=== PATIENT | female | born 1960 | race Caucasian/White ===

== ENCOUNTER 2020-02-26 08:20 | Outpatient (CLI) | payer MEDICARE, MEDICAID, SELFPAY ==
--- NOTE | 2020-02-26 15:00 | NEURO_ITS ---
Patient Number: [id number] Impression: # Complains of numbness of hands. # Mild Carpal Tunnel Syndrome bilaterally. # No ulnar neuropathy. # Normal needle/EMG exam. # Clinical correlation recommended. Nerve Conduction Studies Anti Sensory Summary Table Stim Site NR Peak (ms) P-T Amp (?V) Site1 Site2 Delta-P (ms) Dist (cm) Manuel (m/s) Left Median Anti Sensory (2-3nd Digit) Wrist 3.7 157.2 Wrist 2-3nd Digit 3.7 14.0 38 Wrist 3.8 36.2 Wrist 2-3nd Digit 3.7 14.0 38 Right Median Anti Sensory (2-3nd Digit) Wrist 3.4 71.2 Wrist 2-3nd Digit 3.4 14.0 41 Wrist 3.3 49.9 Wrist 2-3nd Digit 3.4 14.0 41 Left Radial Anti Sensory (Base 1st Digit) Wrist 2.4 37.8 Wrist Base 1st Digit 2.4 0.0 Right Radial Anti Sensory (Base 1st Digit) Wrist 2.7 10.1 Wrist Base 1st Digit 2.7 0.0 Left Ulnar Anti Sensory (5th Digit) Wrist 2.7 128.6 Wrist 5th Digit 2.7 14.0 52 Right Ulnar Anti Sensory (5th Digit) Wrist 2.9 66.9 Wrist 5th Digit 2.9 14.0 48 Motor Summary Table Stim Site NR Onset (ms) O-P Amp (mV) Site1 Site2 Delta-0 (ms) Dist (cm) Manuel (m/s) Left Median Motor (Abd Poll Brev) Wrist 4.8 1.4 Elbow Wrist 4.2 25.0 60 Elbow 9.0 1.2 Right Median Motor (Abd Poll Brev) Wrist 3.1 3.4 Elbow Wrist 4.5 25.0 56 Elbow 7.6 2.7 Left Ulnar Motor (Abd Dig Minimi) Wrist 2.7 8.0 A Elbow Wrist 4.4 29.0 66 A Elbow 7.1 7.6 Right Ulnar Motor (Abd Dig Minimi) Wrist 2.9 6.0 A Elbow Wrist 4.8 26.0 54 A Elbow 7.7 5.5 F Wave Studies NR F-Lat (ms) L-R F-Lat (ms) Left Median (Mrkrs) (Abd Poll Brev) 25.96 1.64 Right Median (Mrkrs) (Abd Poll Brev) 27.60 1.64 Left Ulnar (Mrkrs) (Abd Dig Min) 26.29 0.02 Right Ulnar (Mrkrs) (Abd Dig Min) 26.31 0.02 EMG Side Muscle Nerve Root Ins Act Fibs Amp Dur Recrt Comment Right 1stDorInt Ulnar C8-T1 Nml Nml Nml Nml Nml Right Ext Indicis Radial (Post Int) C7-8 Nml Nml Nml Nml Nml Right Ext Digitorum Radial (Post Int) C7-8 Nml Nml Nml Nml Nml Right BrachioRad Radial C5-6 Nml Nml Nml Nml Nml Right PronatorTeres Median C6-7 Nml Nml Nml Nml Nml Right Abd Poll Brev Median C8-T1 Nml Nml Nml Nml Nml Left 1stDorInt Ulnar C8-T1 Nml Nml Nml Nml Nml Left Ext Indicis Radial (Post Int) C7-8 Nml Nml Nml Nml Nml Left Ext Digitorum Radial (Post Int) C7-8 Nml Nml Nml Nml Nml Left BrachioRad Radial C5-6 Nml Nml Nml Nml Nml Left PronatorTeres Median C6-7 Nml Nml Nml Nml Nml Left Abd Poll Brev Median C8-T1 Nml Nml Nml Nml Nml Left Anconeus Radial C7-8 Nml Nml Nml Nml Nml Right Anconeus Radial C7-8 Nml Nml Nml Nml Nml Right Brachialis Musculocut C5-6 Nml Nml Nml Nml Nml Left Brachialis Musculocut C5-6 Nml Nml Nml Nml Nml Right ABD Dig Min Ulnar C8-T1 Nml Nml Nml Nml Nml Left ABD Dig Min Ulnar C8-T1 Nml Nml Nml Nml Nml MTDD
== END 2020-02-26 08:21 | disposition home or self-care (01) ==
PROVIDERS: PCP Physician Assistant; Visit Provider Physician Assistant
DX: M67.833 Other specified disorders of tendon, right wrist (principal); G56.03 Carpal tunnel syndrome, bilateral upper limbs
CPT/HCPCS: 95886; 95911

== ENCOUNTER 2021-07-07 09:06 | Emergency (ER) | payer MEDICARE, MEDICAID, SELFPAY ==
--- NOTE | ~2021-07-07 | XR_ITS ---
XR ribs RT 2V w CXR 2V DATE: 07/07/2021 09:43 INDICATION: Fall 2 days ago. Right lower posterior rib pain. Cough. TECHNIQUE: PA and lateral chest. 4 views of the right ribs. COMPARISON: None FINDINGS: Normal heart size. No hilar or mediastinal enlargement. No pulmonary infiltrate or consolid ation, pleural effusion or pulmonary vascular congestion or pneumothorax. Diffuse osteopenia. No right rib fracture is evident. Status post cholecystectomy. IMPRESSION: No active cardiac pulmonary disease No right rib fracture is evident Status post cholecystectomy Reviewed, dictated and finalized at location A. AGE WRAPPER
[2021-07-07 09:22] VITALS: BP 154/98; PULSE 88; RESP 16; TEMP 36.7; O2SAT 96
--- NOTE | 2021-07-07 10:10 | ED.GENADULT ---
HPI - General Adult General Chief complaint: Fall Stated complaint: fall a couple days ago Time Seen by Provider: 07/07/21 09:32 Source: patient Mode of arrival: ambulatory Limitations: no limitations History of Present Illness HPI narrative: Patient is a 60-year-old female presenting for evaluation of right ribs and cough. Patient reports that she has a chronic cough due to GERD, but over the past few days and has been on more persistent dry cough. She reports she is also feels soreness of the right lower ribs. Patient reports that she does have a Xopenex inhaler that she can take every 6 hours but she does not use it that frequently. Patient reports she does not smoke everyone in her house does. She reports that when she fell a few days ago she went to [place], but there were no abnormal findings. Patient reports since then she has had increased cough but she came to [place] [facility] for reevaluation. Patient denies fever, chills, nausea, vomiting or shortness of breath, chest pain or wheezing. Patient has received covid vaccinations and booster. Related Data Allergies Allergy/AdvReac Type Severity Reaction Status Date / Time hydromorphone [From Dilaudid] Allergy Dyspnea / Verified 07/07/21 09:25 SOB lisinopril Allergy Swelling Verified 07/07/21 09:25 of Lip/Tongue/Throat Penicillins Allergy Itching Verified 07/07/21 09:25 Sulfa (Sulfonamide Allergy Itching Verified 07/07/21 09:25 Antibiotics) Review of Systems Review of Systems: CONSTITUTIONAL: Denies fever, chills, or sweats. EYES: Denies visual changes, redness, or discharge. ENT: Denies rhinorrhea, congestion, sore throat, or otalgia. CARDIOVASCULAR: Denies chest pain, palpitations, or edema. RESPIRATORY: Reports cough denies dyspnea. GASTROINTESTINAL: Denies abdominal pain, nausea, vomiting, or diarrhea. GENITOURINARY: Denies dysuria or hematuria. SKIN: Denies rash or itching. MUSCULOSKELETAL: Reports rib soreness Denies back pain, joint pain, or myalgia. NEUROLOGIC: Denies headache, numbness, dizziness, or weakness. PSYCHIATRIC: Denies anxiety or depression. Exam Narrative: GENERAL: Well-appearing, well-nourished, and in no acute distress. HEAD: Normocephalic, atraumatic. EYES: PERRLA and EOMI. CHEST: Clear to auscultation. No respiratory distress. No wheezes rales or rhonchi. Persistent dry cough noted during exam. Oxygenation 98%on RA. HEART: Regular rate and rhythm. SKIN: Warm, dry, no rash. NEURO: No focal deficits. Alert and oriented x3. PSYCH: Normal mood and affect. Course Vital Signs Vital signs: Vital Signs Temperature 98.1 F 07/07/21 09:22 Pulse Rate 88 07/07/21 09:22 Respiratory Rate 16 07/07/21 09:22 Blood Pressure 154/98 H 07/07/21 09:22 Pulse Oximetry 96 07/07/21 09:22 Temperature 98.1 F 07/07/21 09:22 Pulse Rate 88 07/07/21 09:22 Respiratory Rate 16 07/07/21 09:22 Blood Pressure 154/98 H 07/07/21 09:22 Pulse Oximetry 96 07/07/21 09:22 Medical Decision Making MDM Narrative Medical decision making narrative: Patient not hypoxic. Patient vital signs are stable. Patient states x-ray is negative for signs of pneumonia. Patient has been tested for Covid and the results will take 24 to 72 hours to result. Patient has been instructed on discharge plan, to return to emergency department if she has any worsening or emergent symptoms including but not limited to shortness of breath, chest pain, hypoxia. Vital Signs Vital Signs: Vital Signs Temperature 98.1 F 07/07/21 09:22 Pulse Rate 88 07/07/21 09:22 Respiratory Rate 16 07/07/21 09:22 Blood Pressure 154/98 H 07/07/21 09:22 Pulse Oximetry 96 07/07/21 09:22 Temperature 98.1 F 07/07/21 09:22 Pulse Rate 88 07/07/21 09:22 Respiratory Rate 16 07/07/21 09:22 Blood Pressure 154/98 H 07/07/21 09:22 Pulse Oximetry 96 07/07/21 09:22 Lab Data Labs: Lab Results 07/07/21 Range/Units 10:36 SARS-CoV-2 R
[2021-07-07] MEDS: BENZONATATE 100 MG CAPSULE 200 MG PO (10:51)
[2021-07-07] MEDS: IBUPROFEN 600 MG TABLET PO (10:51)
[2021-07-07 11:19] LABS: SARS-CoV-2 RNA PCR Negative
== END 2021-07-07 10:56 | disposition home or self-care (01) ==
PROVIDERS: Physician Assistant; Emergency Provider Emergency Medicine; PCP Physician Assistant
DX: S23.41XA Sprain of ribs, initial encounter (principal); R05.9 Cough, unspecified; K21.9 Gastro-esophageal reflux disease without esophagitis; X58.XXXA Exposure to other specified factors, initial encounter
CPT/HCPCS: 71046; 71100; 99283; A9270; C9803; U0003; U0005

== ENCOUNTER 2022-06-10 11:45 | Emergency (ER) | payer MEDICARE, MEDICAID, SELFPAY ==
[2022-06-10 11:48] VITALS: BP 158/85; PULSE 100; RESP 18; TEMP 36.9; O2SAT 100
--- NOTE | 2022-06-10 12:08 | ED.GENADULT ---
HPI - General Adult General Chief complaint: Back Pain/Injury Stated complaint: weakness Time Seen by Provider: 06/10/22 11:56 History of Present Illness HPI narrative: 61-year-old female presented to the emergency department for evaluation of worsening left-sided sciatica. Patient states this has been an ongoing issue for a significant period of time. Patient has had follow-up with her primary care physician and is also following up with pain management. Patient states her pain is poorly controlled because she is no longer taking [place]. Patient states she has also run out of her Flexeril. Patient describes pain in the left lower back that does radiate down her left hip to her left knee. Patient denies any current numbness or weakness. Patient denies any loss of bowel or bladder control. Patient is currently following up with primary care physician and with pain management for this issue. Related Data Allergies Allergy/AdvReac Type Severity Reaction Status Date / Time ciprofloxacin Allergy Swelling Verified 06/10/22 11:52 of Lip/Tongue/Throat hydromorphone [From Dilaudid] Allergy Dyspnea / Verified 07/07/21 09:25 SOB lisinopril Allergy Swelling Verified 07/07/21 09:25 of Lip/Tongue/Throat Penicillins Allergy Itching Verified 07/07/21 09:25 Sulfa (Sulfonamide Allergy Itching Verified 07/07/21 09:25 Antibiotics) Review of Systems Review of Systems: CONSTITUTIONAL: Denies fever, chills, or sweats. EYES: Denies visual changes, redness, or discharge. ENT: Denies rhinorrhea, congestion, sore throat, or otalgia. CARDIOVASCULAR: Denies chest pain, palpitations, or edema. RESPIRATORY: Denies cough or dyspnea. GASTROINTESTINAL: Denies abdominal pain, nausea, vomiting, or diarrhea. GENITOURINARY: Denies dysuria or hematuria. SKIN: Denies rash or itching. MUSCULOSKELETAL: See HPI NEUROLOGIC: See HPI Exam Narrative: APPEARANCE: Well appearing, no pain, no distress, well-nourished. HEAD: normocephalic, atraumatic. EYES: PERRLA/EOMI, conjunctivae clear. NOSE: Normal no drainage NECK: Supple. No adenopathy, no masses. RESPIRATORY: Airway patent, respirations nonlabored. Clear to auscultation bilaterally, no rales, rhonchi, wheezing. CARDIOVASCULAR: Regular rate and rhythm without murmurs rubs or gallops. ABDOMINAL: Soft, nontender, nondistended, normal bowel sounds MUSCULOSKELETAL: Moves all extremities. Reproducible tenderness over her left buttock and left hip. Normal range of motion. Normal strength and reflexes. NEURO: Alert. Cranial nerves II through XII intact. Grossly intact SKIN: Warm, dry. Normal Color Course Course Emergency Course: Patient symptoms are consistent with sciatica. Differential diagnosis does also include but is not excluded. Cauda equina, lumbago, spinal stenosis, muscular strain. With patient's reassuring neuro exam sciatica is most likely and patient is being provided a Medrol Dosepak for symptom control. Patient was also provided a prescription of Flexeril. In the emergency department patient was treated with p.o. Flexeril and IM Toradol. Patient was updated on the plan for treatment and importance of close follow-up with her physicians along with reasons to return to the emergency room. All questions concerns were addressed. Vital Signs Vital signs: Vital Signs Temperature 98.4 F 06/10/22 11:48 Pulse Rate 100 06/10/22 11:48 Respiratory Rate 18 06/10/22 11:48 Blood Pressure 158/85 H 06/10/22 11:48 Pulse Oximetry 100 06/10/22 11:48 Oxygen Delivery Room Air 06/10/22 11:48 Temperature 98.4 F 06/10/22 11:48 Pulse Rate 100 06/10/22 11:48 Respiratory Rate 18 06/10/22 11:48 Blood Pressure 158/85 H 06/10/22 11:48 Pulse Oximetry 100 06/10/22 11:48 Oxygen Delivery Room Air 06/10/22 11:48 Medical Decision Making Vital Signs Vital Signs: Vital Signs Temperature 98.4 F 06/10/22 11:48 Pulse Rate 100 06/10/22 11:48 R
[2022-06-10] MEDS: KETOROLAC 30 MG/ML VIAL (*BKC) IM (12:15)
[2022-06-10] MEDS: CYCLOBENZAPRINE HCL 10 MG TABLET PO (12:15)
== END 2022-06-10 12:29 | disposition home or self-care (01) ==
PROVIDERS: Emergency Provider Emergency Medicine; PCP Emergency Medicine
DX: M54.42 Lumbago with sciatica, left side (principal)
CPT/HCPCS: 96372; 99283; A9270; J1885

== ENCOUNTER 2022-07-13 07:48 | Outpatient (CLI) | payer MEDICARE, MEDICAID, SELFPAY ==
--- NOTE | ~2022-07-13 | DEXA_ITS ---
Bone Density Report Name: ISACC MARTIN Age: 61 Sex: Female Ethnicity: White Date of : 1960 Indication: postmenopausal; screening for osteoporosis; height loss; prior fracture; hysterectomy; rheumatoid arthritis; Referring Provider: ALEXANDER AVINA Study: Bone densitometry was performed. Exam Date: July 13, 2022 Accession number: [id number] Bone Density: Region BMD T-score Z-score Classification AP Spine(L1-L4) 0.804 -2.2 -0.7 Osteopenia Femoral Neck (Left) 0.516 -3.0 -1.7 Osteoporosis Total Hip (Left) 0.706 -1.9 -1.0 Osteopenia Femoral Neck (Right) 0.515 -3.0 -1.7 Osteoporosis Total Hip (Right) 0.768 -1.4 -0.4 Osteopenia Total Hip Mean 0.737 -1.7 -0.7 Osteopenia World Health Organization criteria for BMD impression classify patients as: Normal (T-score at or above -1.0), Osteopenia (T-score between -1.0 and -2.5), or Osteoporosis (T-score at or below -2.5). 10-year Fracture Risk: FRAX not reported because: Some T-score for Spine Total or Hip Total or Femoral Neck at or below -2.5 Clinical Information Provided by Patient: Has had a low trauma fracture Has rheumatoid arthritis Has the following medical conditions: Hysterectomy Patient maximum height was 62 Menopause Age: 32 No regular weight bearing exercise Drinks caffeinated beverages Onset of menses at age 16 Number of children 0 Impression: The patient has established osteoporosis, based on the Left Femoral Neck T-score and the existence of a prior fracture. The patient has risk factors, including: previous fracture. Discussion: HIGH RISK OF FRACTURE. BONE DENSITY IS UNDESIRABLY LOW AT ONE OR MORE SKELETAL SITES, CONSISTENT WITH POSTMENOPAUSAL OSTEOPOROSIS. This patient's lowest T-score, in a patient who has previously fractured, meets the World Health Organization's (WHO) criteria for severe osteoporosis. In untreated patients, the risk of osteoporotic fracture increases approximately two-fold for each 1.0 SD decrease in T-score. Low bone density is not the only risk factor for fracture; also consider factors such as patient's age, frailty or poor health, risk of falling, risk of injury, previous osteoporotic fracture, family history of osteoporosis, cigarette smoking, low body weight, etc. Not everyone with low bone mineral density has osteoporosis; osteomalacia and other metabolic bone disorders should also be considered. Patients who have osteoporosis should be evaluated for specific diseases and conditions (secondary causes) that may cause or contribute to bone loss. The [place] Association [employer] Endocrinologists (AACE) and National Osteoporosis Foundation (NOF) recommend pharmacologic intervention for all postmenopausal women whose T-score is in this range. The patient should follow a healthful lifestyle (good nutrition with a
== END 2022-07-13 07:49 | disposition home or self-care (01) ==
PROVIDERS: PCP Emergency Medicine; Visit Provider Emergency Medicine
DX: M81.0 Age-related osteoporosis without current pathological fracture (principal); M85.89 Other specified disorders of bone density and structure, multiple sites
CPT/HCPCS: 77080

== ENCOUNTER 2022-08-17 08:15 | Outpatient (CLI) | payer MEDICARE, MEDICAID, SELFPAY ==
--- NOTE | ~2022-08-17 | MM_ITS ---
EXAMINATION: MM screening stone BI w bibiana HISTORY: Screening TECHNIQUE: Craniocaudal and mediolateral oblique 3-D tomosynthesis images were obtained and synthetic 2-D images were generated. CAD analysis was submitted and interpreted. COMPARISON: No prior mammogram is available for comparison at this institution. BREAST PARENCHYMAL COMPOSITION: There are scattered areas of fibroglandular density. FINDINGS: There is no evidence of suspicious mass, calcification, or architectural distortion to sugg est malignancy in either breast. There has been no suspicious interval change. IMPRESSION: 1. No mammographic evidence of malignancy. 2. Recommend routine screening mammography in one year. BI-RADS Category 1: Negative Reviewed, dictated and finalized at location A.
== END 2022-08-17 08:16 | disposition home or self-care (01) ==
LOC: ANHIMG 08:18
PROVIDERS: PCP Emergency Medicine; Visit Provider Emergency Medicine
DX: Z12.31 Encounter for screening mammogram for malignant neoplasm of breast (principal)
CPT/HCPCS: 77063; 77067

== ENCOUNTER 2022-11-22 00:36 | Day surgery (SDC) | payer MEDICARE, MEDICAID, SELFPAY ==
[2022-11-01 11:43] VITALS: BMI 28.4
--- NOTE | 2022-11-06 11:09 | PC.NURSE ---
pt told pat nurse on november 01 she was a difficult iv start, pat nurse called mile [facility] to do ultrasound guided however mile called back today and said she will not be here day of procedure. called pt to discuss, she does not want to reschedule. she is a 2 day prep and stated she had already been prepping her bowels to get this done. she stated sometimes nurses can find a vein. let know that endoscopy dept had several resources for iv starts but no guarentee if ultrasound not available that day. she was agreeable and wants to proceed.
[2022-11-22 06:12] VITALS: BP 125/82; PULSE 73; RESP 18; TEMP 36.3; O2SAT 100
[2022-11-22] MEDS: LACTATED RINGERS 1,000 ML 150 ML IV CONT (07:02)
--- NOTE | 2022-11-22 07:03 | WPDANESEPPF ---
Anes - Initial Pre Proc Eval Procedure: Operation Date: 11/22/22 07:15 Proposed Procedures p Esophagogastroduodenoscopy & Colonoscopy - Reggie Bauman MD Date/Time: 11/22/22 07:03 Surgeon: Reggie Bauman MD Pre Op Diagnosis: constipation, GERD, Dysphagia Patient Data Age: 62 Gender: F Height: 1.55 m Weight: 67.2 kg Last Vital Signs Temp 97.3 F L 11/22/22 06:12 Pulse 73 11/22/22 06:12 Resp 18 11/22/22 06:12 BP 125/82 11/22/22 06:12 Pulse Ox 100 11/22/22 06:12 O2 Del Method Room Air 11/22/22 06:12 Allergies Allergy/AdvReac Type Severity Reaction Status Date / Time ciprofloxacin Allergy Severe Swelling Verified 11/22/22 06:11 of Lip/Tongue/Throat hydromorphone [From Dilaudid] Allergy Severe Dyspnea / Verified 11/22/22 06:11 SOB lisinopril Allergy Severe Swelling Verified 11/22/22 06:11 of Lip/Tongue/Throat Penicillins Allergy Severe Difficulty Verified 11/22/22 06:11 Breathing cephalexin [From Keflex] Allergy Intermediate Itching Verified 11/22/22 06:11 Sulfa (Sulfonamide Allergy Intermediate Itching Verified 11/22/22 06:11 Antibiotics) Home Medications Medication Instructions Recorded Confirmed Type hydroxychloroquine 200 mg tablet 400 mg PO DAILY #60 tabs 10/30/22 11/01/22 Rx (Plaquenil) amlodipine 10 mg tablet 10 mg PO DAILY 11/01/22 11/01/22 History aripiprazole 10 mg tablet 10 mg PO DAILY 11/01/22 11/01/22 History carvedilol 6.25 mg tablet 6.25 mg PO BID 11/01/22 11/01/22 History cholecalciferol (vitamin D3) 25 25 mcg PO DAILY 11/01/22 11/01/22 History mcg (1,000 unit) tablet (Vitamin D3) hydrocodone 5 mg-acetaminophen 325 1 tablet PO Q6H PRN Pain 11/01/22 11/01/22 History mg tablet hydroxyzine pamoate 25 mg capsule 25 mg PO TID 11/01/22 11/01/22 History hydroxyzine pamoate 50 mg capsule 50 mg PO HS 11/01/22 11/01/22 History linaclotide 290 mcg capsule 290 mcg PO QACBREAK 11/01/22 11/01/22 History (Linzess) losartan 100 mg tablet 100 mg PO DAILY 11/01/22 11/01/22 History omeprazole 20 mg capsule,delayed 20 mg PO DAILY 11/01/22 11/01/22 History release rosuvastatin 20 mg tablet 20 mg PO DAILY 11/01/22 11/01/22 History Patient hx anesthesia problems: none Family hx anesthesia problems: none Results Review: All pre-operative results and documents have been reviewed as part of the pre-operative evaluation. [facility] Past Medical History Medical History (Updated 10/30/22 @ 11:38 by Missael Rouse MD) Allergies Anxiety Arthritis GERD (gastroesophageal reflux disease) Headache Hypertension IBS (irritable bowel syndrome) Low back pain Osteoporosis Rheumatoid arthritis with rheumatoid factor of multiple sites without organ or systems involvement Surgical History Surgical History (Updated 10/30/22 @ 11:03 by Mckenna Smith MA) No pertinent past surgical history Family History Family History (Updated 10/30/22 @ 11:05 by Mckenna Smith MA) Other Depression Diabetes mellitus Heart disease Hypertension Social History Social History (Updated 10/30/22 @ 11:05 by Mckenna Smith MA) Smoking status: Former smoker Tobacco type: cigarettes and e-cigarettes/vaping Additional smoking assessment comments: QUIT VAPING 05/2022- VAPED FOR COUPLE MONTHS Alcohol intake: current Substance use: never Substance use type: does not use Lack of Transportation: No Lack of Food: Never True Current Housing: I Have Housing Concerned About Future Housing: No Difficulty Paying Gas/Electric Bills: No Difficulty Paying for Meds: No Currently Unemployed: No Education: Decline to Answer Difficulty w/ Childcare or Family Care: No Living arrangements: with roommate(s) Spiritual care concerns: No Anes - Eval Final PreProcedure Day of Procedure 11/22/22 07:03 Patient weight: normal Heart: regular rate and rhythm Lungs: clear to auscultation [place]
--- NOTE | 2022-11-22 07:30 | PM.HPGS ---
History of Present Illness History of Present Illness Consent: Risks, benefits, and alternatives have been discussed and questions answered. Patient agrees to proceed with procedure. Chief complaint: constipation, GERD, Dysphagia Narrative: Miranda Hearn is a 62 year old female with gerd on ppi, lately more dysphagia- she had previous esophageal dilation. Also h/o polyps. Review of Systems Constitutional: Constitutional: Denies headache(s) and Denies weakness Eyes: Eyes: Denies blurry vision ENT: Reports Normal hearing present, Denies headache(s) and Denies neck pain Cardiovascular: Cardiovascular: Denies chest pain and Denies dyspnea Respiratory: Respiratory: Denies dyspnea Gastrointestinal: Gastrointestinal: Reports no additional gastrointestinal complaints Genitourinary: Genitourinary: Denies dysuria Musculoskeletal: Musculoskeletal: Denies neck pain Integumentary/Breasts: Skin/Breast: Denies dry skin Neurologic: Reports Normal hearing present, Denies headache(s) and Denies weakness Psychiatric: Psychiatric: Denies anxiety Endocrine: Endocrine: Denies change in body appearance Hematologic/Lymphatic: Hematologic/Lymphatic: Denies easy bleeding Allergic/Immunologic: Allergic/Immunologic: Denies urticaria PMFSH Past Medical History Medical History (Updated 11/22/22 @ 07:30 by Reggie Bauman MD) Allergies Anxiety Arthritis Colon cancer screening Dysphagia GERD (gastroesophageal reflux disease) Headache Hypertension IBS (irritable bowel syndrome) Low back pain Osteoporosis Rheumatoid arthritis with rheumatoid factor of multiple sites without organ or systems involvement Surgical History Surgical History (Updated 10/30/22 @ 11:03 by Mckenna Smith MA) No pertinent past surgical history Family History Family History (Updated 10/30/22 @ 11:05 by Mckenna Smith MA) Other Depression Diabetes mellitus Heart disease Hypertension Social History Social History (Updated 10/30/22 @ 11:05 by Mckenna Smith MA) Smoking status: Former smoker Tobacco type: cigarettes and e-cigarettes/vaping Additional smoking assessment comments: QUIT VAPING 05/2022- VAPED FOR COUPLE MONTHS Alcohol intake: current Substance use: never Substance use type: does not use Lack of Transportation: No Lack of Food: Never True Current Housing: I Have Housing Concerned About Future Housing: No Difficulty Paying Gas/Electric Bills: No Difficulty Paying for Meds: No Currently Unemployed: No Education: Decline to Answer Difficulty w/ Childcare or Family Care: No Living arrangements: with roommate(s) Spiritual care concerns: No Meds Home Medications and Allergies Home Medications Medication Instructions Recorded Confirmed Type hydroxychloroquine 200 mg tablet 400 mg PO DAILY #60 tabs 10/30/22 11/01/22 Rx (Plaquenil) amlodipine 10 mg tablet 10 mg PO DAILY 11/01/22 11/01/22 History aripiprazole 10 mg tablet 10 mg PO DAILY 11/01/22 11/01/22 History carvedilol 6.25 mg tablet 6.25 mg PO BID 11/01/22 11/01/22 History cholecalciferol (vitamin D3) 25 25 mcg PO DAILY 11/01/22 11/01/22 History mcg (1,000 unit) tablet (Vitamin D3) hydrocodone 5 mg-acetaminophen 325 1 tablet PO Q6H PRN Pain 11/01/22 11/01/22 History mg tablet hydroxyzine pamoate 25 mg capsule 25 mg PO TID 11/01/22 11/01/22 History hydroxyzine pamoate 50 mg capsule 50 mg PO HS 11/01/22 11/01/22 History linaclotide 290 mcg capsule 290 mcg PO QACBREAK 11/01/22 11/01/22 History (Linzess) losartan 100 mg tablet 100 mg PO DAILY 11/01/22 11/01/22 History omeprazole 20 mg capsule,delayed 20 mg PO DAILY 11/01/22 11/01/22 History release rosuvastatin 20 mg tablet 20 mg PO DAILY 11/01/22 11/01/22 History Allergies Allergy/AdvReac Type Severity Reaction Status Date / Time ciprofloxacin Allergy Severe Swelling Verified 11/22/22 06:11 of Lip/Tongue/Throat hydromorphone [F
--- NOTE | 2022-11-22 07:54 | SUR.OPER ---
EGD completed at 743, Colonoscopy started at 747
[2022-11-22 08:03] VITALS: BP 122/86; PULSE 66; RESP 24; O2SAT 94
[2022-11-22 08:13] VITALS: BP 118/59; PULSE 67; RESP 22; O2SAT 97
[2022-11-22 08:23] VITALS: BP 121/69; PULSE 68; RESP 21; O2SAT 95
== END 2022-11-22 08:26 | disposition home or self-care (01) ==
PROVIDERS: PCP Emergency Medicine; Visit Provider Internal Medicine Gastroenterology
PROC: 0DJ08ZZ Inspection of Upper Intestinal Tract, Via Natural or Artificial Opening Endoscopic (ICD-10-PCS; CPT 43235; principal; 2022-11-22 07:15)
DX: Z12.11 Encounter for screening for malignant neoplasm of colon (principal); K57.30 Diverticulosis of large intestine without perforation or abscess without bleeding; K63.5 Polyp of colon; K21.00 Gastro-esophageal reflux disease with esophagitis, without bleeding; K22.2 Esophageal obstruction; K44.9 Diaphragmatic hernia without obstruction or gangrene; I10 Essential (primary) hypertension; M05.89 Other rheumatoid arthritis with rheumatoid factor of multiple sites; M81.0 Age-related osteoporosis without current pathological fracture; Z87.891 Personal history of nicotine dependence
CPT/HCPCS: 45385; 43249; 43239; 88305; C1726; J2704; J7120

== ENCOUNTER 2023-04-02 19:52 | Emergency (ER) | payer MEDICARE, MEDICAID, SELFPAY ==
[2023-04-02 20:10] VITALS: BP 118/75; PULSE 89; RESP 17; TEMP 36.2; O2SAT 98
--- NOTE | 2023-04-02 21:05 | PC.NURSE ---
patient to desk and states she is going home. advised to come back to ER if symptoms get worse.
== END 2023-04-02 21:05 | disposition left against medical advice (07) ==
LOC: ANHED 21:11
PROVIDERS: PCP Emergency Medicine
DX: R20.2 Paresthesia of skin (principal)
CPT/HCPCS: 99199

== ENCOUNTER 2023-05-17 09:40 | Outpatient (CLI) | payer MEDICARE, MEDICAID, SELFPAY ==
[2023-05-20 18:08] LABS: PNL A Neg Control 4; PNL B Corr Neg Control 3; T SPOT NEG CONTROL Passed; T SPOT POS CONTROL Passed; T Spot TB Result Negative (Negative)
== END 2023-05-17 09:41 | disposition home or self-care (01) ==
LOC: ANHLAB 09:43
PROVIDERS: PCP Emergency Medicine; Visit Provider Internal Medicine
DX: Z22.7 Latent tuberculosis (principal)
CPT/HCPCS: 36415; 86481

== ENCOUNTER 2023-10-12 07:40 | Outpatient (CLI) | payer MEDICARE, MEDICAID, SELFPAY ==
--- NOTE | ~2023-10-12 | MM_ITS ---
EXAMINATION: MM screening stone BI w bibiana HISTORY: Screening mammogram TECHNIQUE: Craniocaudal and mediolateral oblique 3-D tomosynthesis images were obtained and synthetic 2-D images were generated. CAD analysis was submitted and interpreted. COMPARISON: 08/17/2022 bilateral screening mammogram BREAST PARENCHYMAL COMPOSITION: The breasts are almost entirely fatty. FINDINGS: There is no evidence of suspicious mass, calcification, or architectural distortion to sugg est malignancy in either breast. There has been no suspicious interval change. IMPRESSION: 1. No mammographic evidence of malignancy. 2. Recommend routine screening mammography in one year. BI-RADS Category 1: Negative Reviewed, dictated and finalized at location [facility].
== END 2023-10-12 07:41 | disposition home or self-care (01) ==
LOC: ANHIMG 07:42
PROVIDERS: PCP Emergency Medicine; Visit Provider Internal Medicine
DX: Z12.31 Encounter for screening mammogram for malignant neoplasm of breast (principal)
CPT/HCPCS: 77063; 77067

== ENCOUNTER 2023-11-20 07:00 | Outpatient (NON) | payer MEDICARE, MEDICAID, SELFPAY | END 2023-11-20 07:01 | disposition home or self-care (01) | LOC: ANHLAB 11-21 08:32 | PROVIDERS: PCP Emergency Medicine; Visit Provider Internal Medicine Gastroenterology | DX: K21.9 Gastro-esophageal reflux disease without esophagitis (principal) | CPT/HCPCS: 88305 ==

== ENCOUNTER 2023-11-20 11:32 | Day surgery (SDC) | payer MEDICARE, MEDICAID, SELFPAY ==
[2023-11-16 10:26] VITALS: BMI 26.2
--- NOTE | 2023-11-19 07:35 | WPDANESEPPF ---
Anes - Initial Pre Proc Eval Procedure: Operation Date: 11/20/23 13:30 Proposed Procedures p Esophagogastroduodenoscopy - Gokul Mcintyre MD Date/Time: 11/19/23 07:35 Surgeon: Gokul Mcintyre MD Pre Op Diagnosis: GERD w/o esophagitis, Dysphagia, unspecified Patient Data Age: 63 Gender: F Height: 1.55 m Weight: 63.14 kg Allergies Allergy/AdvReac Type Severity Reaction Status Date / Time ciprofloxacin Allergy Severe Swelling Verified 11/20/23 12:15 of Lip/Tongue/Throat hydromorphone [From Dilaudid] Allergy Severe Dyspnea / Verified 11/20/23 12:15 SOB lisinopril Allergy Severe Swelling Verified 11/20/23 12:15 of Lip/Tongue/Throat Penicillins Allergy Severe Difficulty Verified 11/20/23 12:15 Breathing cephalexin [From Keflex] Allergy Intermediate Itching Verified 11/20/23 12:15 Sulfa (Sulfonamide Allergy Intermediate Itching Verified 11/20/23 12:15 Antibiotics) Home Medications Medication Instructions Recorded Confirmed Type amlodipine 10 mg tablet 10 mg PO DAILY 11/01/22 11/20/23 History carvedilol 6.25 mg tablet 6.25 mg PO BID 11/01/22 11/20/23 History cholecalciferol (vitamin D3) 25 25 mcg PO DAILY 11/01/22 11/20/23 History mcg (1,000 unit) tablet (Vitamin D3) hydroxyzine pamoate 25 mg capsule 25 mg PO TID 11/01/22 11/20/23 History hydroxyzine pamoate 50 mg capsule 50 mg PO HS 11/01/22 11/20/23 History linaclotide 290 mcg capsule 290 mcg PO QACBREAK 11/01/22 11/20/23 History (Linzess) losartan 100 mg tablet 100 mg PO DAILY 11/01/22 11/20/23 History omeprazole 20 mg capsule,delayed 20 mg PO DAILY 11/01/22 11/20/23 History release rosuvastatin 20 mg tablet 20 mg PO DAILY 11/01/22 11/20/23 History hydroxychloroquine 200 mg tablet 400 mg PO DAILY #180 tabs 08/31/23 11/20/23 Rx (Plaquenil) lurasidone 60 mg tablet 60 mg PO DIRECTED 11/16/23 11/20/23 History Patient hx anesthesia problems: none Family hx anesthesia problems: none Results Review: All pre-operative results and documents have been reviewed as part of the pre-operative evaluation. [facility] Past Medical History Medical History Allergies Anxiety Arthritis Bilateral hand pain Chronic, continuous use of opioids Colon cancer screening COPD (chronic obstructive pulmonary disease) Dysphagia Ectopic Elevated transaminase level Fatty liver GERD (gastroesophageal reflux disease) Headache Hepatitis C antibody test positive Hypertension IBS (irritable bowel syndrome) Low back pain Osteoporosis Rheumatoid arthritis with rheumatoid factor of multiple sites without organ or systems involvement TB lung, latent Surgical History Surgical History History of hysterectomy Hx of appendectomy Hx of cholecystectomy No pertinent past surgical history Family History Family History Other Depression Diabetes mellitus Heart disease Hypertension Social History Social History Smoking status: Former smoker Tobacco type: cigarettes and e-cigarettes/vaping Additional smoking assessment comments: QUIT VAPING 05/2022- VAPED FOR COUPLE MONTHS Alcohol intake: current Alcohol use details: rarely, socially, 1-3 if with family Substance use: never Substance use type: does not use Lack of Transportation: No Lack of Food: Never True Current Housing: I Have Housing Concerned About Future Housing: No Difficulty Paying Gas/Electric Bills: No Difficulty Paying for Meds: No Currently Unemployed: No Education: Decline to Answer Difficulty w/ Childcare or Family Care: No Living arrangements: with roommate(s) Spiritual care concerns: No Anes - Eval Final PreProcedure Day of Procedure 11/19/23 07:35 Patient weight: overweight Heart: regular
[2023-11-20 12:20] VITALS: BP 175/101; PULSE 81; RESP 14; TEMP 37.3; O2SAT 100
--- NOTE | 2023-11-20 12:35 | SUR.PREOP ---
Dr. Dickens notified of pt's pre-op blood pressure, 175/101 and AM medications. No orders at this time.
[2023-11-20] MEDS: LACTATED RINGERS 1,000 ML 150 ML IV CONT (12:38)
--- NOTE | 2023-11-20 13:16 | PM.HPGS ---
History of Present Illness History of Present Illness Consent: Risks, benefits, and alternatives have been discussed and questions answered. Patient agrees to proceed with procedure. Chief complaint: GERD w/o esophagitis, Dysphagia, unspecified Narrative: Miranda Hearn is a 63 year old female Referred for difficulty swallowing. She has had esophageal dilatation of the. Sometimes she been benefits from the procedure Review of Systems Review of Systems: All systems reviewed & are unremarkable except as noted in HPI and below PMFSH Past Medical History Medical History Allergies Anxiety Arthritis Bilateral hand pain Chronic, continuous use of opioids Colon cancer screening COPD (chronic obstructive pulmonary disease) Dysphagia Ectopic Elevated transaminase level Fatty liver GERD (gastroesophageal reflux disease) Headache Hepatitis C antibody test positive Hypertension IBS (irritable bowel syndrome) Low back pain Osteoporosis Rheumatoid arthritis with rheumatoid factor of multiple sites without organ or systems involvement TB lung, latent Surgical History Surgical History History of hysterectomy Hx of appendectomy Hx of cholecystectomy No pertinent past surgical history Family History Family History Other Depression Diabetes mellitus Heart disease Hypertension Social History Social History Smoking status: Former smoker Tobacco type: cigarettes and e-cigarettes/vaping Additional smoking assessment comments: QUIT VAPING 05/2022- VAPED FOR COUPLE MONTHS Alcohol intake: current Alcohol use details: rarely, socially, 1-3 if with family Substance use: never Substance use type: does not use Lack of Transportation: No Lack of Food: Never True Current Housing: I Have Housing Concerned About Future Housing: No Difficulty Paying Gas/Electric Bills: No Difficulty Paying for Meds: No Currently Unemployed: No Education: Decline to Answer Difficulty w/ Childcare or Family Care: No Living arrangements: with roommate(s) Spiritual care concerns: No Meds Home Medications and Allergies Home Medications Medication Instructions Recorded Confirmed Type amlodipine 10 mg tablet 10 mg PO DAILY 11/01/22 11/20/23 History carvedilol 6.25 mg tablet 6.25 mg PO BID 11/01/22 11/20/23 History cholecalciferol (vitamin D3) 25 25 mcg PO DAILY 11/01/22 11/20/23 History mcg (1,000 unit) tablet (Vitamin D3) hydroxyzine pamoate 25 mg capsule 25 mg PO TID 11/01/22 11/20/23 History hydroxyzine pamoate 50 mg capsule 50 mg PO HS 11/01/22 11/20/23 History linaclotide 290 mcg capsule 290 mcg PO QACBREAK 11/01/22 11/20/23 History (Linzess) losartan 100 mg tablet 100 mg PO DAILY 11/01/22 11/20/23 History omeprazole 20 mg capsule,delayed 20 mg PO DAILY 11/01/22 11/20/23 History release rosuvastatin 20 mg tablet 20 mg PO DAILY 11/01/22 11/20/23 History hydroxychloroquine 200 mg tablet 400 mg PO DAILY #180 tabs 08/31/23 11/20/23 Rx (Plaquenil) lurasidone 60 mg tablet 60 mg PO DIRECTED 11/16/23 11/20/23 History Allergies Allergy/AdvReac Type Severity Reaction Status Date / Time ciprofloxacin Allergy Severe Swelling Verified 11/20/23 12:15 of Lip/Tongue/Throat hydromorphone [From Dilaudid] Allergy Severe Dyspnea / Verified 11/20/23 12:15 SOB lisinopril Allergy Severe Swelling Verified 11/20/23 12:15 of Lip/Tongue/Throat Penicillins Allergy Severe Difficulty Verified 11/20/23 12:15 Breathing cephalexin [From Keflex] Allergy Intermediate Itching Verified 11/20/23 12:15 Sulfa (Sulfonamide Allergy Intermediate Itching Verified 11/20/23 12:15 Antibiotics) Vital Signs Vital Signs - 24 hr 11/20/23 12:20 Temperature 37.3 C
[2023-11-20 13:36] VITALS: BP 113/75; PULSE 72; RESP 18; O2SAT 98
--- NOTE | 2023-11-20 13:42 | WPDANESPN ---
Anes - Prog Note Post-Op Date/Time: 11/20/23 13:42 Cardiovascular status: normal Respiratory status: normal Airway patency: baseline Mental status: baseline Post-Op hydration status: normal Vital Signs: Last Vital Signs Temp 37.3 C 11/20/23 12:20 Pulse 81 11/20/23 12:20 Resp 14 11/20/23 12:20 BP 175/101 H 11/20/23 12:20 Pulse Ox 100 11/20/23 12:20 O2 Del Method Room Air 11/20/23 12:20 Pain Score (VAS): 0 I/O: Intake & Output 11/19/23 11/20/23 11/20/23 23:59 07:59 15:59 Intake Total 400 Balance 400 Post-procedural complaints: none Patient Feedback: Patient satisfied with anesthetic care. Other Findings: Patient vital signs back to baseline. Patient denies nausea and vomiting. Patient's pain under control. Patient OK for discharge.
[2023-11-20 13:46] VITALS: BP 101/68; PULSE 70; RESP 14; O2SAT 97
[2023-11-20 13:56] VITALS: BP 103/72; PULSE 66; RESP 16; O2SAT 98
== END 2023-11-20 14:25 | disposition home or self-care (01) ==
PROVIDERS: PCP Emergency Medicine; Visit Provider Internal Medicine Gastroenterology
PROC: 0DJ08ZZ Inspection of Upper Intestinal Tract, Via Natural or Artificial Opening Endoscopic (ICD-10-PCS; CPT 43235; principal; 2023-11-20 13:30)
DX: R13.19 Other dysphagia (principal); K22.2 Esophageal obstruction; K29.70 Gastritis, unspecified, without bleeding
CPT/HCPCS: 43249; 43239

== ENCOUNTER 2024-04-05 15:50 | Emergency (ER) | payer MEDICARE, MEDICAID, SELFPAY ==
--- NOTE | ~2024-04-05 | CT_ITS ---
EXAMINATION: CT thoracic lumbar w con DATE: 04/05/2024 18:27 INDICATION: back pain, recent spinal cord stimular placement . TECHNIQUE: Computed tomography (CT) of the thoracic and lumbar spine was performed without intravenou s contrast. Automated exposure control and iterative reconstruction technique were employed. The dose -length product was 583.02 mGy-cm. COMPARISON: None FINDINGS: THORACIC SPINE: Spinal stimulator leads enter the canal at T11, lead terminates at T8 Vertebral body alignment intact . Mild chronic appearing anterior height loss at T8 and T9. Mild chronic appearing lateral-loss at T1 0. Mild chronic appearing anterolateral height loss at T11. Multilevel mild degenerative disc disease and facet arthropathy. No traumatic malalignment or fracture. Small focus of subcutaneous gas at the T9 level. Mild subcutaneous edema posteriorly. No focal fluid collection or abnormal enhancement. Le ft lung atelectasis. LUMBAR SPINE: 5 nonrib-bearing lumbar-type vertebral bodies. Pedicles intact. Normal vertebral body alignment. Vert ebral body heights preserved. Mild multilevel degenerative disc disease. Moderate multilevel lower [place] mbar facet arthropathy. No pars defects. No severe central canal or neural foraminal narrowing. No fo [place] fluid collection or abnormal enhancement. Mild subcutaneous edema posteriorly. IMPRESSION: No acute fracture or traumatic malalignment detected in the thoracic or lumbar spine. No focal fluid collection or abnormal enhancement. Reviewed, dictated and finalized at location [facility]. [facility]
[2024-04-05 15:59] VITALS: BP 132/94; PULSE 83; RESP 20; TEMP 36.6; O2SAT 100
[2024-04-05 16:13] VITALS: BP 134/70; PULSE 71; RESP 18; TEMP 36.7; O2SAT 100
[2024-04-05] MEDS: ACETAMINOPHEN 500 MG TABLET 1000 MG PO (16:42)
[2024-04-05] MEDS: KETOROLAC 30 MG/ML VIAL (*BKC) IM (16:43)
--- NOTE | 2024-04-05 16:48 | ED_ITS ---
HPI - Back Pain/Injury General Chief Complaint: Back Pain/Injury Stated Complaint: back pain- spinal surgery on 04/03 Time Seen by Provider: 04/05/24 16:26 Source: patient Mode of arrival: ambulatory Limitations: no limitations History of Present Illness HPI Narrative: This is a 63 year old female that presents to the ER for mid to low back pain. Reports she recently went spinal cord stimulator implantation 2 days ago. This was done at [place] with Dr. Higgins. She has not had relief with her prescribed pain medication of Tramadol and Flexeril. Denies fever, or abnormal drainage. Related Data Home Medications Medication Instructions Recorded Confirmed amlodipine 10 mg tablet 10 mg PO DAILY 11/01/22 11/20/23 carvedilol 6.25 mg tablet 6.25 mg PO BID 11/01/22 11/20/23 cholecalciferol (vitamin D3) 25 25 mcg PO DAILY 11/01/22 11/20/23 mcg (1,000 unit) tablet (Vitamin D3) hydroxyzine pamoate 25 mg capsule 25 mg PO TID 11/01/22 11/20/23 hydroxyzine pamoate 50 mg capsule 50 mg PO HS 11/01/22 11/20/23 linaclotide 290 mcg capsule 290 mcg PO QACBREAK 11/01/22 11/20/23 (Linzess) losartan 100 mg tablet 100 mg PO DAILY 11/01/22 11/20/23 omeprazole 20 mg capsule,delayed 20 mg PO DAILY 11/01/22 11/20/23 release rosuvastatin 20 mg tablet 20 mg PO DAILY 11/01/22 11/20/23 lurasidone 60 mg tablet 60 mg PO DIRECTED 11/16/23 11/20/23 Allergies Allergy/AdvReac Type Severity Reaction Status Date / Time ciprofloxacin Allergy Severe Swelling Verified 04/05/24 16:42 of Lip/Tongue/Throat hydromorphone [From Dilaudid] Allergy Severe Dyspnea / Verified 04/05/24 16:42 SOB lisinopril Allergy Severe Swelling Verified 04/05/24 16:42 of Lip/Tongue/Throat Penicillins Allergy Severe Difficulty Verified 04/05/24 16:42 Breathing cephalexin [From Keflex] Allergy Intermediate Itching Verified 04/05/24 16:42 Sulfa (Sulfonamide Allergy Intermediate Itching Verified 11/09/24 16:42 Antibiotics) Review of Systems Review of Systems: CONSTITUTIONAL: Denies fever SKIN: Denies rash MUSCULOSKELETAL: Reports back pain, joint pain, and myalgia. NEUROLOGIC: Denies numbness, or weakness. All systems reviewed & are unremarkable except as noted in HPI and below PMFSH Past Medical History Medical History Allergies Anxiety Arthritis Bilateral hand pain Chronic, continuous use of opioids Colon cancer screening COPD (chronic obstructive pulmonary disease) Dysphagia Ectopic Elevated transaminase level Fatty liver GERD (gastroesophageal reflux disease) Headache Hepatitis C antibody test positive Hypertension IBS (irritable bowel syndrome) Low back pain Osteoporosis Rheumatoid arthritis with rheumatoid factor of multiple sites without organ or systems involvement TB lung, latent Surgical History Surgical History History of hysterectomy Hx of appendectomy Hx of cholecystectomy No pertinent past surgical history Family History Family History Other Depression Diabetes mellitus Heart disease Hypertension Social History Social History Smoking status: Former smoker Tobacco type: cigarettes and e-cigarettes/vaping Additional smoking assessment comments: QUIT VAPING 05/2022- VAPED FOR COUPLE MONTHS Alcohol intake: current Alcohol use details: rarely, socially, 1-3 if with family Substance use: never Substance use type: does not use Lack of Transportation: No Lack of Food: Never True Current Housing: I Have Housing Concerned About Future Housing: No Difficulty Paying Gas/Electric Bills: No Difficulty Paying for Meds: No Currently Unemployed: No Education: Decline to Answer Difficulty w/ Childcare or Family Care: No Living arrangements: with roommate(s) Spiritual care concerns: No Exam Narrative: GENERAL: Well-appearing, well-nourished, and in no acute distress. HEAD: Normocephalic, atraumatic. EYES: EOMI. CHEST: Clear to auscultation. No respiratory distress. No wheezes rales or rhonchi HEART: Regular rate and rhythm. No murmur heard. Normal peripheral pulses. BACK: Incisions to the mid and right lower back are clean, dry and intact without any surrounding erythema EXTREMITIES: Normal range of motion. No edema. Strength equal in bilateral lower extremities (5/5). Normal DP pulses SKIN: Warm, dry, no rash. NEURO: No focal deficits. Alert and oriented x3. PSYCH: Normal mood and affect Course Course Emergency Course: patient resting comfortably. Reports she is ready for discharge Vital Signs Vital signs: Vital Signs Temperature 97.9 F 04/05/24 15:59 Pulse Rate 83 04/05/24 15:59 Respiratory Rate 20 04/05/24 15:59 Blood Pressure 132/94 H 04/05/24 15:59 Pulse Oximetry 100 04/05/24 15:59 Oxygen Delivery Room Air 04/05/24 15:59 Temperature 98.0 F 04/05/24 19:09 Pulse Rate 88 04/05/24 19:09 Respiratory Rate 16 04/05/24 19:09 Blood Pressure 127/78 04/05/24 19:09 Pulse Oximetry 100 04/05/24 19:09 Oxygen Delivery Room Air 04/05/24 16:13 MDM - Back Pain/Injury MDM Narrative Medical decision making narrative: Patient presents to the emergency department for mid to low back pain. History of chronic back pain. She recently had a spinal cord stimulator placed. She is afebrile and nontoxic appearing. She is neurologically intact. Incisions are well healing without signs of infection. CBC with mild leukocytosis to 11.4. Metabolic panel with mild hypokalemia with potassium of 3.2. Prescription sent to the pharmacy. CRP is mildly elevated. CT thoracic/ lumbar spine is without acute findings. Patient resting comfortably. Reports she is ready for discharge. She is to follow up with her surgeon for further management. She was given warnings to return to the ER Differential Diagnosis Differential diagnosis: Likely lumbar radiculopathy, sciatica, strain of lumbar region and other ( postop seroma) Lab Data Attestation: I reviewed the patient's lab results. 04/05/24 17:32 04/05/24 17:32 Labs: Lab Results 04/05/24 Range/Units 17:32 WBC 11.4 H (4.5-10.0) K/mm3 RBC 4.43 (4.2-5.4) M/mm3 Hgb 12.6 (12.0-15.0) g/dL Hct 37.5 (37.0-47.0) % MCV 84.7 (80-100) fl MCH 28.4 (26-34) pg MCHC 33.6 (32-36) g/dl RDW 13.2 (11.5-14.5) % Plt Count 289 (150-375) k/mm3 MPV 10.0 (7.4-10.4) fl Immature Gran % (Auto) 0.4 (0-0.5) % Neut % (Auto) 53.3 (45.5-73.1) % Lymph % (Auto) 33.6 (18.3-44.2) % [place] % (Auto) 10.2 H (2.6-8.5) % Eos % (Auto) 1.4 (0-4.4) % Baso % (Auto) 1.1 (0.2-1.2) % Lymph # (Auto) 3.83 H (0.9-3.2) K/mm3 [place] # (Auto) 1.2 H (0.1-0.6) K/mm3 Eos # (Auto) 0.2 (0-0.3) K/mm3 Baso # (Auto) 0.1 (0.0-0.1) K/mm3 Abs Immat Gran (auto) 0.04 H (0.00-0.031) K/mm3 Absolute Neuts (auto) 6.1 (1.3-6.7) K/mm3 Absolute Nucleated RBC 0.000 (0.0-0.012) K/mm3 Nucleated RBC % 0.0 (0.0-0.2) % Sodium 139 (137-145) mmol/L Potassium 3.2 L (3.4-5.0) mmol/L Chloride 103 (98-107) mmol/L Carbon Dioxide 30 (22-30) mmol/L Anion Gap 6 (4-12) mmol/L BUN 13 (7-17) mg/dL Creatinine 0.70 (0.7-1.0) mg/dL Estim Creat Clear Calc 54 ml/min Estimated GFR > 60 (59 - ) Glucose 104 (65-110) mg/dL Calcium 9.8 (8.4-10.2) mg/dL Magnesium 1.7 (1.6-2.3) mg/dL C-Reactive Protein 2.8 H (<1.0) mg/dL Imaging Data Radiologist's impression: ITS Impressions Thoracic/Lumbar Spine CT 04/05/24 18:35 IMPRESSION: No acute fracture or traumatic malalignment detected in the thoracic or lumbar spine. No focal fluid collection or abnormal enhancement. Critical Care Time Critical Care Time Critical Care Time: No Discharge Plan Discharge Clinical Impression: Back pain, Hypokalemia Patient Disposition: Home, Self-Care Condition: Improved Instructions: Back Pain (ED) Additional Instructions: Return to the ER if you experience fever, weakness, numbness, bowel/bladder inc ontinence, or any other symptoms that are concerning to you Rest, take anti-inflammatories (Aleve, Ibuprofen, Naproxen, etc) or Tylenol as needed for pain as well as muscle relaxer (Flexeril) as needed for pain. Muscle relaxers can make you drowsy, do not drive if you take this. prescribed pain me dication as needed Follow up with your spine doctor for further care Prescriptions: New potassium chloride 20 mEq packet 20 meq PO DAILY 5 Days Qty: 30 0RF No Action hydroxychloroquine [Plaquenil] 200 mg tablet 400 mg PO DAILY Qty: 180 1RF carvedilol 6.25 mg tablet 6.25 mg PO BID hydroxyzine pamoate 50 mg capsule 50 mg PO HS amlodipine 10 mg Tablet 10 mg PO DAILY omeprazole 20 mg capsule,delayed release(DR/EC) 20 mg PO DAILY losartan 100 mg tablet 100 mg PO DAILY hydroxyzine pamoate 25 mg capsule 25 mg PO TID rosuvastatin 20 mg tablet 20 mg PO DAILY cholecalciferol (vitamin D3) [Vitamin D3] 25 mcg (1,000 unit) Tablet 25 mcg PO DAILY Linzess 290 mcg capsule 290 mcg PO QACBREAK lurasidone 60 mg tablet 60 mg PO DIRECTED Follow-up/Referrals: Raffy Alvarenga MD [Primary Care Provider] -
[2024-04-05] MEDS: oxyCODONE HCL (*CRX) 5 MG TAB IR PO (16:51)
[2024-04-05 17:39] LABS: Basophils Absolute Auto 0.1 K/mm3 (0.0-0.1); Basophils Percent Auto 1.1 % (0.2-1.2); Eosinophils Absolute Auto 0.2 K/mm3 (0-0.3); Eosinophils Percent Auto 1.4 % (0-4.4); Hematocrit 37.5 % (37.0-47.0); Hemoglobin 12.6 g/dL (12.0-15.0); Immature Granulocyte Absolute 0.04 K/mm3 (0.00-0.031); Immature Granulocyte Percent A 0.4 % (0-0.5); Lymphocytes Absolute Auto 3.83 K/mm3 (0.9-3.2); Lymphocytes Percent Auto 33.6 % (18.3-44.2); Mean Corpuscular HGB Conc 33.6 g/dl (32-36); Mean Corpuscular Hemoglobin 28.4 pg (26-34); Mean Corpuscular Volume 84.7 fl (80-100); Monocytes Absolute Auto 1.2 K/mm3 (0.1-0.6); Monocytes Percent Auto 10.2 % (2.6-8.5); Neutrophils Absolute Auto 6.1 K/mm3 (1.3-6.7); Neutrophils Percent Auto 53.3 % (45.5-73.1); Platelet Count Result 289 k/mm3 (150-375); Red Blood Count 4.43 M/mm3 (4.2-5.4); Red Cell Distribution Width 13.2 % (11.5-14.5); White Blood Count 11.4 K/mm3 (4.5-10.0)
[2024-04-05 17:53] LABS: Anion Gap 6 mmol/L (4-12); Blood Urea Nitrogen 13 mg/dL (7-17); Calcium 9.8 mg/dL (8.4-10.2); Carbon Dioxide 30 mmol/L (22-30); Chloride 103 mmol/L (98-107); Estimated CRCL calculation 54 ml/min; Estimated Glomerular Filt Rate > 60; Glucose 104 mg/dL (65-110); Potassium 3.2 mmol/L (3.4-5.0); Sodium 139 mmol/L (137-145)
[2024-04-05 17:55] LABS: CRP 2.8 mg/dL (<1.0)
[2024-04-05 18:27] LABS: Magnesium 1.7 mg/dL (1.6-2.3)
[2024-04-05 19:09] VITALS: BP 127/78; PULSE 88; RESP 16; TEMP 36.7; O2SAT 100
== END 2024-04-05 19:10 | disposition home or self-care (01) ==
PROVIDERS: Emergency Provider Physician Assistant; PCP Emergency Medicine
DX: M54.50 Low back pain, unspecified (principal); E87.6 Hypokalemia; J44.9 Chronic obstructive pulmonary disease, unspecified; I10 Essential (primary) hypertension; K58.9 Irritable bowel syndrome, unspecified; K21.9 Gastro-esophageal reflux disease without esophagitis; M81.0 Age-related osteoporosis without current pathological fracture; M05.79 Rheumatoid arthritis with rheumatoid factor of multiple sites without organ or systems involvement; M19.90 Unspecified osteoarthritis, unspecified site; Z96.82 Presence of neurostimulator; Z87.891 Personal history of nicotine dependence; Z79.899 Other long term (current) drug therapy
CPT/HCPCS: 36415; 72129; 72132; 80048; 83735; 85025; 86140; 96372; 99284; A9270; J1885; Q9967

== ENCOUNTER 2024-07-25 00:19 | Day surgery (SDC) | payer MEDICARE, MEDICAID, SELFPAY ==
[2024-07-18 10:29] VITALS: BMI 24.7
[2024-07-25 09:27] VITALS: BP 142/94; PULSE 81; RESP 16; TEMP 36.3; O2SAT 99; BMI 24.7
[2024-07-25] MEDS: LACTATED RINGERS 1,000 ML 150 ML IV CONT (09:38)
--- NOTE | 2024-07-25 09:41 | WPDANESEPPF ---
Anes - Initial Pre Proc Eval Procedure: Operation Date: 07/25/24 10:30 Proposed Procedures p Esophagogastroduodenoscopy - Reggie Bauman MD Date/Time: 07/25/24 09:41 Surgeon: Reggie Bauman MD Pre Op Diagnosis: Dysphagia Patient Data Age: 63 Gender: F Height: 1.55 m Weight: 59.5 kg Last Vital Signs Temp 36.3 C L 07/25/24 09:27 Pulse 81 07/25/24 09:27 Resp 16 07/25/24 09:27 BP 142/94 H 07/25/24 09:27 Pulse Ox 99 07/25/24 09:27 O2 Del Method Room Air 07/25/24 09:27 Allergies Allergy/AdvReac Type Severity Reaction Status Date / Time ciprofloxacin Allergy Severe Swelling Verified 07/25/24 09:25 of Lip/Tongue/Throat hydromorphone (From Dilaudid) Allergy Severe Dyspnea / Verified 07/25/24 09:25 SOB lisinopril Allergy Severe Swelling Verified 07/25/24 09:25 of Lip/Tongue/Throat Penicillins Allergy Severe Difficulty Verified 07/25/24 09:25 Breathing cephalexin (From Keflex) Allergy Intermediate Itching Verified 07/25/24 09:25 Sulfa (Sulfonamide Allergy Intermediate Itching Verified 07/25/24 09:25 Antibiotics) Home Medications ?Medication ?Instructions ?Recorded ?Confirmed ?Type carvedilol 6.25 mg tablet 6.25 mg PO BID 11/01/22 07/25/24 History cholecalciferol (vitamin D3) 25 25 mcg PO DAILY 11/01/22 07/25/24 History mcg (1,000 unit) tablet (Vitamin D3) hydroxyzine pamoate 25 mg capsule 25 mg PO TID 11/01/22 07/25/24 History hydroxyzine pamoate 50 mg capsule 50 mg PO HS 11/01/22 07/25/24 History linaclotide 290 mcg capsule 290 mcg PO QACBREAK 11/01/22 07/25/24 History (Linzess) losartan 100 mg tablet 100 mg PO DAILY 11/01/22 07/25/24 History omeprazole 20 mg capsule,delayed 40 mg PO DAILY 11/01/22 07/25/24 History release rosuvastatin 20 mg tablet 20 mg PO DAILY 11/01/22 07/25/24 History lurasidone 60 mg tablet 60 mg PO DIRECTED 11/16/23 07/25/24 History albuterol sulfate 90 mcg/actuation 1 inh inhalation Q4-6H PRN 07/18/24 07/18/24 History aerosol inhaler shortness of breath or wheezing budesonide 160 mcg-glycopyr 9 2 inh inhalation BID 07/18/24 07/25/24 History mcg-formot 4.8 mcg/actuation HFA inhaler (Breztri Aer[employer]) Patient hx anesthesia problems: none Family hx anesthesia problems: none Results Review: All pre-operative results and documents have been reviewed as part of the pre-operative evaluation. [facility] Past Medical History Medical History Allergies Anxiety Arthritis Bilateral hand pain Chronic, continuous use of opioids Colon cancer screening COPD (chronic obstructive pulmonary disease) Dysphagia Ectopic Elevated transaminase level Fatty liver GERD (gastroesophageal reflux disease) Headache Hepatitis C antibody test positive Hypertension IBS (irritable bowel syndrome) Low back pain Osteoporosis Rheumatoid arthritis with rheumatoid factor of multiple sites without organ or systems involvement TB lung, latent Surgical History Surgical History History of hysterectomy Hx of appendectomy Hx of cholecystectomy No pertinent past surgical history Family History Family History Other Depression Diabetes mellitus Heart disease Hypertension Social History Social History Smoking status: Former smoker Tobacco type: cigarettes and e-cigarettes/vaping Additional smoking assessment comments: QUIT VAPING 05/2022- VAPED FOR COUPLE MONTHS Alcohol intake: current Alcohol use details: rarely, socially, 1-3 if with family Substance use: never Substance use type: marijuana Last use: 07/11/2024 Lack of Transportation: No Lack of Food: Never True Current Housing: I Have Housing Concerned About Future Housing: No Difficulty Paying Gas/Electric Bills: No Difficulty Paying for Meds: No Currently Unemployed: No Education: Decline to Answer Difficulty w/ Childcare or Family Care: No Living arrangements: with roommate(s) Spiritual care concerns: No Anes - Eval Final PreProcedure Day of Procedure 07/25/24 09:41 Patient weight: normal Heart: regular rate and rhythm Lungs: clear to auscultation and normal air movement Airway: Mallampati scale class II Neurological: alert and oriented Last oral intake: >/= 8 hours ASA classification: III Emergent: no Anesthetic plan: proceed Anesthesia type and monitoring: general GIVS and standard monitoring Results Review: All pre-operative results and documents have been reviewed as part of the pre-operative evaluation. Informed Consent: The patient's anesthetic plan and its attendant risks and benefits were discussed with the patient/family/POA. Questions were solicited and answers provided to the satisfaction of the patient/family/POA.
--- NOTE | 2024-07-25 09:46 | PM.HPGS ---
History of Present Illness History of Present Illness Consent: Risks, benefits, and alternatives have been discussed and questions answered. Patient agrees to proceed with procedure. Chief complaint: Dysphagia Narrative: Miranda Hearn is a 63 year old female with dysphagia, had esophageal dilation last year that helped Review of Systems Review of Systems: All systems reviewed & are unremarkable except as noted in HPI and below PMFSH Past Medical History Medical History Allergies Anxiety Arthritis Bilateral hand pain Chronic, continuous use of opioids Colon cancer screening COPD (chronic obstructive pulmonary disease) Dysphagia Ectopic Elevated transaminase level Fatty liver GERD (gastroesophageal reflux disease) Headache Hepatitis C antibody test positive Hypertension IBS (irritable bowel syndrome) Low back pain Osteoporosis Rheumatoid arthritis with rheumatoid factor of multiple sites without organ or systems involvement TB lung, latent Surgical History Surgical History History of hysterectomy Hx of appendectomy Hx of cholecystectomy No pertinent past surgical history Family History Family History Other Depression Diabetes mellitus Heart disease Hypertension Social History Social History Smoking status: Former smoker Tobacco type: cigarettes and e-cigarettes/vaping Additional smoking assessment comments: QUIT VAPING 05/2022- VAPED FOR COUPLE MONTHS Alcohol intake: current Alcohol use details: rarely, socially, 1-3 if with family Substance use: never Substance use type: marijuana Last use: 07/11/2024 Lack of Transportation: No Lack of Food: Never True Current Housing: I Have Housing Concerned About Future Housing: No Difficulty Paying Gas/Electric Bills: No Difficulty Paying for Meds: No Currently Unemployed: No Education: Decline to Answer Difficulty w/ Childcare or Family Care: No Living arrangements: with roommate(s) Spiritual care concerns: No Meds Home Medications and Allergies Home Medications ?Medication ?Instructions ?Recorded ?Confirmed ?Type carvedilol 6.25 mg tablet 6.25 mg PO BID 11/01/22 07/25/24 History cholecalciferol (vitamin D3) 25 25 mcg PO DAILY 11/01/22 07/25/24 History mcg (1,000 unit) tablet (Vitamin D3) hydroxyzine pamoate 25 mg capsule 25 mg PO TID 11/01/22 07/25/24 History hydroxyzine pamoate 50 mg capsule 50 mg PO HS 11/01/22 07/25/24 History linaclotide 290 mcg capsule 290 mcg PO QACBREAK 11/01/22 07/25/24 History (Linzess) losartan 100 mg tablet 100 mg PO DAILY 11/01/22 07/25/24 History omeprazole 20 mg capsule,delayed 40 mg PO DAILY 11/01/22 07/25/24 History release rosuvastatin 20 mg tablet 20 mg PO DAILY 11/01/22 07/25/24 History lurasidone 60 mg tablet 60 mg PO DIRECTED 11/16/23 07/25/24 History albuterol sulfate 90 mcg/actuation 1 inh inhalation Q4-6H PRN 07/18/24 07/18/24 History aerosol inhaler shortness of breath or wheezing budesonide 160 mcg-glycopyr 9 2 inh inhalation BID 07/18/24 07/25/24 History mcg-formot 4.8 mcg/actuation HFA inhaler (Breztri [employer]) Allergies Allergy/AdvReac Type Severity Reaction Status Date / Time ciprofloxacin Allergy Severe Swelling Verified 07/25/24 09:25 of Lip/Tongue/Throat hydromorphone (From Dilaudid) Allergy Severe Dyspnea / Verified 07/25/24 09:25 SOB lisinopril Allergy Severe Swelling Verified 07/25/24 09:25 of Lip/Tongue/Throat Penicillins Allergy Severe Difficulty Verified 07/25/24 09:25 Breathing cephalexin (From Keflex) Allergy Intermediate Itching Verified 07/25/24 09:25 Sulfa (Sulfonamide Allergy Intermediate Itching Verified 07/25/24 09:25 Antibiotics) Vital Signs Vital Signs - 24 hr 07/25/24 09:27 Temperature 97.4 F L Pulse Rate 81 Respiratory Rate 16 Blood Pressure 142/94 H Pulse Oximetry 99 Oxygen Delivery Room Air Exam Const: General: comfortable and no acute distress HENMT: Face/Nose/Sinus: Normal nares present Eyes: General: appearance normal, both eyes and all related structures Neck: Neck: no JVD Resp: Auscultation: clear to auscultation bilaterally Cardio: Rate: regular rate Rhythm: regular rhythm GI: Inspection: non-distended GI Palp: Yes Soft to palpation Skin: General skin exam: normal color Neuro: Speech: normal speech Extrem: General: normal to inspection Psych: Mental Status: mental status grossly normal Assessment and Plan Assessment and plan (1) Dysphagia: Code(s): R13.10 - Dysphagia, unspecified Status: Acute Assessment and Plan: egd, will assess if needs dilation again
[2024-07-25] MEDS: BENZOCAINE (*SP) 60 ML SPRAY CAN (HURRICAINE) 1 SPRAY MUCOUS MEM (09:53)
[2024-07-25 10:01] VITALS: BP 126/77; PULSE 71; RESP 22; O2SAT 99
[2024-07-25 10:11] VITALS: BP 115/67; PULSE 73; RESP 23; O2SAT 98
[2024-07-25 10:21] VITALS: BP 122/78; PULSE 68; RESP 18; O2SAT 100
== END 2024-07-25 10:33 | disposition home or self-care (01) ==
PROVIDERS: PCP Emergency Medicine; Visit Provider Internal Medicine Gastroenterology
PROC: 0DJ08ZZ Inspection of Upper Intestinal Tract, Via Natural or Artificial Opening Endoscopic (ICD-10-PCS; CPT 43249; principal; 2024-07-25 10:30)
DX: K22.2 Esophageal obstruction (principal); K21.00 Gastro-esophageal reflux disease with esophagitis, without bleeding; F41.9 Anxiety disorder, unspecified; J44.9 Chronic obstructive pulmonary disease, unspecified; K21.9 Gastro-esophageal reflux disease without esophagitis; I10 Essential (primary) hypertension; M81.0 Age-related osteoporosis without current pathological fracture; M06.9 Rheumatoid arthritis, unspecified
CPT/HCPCS: 43249; C1726; J2003; J2704; J7120

== ENCOUNTER 2024-09-01 08:42 | Outpatient (CLI) | payer MEDICARE, MEDICAID, SELFPAY ==
--- NOTE | ~2024-09-01 | NM_ITS ---
EXAM: NM gastric emptying study DATE: 09/01/2024 13:20 INDICATION: Gastroesophageal reflux disease TECHNIQUE: A gastric emptying study was performed using the methodology of Dalton SILVA, et al. J Nucl Med 2007; 48:568-572. The patient was given a meal consisting of 2 scrambled eggs labeled with 1.1 m Ci Tc-99m sulfur colloid, 2 slices of toast, two packages of jam, and approximately 120 mL of water. Simultaneous anterior and posterior 1-min images of the abdomen were obtained with the patient supine at multiple time points over a total period of 4 hours. The geometric mean of anterior and posterior views was determined, and the percentage retention was calculated for each time point. COMPARISON: None. FINDINGS: Gastric retention of the radiotracer-labeled meal was 72%, 65%, and 38% at the 1-hour, 2-hour, and 4- hour time points, respectively. With this technique, apparent rapid gastric emptying is suggested by <30% gastric retention at 1 hour. Delayed gastric emptying is defined by gastric retention of >90% at 1 hour, >60% retention at 2 hours, or >10% retention at 4 hours. IMPRESSION: 1. Delayed gastric emptying. Reviewed, dictated and finalized at location A.
--- OUTSIDE RECORDS SUMMARY | 2024-09-01 09:06 | XMS_ITS ---
Author Organization [facility] Address [address] [place] [address] Care Team Providers Care Presidential Support Specialist Name Role Phone Roberto Brenner Primary Care Provider Mayela Claire Unavailable [phone] Allergies Allergen (clinical drug ingredient) Drug/Non Drug Allergy documented on EMR Reaction Allergy Type Onset Date Status Ciprofloxacin anaphylaxis Drug Allergy A ctive hydromorphone Dilaudid Unknown Drug Allergy Act rob Keflex anaphylaxis Drug Allergy Activ e fluoxetine PROzac Unknown Drug Allergy Active Penicillin rash Drug Allergy Active REASON FOR VISIT 3 month f/u Medications Medication SIG (Take, Route, Frequency, Duration) Notes Start Date End Date Status Losartan Potassium 100 MG 1 tablet Orall y Once a day for 30 day(s) Active amLODIPine Besylate 10 MG 1 tablet Orall y Once a day for 30 day(s) Active Atorvastatin Calcium 40 MG 1 tablet Oral ly Once a day for 30 day(s) Active Carvedilol 6.25 MG 1 tablet with food O rally Twice a day for 30 day(s) Active Linzess 290 MCG 1 capsule at least 3 0 minutes before the first meal of the day on an empty stomach Orally Once a day for 30 day(s) Active Hydroxychloroquine Sulfate Active Stool Softener 100 MG 1 capsule as neede d Orally Once a day for 30 day(s) Active hydrOXYzine Pamoate 50 MG 1 capsule at b edtime as needed Orally Once a day for 30 days Active hydrOXYzine Pamoate 25 MG 1 capsule Orally three times a day for 30 days As needed for anxiety Active Lurasidone HCl 60 MG 1 tablet in the alesha rosa with food Orally Once a day for 30 days Active Omeprazole 20 MG 1 capsule 30 minutes before morning meal Orally twice a day Active Lyrica 75 MG 1 capsule Orally Twi ce a day Active Vistaril 25 MG 1 capsule as needed Orally Three times daily for 30 days Active Vistaril 50 MG 1 capsule at bedtime for sleep Orally once a day for 30 days As needed Active Social History Sex Assigned At : Social History Observation Description Sex Assigned At Female Encounters Encounter Location Date Provider Diagnosis [facility] [address] [place] [address] 05/20/2024 Mayela Claire Bipolar 2 disorder, major depressive episode F31.81 and Generalized anxiety disorder F41.1 Assessments Encounter Date Diagnosis (ICD Code) Assessment Notes Treatment Notes Treatment Clinical Notes Section Notes 05/20/2024 Bipolar 2 disorder, major depressive episode (ICD-10 - F31.81) Take as prescribed. Reviewed purpose (mood stability), benefits, and risks - low blood pressure, metabolic syndrome with high cholesterol or high blood sugars, change in cardiac conduction, nausea, vomiting, temporary or permanent movement disorders, and akathisia. Client reports high appetite with Abilify Hx of trialing risperdal with TD as side effect, has also trialed lamotrigine, depakote. Caplyta caused halluciantio ns. 05/20/2024 Generalized anxiety disorder (ICD-10 - F41.1) 05/20/2024 Other Reasons, potential benefits, potential risks, interactions and side effects of all medications were discussed. The Patient/Guardian asked appropriate questions, appeared to understand the answers, and decided to accept the treatment and continue being followed. Alternatives and expected course without treatment were reviewed. The Patient/Guardian is aware of the need to contact the office or return for an earlier appointment if any problems or concerns arise. May also contact the 24-hour crisis hotline (R), refer to the closest emergency room or call 911 if new symptoms arise of existing symptoms worsen. The Patient/Guardian is aware that this would apply to symptoms like: suicidal ideation, homicidal ideation, high risk behaviors, manic symptoms, psychotic symptoms, physical symptoms, or any other symptoms that may be dangerous to self or others. Greater than 50% of time spent on coordination and counseling where psychopharmacology as well as psychotherapeutic interventions were discussed along with review of treatments in the past. Education provided concerning need for adequate hydration. Patient/Guardian verbalized understanding of education, treatment plan and follow up. This session was completed telephonically with client/parental/guard dago consent: Unable to determine movement status, assess appearance, affect, AIMS, or vital signs. Plan Of Treatment Medication Medication Name Sig Start Date Stop Date Notes hydrOXYzine Pamoate 50 MG 1 capsule at b edtime as needed Orally Once a day for 30 days hydrOXYzine Pamoate 25 MG 1 capsule Oral ly three times a day for 30 days Lurasidone HCl 60 MG 1 tablet in the alesha rosa with food Orally Once a day for 30 days Treatment Notes Assessment Notes Bipolar 2 disorder, major de pressive episode Take as prescribed. Reviewed purpose (mo od stability), benefits, and risks - low blood pressure, metabolic syndrome with high cholesterol or high blood sugars, change in cardiac conduction, nausea, vomiting, temporary or permanent movement disorders, and akathisia. Other Reasons, potential benefits, potential risks, interactions and side effects of all medications were discussed. The Patient/Guardian asked appropriate questions, appeared to understand the answers, and decided to accept the treatment and continue being followed. Alternatives and expected course without treatment were reviewed. The Patient/Guardian is aware of the need to contact the office or return for an earlier appointment if any problems or concerns arise. May also contact the 24-hour crisis hotline ([facility]), refer to the closest emergency room or call 911 if new symptoms arise of existing symptoms worsen. The Patient/Guardian is aware that this would apply to symptoms like: suicidal ideation, homicidal ideation, high risk behaviors, manic symptoms, psychotic symptoms, physical symptoms, or any other symptoms that may be dangerous to self or others. Greater than 50% of time spent on coordination and counseling where psychopharmacology as well as psychotherapeutic interventions were discussed along with review of treatments in the past. Education provided concerning need for adequate hydration. Patient/Guardian verbalized understanding of education, treatment plan and follow up. This session was completed telephonically with client/parental/guardian consent: Unable to determine movement status, assess appearance, affect, AIMS, or vital signs. Next Appt Details Follow Up: 3 Months, Reason: Psych F/U in-office Progress Notes * Adams HEARN:1960 (63 yo F)Acc No.[id number]:05/20/2024 Patient: Miranda UPTON Provider: Betty Claire, MSN, [employer] G[employer] MECHANIC, TIP STITCHER-C :1960 A ge:63 Y S ex:Female Date:05/20/2024 Address[facility] Pcp:Roberto Brenner Subjective: * Chief Complaints: * 3 month f/u * HPI: D epression Screening: PHQ-9 L ittle interest or pleasure in doing things N ot at all, F eeling down, depressed, or hopeless N ot at all, T rouble falling or staying asleep, or sleeping too much N ot at all, F eeling tired or having little energy N ot at all, P oor appetite or overeating N ot at all, F eeling bad about yourself or that you are a failure, or have let yourself or your family down N ot at all, T rouble concentrating on things, such as reading the newspaper or watching television S ever, M oving or speaking so slowly that other people could have noticed; or the opposite, being so fidgety or restless that you have been moving around a lot more than usual N ot at all, T houghts that you would be better off or of hurting yourself in some way N ot at all, T otal Score 1 , Interpretation M inimal Depression. I ntervention D epression Screening Findings P ositive, F ollow-Up for Depression N o Referral necessary, patient involved in behavioral health treatment .Denies crisis intervention.. S creening: Dillon Suicide Severity Rating Scale (LF) D o you want to initiate with S creener form, 1 . Wish to be : Have you wished you were or wished you could go to sleep and not wake up? N o, 2 . Suicidal Thoughts: Have you actually had any thoughts of killing yourself? N o, 6 . Suicide Behaviour: Have you ever done anything,started to do anything, or prepared to end your life? N o, I nterpretation: L ow Risk. C SSRS Interpretation and Follow Up Plan: CSSRS Interpretation and Follow Up Plan M oderate or High risk requires selection of a follow up plan C SSRS No/Low: intervention not needed at this time.? S ummary: How is ct doing today? Client is a 63 yo F on the phone today stating she was able to get the pain stimulator I am still in pain, but it is so much better, I can do things. Reports she sometimes overdoes it. States that she has been resting well. Reports she has been taking her medications well, denies SE, states they are helping. States mental health is going pretty good. Depression: Denies I thought I would be with the holidays, but I'm not. Anxiety: 09/04 Coping: Coloring, crocheting Anger/irritability: 010 Sleep: Good Energy: That is good, this stimulator is a wonder thing. Appetite: Good Drugs/ETOH: Denies Hallucinations/paranoia: Denies Therapy: Denies, continues Suicidal ideation: Denies Homicidal ideation: Denies Medical changes/concerns: Taking it easy while I still hear from the stimulator surgery. . * ROS: P sych ROS: Constitutional R eports, R A. E yes D enies.?Ears/Nose/Mouth/Throat D enies. R espiratory D enies. A llergic/Immunologic D enies. C ardiovascular D enies. G I D enies. G U D enies. M usculoskeletal R eports, C hronic pain,Back pain. N eurological D enies. I ntegumentary D enies. E ndocrine D enies. H ematological/Lymphatic D enies. P sychiatric: Reports mild anxiety. * Medical History: * Surgical History: 2 tubal TOTAL HYSTERECTOMY gallbladder appendix bilateral carpel tunnel and cubital tunnel release leg debridement brown recluse * Hospitalization/Major Diagno stic Procedure: * Family History: F ather: . M other: . 1 brother(s) , 5 sister(s) - healthy. . Mom: Dad: Reports on both sides heart disease, strokes, cancer Siblings: reports Ani has depression, Macy was manic-depression. Reports she has 2 brothers and 2 sisters that have . * Social History: P rimary Social History: L iving Arrangement L iving Arrangement: I ndependent Living, I s this a supportive environment? Y es. A lcohol Use A lcohol Use Frequency: M onthly or less. I llicit Substance Usage I llicit Substance Usage: N o. E mployment Status E mployment Status: O n Disability. * Medications: T akingHydroxychloroquine Sulfate Stool Softener 100 MG Capsule 1 capsule as needed Orally Once a day Linzess 290 MCG Capsule 1 capsule at least 30 minutes before the first meal of the day on an empty stomach Orally Once a day Atorvastatin Calcium 40 MG Tablet 1 tablet Orally Once a day Carvedilol 6.25 MG Tablet 1 tablet with food Orally Twice a day Losartan Potassium 100 MG Tablet 1 tablet Orally Once a day amLODIPine Besylate 10 MG Tablet 1 tablet Orally Once a day Omeprazole 20 MG Capsule Delayed Release 1 capsule 30 minutes before morning meal Orally twice a day Lyrica 75 MG Capsule 1 capsule Orally Twice a day Vistaril 25 MG Capsule 1 capsule as needed Orally Three times daily Vistaril 50 MG Capsule 1 capsule at bedtime for sleep Orally once a day As neededLurasidone HCl 60 MG Tablet 1 tablet in the evening with food Orally Once a day hydrOXYzine Pamoate 50 MG Capsule 1 capsule at bedtime as needed Orally Once a day hydrOXYzine Pamoate 25 MG Capsule 1 capsule Orally three times a day As needed for anxietyTaking Hydroxychloroquine Sulfate Taking Stool Softener 100 MG Capsule 1 capsule as needed Orally Once a day Taking Linzess 290 MCG Capsule 1 capsule at least 30 minutes before the first meal of the day on an empty stomach Orally Once a day Taking Atorvastatin Calcium 40 MG Tablet 1 tablet Orally Once a day Taking Carvedilol 6.25 MG Tablet 1 tablet with food Orally Twice a day Taking Losartan Potassium 100 MG Tablet 1 tablet Orally Once a day Taking amLODIPine Besylate 10 MG Tablet 1 tablet Orally Once a day Taking Omeprazole 20 MG Capsule Delayed Release 1 capsule 30 minutes before morning meal Orally twice a day Taking Lyrica 75 MG Capsule 1 capsule Orally Twice a day Taking Vistaril 25 MG Capsule 1 capsule as needed Orally Three times daily Taking Vistaril 50 MG Capsule 1 capsule at bedtime for sleep Orally once a day As neededTaking Lurasidone HCl 60 MG Tablet 1 tablet in the evening with food Orally Once a day Taking hydrOXYzine Pamoate 50 MG Capsule 1 capsule at bedtime as needed Orally Once a day Taking hydrOXYzine Pamoate 25 MG Capsule 1 capsule Orally three times a day As needed for anxiety * Allergies: P enicillin: rashKeflex: anaphylaxisDilaudidCiprofloxacin: anaphylaxisPROzac: Side Effectsno[Allergies Verified] Objective: * Vitals: * Examination: M ental Status Exam: SENSORIUM AND COGNITION Alert, Oriented to Person, Oriented to Place, Oriented to Time, Oriented to Situation. ATTENTION AND CONCENTRATION No deficits. ATTITUDE AND BEHAVIOR Cooperative, Receptive. MEMORY Immediate, Recent, Remote. MOOD E uthymic. SPEECH QUANTITY Appropriate. SPEECH QUALITY Appropriate volume. THOUGHT PROCESS Coherent and goal directed. THOUGHT CONTENT Appropriate - WNL. SUICIDAL IDEATION Denies suicidal ideation. HOMICIDAL IDEATION Denies homicidal ideation. HALLUCINATIONS Denies hallucinations. INSIGHT F air. JUDGMENT F air. FUND OF KNOWLEDGE F air. ABILITY TO PARTICIPATE IN TREATMENT M oderate. WILLINGNESS TO PARTICIPATE IN TREATMENT High. e xam limited due to telephone encounter. Assessment: * Assessment: 1. B ipolar 2 disorder, major depressive episode - F31.81 2 . G eneralized anxiety disorder - F41.1 Plan: * Treatment: 2. G eneralized anxiety disorder Refill hydrOXYzine Pamoate Capsule, 50 MG, 1 capsule at bedtime as needed, Orally, Once a day, 30 days, 30 Capsule, Refills 2; R efill hydrOXYzine Pamoate Capsule, 25 MG, 1 capsule, Orally, three times a day As needed for anxiety, 30 days, 90 Capsule, Refills 2. 3. O thers Notes: Reasons, potential benefits, potential risks, interactions and side effects of all medications were discussed. The Patient/Guardian asked appropriate questions, appeared to understand the answers, and decided to accept the treatment and continue being followed. Alternatives and expected course without treatment were reviewed. The Patient/Guardian is aware of the need to contact the office or return for an earlier appointment if any problems or concerns arise. May also contact the 24-hour crisis hotline ([facility]), refer to the closest emergency room or call 911 if new symptoms arise of existing symptoms worsen. The Patient/Guardian is aware that this would apply to symptoms like: suicidal ideation, homicidal ideation, high risk behaviors, manic symptoms, psychotic symptoms, physical symptoms, or any other symptoms that may be dangerous to self or others. Greater than 50% of time spent on coordination and counseling where psychopharmacology as well as psychotherapeutic interventions were discussed along with review of treatments in the past. Education provided concerning need for adequate hydration. Patient/Guardian verbalized understanding of education, treatment plan and follow up. This session was completed telephonically with client/parental/guardian consent: Unable to determine movement status, assess appearance, affect, AIMS, or vital signs. * Procedure Codes: * Follow Up: 3 Months (Reason: Psych F/U in-office) * * R TAKE OFF TENDER Sign off status: Completed true * Provider: Betty Claire, MSN, [employer] GAMES MECHANIC, TIP STITCHER-C Date: 07/21/2023 Generated for Joaquim corea/Joel/Diana on: 0 09/01/2024 09:06 AM CDT History and Physical Notes * HPI (History of Present Illness) Category Sub-Category Detail Notes Category Not es Depression Screening PHQ-9 Little inte rest or pleasure in doing things: Not at all Feeling down, depressed, or hopeless: No t at all Trouble falling or staying asleep, or sl eeping too much: Not at all Feeling tired or having little energy: N ot at all Poor appetite or overeating: Not at all Feeling bad about yourself o r that you are a failure, or have let yourself or your family down: Not at all Trouble concentrating on thi ngs, such as reading the newspaper or watching television: Several days Moving or speaking so slowly that other people could have noticed; or the opposite, being so fidgety or restless that you have been moving around a lot more than usual: Not at all Thoughts that you would be b mati off or of hurting yourself in some way: Not at all Total Score: 1 Interpretation: Minimal Depression Intervention Depression Screening Findings: P ositive Follow-Up for Depression: No Referral necessary, patient involved in behavioral health treatment .Denies crisis intervention. Summary How is ct doing today? Client is a 63 yo F on the phone today stating she was able to get the pain stimulator I am still in pain, but it is so much better, I can do things. Reports she sometimes overdoes it. States that she has been resting well. Reports she has been taking her medications well, denies SE, states they are helping. States mental health is going pretty good. Depression: Denies I thought I would be with the holidays, but I'm not. Anxiety: 4 Coping: Coloring, crocheting Anger/irritability: 0/10 Sleep: Good Energy: That is good, this stimulator is a wonder thing. Appetite: Good Drugs/ETOH: Denies Hallucinations/paranoia: Denies Therapy: Denies, continues Suicidal ideation: Denies Homicidal ideation: Denies Medical changes/concerns: Taking it easy while I still hear from the stimulator surgery. Screening Dillon Suicide Severity Rating Scale (LF) Do you want to initiate with: Screener form 1. Wish to be : Have you wished you were or wished you could go to sleep and not wake up?: No 2. Suicidal Thoughts: Have you actually had any thoughts of killing yourself?: No 6. Suicide Behavior Question: Have you ever done anything,started to do anything, or prepared to end your life?: No Interpretation:: Low Risk Do Not Use CSSRS Interpretation and Follow Up Plan CSSRS Interpretation and Follow Up Plan Moderate or High risk requires selection of a follow up plan: CSSRS No/Low: intervention not needed at this time Examination Category Sub-Category Detail Notes Category Not es Mental Status Exam SENSORIUM AND COGNITION Alert, Oriented to Person, Oriented to Place, Oriented to Time, Oriented to Situation exam limited due to telephone encounter ATTENTION AND CONCENTRATION No deficits ATTITUDE AND BEHAVIOR Cooperative, Cnc Mill And Lathe Operator tive MEMORY Immediate, Recent, R emote MOOD Euthymic SPEECH QUANTITY Appropriate SPEECH QUALITY Appropriate volume THOUGHT PROCESS Coherent and goal di rected THOUGHT CONTENT Appropriate - WNL SUICIDAL IDEATION Denies suicidal idea tion HOMICIDAL IDEATION Denies homicidal eloy ation HALLUCINATIONS Denies hallucination s INSIGHT Fair JUDGMENT Fair FUND OF KNOWLEDGE Fair ABILITY TO PARTICIPATE IN TREATMENT Mode rate WILLINGNESS TO PARTICIPATE IN TREATMENT High
--- OUTSIDE RECORDS SUMMARY | 2024-09-01 09:06 | XMS_ITS ---
Author Organization [facility] Address [address] [place] [address] Care Team Providers Care [facility] Name Role Phone Roberto Brenner Primary Care Provider [phone] Mayela Claire Unavailable [phone] Allergies Allergen (clinical drug ingredient) Drug/Non Drug Allergy documented on EMR Reaction Allergy Type Onset Date Status Ciprofloxacin anaphylaxis Drug Allergy A ctive hydromorphone Dilaudid Unknown Drug Allergy Act rob Keflex anaphylaxis Drug Allergy Activ e fluoxetine PROzac Unknown Drug Allergy Active Penicillin rash Drug Allergy Active REASON FOR VISIT 2 Month F/U Medications Medication SIG (Take, Route, Frequency, Duration) Notes Start Date End Date Status Vistaril 25 MG 1 capsule as needed Orally Three times daily for 30 days Active Vistaril 50 MG 1 capsule at bedtime for sleep Orally once a day for 30 days As needed Active hydrOXYzine Pamoate 50 MG 1 capsule at b edtime as needed Orally Once a day for 30 days Active Lyrica 75 MG 1 capsule Orally Twi ce a day Active hydrOXYzine Pamoate 25 MG 1 capsule Orally three times a day for 30 days As needed for anxiety Active Lurasidone HCl 60 MG 1 tablet in the alesha rosa with food Orally Once a day for 30 days Active Carvedilol 6.25 MG 1 tablet with food O rally Twice a day for 30 day(s) Active Omeprazole 20 MG 1 capsule 30 minutes before morning meal Orally twice a day Active Losartan Potassium 100 MG 1 tablet Orall y Once a day for 30 day(s) Active amLODIPine Besylate 10 MG 1 tablet Orall y Once a day for 30 day(s) Active Hydroxychloroquine Sulfate Active Atorvastatin Calcium 40 MG 1 tablet Oral ly Once a day for 30 day(s) Active Stool Softener 100 MG 1 capsule as neede d Orally Once a day for 30 day(s) Active Linzess 290 MCG 1 capsule at least 3 0 minutes before the first meal of the day on an empty stomach Orally Once a day for 30 day(s) Active Social History Sex Assigned At : Social History Observation Description Sex Assigned At Female Encounters Encounter Location Date Provider Diagnosis [address] [address] 02/21/2024 Mayela Claire Bipolar 2 disorder, major depressive episode F31.81 ; Generalized anxiety disorder F41.1 ; Sleep disturbance, unspecified G47.9 and Nutritional counseling Z71.3 Assessments Encounter Date Diagnosis (ICD Code) Assessment Notes Treatment Notes Treatment Clinical Notes Section Notes 02/21/2024 Bipolar 2 disorder, major depressive episode (ICD-10 - F31.81) Client reports high appetite with Abilify Hx of trialing risperdal with TD as side effect, has also trialed lamotrigine , depakote. Caplyta caused hallucianti ons. Reports sleep disturbances r/t pain. 02/21/2024 Generalized anxiety disorder (ICD-10 - F41.1) Reports sleep disturbances r/t pain. 02/21/2024 Sleep disturbance, unspecified (ICD-10 - G47.9) client reports she is continuing to work with her PCP and pain management for relief of her chronic pain to help with her quality of life and her sleep. Reports sleep disturbances r/t pain. 02/21/2024 Nutritional counseling (ICD-10 - Z71.3) Reports sleep disturbances r/t pain. 02/21/2024 Other Mathews agreement to continue current regimen. Reasons, potential benefits, potential risks, interactions and [...] assess appearance, affect, AIMS, or vital signs. Reports sleep disturbances r/t pain. Plan Of Treatment Medication Medication Name Sig [...] for 30 days Treatment Notes Assessment Notes Sleep disturbance, unspecified client re ports she is continuing to work with her PCP and pain management for relief of her chronic pain to help with her quality of life and her sleep. Other Mathews agreement to continue current regimen. Reasons, potential benefits, potential risks, interactions and [...] May also contact the 24-hour crisis hotline ([facility]), refer to the closest emergency room or [...] Follow Up: 3 Months, Reason: Psych F/U Progress Notes * Miranda HEARNDOB:1960 (63 yo F)Acc No.[id number]:02/21/2024 Patient: Miranda UPTON Provider: Betty Claire, MSN, PRODUCTION OPERATOR, BIOSTATISTICS MANAGER-C :1960 A ge:63 Y S ex:Female Date:02/21/2024 Address:[facility] [address] [id number] Pcp:Roberto Brenner Subjective: * Chief Complaints: * 2 Month F/U * HPI: P sychiatric Assessment - Current Symptoms: How ct. doing today? Client is a 63 yo F on the phone today reporting she has been doing well overall. States taking her medications well. Denies SE. States they are helpful. Reports she got a temporary nerve stimulator to help with pain which made her movement 85% better. Reports she is getting a permanent one put in on Apr 03. Sleep is fair-poor with pain without the stimulator, but good when she had it per client. Depression: 3/10 Anxiety: up to a 6/10 intermittent per client Anger/irritability: Irritable when in pain Hallucinations/paranoia: Denies Drugs/ETOH: Denies Social: Talking with others, sister just came for a 3 week visit, seeing her again for Thanksgiving. Appetite: Good, I have actually lost about 15 pounds, so that has felt a lot better. Denies SI/HI. D epression Screening: PHQ-9 L ittle interest or pleasure in doing things S everal days, F eeling down, depressed, or hopeless S everal days, T rouble falling or staying asleep, or sleeping too much S everal days, F eeling tired or having little energy S everal days, P oor appetite or overeating N ot at all, F eeling bad about yourself or that you are a failure, or have let yourself or your family down N ot at all, T rouble concentrating on things, such as reading the newspaper or watching television S everal days, M oving or speaking so slowly that other people could have noticed; or the opposite, being so fidgety or restless that you have been moving around a lot more than usual S everal days, T houghts that you would be better off or of hurting yourself in some way N ot at all, T otal Score 6, I nterpretation M ild Depression. I ntervention D epression Screening Findings P ositive, F ollow-Up for Depression N o Referral necessary, patient involved in behavioral health treatment .Denies crisis intervention.. S creening: [place] Suicide Severity Rating Scale (LF) D o [...] No/Low: intervention not needed at this time.? * ROS: P sych ROS: Constitutional R eports, R A. E yes D enies.?Ears/Nose/Mouth/Throat D enies. R espiratory D enies. A llergic/Immunologic D enies. C ardiovascular D enies. G I D enies. G U D enies. M usculoskeletal R eports, C hronic pain,Back pain. N eurological D enies. I ntegumentary D enies. E ndocrine D enies. H ematological/Lymphatic D enies. P sychiatric: Reports depression and anxiety. * Medical History: * Surgical History: [...] sisters that have . * Social History: Betty laurent Social History: L iving Arrangement L iving Arrangement: I ndependent Living, I s this a supportive environment? Y es. A lcohol Use A lcohol Use Frequency: M onthly or less. I llicit Substance Usage I llicit Substance Usage: N o. E mployment Status E mployment Status: O n Disability. * Medications: T akingLurasidone HCl 60 MG Tablet 1 tablet in the evening with food Orally Once a day hydrOXYzine Pamoate 50 MG Capsule 1 capsule at bedtime as needed Orally Once a day hydrOXYzine Pamoate 25 MG Capsule 1 capsule Orally three times a day As needed for anxietyHydroxychloroquine Sulfate Stool Softener 100 MG Capsule 1 [...] for sleep Orally once a day As needed * Allergies: P enicillin: rashKeflex: anaphylaxisDilaudidCiprofloxacin: anaphylaxisPROzac: [...] . G eneralized anxiety disorder - F41.1 3 . S leep disturbance, unspecified - G47.9 ?4. N utritional counseling - Z71.3 Reports sleep disturbances r /t pain. Plan: * Treatment: 2. G eneralized anxiety disorder Refill hydrOXYzine Pamoate Capsule, 50 MG, 1 capsule at bedtime as needed, Orally, Once a day, 30 days, 30 Capsule, Refills 2; R efill hydrOXYzine Pamoate Capsule, 25 MG, 1 capsule, Orally, three times a day As needed for anxiety, 30 days, 90 Capsule, Refills 2. 3. S leep disturbance, unspecified Notes: client reports she is continuing to work with her PCP and pain management for relief of her chronic pain to help with her quality of life and her sleep. 4. O thers Notes: Mathews agreement to continue current regimen. Reasons, potential benefits, potential risks, interactions and [...] * Follow Up: 3 Months (Reason: Psych F/U) * * Sign off status: Completed true * Provider: Betty Claire, MSN, PRODUCTION OPERATOR, BIOSTATISTICS MANAGER-C Date: 0 02/21/2024 Generated for Joaquim corea/Joel/Candiceitting on: 0 09/01/2024 09:06 AM CDT History and Physical Notes * HPI (History of Present Illness) Category Sub-Category Detail Notes Category Not es Depression Screening PHQ-9 Little inte rest or pleasure in doing things: Several days Feeling down, depressed, or hopeless: Se veral days Trouble falling or staying asleep, or sl eeping too much: Several days Feeling tired or having little energy: S everal days Poor appetite or overeating: Not at all [...] moving around a lot more than usual: Several days Thoughts that you would be b mati off or of hurting yourself in some way: Not at all Total Score: 6 Interpretation: Mild Depression Intervention Depression Screening Findings: P ositive Follow-Up for Depression: No Referral necessary, patient involved in behavioral health treatment .Denies crisis intervention. Psychiatric Assessment - Current Symptoms How ct. doing today? Client is a 63 yo F on the phone today reporting she has been doing well overall. States taking her medications well. Denies SE. States they are helpful. Reports she got a temporary nerve stimulator to help with pain which made her movement 85% better. Reports she is getting a permanent one put in on Apr 03. Sleep is fair-poor with pain without the stimulator, but good when she had it per client. Depression: 3/10 Anxiety: up to a 6/10 intermittent per client Anger/irritability: Irritable when in pain Hallucinations/paranoia: Denies Drugs/ETOH: Denies Social: Talking with others, sister just came for a 3 week visit, seeing her again for Thanksgiving. Appetite: Good, I have actually lost about 15 pounds, so that has felt a lot better. Denies SI/HI. 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
--- OUTSIDE RECORDS SUMMARY | 2024-09-01 09:07 | XMS_ITS | Clinical Summary ---
Author Organization [facility] [employer] Address [address] [place] [address] Care Team Providers Care Information Security Consultant Name Role Phone Marco A Gray MD Unavailable [phone] Raffy Alvarenga MD Primary Care Provider [phone] Source Comments [facility] Affiliates and Associated Physician Practices is amultiple site organization consisting of ambulatory clinics and hospital sitesin [place], [place], [place] and [place]. This disclosure is being madepursuant to the Care Everywhere program and may not contain all information available regarding this patient. Last updated 18.[facility] [employer] Allergies Active Allergy Reactions Criticality Noted Date Comments Atorvastatin Shortness of Breath High 01/10/2024 Cephalexin Rash Medium Ciprofloxacin Anaphylaxis High 09/10/2023 Hydromorphone Anaphylaxis High 12/03/2018 States could not breathe Fluoxetine Unknown 01/10/2024 Hydroxyprogesterone Anaphylaxis High Penicillins Rash Medium Medications * Be aware that medications may not be up to date on this document. Alwaysverify current medications with the patient. Medication Sig Dispensed Refills Start Date End Date Status losartan (COZAAR) 100 MG tablet Take 1 (one) tablet by mouth once daily Active hydrOXYzine pamoate (VISTARIL) 50 MG capsule Take 1 (one) capsule by mouth every 6 hours as needed Active ibuprofen (MOTRIN) 800 MG tablet Take 1 (one) tablet by mouth every 6 hours as needed for Pain Active fluticasone propionate (FLONASE) 50 MCG/ACT nasal spray [place] 2 (two) sprays into each nostril once daily Active LINZESS 290 MCG capsule TK 1 C PO QD IN THE MORNING 03/15/2020 Active ondansetron, disintegrating, (ZOFRAN ODT) 4 MG tablet DISSOLVE 1 TABLET ON THE TONGUE THREE TIMES DAILY NEEDED 07/12/2020 Active omeprazole (PRILOSEC) 20 MG capsule TAKE 2 CAPSULES BY MOUTH TWICE DAILY BEFORE MEALS 09/08/2020 Active predniSONE (DELTASONE) 10 MG tablet 4 tabs x 3 days, 3 tabs x 3 days, 2 tabs x 3 days, 1 tabs x 3 day 30 tablet 02/25/2021 Active Additional Information Patient not taking.Reported on 01/10/2024 levalbuterol (XOPENEX) 45 MCG/ACT inhaler Inhale 2 (two) puffs by mouth every 6 hours 05/10/2021 Active pregabalin (Lyrica) 75 MG capsule Take 1 (one) capsule by mouth 3 times daily Active sulfamethoxazole-t rimethoprim (Bactrim DS; Septra DS) 800-160 MG tablet Take 1 (one) tablet by mouth every 12 hours 14 tablet 01/10/2024 Active Additional Information Patient not taking.Reported on 02/11/2024 rosuvastatin (Crestor) 20 MG tablet Take 1 (one) tablet by mouth every 24 hours 10/31/2022 Active Prolia 60 MG/ML SC injection USE UNDER THE SKIN EVERY 6 MONTHS 01/02/2024 Active vitamin D, ergocalciferol, (Drisdol) 1.25 MG (06622 UT) capsule TAKE 1 CAPSULE BY MOUTH 1 TIME EVERY WEEK Active carvedilol (Coreg) 6.25 MG tablet 1 tablet with food Orally Twice a day for 30 day(s) 04/26/2023 Active hydroxychloroquine (Plaquenil) 200 MG tablet Take 2 (two) tablets by mouth once daily 12/10/2023 Active cyclobenzaprine (Flexeril) 5 MG tablet Take 1 (one) tablet by mouth 3 times daily 42 tablet 04/03/2024 Active acetaminophen (Tylenol) 500 MG tablet Take 2 (two) tablets by mouth every 8 hours Maximum allowable Acetaminophen amount = 4 Grams (4000 mg) / 24 hours. 04/03/2024 Active traMADol (Ultram) 50 MG tablet Take 1 (one) tablet by mouth every 6 hours as needed for Pain 56 tablet 04/03/2024 Active HYDROcodone-acetam inophen (Garvin) 5-325 MG tablet Take 1 (one) tablet by mouth 04/17/2024 Active albuterol HFA (Proventil; Ventolin; Proair) 108 (90 Base) MCG/ACT inhaler Inhale 1 (one) puff by mouth 07/02/2024 Active Cholecalciferol 50 MCG (1999 UT) 1 capsule Active Active Problems Problem Noted Date Diagnosed Date History of rheumatoid arthritis 09/15/2021 Overview (09/15/2021): Unable to confirm previous RA Dx although has had presence of + anti CCP antibody and ? RF positive ( latter can be seen due to HCV). Hold Enbrel. Recheck 1 mo. Disorder of shoulder 09/14/2020 Encounters Date Type Department Care Team Description 07/21/2024 3:30 PM MIX MILL TENDER Office Visit [facility] - Neurosurgery [address] [place] [address], [facility] [place] [id number] Willie Higgins MD S/P insertion of spinal cord stimulator (Primary Dx) 07/21/2024 Travel from Last 3 Months Immunizations Name Administration Dates Next Due INFLUENZA VACCINE 03/01/2021 Family History Medical History Relation Name Comments CAD (Coronary Artery Disease) Father CAD (Coronary Artery Disease) Mother CVA Mother Cancer - Skin, Non Melanoma Mother Relation Name Status Comments Father Mother Social History Tobacco Use Types Packs/Day Years Used Date Smoking Tobacco: Never Smokeless Tobacco: Never Tobacco Cessation:Counseling Given: Not Answered Alcohol Use Standard Drinks/Week Comments Not Currently 0 (1 standard drink = 0.6 oz pur e alcohol) once/month AUDIT-C Answer Date Recorded Q1: How often do you have a drink containing alc ohol? Monthly or less 04/03/2024 Q2: How many drinks containi ng alcohol do you have on a typical day when you are drinking? 1 or 2 04/03/2024 Q3: How often do you have si x or more drinks on one occasion? Never 04/03/2024 Sex and Gender Information Value Date Recorded Sex Assigned at Not on file Gender Identity Not on file Sexual Orientation Not on file Last Filed Vital Signs Vital Sign Reading Time Taken Comments Blood Pressure 129/85 07/21/2024 3:14 PM MIX MILL TENDER Pulse 85 07/21/2024 3:14 PM MIX MILL TENDER Temperature 36.9 C (98.4 F) 07/21/2024 3:14 PM MIX MILL TENDER Respiratory Rate 14 04/03/2024 3:39 PM MIX MILL TENDER Oxygen Saturation 98% 07/21/2024 3:14 PM MIX MILL TENDER Inhaled Oxygen Concentration - - Weight 59 kg (130 lb) 07/21/2024 3:14 PM MIX MILL TENDER Height 154.9 cm (5' 1 ) 07/21/2024 3:14 PM MIX MILL TENDER Body Mass Index 24.56 07/21/2024 3:14 PM MIX MILL TENDER Plan of Treatment Health Maintenance Due Date Last Done Comments COLOGUARD (AGES 45-75) - COL ON CA SCREENING 1960 COLON MONITORING 1961 COLONOSCOPY - COLON CA SCREENING 1961 CT COLONOGRAPHY - COLON CA SCREENING 1960 Colorectal Cancer Screening 1960 FIT - COLON CA SCREENING 1961 FLEX SIG - COLON CA SCREENING 1960 MAMMOGRAM 1960 PAP SMEAR 1961 HIV SCREENING 1976 DTAP/TDAP/TD VACCINES (1 - Tdap) 1980 PNEUMOCOCCAL VACCINE 50+ (1 of 1 - PCV) 11/10/2011 ZOSTER VACCINE (1 of 2) 11/10/2011 COVID-19 VACCINE ( - 2023-2 5 season) 2024 DEPRESSION SCREENING 05/28/2024 MEDICARE AWV CALENDAR YEAR 2024 INFLUENZA VACCINE (Season Ended) 2025 03/01/2021 Respiratory Syncytial Virus (RSV) Vaccine Pt: or over 60 yrs (1 - 1-dose 75+ series) 2036 HEPATITIS C SCREENING Completed 12/17/2023 , 07/02/2018 HEPATITIS B VACCINE Aged Out No longe r eligible based on patient's age to complete this topic HIB VACCINE Aged Out No longer eligi ble based on patient's age to complete this topic HPV VACCINE Aged Out No longer eligi ble based on patient's age to complete this topic MENINGOCOCCAL (Group B) VACCINE SHARED DECISION-MAKING Aged Out No longer eligible based on patient's age to complete this topic MENINGOCOCCAL GROUPS A/C/Y/W VACCINE Aged Out No longer eligible b ased on patient's age to complete this topic Medical Devices Implanted Type Area Granite Setter Device Identifier Shelf Expiration Date Model / Serial / Lot Matrix Surgiflo Hmstat Implanted:Qty: 1 on 04/03/2024 by Willie Higgins MD at [facility] N/A: Back Jonathan [employer] [facility] Care Syste 05/27/20251990 [id number] Lead Ns 65cm Spc Surescan 3 Clmn 16 Implanted:Qty: 1 on 04/03/2024 by Willie Higgins MD at [facility] N/A: Back [employer] Inc 08/06/2024 [id number] / / [id number] Kit Acc .133in Injex Kavita Baso4 Biwing Implanted:Qty: 1 on 04/03/2024 by Willie Higgins MD at [facility] Right: Spine Lumbar [employer] Inc [id number] / / [id number] Slnt Dura Duraseal Pg Trilysine Amine 5 Implanted:Qty: 1 on 04/03/2024 by Willie Higgins MD at [facility] Right: Spine Lumbar Integra [employer] Allyn 12/25/2024 [id number] / / [id number] Env Absb Med 2.7x2.5in Polyarylate Implanted:Qty: 1 on 04/03/2024 by Willie Higgins MD at [facility] Right: Spine Lumbar [employer] Inc 12/19/2024 [id number] / / [id number] Nrstm Impl Chrnc Pain Rs2 - [id number] Implanted:Qty: 1 on 04/03/2024 by Willie Higgins MD at [facility] Right: Spine Lumbar [employer] Inc [id number] / [id number] / Procedures Procedure Name Priority Date/Time Associated Diagnosis Comments HEPATITIS PANEL Routine 07/02/2018 10:50 AM MIX MILL TENDER Rheumatoid arthritis involving multiple sites, unspecified rheumatoid factor presence High risk medications (not anticoagulants) long-term use from Last 3 Months or Most Recently Relevant to Health Maintenance Results * (ABNORMAL) HEPATITIS PANEL (07/02/2018 10:50 AM MIX MILL TENDER) Hepatitis A Virus Antibody IgM Negative Negative [facility] INSURANCE BILL Hepatitis A Virus Antibody Total Positive(A) Negative [facility] INSURANCE BILL Hepatitis B Virus Surface Antigen Negative Negative [facility] INSURANCE BILL Hepatitis Be Antigen Negative Negative [facility] INSURANCE BILL Hepatitis B Core Virus Antibody IgM Negative Negative [facility] INSURANCE BILL Hepatitis B Core Virus Antibody Total Negative Negative [facility] INSURANCE BILL Hepatitis Be Antibody Negative Negative [facility] INSURANCE BILL Hepatitis B Virus Surface Antibody Reactive [facility] INSURANCE BILL Comment: Non Reactive: Inconsistent with immunity, less than 10 mIU/mL Reactive: Consistent with immunity, greater than 9.9 mIU/mL Blood BLOOD SPECIMEN / Unknown 07/02/2018 10:50 AM MIX MILL TENDER 07/02/2018 Narrative Resulting Agency Comment [facility] [address] [facility] [place] [phone] Marco A Gray MD LAB - CHEMISTRY OR DERABLES [facility] INSURANCE BILL [address] [place] [address] from Last 3 Months or Most Recently Relevant to Health Maintenance Advance Directives * Full Code (Latest Code Status on File) Date Activated Date Inactivated Comments 08/30/2020 9:00 PM 08/31/2020 12:59 PM Care Teams Information Security Consultant Relationship Specialty Start Date End Date Raffy Alvarenga MD [address] [place] [address] PCP - General Family Medicine 01/10/24 Marco A Gray MD [address] [place] [id number] Rheumatology 08/18/20
--- OUTSIDE RECORDS SUMMARY | 2024-09-01 09:07 | XMS_ITS | Data Portability ---
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 She has AC joint arthrosis and rotator cuff tendinitis that has failed extensive conservative management. She has been doing physical therapy, taking anti-inflammator ies, and at the last visit had a cortisone injection. This lasted 2 days, and she had significant relief, but then wore off. She reports her pain is getting worse, currently rated as 8/10. Range of motion 130/15/buttocks. She has tenderness over the AC joint over the biceps. She has 5- out of 5 strength with resisted elevation, positive Toy, positive Neer and Francis, positive Speed and Yergason's, positive pain with AC loading. MRI was reviewed again, demonstrating a partial to give sided cuff tear, fluid around the biceps, AC hypertrophy Given her failure of conservative management, we will plan to proceed with surgery for shoulder arthroscopy, debridement, biceps tenodesis, rotator cuff repair, subacromial decompression, distal clavicle excision. Risks, benefits, and alternatives to surgery were discussed with the patient. Risks include but are not limited to pain, stiffness, infection, bleeding, blood clot, injury to other structures including nerves or blood vessels, need for future surgery, and anesthesia risks. We discussed the goal of surgery is to improve symptoms but there is no guarantee of improvement and it is possible the patient's condition is worse after surgery. Patient agreed and would like to proceed. [email or web address] Not available 06/12/2023 17:15:16 07/23/2023 07/23/2023 62 yo patient presents today for 1st post op follow up after right shoulder arthroscopy, biceps tendoesis, subacromial decompression, and distal clavicle excision on 07/05/[address] Crystal. She states she is doing well overall, rates pain 4/10. She is not taking medications for pain at this time. She presents in the sling. She has been coming out daily to do pendulums. Physical exam: Incisions clean, dry, intact, without s/s of infection. Sutures were removed and steri strips were placed. No bruising or edema. Some tenderness with gentle ROM. We will keep her in the sling for another few weeks. She can come out of it at her next appointment and we will start physical therapy. She can take anti-inflammator ies as needed for pain. We will see her back in 4 weeks. Not available 07/23/2023 10:25:02 08/20/2023 08/20/2023 62 yo patient presents today for post op follow up after right shoulder arthroscopy, biceps tendoesis, subacromial decompression, and distal clavicle excision on 07/05/[address] Crystal. She states she is doing well overall, rates pain 4/10. She takes ibuprofen and tylenol for pain. She presents in the sling. She has been coming out daily to do pendulums. Physical exam: Incisions well healed without s/s of infection. No bruising or edema. Some tenderness with ROM. Today she may come out of the sling. We will order physical therapy to get her started on motion. She can take anti-inflammator ies as needed for pain. We will see her back in 6-8 weeks for recheck. Not available 08/20/2023 13:01:53 10/01/2023 10/01/2023 62 yo patient presents today for post op follow up after right shoulder arthroscopy, biceps tendoesis, subacromial decompression, and distal clavicle excision on 07/05/[address] Crystal. She states she is doing well overall, no pain. She has been working with therapy. They recently started working on strength, lifting 1-2 lbs. Physical exam: Incisions well healed. No bruising or edema. No pain with ROM. 150/40/upper lumbar. We will renew her physical therapy order so she can continue working on strengthening. She can take anti-inflammator ies as needed for pain. We will see her back in 2-3mo for recheck. Not available 10/01/2023 09:36:13 01/07/2024 01/07/2024 62 yo patient presents today for post op follow up after right shoulder arthroscopy, biceps tendoesis, subacromial decompression, and distal clavicle excision on 07/05/[address] Crystal. She states she is doing well overall, no pain. She has completed therapy and feels that she has good strength and movement. Physical exam: Incisions well healed. No pain with ROM. 150/40/upper lumbar. 5/5 rotator cuff strength. We recommend continuing exercises at home. At this point we no longer need to see her for rechecks of the right shoulder. She states that the left shoulder is bothering her now and she would like to be seen for that, but not until she gets her spine problems resolved. She will call when she is ready to be seen. Not available 01/07/2024 09:33:31 Plan of Treatment Reminders Order Date Submit Date Provider Last Modified By Organization Details Last Modified Time Details Appointments None recorded. Lab None recorded. Referral physical therapist referral - Please contact pt to schedule for R shoulder 2023 024 [id number] [facility] [address], [address], 4 16:33:55 Procedures None recorded. Surgeries None recorded. Imaging None recorded. Medication Orders None recorded. Patient TargetsNo targets recorded. Patient InstructionsNo instructions recorded. Reason for Referral Physical Therapist Referral for Pain of right shoulder joint R shoulder Please contact pt to schedule for R shoulder Referring Physician: Aleta John, Orthopedic Surgery, Encounter Date: 08/20/2023 Problems Name Problem SNOMED Code Status Onset Date Resolution Date Notes Provider Name and Address Organization Details Recorded Time Disorder of shoulder 110191164 Active Not Available [facility] 3 19:29:17 Chronic obstructiv e pulmonary disease 70255105 Active 2020 Not Available [facility] 3 19:29:18 Gastroesop hageal reflux disease without esophagiti s 113115360 Active 2020 Not Available [facility] 3 19:29:18 Wheezing 96229026 Active 2020 Not Available [facility] 3 19:29:18 Dyspnea on exertion 84087384 Active 2020 Not Available [facility] 3 19:29:18 Bilateral shoulder joint pain 9217103186920 9104 Active 2022 DEMETRIA Dejesus, [facility] 3 09:39:31 Pain of right shoulder joint 3933339822832 9100 Active 2022 Swati parra, [facility] 3 09:53:44 Pain of left shoulder joint 0204640801065 9109 Active 2022 Swati parra, [facility] [employer] [facility] 3 09:53:49 Disorder of shoulder 498608849 Active 2022 Swati parra, [facility] [employer] [facility] 3 11:47:32 Arthritis of acromiocla vicular joint 318511489 Active 2023 Nelson Crystal MD [address], [address], [address] , [facility] [employer] [facility] 4 10:21:47 Partial thickness rotator cuff tear 323663571 Active 2023 Nelson Crystal MD [address], [place] [address], [place], [address] , [facility] 4 10:21:55 Problem Notes None recorded. Procedures Surgical History Date Name Laterality Status Provider Name and Address Organization Details Recorded Time 05/14/20 23 Ortho - Cortisone Injection completed Nelson Crystal MD [address], [place] [address], [place], [address], [facility] [employer] [facility] 05/15/2023 15:49:02 cholecystectomy completed Corrina Velazquez [facility]NA [place] [facility] 03/05/2023 09:37:10 Appendectomy completed Corrina Velazquez [facility] [place] [facility] [employer] [facility] 03/05/2023 09:38:00 Hysterectomy completed DEMETRIA Dejesus Jacqueline ND [employer] [facility] 03/05/2023 09:38:16 Imaging Results None recorded. Procedure Notes None recorded. Medical Equipment None Reported. Allergies Allergen ID Allergen Name Allergen Category Reaction Reaction Severity Criticality Documentation Date Start Date Code Code System Note Provider Name and Address Organization Details Recorded Time 08802 acetamino phen / hydrocodo ne medicatio n Not available Not available Not available 07/26/2022 42306 2 RxNorm Not Available [facility] 3 19:30:30 75388 Product containin g penicilli n (product) medicatio n hives severe Not available 07/26/2022 72467 8001 SNOMED Not Available [facility] 3 19:30:30 04746 Keflex medicatio n hives severe Not available 07/26/2022 81289 7 RxNorm Not Available [facility] 3 19:30:30 30448 Dilaudid medicatio n Not available Not available Not available 07/26/2022 42540 3 RxNorm Not Available [facility] 3 19:30:30 20520 Cipro medicatio n anaphylax is severe Not available 07/26/2022 38509 3 RxNorm Not Available [facility] 3 19:30:30 95753 Ceprotin medicatio n Not available Not available Not available 07/26/2022 43854 6 RxNorm Not Available [facility] 3 19:30:30 84292 lisinopri l medicatio n itching swelling Not available Not available Not available 03/05/2023 55063 RxNorm DEMETRIA Rosado [place] - Jacqueline [place] [employer] [facility] 3 09:27:36 Medications Name Sig Start Date Stop Date Status Note LastModified by Organization Details LastModified Time multivitami n tablet TK 1 T PO QD 03/05 completed Not Available Not Available Not Available losartan 50 mg tablet TK 1 T PO QD IN THE MORNING 09/14 completed Not Available Not Available Not Available cyclobenzap rine 10 mg tablet TAKE 1 TABLET BY MOUTH TWICE DAILY NEEDED FOR MUSCLE SPASM 03/05 completed Not Available Not Available Not Available atorvastati n 40 mg tablet TK 1 T PO QD 03/05 completed Not Available Not Available Not Available methocarbam ol 500 mg tablet TAKE 1 TABLET BY MOUTH EVERY 6 HOURS 03/05 completed Not Available Not Available Not Available terbinafine HCl 1 % topical cream APPLY TO THE AFFECTED AND SURROUNDI NG AREAS OF SKIN BY TOPICAL ROUTE ONCE DAILY 09/14 completed Not Available Not Available Not Available nystatin 100,000 unit/mL oral suspension SHAKE LQ AND TK 3 ML PO FID 09/14 completed Not Available Not Available Not Available carvedilol 6.25 mg tablet TAKE 1 TABLET BY MOUTH TWICE DAILY WITH FOOD active Not Available Not Available No t Available prednisone 10 mg tablet 09/14 completed Not Available Not Available Not Available atorvastati n 20 mg tablet TK 1 T PO QD IN THE MORNING 09/14 completed Not Available Not Available Not Available clindamycin HCl 300 mg capsule TK 1 C PO Q 8 H FOR 7 DAYS 09/14 completed Not Available Not Available Not Available citalopram 40 mg tablet TAKE 1 TABLET BY MOUTH EVERY DAY IN THE EVENING 09/14 completed Not Available Not Available Not Available azithromyci n 250 mg tablet TAKE 2 TABLETS BY MOUTH FOR 1 DAY THEN TAKE 1 TABLET BY MOUTH DAILY FOR 4 DAYS DIRECTED 09/18 completed Not Available Not Available Not Available ibuprofen 800 mg tablet TAKE 1 TABLET BY MOUTH THREE TIMES DAILY WITH MEALS 03/05 completed Not Available Not Available Not Available ofloxacin 0.3 % eye drops 03/05 completed Not Available Not Available Not Available fluconazole 150 mg tablet TK 1 T PO 3 TIMES A WEEK PRN FOR 7 DAYS 09/14 completed Not Available Not Available Not Available hydrocodone 5 mg-acetamin ophen 325 mg tablet TAKE 1 TABLET BY MOUTH TWICE DAILY active Not Available Not Available No t Available meloxicam 15 mg tablet TAKE 1 TABLET BY MOUTH EVERY DAY active Not Available Not Available No t Available bupivacaine HCl 0.5 % (5 mg/mL) injection solution Take 4 mL by injection route. 2022 active Not Available Not Available Not Avai lable prednisone 20 mg tablet TAKE 3 TABLETS BY MOUTH ONCE DAILY FOR 5 DAYS 09/18 completed Not Available Not Available Not Available sulfasalazi ne 500 mg tablet,kelly yed release TK 2 TS PO BID 03/05 completed Not Available Not Available Not Available hydroxyzine pamoate 50 mg capsule TAKE 1 CAPSULE BY MOUTH DAILY AT BEDTIME NEEDED active Not Available Not Available No t Available acetaminoph en 300 mg-codeine 30 mg tablet TAKE 1 TABLET BY MOUTH EVERY 6 HOURS NEEDED FOR PAIN 03/05 completed Not Available Not Available Not Available amlodipine 5 mg tablet TAKE 1 TABLET BY MOUTH EVERY DAY IN THE MORNING 09/14 completed Not Available Not Available Not Available ciprofloxac in 500 mg tablet TK 1 T PO Q 12 H FOR 10 DAYS 09/14 completed Not Available Not Available Not Available sulfamethox azole 800 mg-trimetho prim 160 mg tablet TAKE 1 TABLET BY MOUTH TWICE DAILY active Not Available Not Available No t Available omeprazole 40 mg capsule,del ayed release TAKE 1 CAPSULE BY MOUTH EVERY DAY BEFORE A MEAL active Not Available Not Available No t Available doxycycline monohydrate 100 mg tablet TK 1 T PO Q 12 H 09/14 completed Not Available Not Available Not Available tramadol 50 mg tablet TAKE 1 TABLET BY MOUTH EVERY 6 HOURS FOR 7 DAYS NEEDED active Not Available Not Available No t Available ketorolac 0.5 % eye drops 03/05 completed Not Available Not Available Not Available citalopram 20 mg tablet TAKE 1 TABLET BY MOUTH EVERY DAY IN THE EVENING 03/05 completed Not Available Not Available Not Available prednisolon e acetate 1 % eye drops,suspe nsion SHAKE LIQUID AND INSTILL 1 DROP SURGICAL EYE THREE TIMES DAILY STARTING AFTER SURGERY 03/05 completed Not Available Not Available Not Available methotrexat e sodium 2.5 mg tablet 09/14 completed Not Available Not Available Not Available Kenalog 10 mg/mL suspension for injection Take 1 mL by injection route. 2022 active [facility]: 0003- 0494- 20 Not Available Not Available Not Available amitriptyli ne 10 mg tablet TK 3 TS PO QHS. MAY CAUSE SEDATION. 03/05 completed Not Available Not Available Not Available baclofen 10 mg tablet 09/14 completed Not Available Not Available Not Available amlodipine 10 mg tablet TAKE 1 TABLET BY MOUTH EVERY DAY active Not Available Not Available No t Available hydrocodone 7.5 mg-acetamin ophen 325 mg tablet TAKE 1 TABLET BY MOUTH EVERY 6 HOURS NEEDED FOR PAIN active Not Available Not Available No t Available prednisone 2.5 mg tablet active Not Available Not Available Not Available triamcinolo ne acetonide 0.1 % topical ointment active Not Available Not Available Not Available ranitidine 150 mg tablet TK 1 T PO BID 30 MINUTES BEFORE MEALS 09/14 completed Not Available Not Available Not Available omeprazole 20 mg capsule,del ayed release TAKE 1 CAPSULE BY MOUTH EVERY DAY BEFORE A MEAL active Not Available Not Available No t Available folic acid 1 mg tablet 09/14 completed Not Available Not Available Not Available olanzapine 15 mg tablet TK 1 T PO QD HS 09/14 completed Not Available Not Available Not Available ceftriaxone 500 mg solution for injection INJECT 500MG IN THE MUSCLE DIRECTED active Not Available Not Available No t Available ergocalcife rol (vitamin D2) 1,250 mcg (50,000 unit) capsule TAKE 1 CAPSULE BY MOUTH 1 TIME EVERY WEEK active Not Available Not Available No t Available hydroxychlo roquine 200 mg tablet TAKE 2 TABLETS BY MOUTH DAILY active Not Available Not Available No t Available methylpredn isolone 4 mg tablets in a dose pack FOLLOW PACKAGE DIRECTION S 03/05 completed Not Available Not Available Not Available albuterol sulfate HFA 90 mcg/actuati on aerosol inhaler INHALE 2 PUFFS BY MOUTH EVERY 4 HOURS NEEDED active Not Available Not Available No t Available ondansetron 4 mg disintegrat ing tablet DISSOLVE 1 TABLET ON THE TONGUE THREE TIMES DAILY NEEDED active Not Available Not Available No t Available losartan 100 mg tablet TAKE 1 TABLET BY MOUTH EVERY DAY active Not Available Not Available No t Available fluticasone propionate 50 mcg/actuati on nasal spray,suspe nsion SHAKE LIQUID AND INSTILL ONE (1) SPRAY IN EACH NOSTRIL EVERY DAY 03/05 completed Not Available Not Available Not Available lamotrigine 100 mg tablet TAKE 2 TABLETS BY MOUTH EVERY DAY AT BEDTIME 03/05 completed Not Available Not Available Not Available loratadine 10 mg tablet TK 1 T PO QD 03/05 completed Not Available Not Available Not Available naproxen 500 mg tablet TAKE 1 TABLET BY MOUTH TWICE DAILY NEEDED WITH FOOD 03/05 completed Not Available Not Available Not Available hydroxyzine pamoate 25 mg capsule TAKE 1 CAPSULE BY MOUTH THREE TIMES DAILY NEEDED active Not Available Not Available No t Available aripiprazol e 10 mg tablet TAKE 1 TABLET BY MOUTH EVERY DAY 03/05 completed Not Available Not Available Not Available aripiprazol e 15 mg tablet TAKE 1 TABLET BY MOUTH EVERY DAY active Not Available Not Available No t Available aripiprazol e 5 mg tablet TAKE 1 TABLET BY MOUTH EVERY DAY 03/05 completed Not Available Not Available Not Available rosuvastati n 20 mg tablet TAKE 1 TABLET BY MOUTH EVERY DAY active Not Available Not Available No t Available omega-3 acid ethyl esters 1 gram capsule TAKE 2 CAPSULES BY MOUTH TWICE DAILY WITH MEALS 03/05 completed Not Available Not Available Not Available pregabalin 75 mg capsule TAKE 1 CAPSULE BY MOUTH TWICE DAILY 09/18 completed Not Available Not Available Not Available calcium 600 mg (as carbonate)- vitamin D3 10 mcg (400 unit) tablet TK 1 T PO BID 03/05 completed Not Available Not Available Not Available Symbicort 160 mcg-4.5 mcg/actuati on HFA aerosol inhaler INHALE 2 PUFFS BY MOUTH TWICE DAILY. RINSE MOUTH AFTER USE 03/05 completed Not Available Not Available Not Available Prolia 60 mg/mL subcutaneou s syringe USE UNDER THE SKIN EVERY 6 MONTHS active Not Available Not Available No t Available lurasidone 40 mg tablet TAKE 1 TABLET BY MOUTH EVERY DAY IN THE EVENING WITH FOOD active Not Available Not Available No t Available Linzess 290 mcg capsule TAKE 1 CAPSULE BY MOUTH EVERY DAY 30 MINUTES BEFORE FIRST MEAL OF THE DAY ON AN EMPTY STOMACH active Not Available Not Available No t Available lurasidone 60 mg tablet TAKE 1 TABLET BY MOUTH DAILY IN THE EVENING WITH FOOD active Not Available Not Available No t Available Movantik 25 mg tablet TAKE 1 TABLET BY MOUTH EVERY DAY 03/05 completed Not Available Not Available Not Available Enbrel Mini 50 mg/mL (1 mL) subcutaneou s cartridge INJECT 50MG UNDER THE SKIN EVERY 7 DAYS 03/05 completed Not Available Not Available Not Available Caplyta 42 mg capsule TAKE 1 CAPSULE BY MOUTH EVERY DAY active Not Available Not Available No t Available Vitals Date Recorded Body height Body mass index (BMI) Body weight Pain severity - 0-10 verbal numeric rating [Score] - Reported Provider Name and Address Organization Details Last Updated DateTime 06/11/2023 152.4 cm 28.1 kg/m2 12613.3 g 8 [facility] 06/11/20[facility] 09:56:19 Date Recorded Body height Pain severity - 0-10 verbal numeric rating [Score] - Reported Body mass index (BMI) Body weight Provider Name and Address Organization Details Last Updated DateTime 07/23/2023 152.4 cm 4 28.3 kg/m2 88160.89 g Jannet [employer] [facility] 07/23/2023 09:30:49 Date Recorded Body height Body mass index (BMI) Body weight Pain severity - 0-10 verbal numeric rating [Score] - Reported Provider Name and Address Organization Details Last Updated DateTime 08/20/2023 152.4 cm 27.9 kg/m2 47942.71 g 4 [facility] 08/20/2023 12:26:53 Date Recorded Body height Body mass index (BMI) Body weight Pain severity - 0-10 verbal numeric rating [Score] - Reported Provider Name and Address Organization Details Last Updated DateTime 10/01/2023 152.4 cm 28.3 kg/m2 27218.89 g 2 Jannet Brenner [facility] 10/01/2023 09:27:16 Date Recorded Body height Body mass index (BMI) Body weight Pain severity - 0-10 verbal numeric rating [Score] - Reported Provider Name and Address Organization Details Last Updated DateTime 01/07/2024 152.4 cm 26.4 kg/m2 53012.97 g 3 Jannet [employer] 01/07/2024 09:22:43 Social History Question Answer Notes LastModified by Organizat ion Details LastModified Time Tobacco Smoking Status Former Smoker Not Available [facility] 07/26/2022 19:28:13 Do You Have An Advance Directive? No [id number] Information not available 07/26/2022 What Is Your Level Of Alcohol Consumption? Occasional [id number] Information not available 07/26/2022 What Is Your Level Of Caffeine Consumption? Heavy [id number] Information not available 07/26/2022 How Much Tobacco Do You Chew? None [id number] Information not available 07/26/2022 In The 14 Days Before Symptom Onset, Have You Had Close Contact With A Laboratory-confir med COVID-19 While That Case Was Ill? No [id number] Information not available 07/26/2022 In The 14 Days Before Symptom Onset, Have You Had Close Contact With A Person Who Is Under Investigation For COVID-19 While That Person Was Ill? No [id number] Information not available 07/26/2022 What Type Of Diet Are You Following? REGULAR [id number] Information not available 07/26/2022 Which Illicit Or Recreational Drugs Have You Used? None [id number] Information not available 07/26/2022 Do You Or Have You Ever Used E-cigarettes Or Vape? Never Used Electronic Cigarettes [id number] Information not available 07/26/2022 Do You Have An Electrostatic Air Filter? No [id number] Information not available 07/26/2022 What Is Your Occupation? Disabled [id number] Information not available 07/26/2022 Do You Have A Humidifier? No [id number] Information not available 07/26/2022 Do You Have Moisture Problems In Your Home? No [id number] Information not available 07/26/2022 How Many Children Do You Have? 0 [id number] Information not available 07/26/2022 Do You Have Any Pets? Yes [id number] Information not available 07/26/2022 At What Age Did You Start Smoking Tobacco? 16 [id number] Information not available 07/26/2022 Do You Or Have You Ever Used Smokeless Tobacco? Never Used Smokeless Tobacco [id number] Information not available 07/26/2022 How Much Tobacco Do You Smoke? 1 PPD [id number] Information not available 07/26/2022 How Many Years Have You Smoked Tobacco? 20 [id number] Information not available 07/26/2022 Sex: Female Functional Status Question Answer Note LastModified by Organizat ion Details LastModified Time What is your exercise level? Occasional [id number] Information not available 07/26/2022 Mental Status None recorded. Family History Relationship Description Onset Age of this Age Resolved Age Notes LastModified by Organization Details LastModified Time Mother Heart disease [email or web address] Not available 2022 09:34:59 Mother Family history of stroke [email or web address] Not available 2022 09:35:20 Mother Family history of malignant neoplasm [email or web address] Not available 2022 09:35:48 Mother Hypertensive disorder [email or web address] Not available 2022 09:36:02 Mother Diabetes mellitus [email or web address] Not available 2022 09:36:17 Sister Heart disease [email or web address] Not available 2022 09:34:59 Sister Diabetes mellitus [email or web address] Not available 2022 09:36:17 Sister Kidney disease [email or web address] Not available 2022 09:36:27 Brother Heart disease MULTIP LE BROTHE RS [email or web address] Not available 03/05/2023 09:34:59 Brother Family history of stroke [email or web address] Not available 2022 09:35:20 Brother Family history of malignant neoplasm [email or web address] Not available 2022 09:35:48 Father Family history of stroke [email or web address] Not available 2022 09:35:20 Father Hypertensive disorder [email or web address] Not available 2022 09:36:02 Paternal Grandfather Family history of malignant neoplasm [email or web address] Not available 2022 09:35:48 Medical History Condition Response CHEST XRAY Y NERVE DISEASE N BLINDNESS N POLIO N LUNG DISEASE/DISORDER N RADIATION / CHEMOTHERAPY N COPD N BLOOD DISEASES N EAR OR HEARING PROBLEMS N FEMALE PROBLEMS / INFECTIONS N DEPRESSION (INCLUDING POST ) Y BOWEL PROBLEMS Y STROKE/TIA N CHEST CT Y ULCERS N RENAL INSUFFICIENCY N BENIGN PROSTATIC HYPERPLASIA N TB SKIN TEST N OBESITY N GERD/NAUSEA Y EXCESSIVE PERSPIRATION Y ANEURYSM N URINARY/BLADDER/KIDNEY PROBLEMS N CORONARY ARTERY DISEASE (CAD) N USE OF BLOOD THINNERS N SKIN PROBLEMS N EMPHYSEMA N SHORTNESS OF BREATH Y GASTROINTESTINAL DISORDER N PARATHYROID DISEASE N PERIPHERAL VASCULAR DISEASE N GASTROINTESTINAL BLEEDING N BLOOD CLOTS N ASTHMA N CONCUSSION OR SPINAL TRAUMA N VARICOSITIES N GI PROBLEMS Y CHF N AIDS/HIV N HYPERTENSION Y ANXIETY DISORDER N BLOOD TRANSFUSION Y ANEMIA/BLOOD DISORDER N BRONCHITIS N TUBERCULOSIS N GLAUCOMA N SLEEP APNEA N ALLERGIES/HAYFEVER Y INFECTIOUS DISEASE N HEART ARRHYTHMIA N PROSTATE N INSOMNIA N HIGH CHOLESTEROL / HYPERLIPIDEMIA Y EDEMA N CAROTID BLOCKAGE N BACK / NECK PROBLEMS Y HAVE YOU BEEN HOSPITALIZED OR SEEN IN [facility] ER IN THE PAST YEAR ? Y ATHEROSCLEROSIS N BREAST PROBLEMS N HERNIATED DISC Y DIALYSIS N FIBROMYALGIA N OSTEOPOROSIS Y ARTHRITIS Y NO SIGNIFICANT PAST MEDICAL HISTORY N DIABETES, TYPE N SEASONAL ALLERGIES Y HEARTBURN / REFLUX Y PLEURISY N ADD/ADHD N AFIB N Bronchoscopy N HEPATITIS / LIVER DISEASE N PULMONARY DISEASE N GOUT N SLEEP DISORDER N ALZHEIMER'S DISEASE N FATIGUE Y DEMENTIA N HERPES N RETINOPATHY N HEADACHES/MIGRAINES Y SEIZURES/EPILEPSY N SLEEP STUDY N VASCULAR DISEASE N DIZZINESS N HEAD TRAUMA OR INJURY N HEART DISEASE/HEART PROBLEMS N MULTIPLE SCLEROSIS N PULMONARY FUNCTION TEST N CANCER: SPECIFY N CARDIAC ARRHYTHMIA N ANESTHESIA COMPLICATIONS N PNEUMONIA Y ATRIAL FIBRILLATION N PULMONARY EMBOLISM N AUTOIMMUNE DISEASE N Gynecological HistoryNo gynecological history recorded. Obstetrics History GPAL:G 0 P 0 0 0 0 Past Encounters Encounter ID Performer Location Encounter Start Date Encounter Closed Date Diagnosis/Indication Diagnosis SNOMED-CT Code Diagnosis ICD10 Code Diagnosis Note [id number] [facility] [address] [address] 09/14/2020 00:00:00 09/14/2020 15:56:21 [id number] Aleta John NP [facility] [address] [address] 03/05/2023 09:06:44 03/05/2023 10:38:49 Bilateral shoulder joint pain [id number] [id number] M25.511 M25.261 [id number] Aleta John NP [facility] [address] [address] 04/16/2023 09:25:55 04/16/2023 10:19:36 Pain of left shoulder joint [id number] 4769285 M25.512 Pain of ri ght shoulder joint 9401928028 3039224 M25.547 [id number] MD CRISTY [facility] [address] [address] 05/14/2023 11:45:48 05/14/2023 12:09:57 Disorder of shoulder 973138353 M25.811 Pain of ri ght shoulder joint 0261637438 3447074 M25.450 [id number] MD CRISTY Dee_[address] [address] 06/11/2023 09:50:36 06/11/2023 10:22:14 Pain of right shoulder joint 4823034142 9425476 M25.511 Partial th ickness rotator cuff tear 205059121 M75.101 Arthritis of acromioclavicular joint 945966960 M13.965 [id number] Aleta John NP S_[address] [address] 07/23/2023 09:28:46 07/23/2023 09:45:04 Pain of right shoulder joint 7073212626 8485924 M25.511 Arthritis of acromioclavicular joint 003529400 M13.442 [id number] Aleta John NP [facility] [address] 9 08/20/2023 12:23:25 08/20/2023 12:54:50 Pain of right shoulder joint 8639528031 4253474 M25.546 [id number] Aleta John NP Jacqueline_[address] [address] 10/01/2023 09:24:21 10/01/2023 09:34:36 Pain of right shoulder joint 7579955566 2948229 M25.023 [id number] Aleta John NP S_[address] [address] 01/07/2024 09:18:58 01/07/2024 09:41:36 Pain of right shoulder joint 5548524732 1218042 M25.511 Disorder of shoulder 118 195256 M25.811 Partial th ickness rotator cuff tear 920238086 M75.101 Health Concerns Section Related Observation LastModified by Organization Detai ls LastModified Time None Recorded Concern Status LastModified by Organization Details LastModified Time None Recorded Advance Directives Directive N: Payers Encounter Date Sequence Insurance Name Policy Number Policy Cazares Covered Member ID Cazares Member ID Guarantor Name 06/11/2023 2 [place] [facility] [facility] [employer] Miranda Hearn [id number] Miranda Folk 06/11/2023 3 [employer] (MEDICARE REPLACEMENT HMO) [id number] Miranda Hearn [id number] Miranda Folk 07/23/2023 2 [place] [facility] [facility] Miranda Hearn [id number] Miranda Folk 07/23/2023 3 [employer] (MEDICARE REPLACEMENT HMO) [id number] Miranda Hearn [id number] Miranda Folk 08/20/2023 2 [place] [facility] AID Miranda Hearn [id number] Miranda Folk 08/20/2023 1 [employer] [place] (MEDICARE REPLACEMENT/AD VANTAGE - HMO) [id number] Miranda Hearn [id number] Miranda Folk 10/01/2023 1 [employer] [place] (MEDICARE REPLACEMENT/AD VANTAGE - HMO) [id number] Miranda Edwardsk [id number] Miranda Folk 10/01/2023 2 [place]ARE OR [place]IC[place] REPLACEMENT PRIMARY) Miranda Hearn [id number] Miranda Folk 01/07/2024 1 [employer] [place] (MEDICARE REPLACEMENT/AD VANTAGE - HMO) [id number] Miranda Edwardsk [id number] Miranda Folk 01/07/2024 2 [place] OR [place]IC[place] REPLACEMENT PRIMARY) Miranda Hearn [id number] Miranda Hearn OBGyn Episode No OBEpisode recorded.
--- OUTSIDE RECORDS SUMMARY | 2024-09-01 09:07 | XMS_ITS | Referral Summary ---
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 [facility] [address] [place] [address] from Last 3 Months Social History Tobacco Use Types Packs/Day Years Used Date Smoking Tobacco: Never Assessed Personal Safety Answer Date Recorded Getting School Help Needed Not on file 11/18 Comments Unknown Sex and Gender Information Value Date Recorded Sex Assigned at Not on file Legal Sex Female 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 Confirmation testing will be performed. Interpretive Data Nonreactive: Antibodies to HCV not detected. Does NOT exclude the possibility of recent exposure to HCV. Equivocal: Equivocal for HCV antibodies. Supplemental molecular testing will be automatically performed to determine infection status in accordance with current CDC screening recommendations. Reactive: Positive for HCV antibodies. This may represent current or past HCV infection. Supplemental molecular testing will be automatically performed to determine current infection status in accordance with current CDC screening recommendations. Interpretive data was last revised on 2019. Blood 12/17/2023 9:35 AM CDT 12/17/2023 11:51 AM CDT us Luna Gould MD LAB MICROBIOLOGY - GENERAL ORDER KELLY Final Result [facility] [address] Department [place] [address] from Last 3 Months or Most Recently Relevant to Health Maintenance Insurance [employer] MEDICARE GOLD Care Teams Telephone Operator Chief Relationship Specialty Start Date End Date Luna Gould MD [address] [facility] [address] [place] [address] PCP - General Rheumatology 12/17/23
--- OUTSIDE RECORDS SUMMARY | 2024-09-01 09:07 | XMS_ITS | Patient Health Record ---
Author Organization [facility] Address [facility] [facility] [address] [place] [address] Care Team Providers Care Payroll And Benefits Manager Name Role Phone Raffy Alvarenga MD Primary Care Provider Isabel GouldLuna Unavailable [phone] Allergies Allergen (clinical drug ingredient) Drug/Non Drug Allergy documented on EMR Reaction Allergy Type Onset Date Status ciprofloxacin Cipro Unknown Drug Allergy Act rob atorvastatin Atorvastatin Unknown Drug Allergy A ctive cephalexin Cephalexin Unknown Drug Allergy Activ e Penicillin Unknown Drug Allergy Active Results Component Value Reference Range Notes eGFR Reviewed date:12/17/2023 12:35:29 PM Interpretation: Performing Lab:[facility] , [facility]. [facility] [address] Notes/Report: eGFR 87 >=60 mL/min/1.73 m2 Interpretive Data Reference Interval Normal >/= 90 mL/min/1.73m2 Mildly decreased* 60 - 89 mL/min/1.73m2 Mildly to moderately decreased 45 - 59 mL/min/1.73m2 Moderately to severely decreased 30 - 44 mL/min/1.73m2 Severely decreased 15 - 29 mL/min/1.73m2 Kidney Failure < 15 mL/min/1.73m2 *Relative to young adult level Estimated glomerular filtration rate is determined by the 2020 CKD-EPI equation recommended by the National Kidney Foundation (A Unifying Approach to GFR Estimation: Recommendations of the NKF-ASK Task Force on Reassessing the Inclusion of Race in Diagnosing Kidney Disease, JASN 2020). The CKD-EPI equation should not be used for patients with unstable renal function and has not been validated in children and those over 70. Current interpretive data was last reviewed 2021. Differential Automated Reviewed date:12/17/2023 12:35:29 PM Interpretation: Performing Lab:[facility] , [address] [place] [address] Notes/Report: Neut Abs 2.8 1.5-6.5 K/cumm ImmGran Abs 0.0 0.0-0.1 K/cumm Lymphocyte Abs 3.2 0.8-3.3 K/cumm Pickett Abs 0.5 0.2-0.8 K/cumm Eos Abs 0.2 0.0-0.5 K/cumm Baso Abs 0.1 0.0-0.1 K/cumm Neut Pct 41.4 Interpretive Data Percent cell count reference ranges are not reported, since discordance with absolute values may lead to misinterpretation of CBC data. Current Interpretive Data was last revised on 2017. ImmGran Pct 0.3 Interpretive Data Percent cell count reference ranges are not reported, since discordance with absolute values may lead to misinterpretation of CBC data. Current Interpretive Data was last revised on 2017. Lymph Pct 46.9 Interpretive Data Percent cell count reference ranges are not reported, since discordance with absolute values may lead to misinterpretation of CBC data. Current Interpretive Data was last revised on 2017. Pickett Pct 8.0 Interpretive Data Percent cell count reference ranges are not reported, since discordance with absolute values may lead to misinterpretation of CBC data. Current Interpretive Data was last revised on 2017. Eos Pct 2.5 Interpretive Data with absolute values may lead to misinterpretation of CBC data. Current Interpretive Data was last revised on 2017. Percent cell count reference ranges are not reported, since discordance Baso Pct 0.9 Interpretive Data Percent cell count reference ranges are not reported, since discordance with absolute values may lead to misinterpretation of CBC data. Current Interpretive Data was last revised on 2017. SSB Ab Reviewed date:12/18/2023 11:53:37 AM Interpretation: Performing Lab:[facility] , [address] [facility] [place] [address] Notes/Report: SS B Antibody <0.2 <=0.9 Ab Index Interpretive Data Negative: < 1.0 Ab Index Positive: > or = 1.0 Ab Index Current interpretive data was last revised on 2016. SSA Ab Reviewed date:12/21/2023 09:55:51 AM Interpretation: Performing Lab:[facility] , [address] [place] [address]. [facility] [address] Notes/Report: SS A Antibody <0.2 <=0.9 Ab Index Interpretive Data Negative: < 1.0 Ab Index Positive: > or = 1.0 Ab Index Current interpretive data was last revised on 2016. Sed Rate Reviewed date:12/17/2023 12:35:57 PM Interpretation: Performing Lab:[facility] , [address] [place] [address]. [facility] [address] Notes/Report: ESR 11 1-30 mm/hr Rheumatoid Factor Reviewed date:12/17/2023 12:35:29 PM Interpretation: Performing Lab:[facility] , [address] [place] [address]. [facility] [address] Notes/Report: RF, Rob 22 <=15 IUnits/mL QTB Gold Reviewed date:12/19/2023 10:02:57 PM Interpretation: Performing Lab:[facility] , [address] [place] [address]. [facility] [address] Notes/Report: QuantiFERON TB Gold Negative Negative No interferon-gamma response to M. tuberculosis antigens was detected. Latent infection with M. tuberculosis is unlikely. A single negative result does not exclude infection with M. tuberculosis. In patients at high risk for M.tuberculosis infection, a second test should be considered in accordance with the 2017 ATS/IDSA/CDC Clinical Practice Guidelines for Diagnosis of Tuberculosis in Adults and Children [Gueritan VIKI et. al. Clin. Infect. Dis. 2017;64(2):111-115]. The reference range for the 'TB1 Ag minus Nil Result' and 'TB2 Ag minus Nil Result' is an Interferon-gamma level <0.35 IU/mL. TB-Nil 0.21 TB2-Nil 0.35 Mitogen-Nil 9.94 NIL 0.06 Test Performed by: [facility] [address] [place] [address] Shipping Specialist: Marialuisa Alves Ph.D.; CLIA# [id number] Hep C AB Reviewed date:12/17/2023 12:35:57 PM Interpretation: Performing Lab:[facility] , [address] [place] [address]. [facility] [address] Notes/Report: Hepatitis C Antibody Reactive Nonreactive Screening test result is reactive and considered [...] Interpretive data was last revised on 2019. Hep B surf AG Reviewed date:12/17/2023 12:35:57 PM Interpretation: Performing Lab:[facility] , [address] [place] [address]. [facility] [address] Notes/Report: Hepatitis B Surface Antigen Nonreactive Nonreactive Creatine Kinase Reviewed date:12/17/2023 12:35:29 PM Interpretation: Performing Lab:[facility] , [address] [place] [address]. [facility] [address] Notes/Report: Total CK 275 30-200 Units/L Comprehensive metabolic pane l (CMP) Reviewed date:12/17/2023 12:35:29 PM Interpretation: Performing Lab:[facility] , [address] [place] [address]. [facility] [address] Notes/Report: Sodium 142 135-145 mmol/L Plasma Potassium 3.5 3.3-4.9 mmol/L Chloride 101 97-110 mmol/L Total CO2 28 22-32 mmol/L Anion Gap 13 2-15 mmol/L BUN 13 6-25 mg/dL Creatinine 0.77 0.60-1.10 mg/dL Glucose 107 70-199 mg/dL Interpretive Data Fasting glucose >/= 126 mg/dl is diagnostic for diabetes. Fasting is defined as no caloric intake for at least 8 hours. Fasting glucose between 100 mg/dl to 125 mg/dl is diagnostic of prediabetes. In a patient with classic symptoms of hyperglycemia or hyperglycemic crisis, a random glucose >/= 200 mg/dl is diagnostic for diabetes. In the absence of unequivocal hyperglycemia, results should be confirmed by repeat testing. The classification and Diagnosis of Diabetes Diabetes Care 2021; 46: S19-S40. Current interpretive data was last revised 2022. Total Calcium 10.3 8.5-10.3 mg/dL Total Bilirubin 0.3 0.1-1.2 mg/dL Plasma Total Protein 7.5 6.5-8.5 g/dL Albumin 4.9 3.5-5.0 g/dL Alkaline Phosphatase 118 40-130 Units/L ALT 74 7-45 Units/L AST 44 10-45 Units/L CBC w auto diff Reviewed date:12/17/2023 12:35:29 PM Interpretation: Performing Lab:[facility] , [address] [place] [address]. [place] [address] Notes/Report: WBC 6.7 3.8-9.9 K/cumm Hgb 13.5 11.9-15.5 g/dL Hct 42.9 35.6-45.5 % Platelet Ct 303 150-400 K/cumm MPV 10.7 9.1-12.3 fL RBC 4.89 3.90-5.20 M/cumm MCV 87.7 81.3-96.4 fL MCH 27.6 27.1-33.3 pg MCHC 31.5 32.3-35.7 g/dL RDW CV 13.8 11.1-14.9 % RDW SD 44.4 35.7-48.1 fL NRBC Abs Auto 0.00 0.00-0.01 K/cumm C Reactive Protein Reviewed date:12/17/2023 12:35:29 PM Interpretation: Performing Lab:[facility] , [address] [place] [address]. [place] [address] Notes/Report: C-Reactive Protein <3.0 <=10.0 mg/L Anti-CCP (Cyclic Citrullinat ed Peptide Ab) Reviewed date:12/21/2023 12:26:38 PM Interpretation: Performing Lab:[facility] , [facility] [facility]. [place] [address] Notes/Report: CCP Ab <0.5 <=2.9 units/mL Interpretive data Negative: <3 units/mL Positive: > or equal to 3 units/mL Current interpretive data was last revised on 2016. YOVANY reflex titer pattern MARTITA + dsDNA Reviewed date:12/18/2023 02:41:24 PM Interpretation: Performing Lab:[facility] , [address] [facility]. [place] [id number] Notes/Report: YOVANY, Qual Negative Interpretive Data Normal range for YOVANY Qualitative Antibody = Negative. 1. YOVANY is performed using indirect immunofluorescence against HEp-2 cells 2. YOVANY titers are performed on all positive qualitative results. 3. A significantly positive YOVANY result is defined as a positive nuclear fluorescence at a titer of 1:80 or greater. 4. 15% of normal people above age 65 have significantly positive YOVANY results. 5% or less of normal people age 65 or under have significantly positive YOVANY results. Current interpretive data was last revised on 2020. Testing performed by: [facility], [address] [place]., [address] Reason For Referral Reason Prolia J08 97 DX M81.0 NO PA REQUIRED per Evita Serrato 07.17.2024@9:31am [employer] pa dept Diagnosis 1 Postmenopausal osteo porosis (M81.0) Referral Organization [facility] Referring Provider First Name Luna Referring Provider Last Name Luis Fernando Referring Provider Speciality Rheumatolo gy Referred Organization [facility] Referred Provider Luna Gould Referred Address [address],[place], [place],[address], Referred Provider Specialty Rheumatology Procedure 1 THER/PROPH/DIAG INJ, SC/IM (637[address]) Referral Priority Routine Medications Medication SIG (Take, Route, Frequency, Duration) Notes Start Date End Date Status Linzess 290 MCG 1 capsule at least 3 0 minutes before the first meal of the day on an empty stomach Orally Once a day for 30 day(s) Active Carvedilol 6.25 MG 1 tablet with food O rally Twice a day for 30 day(s) Active Denosumab 60 MG/ML one injection Subcutaneous every 6 months for 180 days 01/01/2024 07/12/2025 Active Vitamin D3 50 MCG (1999 UT) 1 capsule Orally once a week Active hydrALAZINE HCl 50 MG 1 tablet with food Orally at bedtime for 30 day(s) Active hydrOXYzine HCl 25 MG 1 tablet as needed Orally twice a day for 30 day(s) Active Pregabalin 75 MG 1 capsule Orally twi ce daily Active Rosuvastatin Calcium 20 MG 1 tablet Orally Once a day for 30 day(s) Active Latuda 60 MG 1 tablet in the even ing with food Orally Once a day for 30 day(s) Active Losartan Potassium 100 MG 1 tablet Orall y Once a day for 30 day(s) Active Omeprazole 40 MG 1 capsule 30 minutes before morning meal Orally Once a day for 30 day(s) Active Social History Tobacco Use: Social History Observation Description Date Details (start date - stop date) Former Smoker NA - NA Household Question Answer Notes Marital status: Number of children in household: 0 Tobacco Control (Standard) Question Answer Notes Tobacco use: Former smoker How long has it been since you last smoked? Grea ter than 10 years Problems Problem Type SNOMED Code ICD Code Onset Dates Problem Status W/U Status Risk Notes Problem [id number] Rheumatoid arthritis without rheumatoid factor, multiple sites (M06.09) Active confirmed Problem Age-related osteoporosis (747059193) Age-related osteoporosis without current pathological fracture (M81.0) Active confirmed Problem Postmenopausal osteoporosis (974965466) Postmenopausal osteoporosis (M81.0) Active confirmed Vital Signs Heart Rate 80 /min 07/23/2024 Temperature 97.9 degrees Fahrenheit 07/23/2024 Blood pressure diastolic 79 mm Hg 07/23/2024 Oximetry 96 % 07/14/2024 Weight-kg 59.15 kg 07/23/2024 Height 61 in 07/23/2024 Blood pressure systolic 132 mm Hg 07/23/2024 Weight 130.4 lbs 07/23/2024 BMI 24.64 kg/m2 07/23/2024 Encounters Encounter Location Date Provider Diagnosis [facility] [address] [place] [address] 12/17/2023 Luna Gould Pain in unspecified joint M25.50 ; Rheumatoid arthritis without rheumatoid factor, multiple sites M06.09 ; Postmenopausal osteoporosis M81.0 and High risk medication use Z79.899 [facility] [address] [place] [address] 12/31/2023 Luna Du Pain in unspecified joint M25.50 ; Rheumatoid arthritis without rheumatoid factor, multiple sites M06.09 ; Postmenopausal osteoporosis M81.0 ; High risk medication use Z79.899 ; Hepatitis C antibody test positive R76.8 and Liver enzyme elevation R74.8 [facility] [address] [place] [address] 07/14/2024 Luna Du Rheumatoid arthritis without rheumatoid factor, multiple sites M06.09 ; Postmenopausal osteoporosis M81.0 ; High risk medication use Z79.899 ; Hepatitis C antibody test positive R76.8 and Liver enzyme elevation R74.8 [facility] [address] [place] [address] 07/23/2024 Luna Du Age-related osteopor osis without current pathological fracture M81.0 [facility] [address] [place] [address] 12/31/2023 Luna Du [facility] [address] [place] [address] 01/10/2024 Luna Du [facility] [address] [place] [address] 07/14/2024 Luna Du Postmenopausal osteoporosis M81.0 [facility] [address] [place] [address] 07/16/2024 Luna Du [facility] [address] [place] [address] 07/17/2024 Luna Du [facility] [address] [place] [address] 07/17/2024 Luna Du Pain in unspecified joint M25.50 [facility] [address] [place] [address] 07/23/2024 Luna Du Postmenopausal osteoporosis M81.0 Assessments Encounter Date Diagnosis (ICD Code) Assessment Notes Treatment Notes Treatment Clinical Notes Section Notes 12/17/2023 Rheumatoid arthritis without rheumatoid factor, multiple sites (ICD-10 - M06.09) 63 year old female with rheumatoid arthritis currently on plaquenil. She did not tolerate methotrextae, sulfasalazine or humira. She failed orencia. Enbrel did help. It ws discontinued due to ?positiev TB test. Lbas and Xrays will be ordered. Consider leflunomide or restarting enbrel (if TB test comes back negative. history of osteoporosis, she will give me report of most recent DEXA. She has a history of esophagitis and will not tolerate oral bisphosphonates. Consder prolia or reclast. 12/17/2023 Pain in unspecified joint (ICD-10 - M25.50) 63 year old female with rheumatoid arthritis currently on plaquenil. She did not tolerate methotrextae, sulfasalazine or humira. She failed orencia. Enbrel did help. It ws discontinued due to ?positiev TB test. Lbas and Xrays will be ordered. Consider leflunomide or restarting enbrel (if TB test comes back negative. history of osteoporosis, she will give me report of most recent DEXA. She has a history of esophagitis and will not tolerate oral bisphosphonates. Consder prolia or reclast. 12/31/2023 Rheumatoid arthritis without rheumatoid factor, multiple sites (ICD-10 - M06.09) hep C Ab (-), elevated ALT, concerning for active hepatitis C, will not prescribe enbrel or arava, continue plaquenil, add tramadol prn history of osteoporosis, She has a history of esophagitis and will not tolerate oral bisphosphonates. Consder prolia or reclast although insurance coverage may be a problem, need DEXA report from 2022, will call Dr. Alvarenga's office Addendum: DEXA report reviewed, e-prescribed prolia, will see if her insurance covers 12/31/2023 Pain in unspecified joint (ICD-10 - M25.50) hep C Ab (-), elevated ALT, concerning for active hepatitis C, will not prescribe enbrel or arava, continue plaquenil, add tramadol prn history of osteoporosis, She has a history of esophagitis and will not tolerate oral bisphosphonates. Consder prolia or reclast although insurance coverage may be a problem, need DEXA report from 2022, will call Dr. Alvarenga's office Addendum: DEXA report reviewed, e-prescribed prolia, will see if her insurance covers 07/14/2024 Rheumatoid arthritis without rheumatoid factor, multiple sites (ICD-10 - M06.09) labs today and schedule 2nd prolia injection, off DMARDS, no obvious synovitis, will monitor 07/14/2024 Postmenopausal osteoporosis (ICD-10 - M81.0) labs today and schedule 2nd prolia injection, off DMARDS, no obvious synovitis, will monitor 07/14/2024 Postmenopausal osteoporosis (ICD-10 - M81.0) 07/17/2024 Pain in unspecified joint (ICD-10 - M25.50) 07/23/2024 Postmenopausal osteoporosis (ICD-10 - M81.0) 07/23/2024 Age-related osteoporosis without current pathological fracture (ICD-10 - M81.0) 07/14/2024 High risk medication use (ICD-10 - Z79.899) labs today and schedule 2nd prolia injection, off DMARDS, no obvious synovitis, will monitor 12/31/2023 Postmenopausal osteoporosis (ICD-10 - M81.0) hep C Ab (-), elevated ALT, concerning for active hepatitis C, will not prescribe enbrel or arava, continue plaquenil, add tramadol prn history of osteoporosis, She has a history of esophagitis and will not tolerate oral bisphosphonates. Consder prolia or reclast although insurance coverage may be a problem, need DEXA report from 2022, will call Dr. Alvarenga's office Addendum: DEXA report reviewed, e-prescribed prolia, will see if her insurance covers 12/17/2023 Postmenopausal osteoporosis (ICD-10 - M81.0) 63 year old female with rheumatoid arthritis currently on plaquenil. She did not tolerate methotrextae, sulfasalazine or humira. She failed orencia. Enbrel did help. It ws discontinued due to ?positiev TB test. Lbas and Xrays will be ordered. Consider leflunomide or restarting enbrel (if TB test comes back negative. history of osteoporosis, she will give me report of most recent DEXA. She has a history of esophagitis and will not tolerate oral bisphosphonates. Consder prolia or reclast. 12/31/2023 High risk medication use (ICD-10 - Z79.899) hep C Ab (-), elevated ALT, concerning for active hepatitis C, will not prescribe enbrel or arava, continue plaquenil, add tramadol prn history of osteoporosis, She has a history of esophagitis and will not tolerate oral bisphosphonates. Consder prolia or reclast although insurance coverage may be a problem, need DEXA report from 2022, will call Dr. Alvarenga's office Addendum: DEXA report reviewed, e-prescribed prolia, will see if her insurance covers 12/17/2023 High risk medication use (ICD-10 - Z79.899) 63 year old female with rheumatoid arthritis currently on plaquenil. She did not tolerate methotrextae, sulfasalazine or humira. She failed orencia. Enbrel did help. It ws discontinued due to ?positiev TB test. Lbas and Xrays will be ordered. Consider leflunomide or restarting enbrel (if TB test comes back negative. history of osteoporosis, she will give me report of most recent DEXA. She has a history of esophagitis and will not tolerate oral bisphosphonates. Consder prolia or reclast. 07/14/2024 Hepatitis C antibody test positive (ICD-10 - R76.8) labs today and schedule 2nd prolia injection, off DMARDS, no obvious synovitis, will monitor 12/31/2023 Hepatitis C antibody test positive (ICD-10 - R76.8) hep C Ab (-), elevated ALT, concerning for active hepatitis C, will not prescribe enbrel or arava, continue plaquenil, add tramadol prn history of osteoporosis, She has a history of esophagitis and will not tolerate oral bisphosphonates. Consder prolia or reclast although insurance coverage may be a problem, need DEXA report from 2022, will call Dr. Alvarenga's office Addendum: DEXA report reviewed, e-prescribed prolia, will see if her insurance covers 07/14/2024 Liver enzyme elevation (ICD-10 - R74.8) labs today and schedule 2nd prolia injection, off DMARDS, no obvious synovitis, will monitor 12/31/2023 Liver enzyme elevation (ICD-10 - R74.8) hep C Ab (-), elevated ALT, concerning for active hepatitis C, will not prescribe enbrel or arava, continue plaquenil, add tramadol prn history of osteoporosis, She has a history of esophagitis and will not tolerate oral bisphosphonates. Consder prolia or reclast although insurance coverage may be a problem, need DEXA report from 2022, will call Dr. Alvarenga's office Addendum: DEXA report reviewed, e-prescribed prolia, will see if her insurance covers Plan Of Treatment Pending Test Test Name Order Date X ray : Hands, bilateral 12/17/2023 X ray : Wrist, bilateral 2 views 024 COMPREHENSIVE METABOLIC PANEL (24216) Comprehensive metabolic panel (CMP) 06/29 G6PD Ql 12/17/2023 Next Appt Details Provider Name:Luna Luis Fernando, 01/08 09:30:00 AM, [address], [place], [address], Provider Name:Luna Gould, 01/22 10:30:00 AM, [address], [place], [address], Insurance Providers Payer Name Payer Address Payer Phone Subscriber Number Group Number Insured Name Patient Relationship to Insured Coverage Start Date Coverage End Date [employer] Hmo [address] [place] [address] [id number] Guillermo Self - patient is the insured Medical (General) History Medical History History ICD Code rheumatoid arthritis, IBS, o steoporosis, esophagitis, GERD, hyperlipidemia, hypertension, hepatitis C Surgical History Surgery Date(Month/Year) cataract, carpal tunnel, hysterectomy
--- OUTSIDE RECORDS SUMMARY | 2024-09-01 09:07 | XMS_ITS ---
Author Organization [facility] padma Address [address] [facility] [facility] [address] [place] [address] Care Team Providers Care Rubber Ball Finisher Name Role Phone Lyle MESA, Raffy Primary Care Provider Unavailfarida adalberto Luis Fernando Luna Mitchell [phone] REASON FOR VISIT [facility] [place] Encounters Encounter Location Date Provider Diagnosis [facility] [address] [facility] [address] [place] [address] 07/23/2024 Luna Gruber Plan Of Treatment Next Appt Details Provider Name:Luna Gruber, 01/08 09:30:00 AM, [address] [facility] [address], [place], [address], Provider Name:Luna Gruber, 01/22 10:30:00 AM, [address] [facility] [address], [place], [address], Progress Notes * Miranda HEARN EDOB:1960 ( 63 yo F)Acc No.[id number]:07/23/2024 Patient: Miranda UPTON Provider: Charlene GRUBER MD :1960 A ge:63 Y S ex:Female Date:07/23/2024 Address:[address] [place], [place] [id number] Pcp:Raffy Alvarenga MD Subjective: * Chief Complaints: * 1 . [facility] [place]. * Medical History: Objective: * Vitals: Assessment: Plan: * Treatment: * Billing Information: * Visit Code: * Procedure Codes: * Electronic signature of Luna Gruber MD on 09/01/2024 at 09:06 AM CDT Sign off status: Pending * Provider: Charlene GRUBER MD Date: 07/23/2024 Generated for Joaquim corea/Joel/Diana on: 0 09/01/2024 09:06 AM CDT
--- OUTSIDE RECORDS SUMMARY | 2024-09-01 09:07 | XMS_ITS | Clinical Summary ---
Author Organization [facility] Address [address] [place] [address] Care Team Providers Care Primary School Principal Name Role Phone Unavailable Primary Care Provider Unavailabl e Encounters Date Type Department Care Team Description 08/26/2024 External Device Data STL ABSTRACTION Provider, Abstract 08/13/2024 External Device Data ST[facility] ABSTRACTION Provider, Abstract 08/05/2024 External Device Data ST[facility] ABSTRACTION Provider, Abstract 08/05/2024 External Device Data ST[facility] ABSTRACTION Provider, Abstract 08/04/2024 External Device Data ST[facility] ABSTRACTION Provider, Abstract 08/02/2024 External Device Data ST[facility] ABSTRACTION Provider, Abstract 08/01/2024 External Device Data ST[facility] ABSTRACTION Provider, Abstract 07/30/2024 External Device Data ST[facility] ABSTRACTION Provider, Abstract 07/16/2024 External Device Data ST[facility] ABSTRACTION Provider, Abstract 07/15/2024 External Device Data STL ABSTRACTION Provider, Abstract 06/18/2024 External Device Data STL ABSTRACTION Provider, Abstract 06/18/2024 External Device Data STL ABSTRACTION Provider, Abstract 06/03/2024 External Device Data STL ABSTRACTION Provider, Abstract from Last 3 Months Social History Tobacco Use Types Packs/Day Years Used Date Smoking Tobacco: Never Assessed Comments Unknown Sex and Gender Information Value Date Recorded Sex Assigned at Not on file Legal Sex Female 3:13 PM CDT Gender Identity Not on file Sexual Orientation Not on file Plan of Treatment Health Maintenance Due Date Last Done Comments Pre-Diabetes and Diabetes Screening 1960 DTAP/TDAP/TD VACCINES (1 - Tdap) 1980 ZOSTER VACCINE (1 of 2) 1980 PAP SMEAR 11/10/1991 BREAST CANCER SCREENING 2001 FIT-DNA Q 3 years 2006 FIT/FOBT Q 1 year 2006 Flex Sig/CT Colonography Q 5 years 2006 RSV VACCINE (60+ or ) (1 - Risk 60-74 years 1-dose series) 2021 INFLUENZA VACCINE (#1) 2023 COLORECTAL SCREENING 09/17/2029 09/18/2019 Colorectal Cancer Screening 09/17/2029 [place] [id number] [employer]AN[employer] OPTION 2 O MCR
--- OUTSIDE RECORDS SUMMARY | 2024-09-01 09:07 | XMS_ITS | Clinical Summary ---
Author Organization [facility] Address [address] [place] [id number] Care Team Providers Care Union Laborer Name Role Phone Luna Gould MD Primary Care Provider [phone] Encounters Date Type Department Care Team Description 07/14/2024 9:00 AM AIRLINE SECURITY REPRESENTATIVE Lab [facility] [address] [place] [address] from Last 3 Months Social History Tobacco Use Types Packs/Day Years Used Date Smoking Tobacco: Never Assessed Personal Safety Answer Date Recorded Getting School Help Needed Not on file 11/18 Comments Unknown Sex and Gender Information Value Date Recorded Sex Assigned at Not on file Legal Sex Female 11:00 AM AIRLINE SECURITY REPRESENTATIVE Gender Identity Not on file Sexual Orientation Not on file Plan of Treatment Health Maintenance Due Date Last Done Comments Breast Cancer Screening-Mammogram 1960 Cervical Cancer Screening 1961 Colon Cancer Screening-Colonoscopy 1961 Depression Screening 1961 DTaP/Tdap/Td Vaccine (1 - Tdap) 1972 Regular Well Visit/Exam 18-64 11/10/1979 Pneumococcal vaccine <65 (1 of 2 - PCV) 1980 Covid-19 Vaccine (2023-2 5 season) 2024 03/05/2023, 02/16/2022, 05/18/2021, Additional history exists Influenza Vaccine (#1) 2024 , 02/16/2022, 03/13/2021, Additional history exists Hepatitis B Screening Completed 01/15/2009, 009 Zoster Vaccine Completed 03/27/2021, 01/25/2021 Hepatitis C Screening Completed 12/17/2023 Procedures Procedure Name Priority Date/Time Associated Diagnosis [...] - GENERAL ORDER KELLY Final Result [facility] [address] Department of Laboratories [place], [place] [id number] from Last 3 Months or Most Recently Relevant to Health Maintenance Insurance [employer] MEDICARE GOLD A[employer] MEDICARE GOLD Care Teams Union Laborer Relationship Specialty Start Date End Date Luna Gould MD [address] [facility] [address] [place] [address] PCP - General Rheumatology 12/17/23
--- OUTSIDE RECORDS SUMMARY | 2024-09-01 09:07 | XMS_ITS | Clinical Summary ---
Author Organization [facility] Address [address] [place] [id number] Care Team Providers Care Dye Beck Reel Operator Name Role Phone Mario Alberto Larkin Primary Care Provider + Allergies Active Allergy Reactions Criticality Noted Date Comments Ciprofloxacin Itching 07/11/2018 Hydromorphone Anaphylaxis High 07/11/2018 Cephalexin Itching 07/11/2018 Penicillins Rash Medium Medications lamotrigine 100 MG tablet TK 1 T PO BID WC 2 01/13/2018 Active amlodipine 5 MG tablet 10 mg. 0 07/05/2018 Active hydrOXYzine 50 MG capsule Take 50 mg by mouth every 6 (six) hours. Active ibuprofen 800 MG tablet Take 800 mg by mouth every 6 (six) hours as needed for Pain. Active abatacept 250 MG injection 125 mg by Other route every 7 days. Active omeprazole 40 MG capsule Take 40 mg by mouth 2 (two) times a day. Active cyclobenzaprine 10 MG tablet Take 10 mg by mouth daily. Active atorvastatin 40 MG tablet Take 40 mg by mouth nightly at bedtime. Active linaCLOtide 145 MCG capsule Take 290 mcg by mouth every morning before breakfast. Take on empty stomach at least 30 minutes prior to the first meal of the day. Swallow whole. Do not open capsule or chew. Active Active Problems No known active problems Family History Medical History Relation Comments Heart Disease Father Cancer Mother Diabetes Mother Heart Disease Mother Stroke Mother Cancer Paternal Grandfather Cancer Sister Kidney Disease Sister Stroke Sister Relation Status Comments Father Mother Paternal Grandfather Sister Social History Tobacco Use Types Packs/Day Years Used Date Smoking Tobacco: Former Cigarettes Q uit: 2001 Smokeless Tobacco: Former Alcohol Use Standard Drinks/Week Comments Yes 0 (1 standard drink = 0.6 oz pur e alcohol) socially Comments No Sex and Gender Information Value Date Recorded Sex Assigned at Not on file 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 Gender Identity Not on file Sexual Orientation Not on file Last Filed Vital Signs Vital Sign Reading Time Taken Comments Blood Pressure 146/91 09/18/2019 11:30 AM CDT Pulse 85 09/18/2019 11:30 AM CDT Temperature 36.1 C (97 F) 09/18/2019 11:20 AM CDT Respiratory Rate 17 09/18/2019 11:30 AM CDT Oxygen Saturation 100% 09/18/2019 11:30 AM CDT Inhaled Oxygen Concentration - - Weight 61.2 kg (135 lb) 09/17/2019 1:25 PM CDT Height 154.9 cm (5' 1 ) 09/17/2019 1:25 PM CDT Body Mass Index 25.51 09/17/2019 1:25 PM CDT Plan of Treatment Health Maintenance Due Date Last Done Comments Annual Physical 1964 Hepatitis C 11/10/1979 DTaP, Tdap and Td Vaccines ( 1 - Tdap) 1980 Mammogram Screening 2001 Zoster Vaccines (1 of 2) 11/10/2011 COVID-19 Vaccine (2023-2 5 season) 2024 Colorectal Cancer Screening Colonoscopy (10 Years) 09/17/2029 09/18/2019, 09/18/2019 RSV Immunization or 60+ Years (1 - 1-dose 75+ series) 2036 Meningococcal B Vaccine Aged Out No l onger eligible based on patient's age to complete this topic Meningococcal Vaccine Aged Out No jaime cesar eligible based on patient's age to complete this topic Pneumococcal Vaccine: Pediatrics (0 to 5 Years) and At-Risk Patients (6 to 64 Years) Aged Out No longer eligible b ased on patient's age to complete this topic RSV Immunizations Under 20 Months Aged Out No longer eligible b ased on patient's age to complete this topic Procedures Procedure Name Priority Date/Time Associated Diagnosis Comments COLONOSCOPY Routine 09/18/2019 8:21 AM CDT from Last 3 Months or Most Recently Relevant to Health Maintenance Insurance [facility] MEDICAID Care Teams Dye Beck Reel Operator Relationship Specialty Start Date End Date Mario Alberto Larkin PA PCP - General PHYSICIAN SQUARE CUTTER 07/11/18
--- OUTSIDE RECORDS SUMMARY | 2024-09-01 09:07 | XMS_ITS ---
Author Organization [facility] Address [address] [facility] [address] [place] [address] Care Team Providers Care Single Needle Operator Name Role Phone Raffy Alvarenga MD Primary Care Provider Luna Moy [phone] Encounters Encounter Location Date Provider Diagnosis [facility] [address] [facility] [facility] [address] [place] [address] 07/23/2024 Luna Gould Postmenopausal osteoporosis M81.0 Assessments Encounter Date Diagnosis (ICD Code) Assessment Notes Treatment Notes Treatment Clinical Notes Section Notes 07/23/2024 Postmenopausal osteoporosis (ICD-10 - M81.0) Plan Of Treatment Pending Test Test Name Order Date Comprehensive metabolic panel (CMP) 06/29 Next Appt Details Provider Name:Luna Gould, 01/08 09:30:00 AM, [address] [facility] [address], [place], [address], Provider Name:Luna Gould, 01/22 10:30:00 AM, [address] [facility] [address], [place], [address], Progress Notes * Miranda HEARN EDOB:1960 ( 63 yo F)Acc No.[id number]:07/23/2024 Patient: Miranda UPTON :1960 A ge:63 Y S ex:Female Address:[address] [place] [address], [id number] Subjective: * Chief Complaints: * * Medical History: * Surgical History: * Hospitalization/Major Diagno stic Procedure: * Medications: Objective: * Vitals: * Physical Examination: Assessment: * Assessment: 1. P ostmenopausal osteoporosis - M81.0 Plan: * Treatment: * Procedure Codes: * true * Date: Generated for Joaquim corea/Joel/Diana on: 0 09/01/2024 09:07 AM CDT
--- OUTSIDE RECORDS SUMMARY | 2024-09-01 09:08 | XMS_ITS ---
Author Organization [facility] Address [address] [place] [address] Care Team Providers Care Brick Picker Name Role Phone Roberto Brenner Primary Care Provider [phone] Mayela Claire Unavailable [phone] Allergies Allergen (clinical drug ingredient) Drug/Non Drug Allergy documented on EMR Reaction Allergy Type Onset Date Status Ciprofloxacin anaphylaxis Drug Allergy A ctive hydromorphone Dilaudid Unknown Drug Allergy Act rob Keflex anaphylaxis Drug Allergy Activ e fluoxetine PROzac Unknown Drug Allergy Active Penicillin rash Drug Allergy Active REASON FOR VISIT 3 Month Psych F/U & Med Refill Medications Medication SIG (Take, Route, Frequency, Duration) Notes Start Date End Date Status Lyrica 75 MG 1 capsule Orally Twi ce a day Active Vistaril 25 MG 1 capsule as needed Orally Three times daily for 30 days Active Vistaril 50 MG 1 capsule at bedtime for sleep Orally once a day for 30 days As needed Active amLODIPine Besylate 10 MG 1 tablet Orall y Once a day for 30 day(s) Active Omeprazole 20 MG 1 capsule 30 minutes before morning meal Orally twice a day Active Lurasidone HCl 60 MG 1 tablet in the alesha rosa with food Orally Once a day for 30 days Active hydrOXYzine Pamoate 50 MG 1 capsule at b edtime as needed Orally Once a day for 30 days Active hydrOXYzine Pamoate 25 MG 1 capsule Orally three times a day for 30 days As needed for anxiety Active Carvedilol 6.25 MG 1 tablet with food O rally Twice a day for 30 day(s) Active Losartan [...] Once a day for 30 days Active Atorvastatin Calcium 40 MG 1 tablet Oral ly Once a day for 30 day(s) Active Hydroxychloroquine Sulfate Active hydrOXYzine Pamoate 25 MG 1 capsule Oral ly three times a day for 30 days Active Social History Tobacco Use: Social History Observation Description Date Details (start date - stop date) Unknown Sex Assigned At : Social History Observation Description Sex Assigned At Female Tobacco Control (Standard) Question Answer Notes Tobacco use: Uses tobacco in other forms Additional Findings: Tobacco user e-cigarette Problems Problem Type SNOMED Code ICD Code Onset Dates Problem Status W/U Status Risk Notes Problem Tobacco user (094109220) Nicotine dependence, unspecified, uncomplicated (F17.200) Active confirmed Vital Signs Weight 129.8 lbs 08/11/2024 Height 61 in 08/11/2024 BMI 24.52 kg/m2 08/11/2024 Blood pressure systolic 112 mm Hg 08/12/19 25 Blood pressure diastolic 86 mm Hg 025 Heart Rate 70 /min 08/11/2024 Temperature 98.3 degrees Fahrenheit 08/12/19 25 Respiratory Rate 16 /min 08/11/2024 Encounters Encounter Location Date Provider Diagnosis [address] [address] 08/11/2024 Mayela Claire Bipolar 2 disorder, major depressive episode F31.81 ; Generalized anxiety disorder F41.1 and Nicotine dependence, unspecified, uncomplicated F17.200 Assessments Encounter Date Diagnosis (ICD Code) Assessment Notes Treatment Notes Treatment Clinical Notes Section Notes 08/11/2024 Bipolar 2 disorder, major depressive episode (ICD-10 [...] trialed lamotrigine, depakote. Caplyta caused halluciantio ns. 08/11/2024 Generalized anxiety disorder (ICD-10 - F41.1) 08/11/2024 Nicotine dependence, unspecified, uncomplicated (ICD-10 - F17.200) 08/11/2024 Other Client reports possibly getting THC card. Discussed with patient that taking or using herbs, such as marijuana, and/or vitamins and supplements may interfere with or alter the way prescription medications work in the body or cause adverse reactions. Patient voiced understanding. Reasons, potential benefits, potential risks, interactions and [...] of education, treatment plan and follow up. Plan Of Treatment Medication Medication Name Sig Start Date Stop Date Notes Lurasidone HCl 60 MG 1 tablet in the alesha rosa with food Orally Once a day for 30 days hydrOXYzine Pamoate 50 MG 1 capsule at b edtime as needed Orally Once a day for 30 days hydrOXYzine Pamoate 25 MG 1 capsule Oral ly three times a day for 30 days Treatment Notes Assessment Notes Bipolar 2 disorder, major de pressive episode Take as prescribed. Reviewed purpose (mo od stability), benefits, and risks - low blood pressure, metabolic syndrome with high cholesterol or high blood sugars, change in cardiac conduction, nausea, vomiting, temporary or permanent movement disorders, and akathisia. Other Client reports possibly getting THC card. Discussed with patient that taking or using herbs, such as marijuana, and/or vitamins and supplements may interfere with or alter the way prescription medications work in the body or cause adverse reactions. Patient voiced understanding. Reasons, potential benefits, potential risks, interactions and [...] of education, treatment plan and follow up. 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 I nterim History: Emergency room visit N o. W as hospitalized N o.? D epression Screening: PHQ-9 L ittle interest or pleasure in doing things S everal days, F eeling down, depressed, or hopeless N ot at all, T rouble falling or staying asleep, or sleeping too much M ore than half the days, F eeling tired or having little energy S everal days, P oor appetite or overeating M ore than half the days, F eeling bad about yourself or that [...] N ot at all, T otal Score 8 , I nterpretation M ild Depression. C SSRS Interpretation and Follow Up Plan: CSSRS Interpretation and Follow Up Plan C SSRS Screen documented using SF Y es, R isk Disposition from SF L ow - No Follow Up Plan Required, F ollow Up Plan N o Follow Up Plan required at this time.. S creening: Craig Suicide Severity Rating Scale (LF) D o you want to initiate with S creener form, 1 . Wish to be : Have you wished you were or wished you could go to sleep and not wake up? N o, 2 . Suicidal Thoughts: Have you actually had any thoughts of killing yourself? N o, 6 . Suicide Behavior Question: Have you ever done anything,started to do anything, or prepared to end your life? N o, I nterpretation: L ow Risk. P reventative Health and Wellness follow-up: Action Plans for Clinical Quality Measures: B reast Cancer Screening: D iscussed need for breast cancer screening. Patient declined., C ervical Cancer Screening: O ther (see notes)., C olorectal Cancer Screening: D iscussed need for colorectal cancer screening. Patient declined.. P sychiatric Assessment - Current Symptoms: How ct. doing today? Client is 63 yo F in office today reporting she is having pain still. States the stimulator helps about 60%. Medications: They are okay. States she does sometimes forget, around 2-3 times per week. Denies SE. Denies abnormal movements. Sleep isn't great due to waking up with pain. Anxiety: 6/10 Depression: Denies Anger/irritability: Sometimes with the pain Appetite: Okay, still losing weight, eating twice but I snack. Drugs/ETOH: I drink a little ETOH with my sister maybe twice a week. Hallucinations: Denies Paranoia: Denies Goals: Redo some of the house. Social: Talks with roommates, getting out some, time with siblings Denies SI/HI. Medical changes: Stimulator, permanent, placed. A bnormal Involuntary Movement Scale: Facial and Oral Movements M uscles of Facial Expression?0- None, L ips and Perioral Area 0 - None, J aw 0 - None, T ongue 1 - Minimal. E xtremity Movements U pper (arms, wrists, hands, fingers) 0 - None, L ower (legs, knees, ankles, toes) 0 - None. T runk Movements N liz, Shoulders and hips 0 - None. G lobal Judgement S everity of abnormal movements overall 1 - Minimal, I ncapacitation due to abnormal movements 0 - None, P atient's awareness of abnormal movements 0 - No Awareness. D ental Status C urrent problems with teeth and/or dentures N o, A re dentures usually worn? N o, E ndentia N o, D o movements disappear with sleep??Yes. * ROS: P sych ROS: Constitutional R [...] brown recluse * Hospitalization/Major Diagno stic Procedure: D enies Past Hospitalization * Family History: F ather: . M [...] Status E mployment Status: O n Disability. T obacco Use: T obacco Control (Standard) T obacco use: U ses tobacco in other forms, A dditional Findings: Tobacco user e -cigarette. M iscellaneous: M ethod of learning P referred method of learning: D emonstration. * Medications: T akingHydroxychloroquine Sulfate Stool Softener [...] food Orally Once a day hydrOXYzine Pamoate 25 MG Capsule 1 capsule Orally three times a day hydrOXYzine Pamoate 50 MG Capsule 1 capsule at bedtime as needed Orally Once a day Taking Hydroxychloroquine Sulfate Taking Stool Softener 100 MG [...] 1 capsule Orally three times a day Taking hydrOXYzine Pamoate 50 MG Capsule 1 capsule at bedtime as needed Orally Once a day * Allergies: P enicillin: rashKeflex: anaphylaxisDilaudidCiprofloxacin: anaphylaxisPROzac: Side Effectsno[Allergies Verified] Objective: * Vitals: I nitials: rt, Wt:129.8, Ht: 61, BMI:24.52, BP:112/86, HR:70, Temp:98.3, RR:16, LMP: Hysto, Pain scale:8. * Examination: M ental Status Exam: SENSORIUM AND COGNITION Alert, Oriented to Person, Oriented to Place, Oriented to Time, Oriented to Situation. ATTENTION AND CONCENTRATION No deficits. APPEARANCE A ppropriate, Neatly dressed and groomed. ATTITUDE AND BEHAVIOR Cooperative, Receptive. MEMORY Immediate, Recent, Remote. EYE CONTACT G ood. AFFECT B road/Full. MOOD E uthymic. SPEECH QUANTITY Appropriate. SPEECH QUALITY Appropriate volume. THOUGHT PROCESS Coherent and goal directed. THOUGHT CONTENT Appropriate - WNL. MOTOR ACTIVITY G oal directed, Normal gait. SUICIDAL IDEATION Denies suicidal ideation. HOMICIDAL IDEATION Denies homicidal ideation. HALLUCINATIONS Denies hallucinations. INSIGHT F air. JUDGMENT F air. FUND OF KNOWLEDGE F air. ABILITY TO PARTICIPATE IN TREATMENT M oderate. WILLINGNESS TO PARTICIPATE IN TREATMENT High. ? Assessment: * Assessment: 1. B ipolar 2 disorder, major depressive episode - F31.81 2 . G eneralized anxiety disorder - F41.1 3 . N icotine dependence, unspecified, uncomplicated - F17.200 Plan: * Treatment: 2. G eneralized anxiety disorder Refill hydrOXYzine Pamoate Capsule, 50 MG, 1 capsule at bedtime as needed, Orally, Once a day, 30 days, 30 Capsule, Refills 2; R efill hydrOXYzine Pamoate Capsule, 25 MG, 1 capsule, Orally, three times a day As needed for anxiety, 30 days, 90 Capsule, Refills 2. 3. O kelly Notes: Client reports possibly getting THC card. Discussed with patient that taking or using herbs, such as marijuana, and/or vitamins and supplements may interfere with or alter the way prescription medications work in the body or cause adverse reactions. Patient voiced understanding. Reasons, potential benefits, potential risks, interactions and [...] May also contact the 24-hour crisis hotline ([facility]), refer to the closest emergency room or [...] of education, treatment plan and follow up. * Recommended Wellness and Pre vention Guidelines: * S tatus A lert L ast Done N ext Due A ction Taken N ONCOMPLIANT B reast cancer screening - 0 08/11/2024 - N ONCOMPLIANT C ervical cancer screening - 0 08/11/2024 - N ONCOMPLIANT C olorectal cancer screening - 0 08/11/2024 - N ONCOMPLIANT H IV screening - 0 08/11/2024 - N ONCOMPLIANT I nfluenza vaccine (over 50) - 0 08/11/2024 - * Procedure Codes: C HS07 Flu Vaccine [id number] BEHAV CHNG SMOKING 3-10 [id number] [facility] VISIT ESTABLISHED PATIENT * Preventive Medicine: Counseling: S MOKING: P atient counselled on the dangers of tobacco use and urged to quit. . . * Follow Up: 3 Months (Reason: Psych F/U, may be telehealth (or before PRN)) * * Sign off status: Completed true * Provider: Betty Claire, MSN, INJECTION OPERATOR, DELPHI PROGRAMMER-C Date: 0 08/11/2024 Generated for Joaquim corea/Joel/eTransmfiordaliza on: 0 09/01/2024 09:08 AM CDT History and Physical Notes * HPI (History of Present Illness) Category Sub-Category Detail Notes Category Not es Interim History Was hospitalized No Emergency room visit No Depression Screening PHQ-9 Little inte rest or pleasure in doing things: Several days Feeling down, depressed, or hopeless: No t at all Trouble falling or staying a sleep, or sleeping too much: More than half the days Feeling tired or having little energy: S everal days Poor appetite or overeating: More than h mcc the days Feeling bad about yourself o r that [...] some way: Not at all Total Score: 8 Interpretation: Mild Depression Abnormal Involuntary Movement Scale Facial and Oral Movements Muscles of Facial Expression: 0- None Lips and Perioral Area: 0- None Jaw: 0- None Tongue: 1- Minimal Extremity Movements Upper (arms, wrists, hands, fingers): 0- None Lower (legs, knees, ankles, toes): 0- No ne Trunk Movements Neck, Shoulders and hips: 0- Non e Global Judgement Severity of abnormal movements overall: 1- Minimal Incapacitation due to abnormal movements : 0- None Patient's awareness of abnormal movement s: 0- No Awareness Dental Status Current problems with teeth and/ or dentures: No Are dentures usually worn?: No Endentia: No Do movements disappear with sleep?: Yes Psychiatric Assessment - Current Symptoms How ct. doing today? Client is 63 yo F in office today reporting she is having pain still. States the stimulator helps about 60%. Medications: They are okay. States she does sometimes forget, around 2-3 times per week. Denies SE. Denies abnormal movements. Sleep isn't great due to waking up with pain. Anxiety: 11/04 Depression: Denies Anger/irritability: Sometimes with the pain Appetite: Okay, still losing weight, eating twice but I snack. Drugs/ETOH: I drink a little ETOH with my sister maybe twice a week. Hallucinations: Denies Paranoia: Denies Goals: Redo some of the house. Social: Talks with roommates, getting out some, time with siblings Denies SI/HI. Medical changes: Stimulator, permanent, placed Screening Craig Suicide Severity Rating Scale (LF) Do you [...] end your life?: No Interpretation:: Low Risk Flu vaccine Flu vaccine offered Flu Vaccine Declined: . Preventative Health and Wellness follow-up Action Plans for Clinical Quality Measures: Breast Cancer Screening:: Discussed need for breast cancer screening. Patient declined. Cervical Cancer Screening:: Other (see n otes). Colorectal Cancer Screening: : Discussed need for colorectal cancer screening. Patient declined. CSSRS Interpretation and Follow Up Plan CSSRS Interpretation and Follow Up Plan CSSRS Screen documented using SF: Yes Risk Disposition from SF: Low - No Follo w Up Plan Required Follow Up Plan: No Follow Up Plan requir ed at this time. Examination Category Sub-Category Detail Notes Category Not es Mental Status Exam SENSORIUM AND COGNITION Alert , Oriented to Person, Oriented to Place, Oriented to Time, Oriented to Situation ATTENTION AND CONCENTRATION No deficits APPEARANCE Appropriate, Neatly dressed and groomed ATTITUDE AND BEHAVIOR Cooperative, Manager Of Sustainability tive MEMORY Immediate, Recent, R emote EYE CONTACT Good AFFECT Broad/Full MOOD Euthymic SPEECH QUANTITY Appropriate SPEECH QUALITY Appropriate volume THOUGHT PROCESS Coherent and goal di rected THOUGHT CONTENT Appropriate - WNL MOTOR ACTIVITY Goal directed, Diane l gait SUICIDAL IDEATION Denies suicidal idea tion HOMICIDAL IDEATION Denies homicidal eloy ation HALLUCINATIONS Denies hallucination s INSIGHT Fair JUDGMENT Fair FUND OF KNOWLEDGE Fair ABILITY TO PARTICIPATE IN TREATMENT Mode rate WILLINGNESS TO PARTICIPATE IN TREATMENT High
--- OUTSIDE RECORDS SUMMARY | 2024-09-01 09:08 | XMS_ITS | CONTINUITY OF CARE DOCUMENT ---
Author Name migdaliaantoniacarlin Address Unknown Organization [facility] Address [address] [place] [address] Phone [phone] Care Team Providers Care Acid Loader Name Role Phone Claude MESA, Zan Unavailable ALEXANDER AVINA MD Unavailable [phone] ALEXANDER AVINA MD Unavailable [phone] INSURANCE PROVIDERS Payer name Policy type / Coverage type [employer] red libertarian ID [employer] HoldingsABRAZO [facility]ITALDur[employer] [facility] [id number]
--- OUTSIDE RECORDS SUMMARY | 2024-09-01 09:08 | XMS_ITS | Patient Health Record ---
Author Organization [facility] Address [address] [place] [address] Care Team Providers Care Instrument Maker Apprentice Name Role Phone Roberto Brenner Primary Care Provider Mayela Claire Unavailable [phone] Brittany Silver Unavailable [phone] Allergies Allergen (clinical drug ingredient) Drug/Non Drug Allergy documented on EMR Reaction Allergy Type Onset Date Status Ciprofloxacin anaphylaxis Drug Allergy A ctive hydromorphone Dilaudid Unknown Drug Allergy Act rob Keflex anaphylaxis Drug Allergy Activ e fluoxetine PROzac Unknown Drug Allergy Active Penicillin rash Drug Allergy Active Reason For Referral No Information Medications Medication SIG (Take, Route, Frequency, Duration) Notes Start Date End Date Status Lurasidone HCl 60 MG 1 tablet in the alesha rosa with food Orally Once a day for 30 days Active Stool Softener 100 MG 1 capsule as neede d Orally Once a day for 30 day(s) Active hydrOXYzine Pamoate 25 MG 1 capsule Oral ly three times a day for 30 days Active hydrOXYzine Pamoate 50 MG 1 capsule at b edtime as needed Orally Once a day for 30 days Active Linzess 290 MCG 1 capsule at [...] 30 days As needed for anxiety Active Atorvastatin Calcium 40 MG 1 tablet Oral ly Once a day for 30 day(s) Active Lyrica 75 MG 1 capsule Orally Twi ce a day Active Vistaril 25 MG 1 capsule as needed Orally Three times daily for 30 days Active Vistaril 50 MG 1 capsule at bedtime for sleep Orally once a day for 30 days As needed Active Hydroxychloroquine Sulfate Active Carvedilol 6.25 MG 1 tablet with food O rally Twice a day for 30 day(s) Active Losartan Potassium 100 MG 1 tablet Orall y Once a day for 30 day(s) Active amLODIPine Besylate 10 MG 1 tablet Orall y Once a day for 30 day(s) Active Omeprazole 20 MG 1 capsule 30 minutes before morning meal Orally twice a day Active Social History Tobacco Use: Social History Observation Description Date Details (start date - stop date) Unknown Sex Assigned At : Social History Observation Description Sex Assigned At Female Dont use, Tobacco Use/Smoking Question Answer Notes Are you a former smoker How long has it been since you last smoked? > 20 years Tobacco Control (Standard) Question Answer Notes Tobacco use: Uses tobacco in other forms Additional Findings: Tobacco user e-cigarette Problems Problem Type SNOMED Code ICD Code Onset Dates Problem Status W/U Status Risk Notes Problem Tobacco user (391427160) Nicotine dependence, unspecified, uncomplicated (F17.200) Active confirmed Problem Generalized anxiety disorder (42403177) Generalized anxiety disorder (F41.1) Active confirmed Problem Bipolar II disorder (87506850) Bipolar 2 disorder, major depressive episode (F31.81) Active confirmed Problem Sleep disturbance (84034624) Sleep disturbance, unspecified (G47.9) Active confirmed Vital Signs Heart Rate 70 /min 08/11/2024 Temperature 98.3 degrees Fahrenheit 08/11/2024 Respiratory Rate 16 /min 08/11/2024 Blood pressure diastolic 86 mm Hg 08/11/2024 Height 61 in 08/11/2024 Blood pressure systolic 112 mm Hg 08/11/2024 Weight 129.8 lbs 08/11/2024 BMI 24.52 kg/m2 08/11/2024 Encounters Encounter Location Date Provider Diagnosis [address] [place] [address] 10/24/2023 Mayela Claire Bipolar 2 disorder, major depressive episode F31.81 ; Generalized anxiety disorder F41.1 ; Sleep disturbance, unspecified G47.9 and Nutritional counseling Z71.[address] [place] [address] 12/24/2023 Brittany Silver Bipolar 2 disorder, major depressive episode F31.81 ; Generalized anxiety disorder F41.1 ; Sleep disturbance, unspecified G47.9 and Nutritional counseling Z71.[address] [place] [address] 02/21/2024 Mayela Claire Bipolar 2 disorder, major depressive episode F31.81 ; Generalized anxiety disorder F41.1 ; Sleep disturbance, unspecified G47.9 and Nutritional counseling Z71.3 [facility] [address] [address] 05/20/2024 Mayela Claire Bipolar 2 disorder, major depressive episode F31.81 and Generalized anxiety disorder F41.[address] [place] [address] 08/11/2024 Mayela Claire Bipolar 2 disorder, major depressive episode F31.81 ; Generalized anxiety disorder F41.1 and Nicotine dependence, unspecified, uncomplicated F17.[address] [address] 12/14/2023 Mayela Claire Bipolar 2 disorder, major depressive episode F31.81 Assessments Encounter Date Diagnosis (ICD Code) Assessment Notes Treatment Notes Treatment Clinical Notes Section Notes 10/24/2023 Bipolar 2 disorder, major depressive episode (ICD-10 - F31.81) Client reports high appetite and anxiety with increase in Abilify to 15 mg Hx of trialing risperdal with TD as side effect, has also trialed lamotrigine, depakote. Caplyta caused halluciantion s. Reports sleep disturbances r/t pain. 12/14/2023 Bipolar 2 disorder, major depressive episode (ICD-10 - F31.81) 12/24/2023 Bipolar 2 disorder, major depressive episode (ICD-10 - F31.81) Client reports high appetite and anxiety with increase in Abilify to 15 mg Hx of trialing risperdal with TD as side effect, has also trialed lamotrigine, depakote. Caplyta caused halluciantion s. Reports sleep disturbances r/t pain. 02/21/2024 Bipolar 2 disorder, major depressive episode (ICD-10 - F31.81) Client reports high appetite with Abilify Hx of trialing risperdal with TD as side effect, has also trialed lamotrigine, depakote. Caplyta caused halluciantion s. Reports sleep disturbances r/t pain. 05/20/2024 Bipolar 2 disorder, major depressive episode [...] has also trialed lamotrigine, depakote. Caplyta caused halluciantion s. 08/11/2024 Bipolar 2 disorder, major depressive episode [...] has also trialed lamotrigine, depakote. Caplyta caused halluciantion s. 05/20/2024 Generalized anxiety disorder (ICD-10 - F41.1) 08/11/2024 Generalized anxiety disorder (ICD-10 - F41.1) 10/24/2023 Generalized anxiety disorder (ICD-10 - F41.1) Client has requested Xanax- discussed that BZDs are not recommended by this provider. Encouraged therapy. Reports sleep disturbances r/t pain. 02/21/2024 Generalized anxiety disorder (ICD-10 - F41.1) Reports sleep disturbances r/t pain. 12/24/2023 Generalized anxiety disorder (ICD-10 - F41.1) Reports sleep disturbances r/t pain. 10/24/2023 Sleep disturbance, unspecified (ICD-10 - G47.9) client reports she is continuing to work with her PCP and pain management for relief of her chronic pain to help with her quality of life and her sleep. Reports sleep disturbances r/t pain. 12/24/2023 Sleep disturbance, unspecified (ICD-10 - G47.9) client reports she is continuing to work with her PCP and pain management for relief of her chronic pain to help with her quality of life and her sleep. Reports sleep disturbances r/t pain. 08/11/2024 Nicotine dependence, unspecified, uncomplicated (ICD-10 - F17.200) 02/21/2024 Sleep disturbance, unspecified (ICD-10 - G47.9) client reports she is continuing to work with her PCP and pain management for relief of her chronic pain to help with her quality of life and her sleep. Reports sleep disturbances r/t pain. 02/21/2024 Nutritional counseling (ICD-10 - Z71.3) Reports sleep disturbances r/t pain. 12/24/2023 Nutritional counseling (ICD-10 - Z71.3) Reports sleep disturbances r/t pain. 10/24/2023 Nutritional counseling (ICD-10 - Z71.3) Reports sleep disturbances r/t pain. 10/24/2023 Other Reasons, potential benefits, potential risks, interactions [...] May also contact the 24-hour crisis hotline ([facility]), refer to the closest emergency room or [...] up. This session was completed telephonically with client/parental/guar peyton consent: Unable to determine movement status, assess appearance, affect, AIMS, or vital signs. Reports sleep disturbances r/t pain. 12/24/2023 Other May self-admini ster medications or be administered own oral medications per [place] protocols. Provided informed consent with understanding of side effects, adverse effects, risks and benefits as well as alternative treatments as previously discussed and with the above recommended medications & other aspects of the treatment program. Agrees to return sooner if symptoms worsen or suicidal or homicidal ideations occur. Reports sleep disturbances r/t pain. 02/21/2024 Other Fence agreement to continue current regimen. Reasons, potential [...] May also contact the 24-hour crisis hotline ([facility]), refer to the closest emergency room or [...] up. This session was completed telephonically with client/parental/guar peyton consent: Unable to determine movement status, assess appearance, affect, AIMS, or vital signs. Reports sleep disturbances r/t pain. 05/20/2024 Other Reasons, potential benefits, potential risks, [...] May also contact the 24-hour crisis hotline ([facility]), refer to the closest emergency room or [...] up. This session was completed telephonically with client/parental/guar peyton consent: Unable to determine movement status, assess appearance, affect, AIMS, or vital signs. 08/11/2024 Other Client reports possibly getting THC [...] May also contact the 24-hour crisis hotline ([facility]), refer to the closest emergency room or [...] plan and follow up. Plan Of Treatment No Information Insurance Providers Payer Name Payer Address Payer Phone Subscriber Number Group Number Insured Name Patient Relationship to Insured Coverage Start Date Coverage End Date [facility] [address] [address] [place] [address] [id number] Miranda Hearn - patient is the insured 3 4 [employer] [address] [place] [address] [id number] Folk, Miranda Self - patient is the insured 4 MEDICAID [address] [place] [address] [id number] Miranda Hearn Self - patient is the insured 3 Medical (General) History Medical History History ICD Code Chronic pain, sciatic pain, RA, HTN, HLD Surgical History Surgery Date(Month/Year) 2 tubal TOTAL HYSTERECTOMY gallbladder appendix bilateral carpel tunnel and cubital tunn el release leg debridement brown recluse
== END 2024-09-01 08:43 | disposition home or self-care (01) ==
PROVIDERS: PCP Emergency Medicine; Visit Provider Emergency Medicine
DX: K30 Functional dyspepsia (principal); K21.9 Gastro-esophageal reflux disease without esophagitis
CPT/HCPCS: 78264; A9541

== ENCOUNTER 2024-10-22 07:10 | Emergency (ER) | payer MEDICARE, MEDICAID, SELFPAY ==
--- NOTE | ~2024-10-22 | XR_ITS ---
Left elbow Technique: AP, oblique, and lateral views were obtained. Clinical History: Pain Findings: No acute fracture or dislocation is seen. Osseous alignment is anatomic. Joint spaces are p reserved. There is no displacement of the fat pads, and soft tissues are unremarkable. Impression: Unremarkable radiographs. Reviewed, dictated and finalized at location . Impression: Unremarkable radiographs.
--- NOTE | ~2024-10-22 | XR_ITS ---
AP view of the pelvis and AP and lateral views of the left hip Clinical history: Pain Findings: No acute fracture or dislocation is seen. Osseous alignment is anatomic. Bilateral hip and SI joint spaces are preserved. Soft tissues are unremarkable. Impression: No significant abnormality is seen. Reviewed, dictated and finalized at [facility]. Impression: No significant abnormality is seen.
--- NOTE | ~2024-10-22 | CT_ITS ---
History: Fall PROCEDURE: CT cervical spine without intravenous contrast. COMPARISON: None TECHNIQUE: Multiple contiguous axial images of the cervical spine were performed without the administration of i ntravenous contrast. DLP: 161 mGy-cm FINDINGS: Straightening and slight reversal of the normal curvature of the cervical spine is identified, likely muscular in origin. Severe degenerative disease is also identified, with osteophyte formation, disc space narrowing, endp late changes and facet arthropathy. No acute fractures are present. 3.5 mm soft tissue attenuation nodule within the left lung apex for which follow-up noncontrast enhan yenifer chest CT is suggested, if the patient is clinically able. The remainder of the bilateral lung apices are otherwise unremarkable. No soft tissue abnormality is present. The airway is unremarkable. Impression: Straightening and slight reversal of the normal curvature of the cervical spine, likely muscular in o rigin. Significant degenerative disease, without acute fracture. Soft tissue attenuation nodule within the left apex for which follow-up noncontrast enhanced chest CT suggested, if patient is clinically able. Reviewed, dictated and finalized at location A. Impression: Straightening and slight reversal of the normal curvature of the cervical spine , likely muscular in origin. Significant degenerative disease, without acute fracture. Soft tissue attenuation nodule within the left apex for which follow-up noncont rast enhanced chest CT suggested, if patient is clinically able.
--- NOTE | ~2024-10-22 | XR_ITS ---
EXAMINATION: XR shoulder LT min 2V DATE: 10/22/2024 07:38 INDICATION: Left shoulder pain post fall TECHNIQUE: AP internally and externally rotated, AP oblique externally rotated and transscapular Y vi ews of the left shoulder were obtained. COMPARISON: None FINDINGS: Normal alignment. No fracture. Glenohumeral joint is normal. Mild to moderate acromioclavicular arth rosis with subarticular sclerosis and cystlike change at both sides of the joint space. Spinal stimul ator leads project over the central canal of the lower thoracic spine with distal tip at the level of T8. Soft tissues are unremarkable. Visualized portions of the lungs are clear. IMPRESSION: Mild to moderate from the clavicular arthrosis. No acute osseous abnormality. Reviewed, dictated and finalized at location A.
--- OUTSIDE RECORDS SUMMARY | 2024-10-22 07:12 | XMS_ITS ---
Author Organization [facility] Address [address] [facility] [address] [place] [address] Care Team Providers Care Supervisor Reclamation Name Role Phone Raffy Alvarenga MD Primary Care Provider Luna Moy [phone] Encounters Encounter Location Date Provider Diagnosis [facility] [address] [facility] [address] [place] [address] 07/23/2024 Luna Gould Postmenopausal osteoporosis M81.0 Assessments Encounter Date Diagnosis (ICD Code) Assessment Notes Treatment Notes Treatment Clinical Notes Section Notes 07/23/2024 Postmenopausal osteoporosis (ICD-10 - M81.0) Plan Of Treatment Pending Test Test Name Order Date Comprehensive metabolic panel (CMP) 06/29 Next Appt Details Provider Name:Luna Gould, 01/08 09:30:00 AM, [address] [facility] [address], [place], [address], Provider Name:Luna Gould, 01/22 10:30:00 AM, [address] [facility] [address], [place], [address], Progress Notes * Miranda HEARN EDOB:1960 ( 63 yo F)Acc No.[id number]:07/23/2024 Patient: Miranda UPTON :1960 A ge:63 Y S ex:Female Address:[address] [place] [address], [id number] Subjective: * Chief Complaints: * * Medical History: * Surgical History: * Hospitalization/Major Diagno stic Procedure: * Medications: Objective: * Vitals: * Physical Examination: Assessment: * Assessment: 1. P ostmenopausal osteoporosis - M81.0 Plan: * Treatment: * Procedure Codes: * true * Date: Generated for Joaquim corea/Joel/Diana on: 0 10/22/2024 07:12 AM CDT
--- OUTSIDE RECORDS SUMMARY | 2024-10-22 07:12 | XMS_ITS | Data Portability ---
Author Organization [place] [facility], Main Office Address [address] [place] [address] Care Team Providers Care Coppersmith Helper Name Role Phone ALEXANDER AVINA Primary Care Provider [phone] Assessment Encounter Date Assessment Date Assessment LastModified [...] schedule for R shoulder 2023 [address] [facility] Physical Therapy [address], [address], 4 16:33:55 Procedures None recorded. Surgeries None [...] Organization Details Recorded Time Disorder of shoulder 329718973 Active Not Available [facility] 3 19:29:17 Chronic obstructiv e pulmonary disease 25217645 Active 2020 Not Available [facility] 3 19:29:18 Gastroesop hageal reflux disease without esophagiti s 464256976 Active 2020 Not Available [facility] 3 19:29:18 Wheezing 67297228 Active 2020 Not Available [facility] 3 19:29:18 Dyspnea on exertion 91888692 Active 2020 Not Available [facility] 3 19:29:18 Bilateral shoulder joint pain 7309842160977 9104 Active 2022 DEMETRIA Dejesus, [facility] 3 09:39:31 Pain of right shoulder joint 0193568464534 9100 Active 2022 Swati parra, [facility] 3 09:53:44 Pain of left shoulder joint 3700970701581 9109 Active 2022 Swati parra, [facility] 3 09:53:49 Disorder of shoulder 789410156 Active 2022 Swati parra, [facility] 3 11:47:32 Arthritis of acromiocla vicular joint 261357010 Active 2023 Nelson Crystal MD [address], [address], [address] , [facility] [employer] 4 10:21:47 Partial thickness rotator cuff tear 808570857 Active 2023 Nelson Crystal MD [address], [place] [address], [place], [address] , [facility] 4 10:21:55 Problem Notes None recorded. Procedures Surgical History Date Name Laterality Status Provider Name and Address Organization Details Recorded Time 05/14/20 23 Ortho - Cortisone Injection completed Nelson Crystal MD [address], [place] [address], [place], [address], [facility] 05/15/2023 15:49:02 cholecystectomy completed Corrina Velazquez CNA DC - [facility] 03/05/2023 09:37:10 Appendectomy completed Corrina Velazquez CNA DC - [facility] 03/05/2023 09:38:00 Hysterectomy completed DEMETRIA Dejesus [place]eline [place] [facility] 03/05/2023 09:38:16 Imaging Results None recorded. Procedure Notes None recorded. Medical Equipment None Reported. Allergies Allergen ID Allergen Name Allergen Category Reaction Reaction Severity Criticality Documentation Date Start Date Code Code System Note Provider Name and Address Organization Details Recorded Time 53023 acetamino phen / hydrocodo ne medicatio n Not available Not available Not available 07/26/2022 68713 2 RxNorm Not Available [facility] 3 19:30:30 02158 Product containin g penicilli n (product) medicatio n hives severe Not available 07/26/2022 95990 8001 SNOMED Not Available [facility] 3 19:30:30 81607 Keflex medicatio n hives severe Not available 07/26/2022 67741 7 RxNorm Not Available [facility] 3 19:30:30 63473 Dilaudid medicatio n Not available Not available Not available 07/26/2022 02478 3 RxNorm Not Available [facility] 3 19:30:30 89189 Cipro medicatio n anaphylax is severe Not available 07/26/2022 21936 3 RxNorm Not Available [facility] 3 19:30:30 79963 Ceprotin medicatio n Not available Not available Not available 07/26/2022 60518 6 RxNorm Not Available [facility] 3 19:30:30 10093 lisinopri l medicatio n itching swelling Not available Not available Not available 03/05/2023 55975 RxNorm DEMETRIA Rosado [place] - [place] [facility] 3 09:27:36 Medications Name Sig Start [...] 1 mL by injection route. 2022 active [facility]: 0003- [phone]- [phone] Not Available Not Available [...] height Body mass index (BMI) Body weight Provider Name and Address Organization Details Last Updated DateTime 06/11/2023 152.4 cm 28.1 kg/m2 76179.3 g Jannet Brenner [employer] 06/11/2023 09:56:12 Date Recorded Body height Body mass index (BMI) Body weight Provider Name and Address Organization Details Last Updated DateTime 07/23/2023 152.4 cm 28.3 kg/m2 12287.89 christie Brenner [employer] [facility] 07/23/2023 09:30:49 Date Recorded Body height Body mass index (BMI) Body weight Provider Name and Address Organization Details Last Updated DateTime 08/20/2023 152.4 cm 27.9 kg/m2 08378.71 g Jannet Brenner [employer] [facility] 08/20/2023 12:26:44 Date Recorded Body height Body mass index (BMI) Body weight Provider Name and Address Organization Details Last Updated DateTime 10/01/2023 152.4 cm 28.3 kg/m2 46882.89 christie Brenner [employer] [facility] 10/01/2023 09:27:07 Date Recorded Body height Body mass index (BMI) Body weight Provider Name and Address Organization Details Last Updated DateTime 01/07/2024 152.4 cm 26.4 kg/m2 41699.97 christie Brenner [employer] [facility] 01/07/2024 09:22:34 Social History Question Answer Notes LastModified by Organizat ion Details LastModified Time Tobacco Smoking Status Former Smoker Not Available [facility] 07/26/2022 19:28:13 Do You Have An Advance Directive? No MIGRATION.[id number] 026 Information not available 07/26/2022 What Is Your Level Of Caffeine Consumption? Heavy MIGRATION.0716170 026 Information not available 07/26/2022 How Much Tobacco Do You Chew? None MIGRATION.0056096 026 Information not available 07/26/2022 In The 14 Days Before Symptom Onset, Have You Had Close Contact With A Laboratory-confirm ed COVID-19 While That Case Was Ill? No MIGRATION.3278150 026 Information not available 07/26/2022 In The 14 Days Before Symptom Onset, Have You Had Close Contact With A Person Who Is Under Investigation For COVID-19 While That Person Was Ill? No MIGRATION.4520370 026 Information not available 07/26/2022 What Type Of Diet Are You Following? REGULAR MIGRATION.1313056 026 Information not available 07/26/2022 Which Illicit Or Recreational Drugs Have You Used? None MIGRATION.5196839 026 Information not available 07/26/2022 Do You Have An Electrostatic Air Filter? No MIGRATION.8556268 026 Information not available 07/26/2022 Do You Have A Humidifier? No MIGRATION.1518112 026 Information not available 07/26/2022 Do You Have Moisture Problems In Your Home? No MIGRATION.4121402 026 Information not available 07/26/2022 How Many Children Do You Have? 0 MIGRATION.9842672 026 Information not available 07/26/2022 Do You Have Any Pets? Yes MIGRATION.0830241 026 Information not available 07/26/2022 At What Age Did You Start Smoking Tobacco? 16 MIGRATION.4680616 026 Information not available 07/26/2022 How Much Tobacco Do You Smoke? 1 PPD MIGRATION.7406601 026 Information not available 07/26/2022 How Many Years Have You Smoked Tobacco? 20 MIGRATION.6611922 026 Information not available 07/26/2022 Sex: Female Functional Status Question Answer Note LastModified by Organizat ion Details LastModified Time What is your level of alcohol consumption? Occasional MIGRATION.0704140 026 Information not available 07/26/2022 Do you or have you ever used smokeless tobacco? Never used smokeless tobacco MIGRATION.6005333 026 Information not available 07/26/2022 What is your occupation? disabled MIGRATION.9320092 026 Information not available 07/26/2022 Do you or have you ever used e-cigarettes or vape? Never used electronic cigarettes MIGRATION.9140274 026 Information not available 07/26/2022 What is your exercise level? Occasional MIGRATION.0210226 026 Information not available 07/26/2022 Mental Status None [...] DISEASES N EAR OR HEARING PROBLEMS N BOWEL PROBLEMS Y DEPRESSION (INCLUDING POST ) Y FEMALE PROBLEMS / INFECTIONS N STROKE/TIA N CHEST CT Y ULCERS N [...] HAVE YOU BEEN HOSPITALIZED OR SEEN IN [facility] ER IN THE PAST YEAR ? [...] SNOMED-CT Code Diagnosis ICD10 Code Diagnosis Note [id number] [facility] [facility] Pulmonolo gy [place] [address] [address] 09/14/2020 00:00:00 09/14/2020 15:56:21 [id number] Nelson Crystal MD [facility]_[address] [address] 03/05/2023 09:06:44 03/05/2023 10:38:49 Bilateral shoulder joint pain 3565655139 1874294 M25.511 M25.161 [id number] Nelson Crystal MD [facility]_[address] [address] 04/16/2023 09:25:55 04/16/2023 10:19:36 Pain of left shoulder joint 2569636157 9313627 M25.512 Pain of ri ght shoulder joint 7838700390 6154179 M25.515 [id number] Nelson Crystal MD [facility]_[address] [address] 05/14/2023 11:45:48 05/14/2023 12:09:57 Disorder of shoulder 433695819 M25.811 Pain of ri ght shoulder joint 0756184798 9018224 M25.487 [id number] Nelson Crystal MD [facility] [address] 06/11/2023 09:50:36 06/11/2023 10:22:14 Pain of right shoulder joint 7769048994 2831372 M25.511 Partial th ickness rotator cuff tear 793807923 M75.101 Arthritis of acromioclavicular joint 785022488 M13.323 [id number] Nelson Crystal MD [address] [address] 07/23/2023 09:28:46 07/23/2023 09:45:04 Pain of right shoulder joint 9506252250 6660943 M25.511 Arthritis of acromioclavicular joint 978516254 M13.837 [id number] Nelson Crystal MD [address] [address] 08/20/2023 12:23:25 08/20/2023 12:54:50 Pain of right shoulder joint 7276879021 8621018 M25.428 [id number] Nelson Crystal MD [address] [address] 10/01/2023 09:24:21 10/01/2023 09:34:36 Pain of right shoulder joint 8924946435 3568337 M25.987 [id number] Nelson Crystal MD [address] [address] 01/07/2024 09:18:58 01/07/2024 09:41:36 Pain of right shoulder joint 2060025091 4644247 M25.511 Disorder of shoulder 118 549495 M25.811 Partial th ickness rotator cuff tear 086926230 M75.101 Health Concerns Section Related Observation LastModified by Organization Detai ls LastModified Time None Recorded Concern Status LastModified by Organization Details LastModified Time None Recorded Advance Directives Directive N: Payers Encounter Date Sequence Insurance Name Policy Number Policy Cazares Covered Member ID Cazares Member ID Guarantor Name 06/11/2023 2 [place] [facility] Miranda Dhiraj [id number] Miranda Dhiraj 06/11/2023 3 [employer] (MEDICARE REPLACEMENT/AD VANTAGE - HMO) [id number] Miranda Dhiraj [id number] Miranda Hearn 07/23/2023 2 [place] [facility] Miranda Dhiraj [id number] Miranda Dhiraj 07/23/2023 3 [employer] (MEDICARE REPLACEMENT/AD VANTAGE - HMO) [id number] Miranda Hearn [id number] Miranda Hearn 08/20/2023 2 [place] [facility] Miranda Hearn [id number] Miranda Hearn 08/20/2023 1 [employer] - [place] (MEDICARE REPLACEMENT/AD VANTAGE - HMO) [id number] Miranda Hearn [id number] Miranda Hearn 10/01/2023 1 [employer] [place] (MEDICARE REPLACEMENT/AD VANTAGE - HMO) [id number] Miranda Hearn [id number] Miranda Hearn 10/01/2023 2 [place] WHEN MEDICARE OR MEDICARE REPLACEMENT PRIMARY) Miranda Hearn [id number] Miranda Hearn 01/07/2024 1 [employer] - [place] (MEDICARE REPLACEMENT/AD VANTAGE - HMO) [id number] Miranda Hearn [id number] Miranda Hearn 01/07/2024 2 [place] OR MEDIC[place] REPLACEMENT PRIMARY) Miranda Hearn [id number] Miranda Hearn OBGyn Episode No OBEpisode recorded.
--- OUTSIDE RECORDS SUMMARY | 2024-10-22 07:13 | XMS_ITS ---
Author Organization [facility] padma Address [address] [facility] [address] [place] [address] Care Team Providers Care Lockstitcher Name Role Phone Lyle MESA, Raffy Primary Care Provider Unavailfarida adalberto Luis Fernando Luna Mitchell [phone] REASON FOR VISIT [facility] [place] Encounters Encounter Location Date Provider Diagnosis [facility] [address] [facility] [address] [place] [address] 07/23/2024 Luna Gruber Plan Of Treatment Next Appt Details Provider Name:Luna Gruber, 01/08 09:30:00 AM, [address] [facility] [address], [place], [address], Provider Name:Luna Gruber, 01/22 10:30:00 AM, [address] [facility] [address], [place], [address], Progress Notes * Miranda HEARN EDOB:1960 ( 63 yo F)Acc No.[id number]:07/23/2024 Patient: Miranda UPTON Provider: Charlene GRUBER MD :1960 A ge:63 Y S ex:Female Date:07/23/2024 Address:[address] [place], [place] [id number] Pcp:Raffy Alvarenga MD Subjective: * Chief Complaints: * 1 . [facility] [place]. * Medical History: Objective: * Vitals: Assessment: Plan: * Treatment: * Billing Information: * Visit Code: * Procedure Codes: * Electronic signature of Luna Gruber MD on 10/22/2024 at 07:13 AM CDT Sign off status: Pending * Provider: Charlene GRUBER MD Date: 07/23/2024 Generated for Joaquim corea/Joel/Diana on: 0 10/22/2024 07:13 AM CDT
--- OUTSIDE RECORDS SUMMARY | 2024-10-22 07:13 | XMS_ITS | Patient Health Record ---
Author Organization [facility] Address [address] [place] [address] Care Team Providers Care Automatic Lathe Setter Name Role Phone Roberto Brenner Primary Care Provider Mayela Claire Unavailable [phone] Brittany Silver Unavailable [phone] Allergies Allergen (clinical drug ingredient) Drug/Non Drug [...] W/U Status Risk Notes Problem Tobacco user (392925374) Nicotine dependence, unspecified, uncomplicated (F17.200) Active confirmed Problem Generalized anxiety disorder (56305752) Generalized anxiety disorder (F41.1) Active confirmed Problem Bipolar II disorder (68947482) Bipolar 2 disorder, major depressive episode (F31.81) Active confirmed Problem Sleep disturbance (44422187) Sleep disturbance, unspecified (G47.9) Active confirmed Vital Signs Heart Rate 70 /min 08/11/2024 Temperature 98.3 degrees Fahrenheit 08/11/2024 Respiratory Rate 16 /min 08/11/2024 Blood pressure diastolic 86 mm Hg 08/11/2024 Height 61 in 08/11/2024 Blood pressure systolic 112 mm Hg 08/11/2024 Weight 129.8 lbs 08/11/2024 BMI 24.52 kg/m2 08/11/2024 Encounters Encounter Location Date Provider Diagnosis [address] [place] [place] [address] 10/24/2023 Mayela Claire Bipolar 2 disorder, major depressive episode F31.81 ; Generalized anxiety disorder F41.1 ; Sleep disturbance, unspecified G47.9 and Nutritional counseling Z71.[address] [place] [address] 12/24/2023 Brittany Silver Bipolar 2 disorder, major depressive episode F31.81 ; Generalized anxiety disorder F41.1 ; Sleep disturbance, unspecified G47.9 and Nutritional counseling Z71.[address] [place] [address] 02/21/2024 Mayela Claire Bipolar 2 disorder, major depressive episode F31.81 ; Generalized anxiety disorder F41.1 ; Sleep disturbance, unspecified G47.9 and Nutritional counseling Z71.3 [facility] [address] [facility] [place] [address] 05/20/2024 Mayela Claire Bipolar 2 disorder, major depressive episode F31.81 and Generalized anxiety disorder F41.[address] [place] [address] 08/11/2024 Mayela Claire Bipolar 2 disorder, major depressive episode F31.81 ; Generalized anxiety disorder F41.1 and Nicotine dependence, unspecified, uncomplicated F17.[address] [address] 12/14/2023 Mayela Claire Bipolar 2 disorder, major [...] May also contact the 24-hour crisis hotline ([facility]), refer to the closest emergency room or [...] or be administered own oral medications per [place] protocols. Provided informed consent with understanding of side effects, adverse effects, risks and benefits as well as alternative treatments as previously discussed and with the above recommended medications & other aspects of the treatment program. Agrees to return sooner if symptoms worsen or suicidal or homicidal ideations occur. Reports sleep disturbances r/t pain. 02/21/2024 Other [place] agreement to continue current regimen. Reasons, potential [...] May also contact the 24-hour crisis hotline ([facility]), refer to the closest emergency room or [...] May also contact the 24-hour crisis hotline ([facility]), refer to the closest emergency room or [...] May also contact the 24-hour crisis hotline ([facility]), refer to the closest emergency room or [...] Insured Coverage Start Date Coverage End Date [facility] [address] [address] [place] [address] [id number] Miranda Hearn - patient is the insured 3 4 [employer] [address] [place] [address] [id number] Folk, Miranda Self - patient is the insured 4 MEDICAID [address] [place] [address] [id number] Miranda Hearn Self - patient is the insured 3 Medical (General) History Medical History History ICD Code Chronic pain, sciatic pain, RA, HTN, HLD Surgical History Surgery Date(Month/Year) 2 tubal TOTAL HYSTERECTOMY gallbladder appendix bilateral carpel tunnel and cubital tunn el release leg debridement brown recluse
--- OUTSIDE RECORDS SUMMARY | 2024-10-22 07:13 | XMS_ITS | Patient Health Record ---
Author Organization [facility] Address [facility] [place] [facility] [address] [place] [address] Care Team Providers Care Underpresser Hand Name Role Phone Raffy Alvarenga MD Primary Care Provider Isabel GoulduLna Unavailable [phone] Allergies Allergen (clinical drug ingredient) Drug/Non Drug Allergy documented on EMR Reaction Allergy Type Onset Date Status ciprofloxacin Cipro Unknown Drug Allergy Act rob atorvastatin Atorvastatin Unknown Drug Allergy A ctive cephalexin Cephalexin Unknown Drug Allergy Activ e Penicillin Unknown Drug Allergy Active Results Component Value Reference Range Notes eGFR Reviewed date:12/17/2023 12:35:29 PM Interpretation: Performing Lab:[facility] , [facility]. [facility] [address] Notes/Report: eGFR 87 >=60 mL/min/1.73 m2 Interpretive [...] Automated Reviewed date:12/17/2023 12:35:29 PM Interpretation: Performing Lab:[facility] , [address] [facility]. [place] [address] Notes/Report: Neut Abs 2.8 1.5-6.5 K/cumm ImmGran Abs 0.0 0.0-0.1 K/cumm Lymphocyte Abs 3.2 0.8-3.3 K/cumm Linn Abs 0.5 0.2-0.8 K/cumm Eos Abs 0.2 [...] Interpretive Data was last revised on 2017. Linn Pct 8.0 Interpretive Data Percent cell count [...] Ab Reviewed date:12/18/2023 11:53:37 AM Interpretation: Performing Lab:[facility] , [address] [facility] [place] [address] Notes/Report: SS B Antibody <0.2 <=0.9 Ab Index Interpretive Data Negative: < 1.0 Ab Index Positive: > or = 1.0 Ab Index Current interpretive data was last revised on 2016. SSA Ab Reviewed date:12/21/2023 09:55:51 AM Interpretation: Performing Lab:[facility] , [address] [place] [address]. [facility] [address] Notes/Report: SS A Antibody <0.2 <=0.9 Ab Index Interpretive Data Negative: < 1.0 Ab Index Positive: > or = 1.0 Ab Index Current interpretive data was last revised on 2016. Sed Rate Reviewed date:12/17/2023 12:35:57 PM Interpretation: Performing Lab:[facility] , [address] [place] [address]. [facility] [address] Notes/Report: ESR 11 1-30 mm/hr Rheumatoid Factor Reviewed date:12/17/2023 12:35:29 PM Interpretation: Performing Lab:[facility] , [address] [place] [address]. [facility] [address] Notes/Report: RF, Rob 22 <=15 IUnits/mL QTB Gold Reviewed date:12/19/2023 10:02:57 PM Interpretation: Performing Lab:[facility] , [address] [place] [address]. [facility] [address] Notes/Report: QuantiFERON TB Gold Negative Negative No [...] Mitogen-Nil 9.94 NIL 0.06 Test Performed by: [facility] [address] [place] [address] Manufacturing Engineering Intern: Marialuisa Alves Ph.D.; CLIA# [id number] Hep C AB Reviewed date:12/17/2023 12:35:57 PM Interpretation: Performing Lab:[facility] , [address] [place] [address]. [facility] [address] Notes/Report: Hepatitis C Antibody Reactive Nonreactive Screening [...] AG Reviewed date:12/17/2023 12:35:57 PM Interpretation: Performing Lab:[facility] , [address] [place] [address]. [facility] [address] Notes/Report: Hepatitis B Surface Antigen Nonreactive Nonreactive Creatine Kinase Reviewed date:12/17/2023 12:35:29 PM Interpretation: Performing Lab:[facility] , [address] [place] [address]. [facility] [address] Notes/Report: Total CK 275 30-200 Units/L Comprehensive metabolic pane l (CMP) Reviewed date:12/17/2023 12:35:29 PM Interpretation: Performing Lab:[facility] , [address] [place] [address]. [facility] [address] Notes/Report: Sodium 142 135-145 mmol/L Plasma Potassium [...] diff Reviewed date:12/17/2023 12:35:29 PM Interpretation: Performing Lab:[facility] , [address] [place] [address]. [place] [address] Notes/Report: WBC 6.7 3.8-9.9 K/cumm Hgb 13.5 11.9-15.5 g/dL Hct 42.9 35.6-45.5 % Platelet Ct 303 150-400 K/cumm MPV 10.7 9.1-12.3 fL RBC 4.89 3.90-5.20 M/cumm MCV 87.7 81.3-96.4 fL MCH 27.6 27.1-33.3 pg MCHC 31.5 32.3-35.7 g/dL RDW CV 13.8 11.1-14.9 % RDW SD 44.4 35.7-48.1 fL NRBC Abs Auto 0.00 0.00-0.01 K/cumm C Reactive Protein Reviewed date:12/17/2023 12:35:29 PM Interpretation: Performing Lab:[facility] , [address] [place] [address]. [place] [address] Notes/Report: C-Reactive Protein <3.0 <=10.0 mg/L Anti-CCP (Cyclic Citrullinat ed Peptide Ab) Reviewed date:12/21/2023 12:26:38 PM Interpretation: Performing Lab:[facility] , [facility]5 [facility]. [place] [address] Notes/Report: CCP Ab <0.5 <=2.9 units/mL Interpretive data Negative: <3 units/mL Positive: > or equal to 3 units/mL Current interpretive data was last revised on 2016. YOVANY reflex titer pattern MARTITA + dsDNA Reviewed date:12/18/2023 02:41:24 PM Interpretation: Performing Lab:[facility] , [address] [facility]. [place] [id number] Notes/Report: YOVANY, Qual Negative Interpretive Data Normal [...] last revised on 2020. Testing performed by: [facility], [address] [place]., [address] Reason For Referral Reason Prolia J08 97 DX M81.0 NO PA REQUIRED per Evita Serrato 07.17.2024@9:31am [employer] pa dept Diagnosis 1 Postmenopausal osteo porosis (M81.0) Referral Organization [facility] Referring Provider First Name Luna Referring Provider Last Name Luis Fernando Referring Provider Speciality Rheumatolo gy Referred Organization [facility] Referred Provider Luna Gould Referred Address [address],[place], [place],[address], Referred Provider Specialty Rheumatology Procedure 1 THER/PROPH/DIAG INJ, SC/IM (15025) Referral Priority Routine Medications Medication SIG (Take, [...] Problem Status W/U Status Risk Notes Problem [id number] Rheumatoid arthritis without rheumatoid factor, multiple sites (M06.09) Active confirmed Problem Age-related osteoporosis (901761241) Age-related osteoporosis without current pathological fracture (M81.0) Active confirmed Problem Postmenopausal osteoporosis (432331993) Postmenopausal osteoporosis (M81.0) Active confirmed Vital Signs Heart Rate 80 /min 07/23/2024 Temperature 97.9 degrees Fahrenheit 07/23/2024 Blood pressure diastolic 79 mm Hg 07/23/2024 Oximetry 96 % 07/14/2024 Weight-kg 59.15 kg 07/23/2024 Height 61 in 07/23/2024 Blood pressure systolic 132 mm Hg 07/23/2024 Weight 130.4 lbs 07/23/2024 BMI 24.64 kg/m2 07/23/2024 Encounters Encounter Location Date Provider Diagnosis [facility] [address] [place] [address] 12/17/2023 Luna Gould Pain in unspecified joint M25.50 ; Rheumatoid arthritis without rheumatoid factor, multiple sites M06.09 ; Postmenopausal osteoporosis M81.0 and High risk medication use Z79.899 [facility] [address] [place] [address] 12/31/2023 Luna Du Pain in unspecified joint M25.50 ; Rheumatoid arthritis without rheumatoid factor, multiple sites M06.09 ; Postmenopausal osteoporosis M81.0 ; High risk medication use Z79.899 ; Hepatitis C antibody test positive R76.8 and Liver enzyme elevation R74.8 [facility] [address] [place] [address] 07/14/2024 Luna Du Rheumatoid arthritis without rheumatoid factor, multiple sites M06.09 ; Postmenopausal osteoporosis M81.0 ; High risk medication use Z79.899 ; Hepatitis C antibody test positive R76.8 and Liver enzyme elevation R74.8 [facility] [address] [place] [address] 07/23/2024 Luna Du Age-related osteopor osis without current pathological fracture M81.0 [facility] [address] [place] [address] 12/31/2023 Luna Du [facility] [address] [place] [address] 01/10/2024 Luna Du [facility] [address] [place] [address] 07/14/2024 Luna Du Postmenopausal osteoporosis M81.0 [facility] [address] [place] [address] 07/16/2024 Luna Du [facility] [address] [place] [address] 07/17/2024 Luna Du [facility] [address] [place] [address] 07/17/2024 Luna Du Pain in unspecified joint M25.50 [facility] [address] [place] [address] 07/23/2024 Luna Du Postmenopausal osteoporosis M81.0 Assessments [...] bilateral 2 views 024 COMPREHENSIVE METABOLIC PANEL (48749) Comprehensive metabolic panel (CMP) 06/29 G6PD Ql 12/17/2023 Next Appt Details Provider Name:Luna Luis Fernando, 01/08 09:30:00 AM, [address] [facility] [address], [place], [address], Provider Name:Luna Gould, 01/22 10:30:00 AM, [address] [facility] [address], [place], [address], Insurance Providers Payer Name Payer Address Payer Phone Subscriber Number Group Number Insured Name Patient Relationship to Insured Coverage Start Date Coverage End Date [employer] Medicare H[place] [address] [place] [address] [id number] Guillermo Self - patient is the insured Medical (General) History Medical History History ICD Code rheumatoid arthritis, IBS, o steoporosis, esophagitis, GERD, hyperlipidemia, hypertension, hepatitis C Surgical History Surgery Date(Month/Year) cataract, carpal tunnel, hysterectomy
--- OUTSIDE RECORDS SUMMARY | 2024-10-22 07:13 | XMS_ITS ---
Author Organization [facility] padma Address [address] [facility] [address] [place] [address] Care Team Providers Care Insurance Sales Assistant Name Role Phone Raffy Alvarenga MD Primary Care Provider Isabel GruberMaria Rg Unavailable [phone] Allergies Allergen (clinical drug ingredient) Drug/Non Drug Allergy documented on EMR Reaction Allergy Type Onset Date Status ciprofloxacin Cipro Unknown Drug Allergy Act rob atorvastatin Atorvastatin Unknown Drug Allergy A ctive cephalexin Cephalexin Unknown Drug Allergy Activ e Penicillin Unknown Drug Allergy Active REASON FOR VISIT Specialty Pharm, shipped to patient, YD Medications Medication SIG (Take, Route, Frequency, Duration) Notes Start Date End Date Status Denosumab 60 MG/ML one injection Subcutaneous every 6 months for 180 days 01/01/2024 07/12/2025 Active Rosuvastatin Calcium 20 MG 1 tablet [...] Twice a day for 30 day(s) Active hydrALAZINE HCl 50 MG 1 tablet with food Orally at bedtime for 30 day(s) Active hydrOXYzine HCl 25 MG 1 tablet as needed Orally twice a day for 30 day(s) Active Pregabalin 75 MG 1 capsule Orally twi ce daily Active Vitamin D3 50 MCG (1999) 1 capsule Orally once a week Active Problems Problem Type SNOMED Code ICD Code Onset Dates Problem Status W/U Status Risk Notes Problem Age-related osteoporosis (261976027) Age-related osteoporosis without current pathological fracture (M81.0) Active confirmed Vital Signs Temperature 97.9 degrees Fahrenheit 07/23/19 25 Blood pressure systolic 132 mm Hg 07/23/19 25 Blood pressure diastolic 79 mm Hg 025 Heart Rate 80 /min 07/23/2024 Height 61 in 07/23/2024 Weight 130.4 lbs 07/23/2024 BMI 24.64 kg/m2 07/23/2024 Weight-kg 59.15 kg 07/23/2024 Encounters Encounter Location Date Provider Diagnosis [facility] [address] [facility] [address] [place] [address] 07/23/2024 Luna Gruber Age-related osteopor osis without current pathological fracture M81.0 Assessments Encounter Date Diagnosis (ICD Code) Assessment Notes Treatment Notes Treatment Clinical Notes Section Notes 07/23/2024 Age-related osteoporosis without current pathological fracture (ICD-10 - M81.0) Plan Of Treatment Next Appt Details Follow Up: 6 Months, Reason: Provider Name:Luna Luis Fernando, 01/08 09:30:00 AM, [address] [facility] [address], [place], [address], Provider Name:Luna Gruber, 01/22 10:30:00 AM, [address] [facility] [address], [place], [address], Progress Notes * Miranda HEARN EDOB:1960 ( 63 yo F)Acc No.[id number]:07/23/2024 Prolia Injection Patient: Miranda UPTON Provider: Charlene GRUBER MD :1960 A ge:63 Y S ex:Female Date:07/23/2024 Address:[address] [place] [address] Pcp:Raffy Alvarenga MD Subjective: * Chief Complaints: * [facility] * HPI: A dvance Care Planning: Miranda Hearn is being seen today for Prolia 60mg/ 1ml SQ Subcutaneous injection was given in the back of (L) arm, The patient has had the following interval studies since the last visit: CMP. The CMP revealed normal calciumm levels of 10.5. The patient Arrived at: 0935 Injection Given at: 0955 Left at: 1000 Total Time: 25 mins The patient Scheduled next lab for patient on 01/08/25 The patient [employer] Lot #[id number] exp date: 11/21 The patient tolerated the injection well. Assessment (1) Postmenopausal osteoporosis 733.01/M81.0 Plan Orders PROLIA 60 (J0897) - - - Hold lab results until reviewed :No Administration of ibandronate sodium by injection (00627, J1740) - - - Hold lab results until reviewed :No Instructions Follow up in 6 months for Prolia injection Call your physician if you have any problem. * Medical History: * Medications: T akingVitamin D3 50 MCG (1999) Capsule 1 capsule Orally once a week Linzess 290 MCG Capsule 1 capsule at least 30 minutes before the first meal of the day on an empty stomach Orally Once a day Carvedilol 6.25 MG Tablet 1 tablet with food Orally Twice a day Pregabalin 75 MG Capsule 1 capsule Orally twice daily hydrALAZINE HCl 50 MG Tablet 1 tablet with food Orally at bedtime hydrOXYzine HCl 25 MG Tablet 1 tablet as needed Orally twice a day Losartan Potassium 100 MG Tablet 1 tablet Orally Once a day Omeprazole 40 MG Capsule Delayed Release 1 capsule 30 minutes before morning meal Orally Once a day Rosuvastatin Calcium 20 MG Tablet 1 tablet Orally Once a day Latuda 60 MG Tablet 1 tablet in the evening with food Orally Once a day Denosumab 60 MG/ML Solution Prefilled Syringe one injection Subcutaneous every 6 months , stop date 07/12/2025Taking Vitamin D3 50 MCG (1999 [place]) Capsule 1 capsule Orally once a week Taking Linzess 290 MCG Capsule 1 capsule at least 30 minutes before the first meal of the day on an empty stomach Orally Once a day Taking Carvedilol 6.25 MG Tablet 1 tablet with food Orally Twice a day Taking Pregabalin 75 MG Capsule 1 capsule Orally twice daily Taking hydrALAZINE HCl 50 MG Tablet 1 tablet with food Orally at bedtime Taking hydrOXYzine HCl 25 MG Tablet 1 tablet as needed Orally twice a day Taking Losartan Potassium 100 MG Tablet 1 tablet Orally Once a day Taking Omeprazole 40 MG Capsule Delayed Release 1 capsule 30 minutes before morning meal Orally Once a day Taking Rosuvastatin Calcium 20 MG Tablet 1 tablet Orally Once a day Taking Latuda 60 MG Tablet 1 tablet in the evening with food Orally Once a day Taking Denosumab 60 MG/ML Solution Prefilled Syringe one injection Subcutaneous every 6 months , stop date 07/12/2025 * Allergies: C iproAtorvastatinCephalexinPenicillin Objective: * Vitals: B P:132/79mm Hg, HR:80/min, Temp:97.9F, Wt:130.4lbs, Wt-k.15 kg, Ht: 61 in, BMI:24.64Index, Body Surface Area: 1.59. Assessment: * Assessment: 1. A ge-related osteoporosis without current pathological fracture - M81.0 (Primary) Plan: * Treatment: * Procedure Codes: 9 6372 THER/PROPH/DIAG INJ, SC/AZA8678 INJECTION DENOSUMAB 1 MG, Units: 60.00 , Modifiers: JZ * Follow Up: 6 Months * Billing Information: * Visit Code: 31131 Office Visit, Est Pt., Level 1. Modifiers: 25 * Procedure Codes: 93400 THER/PROPH/DIAG INJ, SC/IM. J0897 INJECTION DENOSUMAB 1 MG. Units: 60.00. Modifiers: JZ * GAGE COUNSELOR Electronically co-signed by Luna Gruber MD on 07/23/2024 at 08:39 PM MORTGAGE COUNSELOR Sign off status: Completed true * Provider: Charlene GRUBER MD Date: 0 07/23/2024 Generated for Joaquim corea/Joel/Diana on: 0 10/22/2024 07:12 AM CDT History and Physical Notes * HPI (History of Present Illness) Category Sub-Category Detail Notes Category Not es Advance Care Planning Miranda Hearn is being seen today for Prolia 60mg/ 1ml SQ Subcutaneous injection was given in the back of (L) arm, The patient has had the following interval studies since the last visit: CMP. The CMP revealed normal calciumm levels of 10.5. The patient Arrived at: 0935 Injection Given at: 0955 Left at: 1000 Total Time: 25 mins The patient Scheduled next lab for patient on 01/08/25 The patient [employer] Lot #[id number] exp date: 11/21 The patient tolerated the injection well. Assessment (1) Postmenopausal osteoporosis 733.01/M81.0 Plan Orders PROLIA 60 (J0897) - - - Hold lab results until reviewed :No Administration of ibandronate sodium by injection (19506, J1740) - - - Hold lab results until reviewed :No Instructions Follow up in 6 months for Prolia injection Call your physician if you have any problem
[2024-10-22 07:15] VITALS: BP 145/97; PULSE 106; RESP 18; TEMP 36.6; O2SAT 98
[2024-10-22] MEDS: HYDROcodone/acetaminophen (*CRX) 5-325 MG TABLET 1 TAB PO (09:59)
--- NOTE | 2024-10-22 10:16 | ED.GENADULT ---
HPI - General Adult General Chief complaint: Fall Stated complaint: I think I broke my shoulder fall out of bed Time Seen by Provider: 10/22/24 07:37 History of Present Illness HPI narrative: Patient is 61-year-old female who presents emergency department chief complaint of left shoulder pain. Patient reports that she rolled out of bed this morning and landed on her left side. The patient reports hurts whenever she tries to move her arm patient reports no loss of conscious does report that she has some neck pain. Related Data Home Medications ?Medication ?Instructions ?Recorded ?Confirmed ?Last Taken ?Type carvedilol 6.25 mg tablet 6.25 mg PO BID 11/01/22 07/25/24 07/24/24 History cholecalciferol (vitamin D3) 25 25 mcg PO DAILY 11/01/22 07/25/24 07/24/24 History mcg (1,000 unit) tablet (Vitamin D3) hydroxyzine pamoate 25 mg capsule 25 mg PO TID 11/01/22 07/25/24 07/24/24 History hydroxyzine pamoate 50 mg capsule 50 mg PO HS 11/01/22 07/25/24 07/24/24 History linaclotide 290 mcg capsule 290 mcg PO QACBREAK 11/01/22 07/25/24 07/24/24 History (Linzess) losartan 100 mg tablet 100 mg PO DAILY 11/01/22 07/25/24 07/25/24 History omeprazole 20 mg capsule,delayed 40 mg PO DAILY 11/01/22 07/25/24 07/24/24 History release rosuvastatin 20 mg tablet 20 mg PO DAILY 11/01/22 07/25/24 07/24/24 History lurasidone 60 mg tablet 60 mg PO DIRECTED 11/16/23 07/25/24 07/24/24 History albuterol sulfate 90 mcg/actuation 1 inh inhalation Q4-6H PRN 07/18/24 07/18/24 Unknown History aerosol inhaler shortness of breath or wheezing budesonide 160 mcg-glycopyr 9 2 inh inhalation BID 07/18/24 07/25/24 07/24/24 History mcg-formot 4.8 mcg/actuation HFA inhaler (Breztri Aerosphere) Allergies Allergy/AdvReac Type Severity Reaction Status Date / Time ciprofloxacin Allergy Severe Swelling Verified 10/22/24 07:28 of Lip/Tongue/Throat hydromorphone (From Dilaudid) Allergy Severe Dyspnea / Verified 10/22/24 07:28 SOB lisinopril Allergy Severe Swelling Verified 10/22/24 07:28 of Lip/Tongue/Throat Penicillins Allergy Severe Difficulty Verified 10/22/24 07:28 Breathing cephalexin (From Keflex) Allergy Intermediate Itching Verified 10/22/24 07:28 Sulfa (Sulfonamide Allergy Intermediate Itching Verified 10/22/24 07:28 Antibiotics) Review of Systems Review of Systems: A 10 system review of systems was completed on the patient and is negative except for what is stated in the HPI. Nursing and ancillary documentation was reviewed. [facility] Past Medical History Medical History Chronic, continuous use of opioids COPD (chronic obstructive pulmonary disease) Elevated transaminase level Fatty liver Ectopic Hepatitis C antibody test positive TB lung, latent Bilateral hand pain Colon cancer screening Dysphagia Rheumatoid arthritis with rheumatoid factor of multiple sites without organ or systems involvement Low back pain Osteoporosis Hypertension Headache GERD (gastroesophageal reflux disease) IBS (irritable bowel syndrome) Arthritis Anxiety Allergies Surgical History Surgical History Hx of appendectomy Hx of cholecystectomy History of hysterectomy No pertinent past surgical history Family History Family History Other Depression Diabetes mellitus Heart disease Hypertension Social History Social History Smoking status: Former smoker Tobacco type: cigarettes and e-cigarettes/vaping Additional smoking assessment comments: QUIT VAPING 05/2022- VAPED FOR COUPLE MONTHS Alcohol intake: current Alcohol use details: rarely, socially, 1-3 if with family Substance use: never Substance use type: marijuana Last use: 07/11/2024 Lack of Transportation: No Lack of Food: Never True Current Housing: I Have Housing Concerned About Future Housing: No Difficulty Paying Gas/Electric Bills: No Difficulty Paying for Meds: No Currently Unemployed: No Education: Decline to Answer Difficulty w/ Childcare or Family Care: No Living arrangements: with roommate(s) Spiritual care concerns: No Exam Narrative: GENERAL: Well-appearing, well-nourished, and in no acute distress. HEAD: Normocephalic, atraumatic. EYES: PERRLA and EOMI. ENT: Nares clear, no rhinorrhea or epistaxis. Mucous membranes moist. NECK: Supple. Tenderness to palpation of midline CHEST: Clear to auscultation. No respiratory distress. HEART: Regular rate and rhythm. No murmur heard. Normal peripheral pulses. ABDOMEN: Soft, nontender, nondistended, normal active bowel sounds. EXTREMITIES: Normal range of motion in all extremities except for left upper extremity. Patient has limited range of motion left shoulder secondary to pain but no deformity there is tenderness to palpation in the left hip. No edema. SKIN: Warm, dry, no rash. NEURO: No focal deficits. Alert and oriented x3. PSYCH: Normal mood and affect. Course Vital Signs Vital signs: Vital Signs Temperature 36.6 C 10/22/24 07:15 Pulse Rate 106 H 10/22/24 07:15 Respiratory Rate 18 10/22/24 07:15 Blood Pressure 145/97 H 10/22/24 07:15 Pulse Oximetry 98 10/22/24 07:15 Temperature 36.6 C 10/22/24 07:15 Pulse Rate 106 H 10/22/24 07:15 Respiratory Rate 18 10/22/24 07:15 Blood Pressure 145/97 H 10/22/24 07:15 Pulse Oximetry 98 10/22/24 07:15 Medical Decision Making MDM Narrative Medical decision making narrative: Differential diagnosis includes fracture, contusion, strain CT C-spine showed no evidence cervical spine fracture Plain film x-rays of the left elbow shoulder and hip showed no evidence fracture Vital Signs Vital Signs: Vital Signs Temperature 36.6 C 10/22/24 07:15 Pulse Rate 106 H 10/22/24 07:15 Respiratory Rate 18 10/22/24 07:15 Blood Pressure 145/97 H 10/22/24 07:15 Pulse Oximetry 98 10/22/24 07:15 Temperature 36.6 C 10/22/24 07:15 Pulse Rate 106 H 10/22/24 07:15 Respiratory Rate 18 10/22/24 07:15 Blood Pressure 145/97 H 10/22/24 07:15 Pulse Oximetry 98 10/22/24 07:15 Discharge Plan Discharge Clinical Impression: Accidental fall from bed, Left shoulder strain, Contusion of hip, left, Cervical strain, acute Patient Disposition: Home Condition: Stable Instructions: Antibiotic Form, Muscle Strain (ED), Contusion in Adults (ED) Patient Language: Kiswahili Prescriptions: New diclofenac potassium 50 mg tablet 50 mg PO TID PRN (Reason: pain) Qty: 30 0RF No Action carvedilol 6.25 mg tablet 6.25 mg PO BID hydroxyzine pamoate 50 mg capsule 50 mg PO HS omeprazole 20 mg capsule,delayed release(DR/EC) 40 mg PO DAILY losartan 100 mg tablet 100 mg PO DAILY hydroxyzine pamoate 25 mg capsule 25 mg PO TID rosuvastatin 20 mg tablet 20 mg PO DAILY cholecalciferol (vitamin D3) [Vitamin D3] 25 mcg (1,000 unit) Tablet 25 mcg PO DAILY Linzess 290 mcg capsule 290 mcg PO QACBREAK albuterol sulfate 90 mcg/actuation HFA aerosol inhaler 1 inh INHALATION Q4-6H PRN (Reason: shortness of breath or wheezing) Breztri Aerosphere 160-9-4.8 mcg/actuation HFA aerosol inhaler 2 inh inhalation BID lurasidone 60 mg tablet 60 mg PO DIRECTED Follow-up/Referrals: Lenin Keys MD [Physician] - Raffy Alvarenga MD [Primary Care Provider] - Time of Disposition: 10:31
[2024-10-22 10:42] VITALS: BP 146/104; PULSE 76; RESP 18; O2SAT 100
== END 2024-10-22 10:43 | disposition home or self-care (01) ==
PROVIDERS: Emergency Provider Emergency Medicine; PCP Emergency Medicine
DX: S46.912A Strain of unspecified muscle, fascia and tendon at shoulder and upper arm level, left arm, initial encounter (principal); S70.02XA Contusion of left hip, initial encounter; S16.1XXA Strain of muscle, fascia and tendon at neck level, initial encounter; W06.XXXA Fall from bed, initial encounter; M06.9 Rheumatoid arthritis, unspecified; M81.0 Age-related osteoporosis without current pathological fracture; I10 Essential (primary) hypertension; K21.9 Gastro-esophageal reflux disease without esophagitis
CPT/HCPCS: 72125; 73030; 73080; 73502; 99284; A4565; A9270

== ENCOUNTER 2024-11-06 08:28 | Outpatient (CLI) | payer MEDICARE, MEDICAID, SELFPAY ==
--- NOTE | ~2024-11-06 | CT_ITS ---
CT Scan of the Chest without Contrast: Clinical Indication: Pulmonary nodule Technique: Contiguous sections were acquired throughout the chest without intravenous contrast. Dose reduction technique was used on this scan by utilizing automated exposure control and iterative recon struction technique. The dose-length product (DLP) was 115.76 mGy-cm. Findings: There is no evidence of any significant mediastinal, hilar or axillary lymphadenopathy. The mediastin al soft tissues appear normal. There is no evidence of pleural or pericardial effusion. The lungs are clear. No pulmonary nodules or infiltrates are noted. Images through the upper abdomen reveal no abnormalities. Impression: No significant abnormalities seen. Reviewed, dictated and finalized at location . Impression: No significant abnormalities seen.
--- OUTSIDE RECORDS SUMMARY | 2024-11-06 08:40 | XMS_ITS | Patient Health Record ---
Author Organization [facility] Address [facility] [place] [address] Care Team Providers Care Fisheries Management Biologist Name Role Phone Raffy Alvarenga MD Primary Care Provider Isabel GouldLuna Unavailable [phone] Allergies Allergen (clinical drug ingredient) Drug/Non Drug Allergy documented on EMR Reaction Allergy Type Onset Date Status ciprofloxacin Cipro Unknown Drug Allergy Act rob atorvastatin Atorvastatin Unknown Drug Allergy A ctive cephalexin Cephalexin Unknown Drug Allergy Activ e Penicillin Unknown Drug Allergy Active Results Component Value Reference Range Notes eGFR Reviewed date:12/17/2023 12:35:29 PM Interpretation: Performing Lab:[facility] , [facility] [facility]. [facility] [address] Notes/Report: eGFR 87 >=60 mL/min/1.73 m2 Interpretive [...] Automated Reviewed date:12/17/2023 12:35:29 PM Interpretation: Performing Lab:[facility] , [address] [place] [address] Notes/Report: Neut Abs 2.8 1.5-6.5 K/cumm ImmGran [...] on 2017. Eos Pct 2.5 Interpretive Data Percent cell count reference ranges are not reported, since discordance with absolute values may lead to misinterpretation of CBC data. Current Interpretive Data was last revised on 2017. Baso Pct 0.9 Interpretive Data Percent cell count reference ranges are not reported, since discordance with absolute values may lead to misinterpretation of CBC data. Current Interpretive Data was last revised on 2017. SSB Ab Reviewed date:12/18/2023 11:53:37 AM Interpretation: Performing Lab:[facility] , [address] [place] [address] Notes/Report: SS B Antibody <0.2 <=0.9 Ab Index Interpretive Data Negative: < 1.0 Ab Index Positive: > or = 1.0 Ab Index Current interpretive data was last revised on 2016. SSA Ab Reviewed date:12/21/2023 09:55:51 AM Interpretation: Performing Lab:[facility] , [address] [place] [address]. [facility] [address] Notes/Report: SS A Antibody <0.2 <=0.9 Ab Index Interpretive Data Negative: < 1.0 Ab Index Positive: > or = 1.0 Ab Index Current interpretive data was last revised on 2016. Sed Rate Reviewed date:12/17/2023 12:35:57 PM Interpretation: Performing Lab:[facility] , [address] [place] [address]. [facility] [address] Notes/Report: ESR 11 1-30 mm/hr Rheumatoid Factor Reviewed date:12/17/2023 12:35:29 PM Interpretation: Performing Lab:[facility] , [address] [place] [address]. [facility] [address] Notes/Report: RF, Rob 22 <=15 IUnits/mL QTB Gold Reviewed date:12/19/2023 10:02:57 PM Interpretation: Performing Lab:[facility] , [address] [place] [address]. [facility] [address] Notes/Report: QuantiFERON TB Gold Negative Negative No [...] Mitogen-Nil 9.94 NIL 0.06 Test Performed by: [facility] [address] [place] [address] Pharmaceutical Service Representative: Marialuisa Alves Ph.D.; CLIA# [id number] Hep C AB Reviewed date:12/17/2023 12:35:57 PM Interpretation: Performing Lab:[facility] , [address] [place] [address]. [facility] [address] Notes/Report: Hepatitis C Antibody Reactive Nonreactive Screening [...] AG Reviewed date:12/17/2023 12:35:57 PM Interpretation: Performing Lab:[facility] , [address] [place] [address]. [facility] [address] Notes/Report: Hepatitis B Surface Antigen Nonreactive Nonreactive Creatine Kinase Reviewed date:12/17/2023 12:35:29 PM Interpretation: Performing Lab:[facility] , [address] [place] [address]. [facility] [address] Notes/Report: Total CK 275 30-200 Units/L Comprehensive metabolic pane l (CMP) Reviewed date:12/17/2023 12:35:29 PM Interpretation: Performing Lab:[facility] , [address] [place] [address]. [facility] [address] Notes/Report: Sodium 142 135-145 mmol/L Plasma Potassium [...] diff Reviewed date:12/17/2023 12:35:29 PM Interpretation: Performing Lab:[facility] , [address] [place] [address]. [place] [address] Notes/Report: WBC 6.7 3.8-9.9 K/cumm Hgb 13.5 11.9-15.5 g/dL Hct 42.9 35.6-45.5 % Platelet Ct 303 150-400 K/cumm MPV 10.7 9.1-12.3 fL RBC 4.89 3.90-5.20 M/cumm MCV 87.7 81.3-96.4 fL MCH 27.6 27.1-33.3 pg MCHC 31.5 32.3-35.7 g/dL RDW CV 13.8 11.1-14.9 % RDW SD 44.4 35.7-48.1 fL NRBC Abs Auto 0.00 0.00-0.01 K/cumm C Reactive Protein Reviewed date:12/17/2023 12:35:29 PM Interpretation: Performing Lab:[facility] , [address] [place] [address]. [place] [address] Notes/Report: C-Reactive Protein <3.0 <=10.0 mg/L Anti-CCP (Cyclic Citrullinat ed Peptide Ab) Reviewed date:12/21/2023 12:26:38 PM Interpretation: Performing Lab:[facility] , [facility] [facility]. [place] [address] Notes/Report: CCP Ab <0.5 <=2.9 units/mL Interpretive data Negative: <3 units/mL Positive: > or equal to 3 units/mL Current interpretive data was last revised on 2016. YOVANY reflex titer pattern MARTITA + dsDNA Reviewed date:12/18/2023 02:41:24 PM Interpretation: Performing Lab:[facility] , [address] [facility]. [place] [id number] Notes/Report: YOVANY, Qual Negative Interpretive Data Normal [...] last revised on 2020. Testing performed by: [facility], [address] [place]., [address] Reason For Referral Reason Prolia J08 97 DX M81.0 NO PA REQUIRED per Evita Serrato 07.17.2024@9:31am [employer] pa dept Diagnosis 1 Postmenopausal osteo porosis (M81.0) Referral Organization [facility] Referring Provider First Name Luna Referring Provider Last Name Luis Fernando Referring Provider Speciality Rheumatolo gy Referred Organization [facility] Referred Provider Luna Gould Referred Address [address],[place], [place],[address], Referred Provider Specialty Rheumatology Procedure 1 THER/PROPH/DIAG INJ, SC/IM (41886) Referral Priority Routine Medications Medication SIG (Take, [...] Problem Status W/U Status Risk Notes Problem [id number] Rheumatoid arthritis without rheumatoid factor, multiple sites (M06.09) Active confirmed Problem Age-related osteoporosis without current pathological fracture (M81.0) Active confirmed Problem Postmenopausal osteoporosis (M81.0) Active confirmed Vital Signs Heart Rate 80 /min 07/23/2024 Temperature 97.9 degrees Fahrenheit 07/23/2024 Blood pressure diastolic 79 mm Hg 07/23/2024 Oximetry 96 % 07/14/2024 Weight-kg 59.15 kg 07/23/2024 Height 61 in 07/23/2024 Blood pressure systolic 132 mm Hg 07/23/2024 Weight 130.4 lbs 07/23/2024 BMI 24.64 kg/m2 07/23/2024 Encounters Encounter Location Date Provider Diagnosis [facility] [address] [place] [address] 12/17/2023 Luna Du Pain in unspecified joint M25.50 ; Rheumatoid arthritis without rheumatoid factor, multiple sites M06.09 ; Postmenopausal osteoporosis M81.0 and High risk medication use Z79.899 [facility] [address] [facility] [address] [place] [address] 12/31/2023 Luna Du Pain in unspecified joint M25.50 ; Rheumatoid arthritis without rheumatoid factor, multiple sites M06.09 ; Postmenopausal osteoporosis M81.0 ; High risk medication use Z79.899 ; Hepatitis C antibody test positive R76.8 and Liver enzyme elevation R74.8 [facility] [address] [place] [address] 07/14/2024 Luna Du Rheumatoid arthritis without rheumatoid factor, multiple sites M06.09 ; Postmenopausal osteoporosis M81.0 ; High risk medication use Z79.899 ; Hepatitis C antibody test positive R76.8 and Liver enzyme elevation R74.8 [facility] [address], [place] [address] 07/23/2024 Luna Du Age-related osteopor osis without current pathological fracture M81.0 [facility] [address], [place] [address] 12/31/2023 Luna Du [facility] [address] [place] [address] 01/10/2024 Luna Du [facility] [address] [place] [address] 07/14/2024 Luna Du Postmenopausal osteoporosis M81.0 [facility] [address], [place] [address] 07/16/2024 Luna Du [facility] [address] [place] [address] 07/17/2024 Luna Du [facility] [address] [place] [address] 07/17/2024 Luna Du Pain in unspecified joint M25.50 [facility] [address] [place] [address] 07/23/2024 Luna Du Postmenopausal osteoporosis M81.0 Assessments [...] bilateral 2 views 024 COMPREHENSIVE METABOLIC PANEL (44868) Comprehensive metabolic panel (CMP) 06/29 G6PD Ql 12/17/2023 Next Appt Details Provider Name:Luna Luis Fernando, 01/08 09:30:00 AM, [address], [place], [address], Provider Name:Luna Luis Fernando, 01/22 10:30:00 AM, [address], [place], [address], Insurance Providers Payer Name Payer Address Payer Phone Subscriber Number Group Number Insured Name Patient Relationship to Insured Coverage Start Date Coverage End Date [employer] Medicare Hmo [address] [place] [address] [id number] Miranda Hearn Self - patient is the insured Medical (General) History Medical History History ICD Code rheumatoid arthritis, IBS, o steoporosis, esophagitis, GERD, hyperlipidemia, hypertension, hepatitis C Surgical History Surgery Date(Month/Year) cataract, carpal tunnel, hysterectomy
--- OUTSIDE RECORDS SUMMARY | 2024-11-06 08:40 | XMS_ITS | Patient Health Record ---
Author Organization [facility] Address [address] [place] [address] Care Team Providers Care Quality Control Expert Name Role Phone Roberto Brenner Primary Care Provider Mayela Calire Unavailable [phone] Brittany Silver Unavailable [phone] Allergies Allergen (clinical drug ingredient) Drug/Non Drug [...] W/U Status Risk Notes Problem Tobacco user (577573586) Nicotine dependence, unspecified, uncomplicated (F17.200) Active confirmed Problem Generalized anxiety disorder (89111401) Generalized anxiety disorder (F41.1) Active confirmed Problem Bipolar II disorder (71697335) Bipolar 2 disorder, major depressive episode (F31.81) Active confirmed Problem Sleep disturbance (97691957) Sleep disturbance, unspecified (G47.9) Active confirmed Vital Signs Heart Rate 70 /min 08/11/2024 Temperature 98.3 degrees Fahrenheit 08/11/2024 Respiratory Rate 16 /min 08/11/2024 Blood pressure diastolic 86 mm Hg 08/11/2024 Height 61 in 08/11/2024 Blood pressure systolic 112 mm Hg 08/11/2024 Weight 129.8 lbs 08/11/2024 BMI 24.52 kg/m2 08/11/2024 Encounters Encounter Location Date Provider Diagnosis [address] [place] [address] 12/24/2023 Brittany Silver Bipolar 2 disorder, major depressive episode F31.81 ; Generalized anxiety disorder F41.1 ; Sleep disturbance, unspecified G47.9 and Nutritional counseling Z71.[address] [place] [address] 02/21/2024 Mayela Claire Bipolar 2 disorder, major depressive episode F31.81 ; Generalized anxiety disorder F41.1 ; Sleep disturbance, unspecified G47.9 and Nutritional counseling Z71.3 [facility] [address] [place] [address] 05/20/2024 Mayela Cortezan Bipolar 2 disorder, major depressive episode F31.81 and Generalized anxiety disorder F41.[address] [place] [address] 08/11/2024 Mayela Cortezan Bipolar 2 disorder, major depressive episode F31.81 ; Generalized anxiety disorder F41.1 and Nicotine dependence, unspecified, uncomplicated F17.[address] [facility] [place] [address] 12/14/2023 Mayela Cortezan Bipolar 2 disorder, major depressive episode F31.81 Assessments Encounter Date Diagnosis (ICD Code) Assessment Notes Treatment Notes Treatment Clinical Notes Section Notes 12/14/2023 Bipolar 2 disorder, major depressive episode (ICD-10 - F31.81) 12/24/2023 Bipolar 2 disorder, major depressive episode (ICD-10 - F31.81) Client reports high appetite and anxiety with increase in Abilify to 15 mg Hx of trialing risperdal with TD as side effect, has also trialed lamotrigine , depakote. Caplyta caused hallucianti ons. Reports sleep disturbances r/t pain. 02/21/2024 Bipolar 2 disorder, major depressive episode (ICD-10 - F31.81) Client reports high appetite with Abilify Hx of trialing risperdal with TD as side effect, has also trialed lamotrigine , depakote. Caplyta caused hallucianti ons. Reports sleep disturbances r/t pain. 05/20/2024 Bipolar [...] lamotrigine , depakote. Caplyta caused hallucianti ons. 08/11/2024 Bipolar 2 disorder, major depressive episode [...] lamotrigine , depakote. Caplyta caused hallucianti ons. 05/20/2024 Generalized anxiety disorder (ICD-10 - F41.1) 08/11/2024 Generalized anxiety disorder (ICD-10 - F41.1) 02/21/2024 Generalized anxiety disorder (ICD-10 - F41.1) Reports sleep disturbances r/t pain. 12/24/2023 Generalized anxiety disorder (ICD-10 - F41.1) Reports sleep disturbances r/t pain. 12/24/2023 Sleep [...] Z71.3) Reports sleep disturbances r/t pain. 12/24/2023 Other May self-admini ster medications or be administered own oral medications per [place] protocols. Provided informed consent with understanding of side effects, adverse effects, risks and benefits as well as alternative treatments as previously discussed and with the above recommended medications & other aspects of the treatment program. Agrees to return sooner if symptoms worsen or suicidal or homicidal ideations occur. Reports sleep disturbances r/t pain. 02/21/2024 Other Christine agreement to continue current regimen. Reasons, potential [...] May also contact the 24-hour crisis hotline ([facility]), refer to the closest emergency [...] May also contact the 24-hour crisis hotline ([facility]), refer to the closest emergency [...] May also contact the 24-hour crisis hotline ([facility]), refer to the closest emergency [...] plan and follow up. Plan Of Treatment Next Appt Details Provider Name:Mayela zee, 11/19/2024 10:00:00 AM, [address] [facility] , [place], [address], Insurance Providers Payer Name Payer Address Payer Phone Subscriber Number Group Number Insured Name Patient Relationship to Insured Coverage Start Date Coverage End Date [facility] [address] [address] [place] [address] [id number] Miranda Hearn Self - patient is the insured 3 4 [employer] [address] [place] [address] [id number] Miranda Hearn Self - patient is the insured 4 MEDICAID [address] [place] [address] [id number] Dhiraj Miranda Self - patient is the insured 3 Medical (General) History Medical History History ICD Code Chronic pain, sciatic pain, RA, HTN, HLD Surgical History Surgery Date(Month/Year) 2 tubal TOTAL HYSTERECTOMY gallbladder appendix bilateral carpel tunnel and cubital tunn el release leg debridement brown recluse
--- OUTSIDE RECORDS SUMMARY | 2024-11-06 08:40 | XMS_ITS | Data Portability ---
Author Organization [place] [facility], Main Office Address [address] [place] [address] Care Team Providers Care Dental Lab Technician Name Role Phone ALEXANDER AVINA Primary Care Provider ALEXANDER AVINA Referring Provider [phone] Assessment Encounter Date Assessment Date Assessment LastModified by Organization Details LastModified Time 07/23/2023 07/23/2023 62 yo patient presents today [...] to be seen. Not available 01/07/2024 09:33:31 11/03/2024 11/03/2024 63-year-old presents for evaluation of her left shoulder. She had a fall on 10/22/2024 when she was getting out of bed. She has had soreness and pain with lifting the shoulder since then. She has tried some heat and ice but that has not helped. She currently rates the pain as 5/10. Denies previous injuries with the shoulder. She has diffuse soreness especially over the lateral shoulder and over the AC joint. She has limited elevation and requires assistance with her other hand. She has 4/5 strength with external rotation elevation. X-rays were reviewed, demonstrating no acute bony abnormality, AC hypertrophy we will begin with a course of conservative management with anti-inflammator ies and physical therapy. We will see her back in about 6 weeks after the course of treatment. At that point if she is still having problems we can consider doing a cortisone injection or MRI. She is in agreement with the plan. [email or web address] Not available 11/03/2024 11:04:24 Plan of Treatment Reminders Order Date Submit Date Provider Last Modified By Organization Details Last Modified Time Details Appointments Any 5 2024 08:35A Connie Crystal MD Not available Not available Not available Lab None recorded. Referral physical therapist referral - Please contact patient to schedule 2024 025 [facility] Physical [facility], [address] [place] [address], [id number], 11/03/2024 14:00:44 physical therapist referral - Please contact pt to schedule for R shoulder [address] Physical [facility], [address] [place] [address], [id number], 08/20/2023 16:33:55 Procedures None recorded. Surgeries None recorded. Imaging None recorded. Medication Orders meloxicam 15 mg tablet 2024 025 [email or web address] [id number], [address], [place], [id number], 11/03/2024 10:56:03 Patient TargetsNo targets recorded. Patient InstructionsNo instructions recorded. Reason for Referral Physical Therapist Referral for Pain of right shoulder joint R shoulder Please contact pt to schedule for R shoulder Referring Physician: Aleta John, Orthopedic Surgery, Encounter Date: 08/20/2023 Physical Therapist Referral for Pain of left shoulder joint Please contact patient to schedule Referring Physician: Nelson Crystal, Orthopedic Surgery, Encounter Date: 11/03/2024 Results Created Date Observation Date Name Description Value Unit Range Abnormal Flag Note LastModifiedBy Organization Detail LastModifiedTime 10/28/19 25 10/22/2024 XR, shoul ish, 2 or more view No observ ation record ed. [email or web address] Not Available 06/2024 10:02:56 10/28/19 25 10/22/2024 XR, elbow , 3 or more view No observ ation record ed. [email or web address] Not Available 06/2024 10:02:56 10/28/19 25 10/22/2024 XR, hip + pelvi s, unila teral , 2 or 3 view No observ ation record ed. [email or web address] Not Available 06/2024 10:02:56 10/28/19 25 10/22/2024 CT, cervi zuleyka spine , w/o contr ast No observ ation record ed. [email or web address] Not Available 06/2024 10:02:57 Result Notes None recorded. Problems Name Problem SNOMED Code Status Onset Date Resolution Date Notes Provider Name and Address Organization Details Recorded Time Disorder of shoulder 620411906 Active Not Available [facility] 3 19:29:17 Chronic obstructiv e pulmonary disease 02603189 Active 2020 Not Available [facility] 3 19:29:18 Gastroesop hageal reflux disease without esophagiti s 259907109 Active 2020 Not Available [facility] 3 19:29:18 Wheezing 44629083 Active 2020 Not Available [facility] 3 19:29:18 Dyspnea on exertion 79722260 Active 2020 Not Available [facility] 3 19:29:18 Bilateral shoulder joint pain 2402991814168 9104 Active 2022 Corrina Velazquez CNA null, [facility] 3 09:39:31 Pain of right shoulder joint 2279915664463 9100 Active 2022 Swati parra, [facility] 3 09:53:44 Pain of left shoulder joint 7128852534259 9109 Active 2022 Swati parra, [facility] 3 09:53:49 Disorder of shoulder 989027729 Active 2022 Swati parra, [facility] 3 11:47:32 Arthritis of acromiocla vicular joint 103348866 Active 2023 Nelson Crystal MD [address], [place], [address] , [facility] 4 10:21:47 Partial thickness rotator cuff tear 510537084 Active 2023 Nelson Crystal MD [address], [place], [address] , [facility] 4 10:21:55 Problem Notes None recorded. Procedures Surgical History Date Name Laterality Status Provider Name and Address Organization Details Recorded Time 05/14/20 23 Ortho - Cortisone Injection completed Nelson Crystal MD [address], [place], [address], [facility] 05/15/2023 15:49:02 cholecystectomy completed Corrina Velazquez [facility] 03/05/2023 09:37:10 Appendectomy completed Corrina Velazquez [facility] 03/05/2023 09:38:00 Hysterectomy completed Corrina Velazquez [facility] 03/05/2023 09:38:16 Imaging Results None recorded. Procedure Notes None recorded. Medical Equipment None Reported. Allergies Allergen ID Allergen Name Allergen Category Reaction Reaction Severity Criticality Documentation Date Start Date Code Code System Note Provider Name and Address Organization Details Recorded Time 25294 acetamino phen / hydrocodo ne medicatio n Not available Not available Not available 07/26/2022 52499 2 RxNorm Not Available [facility] 3 19:30:30 61398 Product containin g penicilli n (product) medicatio n hives severe Not available 07/26/2022 43892 8001 SNOMED Not Available [facility] 3 19:30:30 30710 Keflex medicatio n hives severe Not available 07/26/202222291 7 RxNorm Not Available [facility] 3 19:30:30 58348 Dilaudid medicatio n Not available Not available Not available 07/26/2022 80184 3 RxNorm Not Available [facility] 3 19:30:30 60378 Cipro medicatio n anaphylax is severe Not available 07/26/2022 25093 3 RxNorm Not Available [facility] 3 19:30:30 31940 Ceprotin medicatio n Not available Not available Not available 07/26/2022 11698 6 RxNorm Not Available [facility] 3 19:30:30 56582 lisinopri l medicatio n itching swelling Not available Not available Not available 03/05/2023 42477 RxNorm DEMETRIA Ros[place], [place] [facility] [place] [facility] 3 09:27:36 Medications Name Sig Start Date [...] MOUTH EVERY 6 HOURS NEEDED FOR PAIN 11/03 completed Not Available Not Available Not Available meloxicam 15 mg tablet Take 1 tablet every day by oral route. 2024 active Not Available Not Available Not Avai lable bupivacaine HCl 0.5 % (5 mg/mL) injection [...] Not Available Not Available No t Available Klor-Con 20 mEq oral packet TAKE 1 PACKET BY MOUTH EVERY DAY FOR 5 DAYS 11/03 completed Not Available Not Available Not Available acetaminoph en 300 mg-codeine 30 mg [...] tablet TAKE 1 TABLET BY MOUTH EVERY 12 HOURS 11/03 completed Not Available Not Available Not Available omeprazole 40 mg capsule,del ayed release TAKE 1 CAPSULE BY MOUTH EVERY DAY BEFORE A MEAL 11/03 completed Not Available Not Available Not Available doxycycline monohydrate 100 mg tablet TK 1 T PO Q 12 H 09/14 completed Not Available Not Available Not Available tramadol 50 mg tablet TAKE 1 TABLET BY MOUTH EVERY 6 HOURS NEEDED FOR PAIN 11/03 completed Not Available Not Available Not Available ketorolac 0.5 % eye drops 03/05 [...] injection Take 1 mL by injection route. 11/03 completed [facility]: [phone]- [phone] Not Available Not Available Not Available amitriptyli ne 10 mg tablet TK 3 TS PO QHS. MAY CAUSE SEDATION. 03/05 completed Not Available Not Available Not Available baclofen 10 mg tablet 09/14 completed Not Available Not Available Not Available amlodipine 10 mg tablet TAKE 1 TABLET BY MOUTH EVERY DAY 11/03 completed Not Available Not Available Not Available hydrocodone 7.5 mg-acetamin ophen 325 mg tablet TAKE 1 TABLET BY MOUTH EVERY 4 HOURS NEEDED FOR PAIN 11/03 completed Not Available Not Available Not Available prednisone 2.5 mg tablet 11/03 completed Not Available Not Available Not Available triamcinolo ne acetonide 0.1 % topical ointment active Not Available Not Available Not Available ranitidine 150 mg tablet TK 1 T PO BID 30 MINUTES BEFORE MEALS 09/14 completed Not Available Not Available Not Available diclofenac potassium 50 mg tablet TAKE 1 TABLET BY MOUTH THREE TIMES DAILY NEEDED FOR PAIN 11/03 completed Not Available Not Available Not Available [...] tablet TAKE 2 TABLETS BY MOUTH DAILY 11/03 completed Not Available Not Available Not Available methylpredn isolone 4 mg tablets in a dose pack FOLLOW PACKAGE DIRECTION S 03/05 completed Not Available Not Available Not Available albuterol sulfate HFA 90 mcg/actuati on aerosol inhaler INHALE 1 PUFF BY MOUTH EVERY 4 TO 6 HOURS NEEDED active Not Available Not Available No t Available celecoxib 100 mg capsule TAKE ONE CAPSULE BY MOUTH WITH FOOD ONCE DAILY NEEDED 11/03 completed Not Available Not Available Not Available ondansetron 4 mg disintegrat ing tablet DISSOLVE 1 TABLET ON THE TONGUE THREE TIMES DAILY NEEDED 11/03 completed Not Available Not Available Not Available losartan 100 mg tablet TAKE 1 [...] completed Not Available Not Available Not Available metoclopram eloy 10 mg tablet TAKE 1 TABLET BY MOUTH THREE TIMES DAILY 11/03 completed Not Available Not Available Not Available hydroxyzine pamoate 25 mg capsule TAKE 1 CAPSULE BY MOUTH THREE TIMES DAILY NEEDED FOR ANXIETY active Not Available Not Available No t Available aripiprazol e 10 mg tablet TAKE 1 TABLET BY MOUTH EVERY DAY 03/05 completed Not Available Not Available Not Available aripiprazol e 15 mg tablet TAKE 1 TABLET BY MOUTH EVERY DAY 11/03 completed Not Available Not Available Not Available cyclobenzap rine 5 mg tablet TAKE 1 TABLET BY MOUTH THREE TIMES DAILY 11/03 completed Not Available Not Available Not Available aripiprazol e 5 mg tablet TAKE [...] Available Prolia 60 mg/mL subcutaneou s syringe INJECT 1 SYRINGE EVERY 6 MONTHS active Not Available Not Available No t Available lurasidone 40 mg tablet TAKE 1 TABLET BY MOUTH EVERY DAY IN THE EVENING WITH FOOD 11/03 completed Not Available Not Available Not Available Linzess 290 mcg capsule TAKE 1 [...] TAKE 1 CAPSULE BY MOUTH EVERY DAY 11/03 completed Not Available Not Available Not Available Breztri Aerosphere 160 mcg-9mcg-4. 8mcg/actuat ion HFA aerosol inhaler INHALE 2 PUFFS BY MOUTH TWICE DAILY IN THE MORNING AND IN THE EVENING active Not Available Not Available No t Available Vitals Date Recorded Body height Body mass index (BMI) Body weight Provider Name and Address Organization Details Last Updated DateTime 07/23/2023 152.4 cm 28.3 kg/m2 82342.89 g [facility]et [employer] 07/23/2023 09:30:49 Date Recorded Body height Body mass index (BMI) Body weight Provider Name and Address Organization Details Last Updated DateTime 08/20/2023 152.4 cm 27.9 kg/m2 55908.71 g Jannet Brenner [facility] 08/20/2023 12:26:44 Date Recorded Body height Body mass index (BMI) Body weight Provider Name and Address Organization Details Last Updated DateTime 10/01/2023 152.4 cm 28.3 kg/m2 38793.89 g [employer]annet [employer] 10/01/2023 09:27:07 Date Recorded Body height Body mass index (BMI) Body weight Provider Name and Address Organization Details Last Updated DateTime 11/03/2024 152.4 cm 25.4 kg/m2 35860.01 g Jannet Brenner [facility] 11/03/2024 09:29:18 Date Recorded Body height Body mass index (BMI) Body weight Provider Name and Address Organization Details Last Updated DateTime 01/07/2024 152.4 cm 26.4 kg/m2 17081.97 g Jannet [employer] 01/07/2024 09:22:34 Social History Question Answer Notes LastModified by Organizat ion Details LastModified Time Tobacco Smoking Status Former Smoker Not Available [facility] 07/26/2022 19:28:13 Do You Have An Advance Directive? No [id number] Information not available 07/26/2022 What Is Your Level Of Caffeine Consumption? Heavy MIGRATION.[id number] 026 Information not available 07/26/2022 How Much Tobacco Do You Chew? None MIGRATION.[id number] 026 Information not available 07/26/2022 In The 14 Days Before Symptom Onset, Have You Had Close Contact With A Laboratory-confirm ed COVID-19 While That Case Was Ill? No MIGRATION.[id number] 026 Information not available 07/26/2022 In The 14 Days Before Symptom Onset, Have You Had Close Contact With A Person Who Is Under Investigation For COVID-19 While That Person Was Ill? No MIGRATION.4887790 026 Information not available 07/26/2022 What Type Of Diet Are You Following? REGULAR MIGRATION.8483420 026 Information not available 07/26/2022 Which Illicit Or Recreational Drugs Have You Used? None MIGRATION.[id number] 026 Information not available 07/26/2022 Do You Have An Electrostatic Air Filter? No MIGRATION.8678685 026 Information not available 07/26/2022 Do You Have A Humidifier? No MIGRATION.[id number] 026 Information not available 07/26/2022 Do You Have Moisture Problems In Your Home? No MIGRATION.6064924 026 Information not available 07/26/2022 What Was The Date Of Your Most Recent Tobacco Screening? 11/03/2024 [email or web address] Information not available 11/03/2024 How Many Children Do You Have? 0 MIGRATION.[id number] 026 Information not available 07/26/2022 Do You Have Any Pets? Yes MIGRATION.[id number] 026 Information not available 07/26/2022 At What Age Did You Start Smoking Tobacco? 16 MIGRATION.2718290 026 Information not available 07/26/2022 How Much Tobacco Do You Smoke? 1 PPD MIGRATION.1997777 026 Information not available 07/26/2022 How Many Years Have You Smoked Tobacco? 20 MIGRATION.0387265 026 Information not available 07/26/2022 Sex: Female Functional Status Question Answer Note LastModified by Organizat ion Details LastModified Time What is your level of alcohol consumption? Occasional MIGRATION.[id number] 026 Information not available 07/26/2022 Do you or have you ever used smokeless tobacco? Never used smokeless tobacco MIGRATION.4612057 026 Information not available 07/26/2022 What is your occupation? disabled MIGRATION.9910494 026 Information not available 07/26/2022 Do you or have you ever used e-cigarettes or vape? Never used electronic cigarettes MIGRATION.1195007 026 Information not available 07/26/2022 What is your exercise level? Occasional MIGRATION.[id number] 026 Information not available 07/26/2022 Mental Status [...] Medical History Condition Response CHEST XRAY Y BLINDNESS N NERVE DISEASE N POLIO N LUNG DISEASE/DISORDER N RADIATION / CHEMOTHERAPY N COPD N BLOOD DISEASES N EAR OR HEARING PROBLEMS N DEPRESSION (INCLUDING POST ) Y FEMALE PROBLEMS / INFECTIONS N BOWEL PROBLEMS Y STROKE/TIA N CHEST CT Y ULCERS N RENAL INSUFFICIENCY N BENIGN PROSTATIC HYPERPLASIA N TB SKIN TEST N OBESITY N EXCESSIVE PERSPIRATION Y GERD/NAUSEA Y ANEURYSM N URINARY/BLADDER/KIDNEY PROBLEMS N CORONARY [...] HAVE YOU BEEN HOSPITALIZED OR [facility] IN THE PAST YEAR ? Y ATHEROSCLEROSIS N BREAST PROBLEMS N HERNIATED DISC Y DIALYSIS N FIBROMYALGIA N OSTEOPOROSIS Y ARTHRITIS Y NO SIGNIFICANT PAST MEDICAL HISTORY N DIABETES, TYPE N SEASONAL ALLERGIES Y HEARTBURN / REFLUX Y PLEURISY N AFIB N ADD/ADHD N Bronchoscopy N HEPATITIS / LIVER DISEASE N PULMONARY DISEASE N GOUT N SLEEP DISORDER N ALZHEIMER'S DISEASE N FATIGUE Y DEMENTIA N HERPES N RETINOPATHY N SEIZURES/EPILEPSY N HEADACHES/MIGRAINES Y SLEEP STUDY N VASCULAR DISEASE N DIZZINESS N HEAD TRAUMA OR INJURY N HEART DISEASE/HEART PROBLEMS N MULTIPLE SCLEROSIS N PULMONARY FUNCTION TEST N CARDIAC ARRHYTHMIA N CANCER: SPECIFY N ANESTHESIA COMPLICATIONS N PNEUMONIA Y ATRIAL FIBRILLATION N PULMONARY EMBOLISM N AUTOIMMUNE DISEASE N Gynecological HistoryNo gynecological history recorded. Obstetrics History GPAL:G 0 P 0 0 0 0 Past Encounters Encounter ID Performer Location Encounter Start Date Encounter Closed Date Diagnosis/Indication Diagnosis SNOMED-CT Code Diagnosis ICD10 Code Diagnosis Note [id number] [facility] [address] [address] 09/14/2020 00:00:00 09/14/2020 15:56:21 [id number] Nelson Crystal MD [facility] [address] 03/05/2023 09:06:44 03/05/2023 10:38:49 Bilateral shoulder joint pain 4708580997 8779422 M25.511 M25.601 [id number] Nelson Crystal MD S[address] [address] 04/16/2023 09:25:55 04/16/2023 10:19:36 Pain of left shoulder joint 7911658056 7594615 M25.512 Pain of ri ght shoulder joint 9508392897 7582736 M25.326 [id number] Nelson Crystal MD S[address] [address] 05/14/2023 11:45:48 05/14/2023 12:09:57 Disorder of shoulder 868701872 M25.811 Pain of ri ght shoulder joint 0386459426 3784236 M25.669 [id number] Nelson Crystal MD [address] [address] 06/11/2023 09:50:36 06/11/2023 10:22:14 Pain of right shoulder joint 9765304135 5549612 M25.511 Partial th ickness rotator cuff tear 599067957 M75.101 Arthritis of acromioclavicular joint 848922328 M13.302 [id number] Nelson Crystal MD [address] [address] 07/23/2023 09:28:46 07/23/2023 09:45:04 Pain of right shoulder joint 2878927297 4393414 M25.511 Arthritis of acromioclavicular joint 525171048 M13.447 [id number] Nelson Crystal MD [place] [address] 08/20/2023 12:23:25 08/20/2023 12:54:50 Pain of right shoulder joint 3645652411 1257818 M25.857 [id number] Nelson Crystal MD [address] [address] 10/01/2023 09:24:21 10/01/2023 09:34:36 Pain of right shoulder joint 1953699153 5136522 M25.436 [id number] Nelson Crystal MD [address] [address] 01/07/2024 09:18:58 01/07/2024 09:41:36 Pain of right shoulder joint 0677402433 8191919 M25.511 Disorder of shoulder 118 666967 M25.811 Partial th ickness rotator cuff tear 031628248 M75.861 [id number] Nelson Crystal MD [facility] [address] [place] [address] 11/03/2024 09:09:22 11/03/2024 11:41:01 Pain of left shoulder joint 5657648650 4509333 M25.512 Health Concerns Section Related Observation LastModified by Organization Detai ls LastModified Time None Recorded Concern Status LastModified by Organization Details LastModified Time None Recorded Advance Directives Directive N: Payers Insurance Date Sequence Insurance Name Policy Number Policy Cazares Covered Member ID Cazares Member ID Guarantor Name 11/03/2024 3 [employer] (MEDICARE REPLACEMENT/AD VANTAGE - HMO) [id number] Miranda Hearn [id number] Miranda Hearn 11/03/2024 2 [place] [facility] Miranda Hearn [id number] Miranda Foldarlin 11/03/2024 1 [employer] [id number] Miranda Paniagua Folk [id number] Miranda Foldarlin 11/03/2024 2 [place] WHEN MEDICARE OR MEDICARE REPLACEMENT PRIMARY) Miranda Hearn [id number] Miranda Foldarlin 11/03/2024 1 [facility] (MEDICARE REPLACEMENT/AD VANTAGE - PPO) [id number] Miranda Paniagua Folk [id number] Miranda Folk 11/03/2024 3 [facility] (MEDICARE REPLACEMENT/AD VANTAGE - HMO) [id number] Miranda Folk [id number] Miranda Folk 11/03/2024 2 [place] Miranda Edwardsk [id number] Miranda Foldarlin 11/03/2024 1 [employer] - [place] (MEDICARE REPLACEMENT/AD VANTAGE - H[place]) [id number] Miranda Paniagua Folk [id number] Miranda Folk 11/03/2024 1 [employer] (MEDICARE REPLACEMENT/AD VANTAGE - HMO) Miranda Edwardsk [id number] Miranda Folk 11/03/2024 1 [employer] - [place] (MEDICARE REPLACEMENT/AD VANTAGE - HMO) [id number] Miranda Paniagua Folk [id number] Miranda Hearn OBGyn Episode No OBEpisode recorded.
--- OUTSIDE RECORDS SUMMARY | 2024-11-06 08:41 | XMS_ITS ---
Author Organization [facility] Address [address] [facility] [address] [place] [address] Care Team Providers Care Screen Printing Loader Unloader Name Role Phone Lyle MESA, Raffy Primary Care Provider Unavailfarida Gruber Luna Mitchell [phone] REASON FOR VISIT [facility] [place] Encounters Encounter Location Date Provider Diagnosis [facility] [address] [facility] [address] [place] [address] 07/23/2024 Luna Gruber Plan Of Treatment Next Appt Details Provider Name:Luna Gruber, 01/08 09:30:00 AM, [address] [facility] [address], [place], [address], Provider Name:Luna Gruber, 01/22 10:30:00 AM, [address] [facility] [address], [place], [address], Progress Notes * Miranda HEARN EDOB:1960 ( 63 yo F)Acc No.[id number]:07/23/2024 Patient: Miranda UPTON Appointment Provider: Charlene GRUBER MD :1960 A ge:63 Y S ex:Female Date:07/23/2024 Address:[address] [place], [place] [id number] Pcp:Raffy Alvarenga MD Subjective: * Chief Complaints: * 1 . [facility] [place]. * Medical History: Objective: * Vitals: Assessment: Plan: * Treatment: * Billing Information: * Visit Code: * Procedure Codes: * Electronic signature of Luna Gruber MD on 11/06/2024 at 08:40 AM CDT Sign off status: Pending * Appointment Provider: Charlene GRUBER MD Date: 07/23/2024 Generated for Joaquim corea/Joel/Diana on: 0 11/06/2024 08:40 AM CDT
== END 2024-11-06 08:29 | disposition home or self-care (01) ==
PROVIDERS: PCP Emergency Medicine; Visit Provider Emergency Medicine
DX: R91.1 Solitary pulmonary nodule (principal)
CPT/HCPCS: 71250

== ENCOUNTER 2024-12-12 07:55 | Outpatient (CLI) | payer MEDICARE, MEDICAID, SELFPAY ==
--- NOTE | ~2024-12-12 | MM_ITS ---
EXAMINATION: MM screening stone BI w bibiana HISTORY: Screening TECHNIQUE: Craniocaudal and mediolateral oblique 3-D tomosynthesis images were obtained and synthetic 2-D images were generated. CAD analysis was submitted and interpreted. COMPARISON: Comparison to multiple prior studies sequentially, with oldest reviewed study dated 08/17. BREAST PARENCHYMAL COMPOSITION: Not dense: There are scattered areas of fibroglandular density. FINDINGS: There is no evidence of suspicious mass, calcification, or architectural distortion to sugg est malignancy in either breast. There has been no suspicious interval change. IMPRESSION: 1. No mammographic evidence of malignancy. 2. Recommend routine screening mammography in one year. BI-RADS Category 1: Negative Reviewed, dictated and finalized at location B.
--- OUTSIDE RECORDS SUMMARY | 2024-12-12 07:58 | XMS_ITS | Clinical Summary ---
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 Gender Identity Not on file Sexual Orientation [...] 1:25 PM CDT Height 154.9 cm (5' 1) 09/17/2019 1:25 PM CDT Body Mass Index 25.51 09/17/2019 1:25 PM CDT Plan of Treatment Health Maintenance Due Date Last Done Comments Annual Physical 1963 Hepatitis C 11/10/1979 DTaP, Tdap and Td Vaccines ( 1 - Tdap) 1980 Mammogram Screening 2001 Pneumococcal Vaccine: 50+ Years (1 of 1 - PCV) 11/10/2011 Zoster Vaccines (1 of 2) 11/10/2011 COVID-19 [...] Most Recently Relevant to Health Maintenance Insurance [facility] MEDICAID Care Teams Pit Slagman Relationship Specialty Start Date End Date Mario Alberto Larkin PA PCP - General PHYSICIAN LINEN GRADER 07/11/18
--- OUTSIDE RECORDS SUMMARY | 2024-12-12 07:58 | XMS_ITS ---
Author Organization [facility] padma Address [address] [facility] [address] [place] [address] Care Team Providers Care Bull Ladle Tender Name Role Phone Raffy Alvarenga MD Primary Care Provider Luna Moy [phone] REASON FOR VISIT [facility] [place] Encounters Encounter Location Date Provider Diagnosis [facility] [address] [facility] [address] [place] [address] 07/23/2024 Luna Gruber Plan Of Treatment Next Appt Details Provider Name:Luna Gruber, 01/08 09:30:00 AM, [address] [facility] [address], [place], [address], Provider Name:Luna Gruber, 01/22 10:30:00 AM, [address] [facility] [address], [place], [address], Provider Name:Luna Gruber, 01/22 11:00:00 AM, [address], [place], [address], Progress Notes * Miranda HEARN EDOB:1960 ( 64 yo F)Acc No.[id number]:07/23/2024 Patient: Miranda UPTON Appointment Provider: Charlene GRUBER MD :1960 A ge:63 Y S ex:Female Date:07/23/2024 [address] [address] Pcp:Raffy Alvarenga MD Subjective: * Chief Complaints: * 1 . [facility] [place]. * Medical History: Objective: * Vitals: Assessment: Plan: * Treatment: * Billing Information: * Visit Code: * Procedure Codes: * Electronic signature of Luna Gruber MD on 12/12/2024 at 07:58 AM CDT Sign off status: Pending * Appointment Provider: Charlene GRUBER MD Date: 0 07/23/2024 Generated for Joaquim corea/Joel/Diana on: 0 12/12/2024 07:58 AM CDT
--- OUTSIDE RECORDS SUMMARY | 2024-12-12 07:59 | XMS_ITS | Patient Health Record ---
Author Organization [facility] Address [address] [place] [address] Care Team Providers Care Bundle Collector Name Role Phone Brenner, Roberto Primary Care Provider Mayela Claire Unavailable [phone] Brittany Silver Unavailable [phone] Allergies Allergen (clinical drug ingredient) Drug/Non Drug [...] Duration) Notes Start Date End Date Status Hydroxychloroquine Sulfate Active Stool Softener 100 MG 1 capsule as neede d Orally Once a day; Duration: 30 day(s) Active Linzess 290 MCG 1 capsule at least 3 0 minutes before the first meal of the day on an empty stomach Orally Once a day; Duration: 30 day(s) Active Atorvastatin Calcium 40 MG 1 tablet Oral ly Once a day; Duration: 30 day(s) Active Omeprazole 20 MG 1 capsule 30 minutes before morning meal Orally twice a day Active Lyrica 75 MG 1 capsule Orally Twi ce a day Active hydrOXYzine Pamoate 50 MG 1 capsule at b edtime as needed Orally Once a day; Duration: 30 days Active hydrOXYzine Pamoate 25 MG 1 capsule Oral ly three times a day; Duration: 30 days Active Losartan Potassium 100 MG 1 tablet Orall y Once a day; Duration: 30 day(s) Active amLODIPine Besylate 10 MG 1 tablet Orall y Once a day; Duration: 30 day(s) Active Carvedilol 6.25 MG 1 tablet with food O rally Twice a day; Duration: 30 day(s) Active lamoTRIgine 25 MG 1 tablet Orally One tablet (25 mg) once daily for two weeks then increase to two tablets once daily (50 mg); Duration: 30 days 11/19/2024 Active Social History Tobacco Use: Social History Observation Description Date Details (start date - stop date) Former Smoker NA - NA Sex Assigned At : Social History Observation Description Sex Assigned At Female Dont use, Tobacco Use/Smoking Question Answer Notes Are you a former smoker How long has it been since you last smoked? > 20 years Tobacco Control (Standard) Question Answer Notes Tobacco use: Former smoker Additional Findings: Tobacco user e-cigarette Problems Problem Type SNOMED Code ICD Code Onset Dates Problem Status W/U Status Risk Notes Problem Tobacco user (949829834) Nicotine dependence, unspecified, uncomplicated (F17.200) Active confirmed Problem Generalized anxiety disorder (57803307) Generalized anxiety disorder (F41.1) Active confirmed Problem Bipolar II disorder (77967623) Bipolar 2 disorder, major depressive episode (F31.81) Active confirmed Problem Sleep disturbance (42118786) Sleep disturbance, unspecified (G47.9) Active confirmed Vital Signs Heart Rate 70 /min 08/11/2024 Temperature 98.3 degrees Fahrenheit 08/11/2024 Respiratory Rate 16 /min 08/11/2024 Blood pressure diastolic 86 mm Hg 08/11/2024 Height 61 in 08/11/2024 Blood pressure systolic 112 mm Hg 08/11/2024 Weight 129.8 lbs 08/11/2024 BMI 24.52 kg/m2 08/11/2024 Encounters Encounter Location Date Provider Diagnosis [address] [place] [address] 12/24/2023 Brittany Silver Bipolar 2 disorder, major depressive episode F31.81 ; Generalized anxiety disorder F41.1 ; Sleep disturbance, unspecified G47.9 and Nutritional counseling Z71.[address] [facility] [place] [address] 02/21/2024 Mayela Claire Bipolar 2 disorder, major depressive episode F31.81 ; Generalized anxiety disorder F41.1 ; Sleep disturbance, unspecified G47.9 and Nutritional counseling Z71.3 [facility] [address] [place] [address] 05/20/2024 Mayela Claire Bipolar 2 disorder, major depressive episode F31.81 and Generalized anxiety disorder F41.[address] [place] [address] 08/11/2024 Mayela Dakotah Bipolar 2 disorder, major depressive episode F31.81 ; Generalized anxiety disorder F41.1 and Nicotine dependence, unspecified, uncomplicated F17.[address] [place] [address] 11/19/2024 Mayela Cooknnan Bipolar 2 disorder, major depressive episode F31.81 ; Generalized anxiety disorder F41.1 and Nicotine dependence, unspecified, uncomplicated F17.[address] [address] 12/14/2023 Mayelafederico CookDakotah Bipolar 2 disorder, major depressive episode F31.81 [...] lamotrigine , depakote. Caplyta caused hallucianti ons. 11/19/2024 Bipolar 2 disorder, major depressive episode (ICD-10 - F31.81) Begin Lamotrigine as prescribed. Reviewed purpose (mood stability, reduce depression, and help with irritability), benefits, and risks - including sedation, nausea, rash - benign or serious. A serious rash could cause shedding of all skin and even become fatal. Stop taking medication immediately if a rash occurs and seek emergency care. Notify our office as well. If you ever miss 4 or more consecutive days of taking this medication, please let the office know. The prescriber may need to restart this medication at 25 mg daily and titrate up as tolerated. Client reports high appetite with Abilify Hx of trialing risperdal with TD as side effect, has also trialed lamotrigine , depakote. Caplyta caused hallucianti ons. Stopped latuda for fear of (TD) 11/19/2024 Generalized anxiety disorder (ICD-10 - F41.1) 05/20/2024 Generalized anxiety disorder (ICD-10 - F41.1) [...] her sleep. Reports sleep disturbances r/t pain. 11/19/2024 Nicotine dependence, unspecified, uncomplicated (ICD-10 - F17.200) 08/11/2024 Nicotine dependence, unspecified, uncomplicated (ICD-10 - [...] or be administered own oral medications per [facility] protocols. Provided informed consent with understanding of side effects, adverse effects, risks and benefits as well as alternative treatments as previously discussed and with the above recommended medications & other aspects of the treatment program. Agrees to return sooner if symptoms worsen or suicidal or homicidal ideations occur. Reports sleep disturbances r/t pain. 02/21/2024 Other [place] agreement to continue current regimen. Reasons, potential [...] May also contact the 24-hour crisis hotline ([facility]ANNER), refer to the closest emergency room or [...] May also contact the 24-hour crisis hotline ([facility]NER), refer to the closest emergency room or [...] May also contact the 24-hour crisis hotline ([facility]ANNER), refer to the closest emergency room or [...] of education, treatment plan and follow up. 11/19/2024 Other Reasons, potential benefits, potential risks, interactions [...] May also contact the 24-hour crisis hotline (BANNER), refer to the closest emergency room or [...] AIMS, or vital signs. Plan Of Treatment Next Appt Details Provider Name:Mayela zee, 12/24/2024 08:20:00 AM, [address], [place], [address], Insurance Providers Payer Name Payer Address Payer Phone Subscriber Number Group Number Insured Name Patient Relationship to Insured Coverage Start Date Coverage End Date [employer] [address] [address] [place] [address] [id number] Miranda Hearn Self - patient is the insured 3 4 Aet[employer] Medicare [address] [place] [address] [id number] Mirnada Hearn Self - patient is the insured 4 MEDICAID [address] [place] [phone] [id number] Miranda Hearn Self - patient is the insured 3 Medical (General) History Medical History History ICD Code Chronic pain, sciatic pain, RA, HTN, HLD Surgical History Surgery Date(Month/Year) 2 tubal TOTAL HYSTERECTOMY gallbladder appendix bilateral carpel tunnel and cubital tunn el release leg debridement brown recluse
--- OUTSIDE RECORDS SUMMARY | 2024-12-12 07:59 | XMS_ITS | Patient Health Record ---
Author Organization [facility] Address [facility] [address] [place] [address] Care Team Providers Care Creative Resource Manager Name Role Phone Raffy Alvarenga MD Primary Care Provider Isabel GouldLuna Unavailable [phone] Allergies Allergen (clinical drug ingredient) Drug/Non Drug Allergy documented on EMR Reaction Allergy Type Onset Date Status ciprofloxacin Cipro Unknown Drug Allergy Act rob atorvastatin Atorvastatin Unknown Drug Allergy A ctive cephalexin Cephalexin Unknown Drug Allergy Activ e Penicillin Unknown Drug Allergy Active Results Component Value Reference Range Notes eGFR Reviewed date:12/17/2023 12:35:29 PM Interpretation: Performing Lab:[facility] , [facility]5 [facility]. [facility] [address] Notes/Report: eGFR 87 >=60 mL/min/1.73 m2 Interpretive [...] Automated Reviewed date:12/17/2023 12:35:29 PM Interpretation: Performing Lab:[facility] , [address] [facility]. [place] [address] Notes/Report: Neut Abs 2.8 1.5-6.5 K/cumm ImmGran Abs 0.0 0.0-0.1 K/cumm Lymphocyte Abs 3.2 0.8-3.3 K/cumm Hawkins Abs 0.5 0.2-0.8 K/cumm Eos Abs 0.2 [...] Interpretive Data was last revised on 2017. Hawkins Pct 8.0 Interpretive Data Percent cell count [...] Ab Reviewed date:12/18/2023 11:53:37 AM Interpretation: Performing Lab:[facility] , [address] [facility]. [place] [address] Notes/Report: SS B Antibody <0.2 <=0.9 Ab Index Interpretive Data Negative: < 1.0 Ab Index Positive: > or = 1.0 Ab Index Current interpretive data was last revised on 2016. SSA Ab Reviewed date:12/21/2023 09:55:51 AM Interpretation: Performing Lab:[facility] , [address] [place] [address]. [facility] [address] Notes/Report: SS A Antibody <0.2 <=0.9 Ab Index Interpretive Data Negative: < 1.0 Ab Index Positive: > or = 1.0 Ab Index Current interpretive data was last revised on 2016. Sed Rate Reviewed date:12/17/2023 12:35:57 PM Interpretation: Performing Lab:[facility] , [address] [place] [address]. [facility] [address] Notes/Report: ESR 11 1-30 mm/hr Rheumatoid Factor Reviewed date:12/17/2023 12:35:29 PM Interpretation: Performing Lab:[facility] , [address] [place] [address]. [facility] [address] Notes/Report: RF, Rob 22 <=15 IUnits/mL QTB Gold Reviewed date:12/19/2023 10:02:57 PM Interpretation: Performing Lab:[facility] , [address] [place] [address]. [facility] [address] Notes/Report: QuantiFERON TB Gold Negative Negative No [...] Mitogen-Nil 9.94 NIL 0.06 Test Performed by: [facility] [address] [place] [address] Gunstock Repairer: Marialuisa Alves Ph.D.; CLIA# [id number] Hep C AB Reviewed date:12/17/2023 12:35:57 PM Interpretation: Performing Lab:[facility] , [address] [place] [address]. [facility] [address] Notes/Report: Hepatitis C Antibody Reactive Nonreactive Screening [...] AG Reviewed date:12/17/2023 12:35:57 PM Interpretation: Performing Lab:[facility] , [address] [place] [address]. [facility] [address] Notes/Report: Hepatitis B Surface Antigen Nonreactive Nonreactive Creatine Kinase Reviewed date:12/17/2023 12:35:29 PM Interpretation: Performing Lab:[facility] , [address] [place] [address]. [facility] [address] Notes/Report: Total CK 275 30-200 Units/L Comprehensive metabolic pane l (CMP) Reviewed date:12/17/2023 12:35:29 PM Interpretation: Performing Lab:[facility] , [address] [place] [address]. [facility] [address] Notes/Report: Sodium 142 135-145 mmol/L Plasma Potassium [...] diff Reviewed date:12/17/2023 12:35:29 PM Interpretation: Performing Lab:[facility] , [address] [place] [address]. [place] [address] Notes/Report: WBC 6.7 3.8-9.9 K/cumm Hgb 13.5 11.9-15.5 g/dL Hct 42.9 35.6-45.5 % Platelet Ct 303 150-400 K/cumm MPV 10.7 9.1-12.3 fL RBC 4.89 3.90-5.20 M/cumm MCV 87.7 81.3-96.4 fL MCH 27.6 27.1-33.3 pg MCHC 31.5 32.3-35.7 g/dL RDW CV 13.8 11.1-14.9 % RDW SD 44.4 35.7-48.1 fL NRBC Abs Auto 0.00 0.00-0.01 K/cumm C Reactive Protein Reviewed date:12/17/2023 12:35:29 PM Interpretation: Performing Lab:[facility] , [address] [place] [address]. [place] [address] Notes/Report: C-Reactive Protein <3.0 <=10.0 mg/L Anti-CCP (Cyclic Citrullinat ed Peptide Ab) Reviewed date:12/21/2023 12:26:38 PM Interpretation: Performing Lab:[facility] , [facility]5 [facility]. [place] [address] Notes/Report: CCP Ab <0.5 <=2.9 units/mL Interpretive data Negative: <3 units/mL Positive: > or equal to 3 units/mL Current interpretive data was last revised on 2016. YOVANY reflex titer pattern MARTITA + dsDNA Reviewed date:12/18/2023 02:41:24 PM Interpretation: Performing Lab:[facility] , [address] [facility]. [facility] [address] Notes/Report: YOVANY, Qual Negative Interpretive Data Normal [...] last revised on 2020. Testing performed by: [facility], [address] [place] [address]., [address] Reason For Referral Reason Prolia J08 97 DX M81.0 NO PA REQUIRED per Evita Serrato 07.17.2024@9:31am [employer] pa dept Diagnosis 1 Postmenopausal osteo porosis (M81.0) Referral Organization [facility] Referring Provider First Name Luna Referring Provider Last Name Luis Fernando Referring Provider Speciality Rheumatolo gy Referred Organization [facility] Referred Provider Luna Gould Referred Address [address] [facility] [address],[place], [place],[address], Referred Provider Specialty Rheumatology Procedure 1 THER/PROPH/DIAG INJ, SC/IM (41604) Referral Priority Routine Reason 12.03.2024 Prolia ap proved [facility] Medicare Advantage 3 visits Diagnosis 1 Postmenopausal osteo porosis (M81.0) Referral Organization [facility] Referring Provider First Name Luna Referring Provider Last Name Luis Fernando Referring Provider Speciality Rheumatolo gy Referred Organization [facility] Referred Provider Luna Gould Referred Address [address] [facility] [address],[place], [place],[address],[place] Referred Provider Specialty Rheumatology Procedure 1 THER/PROPH/DIAG INJ, SC/IM (76637) Referral Priority Routine Medications Medication SIG (Take, Route, Frequency, Duration) Notes Start Date End Date Status Linzess 290 MCG 1 capsule at least 3 0 minutes before the first meal of the day on an empty stomach Orally Once a day; Duration: 30 day(s) Active Carvedilol 6.25 MG 1 tablet with food O rally Twice a day; Duration: 30 day(s) Active Denosumab 60 MG/ML one injection Subcutaneous every 6 months; Duration: 180 days 01/01/2024 07/12/2025 Active Vitamin D3 50 MCG (2000 UT) 1 capsule Orally once a week Active hydrALAZINE HCl 50 MG 1 tablet with food Orally at bedtime; Duration: 30 day(s) Active hydrOXYzine HCl 25 MG 1 tablet as needed Orally twice a day; Duration: 30 day(s) Active Pregabalin 75 MG 1 capsule Orally twi ce daily Active Rosuvastatin Calcium 20 MG 1 tablet Orally Once a day; Duration: 30 day(s) Active Latuda 60 MG 1 tablet in the even ing with food Orally Once a day; Duration: 30 day(s) Active Losartan Potassium 100 MG 1 tablet Orall y Once a day; Duration: 30 day(s) Active Omeprazole 40 MG 1 capsule 30 minutes before morning meal Orally Once a day; Duration: 30 day(s) Active Social History Tobacco Use: [...] Problem Status W/U Status Risk Notes Problem Rheumatoid arthritis (71858290) Rheumatoid arthritis without rheumatoid factor, multiple sites (M06.09) Active confirmed Problem Age-related osteoporosis (414071908) Age-related osteoporosis without current pathological fracture (M81.0) Active confirmed Problem Postmenopausal osteoporosis (563356655) Postmenopausal osteoporosis (M81.0) Active confirmed Vital Signs Heart Rate 80 /min 07/23/2024 Temperature 97.9 degrees Fahrenheit 07/23/2024 Blood pressure diastolic 79 mm Hg 07/23/2024 Oximetry 96 % 07/14/2024 Weight-kg 59.15 kg 07/23/2024 Height 61 in 07/23/2024 Blood pressure systolic 132 mm Hg 07/23/2024 Weight 130.4 lbs 07/23/2024 BMI 24.64 kg/m2 07/23/2024 Encounters Encounter Location Date Provider Diagnosis [facility] [address] [place] [address] 12/17/2023 Luna Du Pain in unspecified joint M25.50 ; Rheumatoid arthritis without rheumatoid factor, multiple sites M06.09 ; Postmenopausal osteoporosis M81.0 and High risk medication use Z79.899 [facility] [address] [place] [address] 12/31/2023 Luna Du Pain in unspecified joint M25.50 ; Rheumatoid arthritis without rheumatoid factor, multiple sites M06.09 ; Postmenopausal osteoporosis M81.0 ; High risk medication use Z79.899 ; Hepatitis C antibody test positive R76.8 and Liver enzyme elevation R74.8 [facility] [address] [facility] [address], [place] [address] 07/14/2024 Luna Du Rheumatoid arthritis without rheumatoid factor, multiple sites M06.09 ; Postmenopausal osteoporosis M81.0 ; High risk medication use Z79.899 ; Hepatitis C antibody test positive R76.8 and Liver enzyme elevation R74.8 [facility] [address] [facility] [address], [place] [address] 07/23/2024 Luna Du Age-related osteopor osis without current pathological fracture M81.0 [facility] [address], [place] [address] 12/31/2023 Luna Du [facility] [address], [place] [address] 01/10/2024 Luna Du [facility] [address], [place] [address] 07/14/2024 Luna Du Postmenopausal osteoporosis M81.0 [facility] [address], [place] [address] 07/16/2024 Luna Du [facility] [address], [place] [address] 07/17/2024 Luna Du [facility] [address] [facility] [address], [place] [address] 07/17/2024 Luna Du Pain in unspecified joint M25.50 [facility] [address] [facility] [address] [place] [address] 07/23/2024 Luna Du Postmenopausal osteoporosis M81.0 Assessments [...] bilateral 2 views 024 COMPREHENSIVE METABOLIC PANEL (28551) Comprehensive metabolic panel (CMP) 06/29 G6PD Ql 12/17/2023 Next Appt Details Provider Name:Luna Luis Fernando, 01/08 09:30:00 AM, [address] [facility] [address], [place], [address], Provider Name:Luna Gould, 01/22 10:30:00 AM, [address], [place], [address], Provider Name:Luna Gould, 01/22 11:00:00 AM, [address], [place], [address], Insurance Providers Payer Name Payer Address Payer Phone Subscriber Number Group Number Insured Name Patient Relationship to Insured Coverage Start Date Coverage End Date [facility] MEDICARE ADVANTAGE - GROUP [address] [address] [place] [address] [id number] Miranda Hearn Self - patient is the insured [facility] Medicare Hmo [address] [place] [address] [id number] Miranda Hearn Self - patient is the insured Medical (General) History Medical History History ICD Code rheumatoid arthritis, IBS, o steoporosis, esophagitis, GERD, hyperlipidemia, hypertension, hepatitis C Surgical History Surgery Date(Month/Year) cataract, carpal tunnel, hysterectomy
--- OUTSIDE RECORDS SUMMARY | 2024-12-12 07:59 | XMS_ITS | Clinical Summary ---
Author Organization [facility] [employer] [facility] Address [address] [place] [address] Care Team Providers Care Senior Technical Specialist Name Role Phone Unavailable Primary Care Provider Unavailabl e Encounters Date Type Department Care Team Description 10/21/2024 External Device Data [facility]STRACTION Provider, Abstract 10/15/2024 External Device Data [facility] Provider, Abstract 10/14/2024 External Device Data [facility] Provider, Abstract [...] Health Maintenance Due Date Last Done Comments DTAP/TDAP/TD VACCINES (1 - Tdap) 1980 ZOSTER VACCINE (1 of 2) 1980 BREAST CANCER SCREENING 2001 FIT-DNA Q 3 years 2006 FIT/FOBT Q 1 year 2006 Flex Sig/CT Colonography Q 5 years 2006 RSV VACCINE (60+ or ) (1 - Risk 60-74 years 1-dose series) 2021 INFLUENZA VACCINE (#1) 2024 COLORECTAL SCREENING 09/17/2029 09/18/2019 Colorectal Cancer Screening 09/17/2029 Insurance [employer] O MCR
== END 2024-12-12 07:56 | disposition home or self-care (01) ==
LOC: ANHIMG 07:56
PROVIDERS: PCP Emergency Medicine; Visit Provider Emergency Medicine
DX: Z12.31 Encounter for screening mammogram for malignant neoplasm of breast (principal)
CPT/HCPCS: 77063; 77067

== ENCOUNTER 2024-12-23 01:33 | Emergency (ER) | payer MEDICARE, MEDICAID, SELFPAY ==
[2024-12-23] VITALS (8 sets, daily range): BP systolic 123–154; BP diastolic 62–86; PULSE 67–83; RESP 16–22; TEMP 36.9; O2SAT 95–100
--- NOTE | ~2024-12-23 | CT_ITS ---
EXAMINATION: CTA chest abdomen pelvis DATE: 12/23/2024 08:13 CDT INDICATION: Chest and abdomen pain. Pain radiates to left arm. TECHNIQUE: Computed tomographic angiography (CTA) of the chest, abdomen, and pelvis was performed wit hout and with 100 mL Omnipaque-350 intravenous contrast. The dose-length product was 449.00 mGy-cm. M aximum intensity projection 3D-reconstructions of the aorta and other arteries were constructed by suad glover technologist on a separate workstation. Automated exposure control and iterative reconstruction ridge hnique were employed. COMPARISON: CT dated 11/06/2024 FINDINGS: CHEST CTA: Study is technically adequate without evidence for pulmonary embolism. No evidence for aortic dissect ion. Heart size normal. No significant pleural or pericardial effusion. Nondisplaced right third-fift h rib fractures laterally. Spinal stimulator leads are present. Small amount of gas present in the ma in pulmonary artery, likely iatrogenic. No thoracic lymphadenopathy. No endobronchial lesions. No pne umothorax. Possible anterior left lateral third rib fracture. ABDOMEN AND PELVIS CTA: No evidence for aortic dissection. The celiac axis, SMA, renal arteries and TK are widely patent. Fa tty infiltration of the liver. The spleen, pancreas, adrenal glands and kidneys are unremarkable. Non obstructive bowel gas pattern. No acute osseous abnormality. IMPRESSION: 1. No acute vascular abnormality. 2: Nondisplaced bilateral rib fractures, age indeterminate. Reviewed, dictated and finalized at location []
--- NOTE | ~2024-12-23 | XR_ITS ---
EXAMINATION: XR chest 2V 12/23/2024 03:35 INDICATION: Chest pain PROCEDURE: 2 view chest COMPARISON: 07/07/2021 FINDINGS: The lungs are clear. The cardiomediastinal silhouette is within normal limits. There are no pleural effusions. There is no pneumothorax suspected. There are cholecystectomy clips. IMPRESSION: 1: NO ACUTE CARDIOPULMONARY DISEASE. Reviewed, dictated and finalized at location B.
--- OUTSIDE RECORDS SUMMARY | 2024-12-23 01:35 | XMS_ITS | Clinical Summary ---
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
--- OUTSIDE RECORDS SUMMARY | 2024-12-23 01:35 | XMS_ITS ---
Author Organization [facility] padma Address [address] [facility] [address] [place] [address] Care Team Providers Care Cable Cutter And Swager Name Role Phone Raffy Alvarenga MD Primary Care Provider Luna Moy [phone] REASON FOR VISIT [facility] [place] Encounters Encounter Location Date Provider Diagnosis [facility] [address] [facility] [address] [place] [address] 07/23/2024 Luna Gruber Plan Of Treatment Next Appt Details Provider Name:Luna Gruber, 01/08 09:30:00 AM, [address] [facility] [address], [place], [address], Provider Name:Luna Gruber, 01/22 10:30:00 AM, [address] [facility] [address], [place], [address], Provider Name:Luna Gruber, 01/22 11:00:00 AM, [address] [place] [address], [place], [address], Progress Notes * Miranda HEARN EDOB:1960 ( 64 yo F)Acc No.[id number]:07/23/2024 Patient: Miranda UPTON Appointment Provider: Charlene GRUBER MD :1960 A ge:63 Y S ex:Female Date:07/23/2024 [address] [address] Pcp:Raffy Alvarenga MD Subjective: * Chief Complaints: * 1 . [facility] [place]. * Medical History: Objective: * Vitals: Assessment: Plan: * Treatment: * Billing Information: * Visit Code: * Procedure Codes: * Electronic signature of Luna Gruber MD on 12/23/2024 at 01:35 AM CDT Sign off status: Pending * Appointment Provider: Charlene GRUBER MD Date: 0 07/23/2024 Generated for Joaquim corea/Joel/Diana on: 0 12/23/2024 01:35 AM CDT
--- OUTSIDE RECORDS SUMMARY | 2024-12-23 01:35 | XMS_ITS | Patient Health Record ---
Author Organization [facility] Address [address] [place] [address] Care Team Providers Care Farm Crops Teacher Name Role Phone Jordin Roberto Primary Care Provider [phone] Mayela Claire Unavailable [phone] Brittany Silver Unavailable [phone] Allergies Allergen (clinical drug ingredient) Drug/Non Drug Allergy documented on EMR Reaction Allergy Type Onset Date Status Ciprofloxacin anaphylaxis Drug Allergy A ctive Dilaudid Unknown Drug Allergy Active Keflex anaphylaxis Drug Allergy Activ e PROzac Unknown Drug Allergy Active Penicillin rash [...] Once a day; Duration: 30 days Active lamoTRIgine 25 MG 2 tablet Orally jayson y; Duration: 7 days Active hydrOXYzine Pamoate 25 MG 1 [...] Twice a day; Duration: 30 day(s) Active Social [...] W/U Status Risk Notes Problem Tobacco user (021826618) Nicotine dependence, unspecified, uncomplicated (F17.200) Active confirmed Problem Generalized anxiety disorder (41368213) Generalized anxiety disorder (F41.1) Active confirmed Problem Bipolar II disorder (56531311) Bipolar 2 disorder, major depressive episode (F31.81) Active confirmed Problem Sleep disturbance (48192184) Sleep disturbance, unspecified (G47.9) Active confirmed Vital Signs Heart Rate 70 /min 08/11/2024 Temperature 98.3 degrees Fahrenheit 08/11/2024 Respiratory Rate 16 /min 08/11/2024 Blood pressure diastolic 86 mm Hg 08/11/2024 Height 61 in 08/11/2024 Blood pressure systolic 112 mm Hg 08/11/2024 Weight 129.8 lbs 08/11/2024 BMI 24.52 kg/m2 08/11/2024 Encounters Encounter Location Date Provider Diagnosis [address] [place] [address] 12/24/2023 Brittany Silver Bipolar 2 disorder, major depressive episode F31.81 ; Generalized anxiety disorder F41.1 ; Sleep disturbance, unspecified G47.9 and Nutritional counseling Z71.[address] [facility] [place] [address] 02/21/2024 Mayela Claire Bipolar 2 disorder, major depressive episode F31.81 ; Generalized anxiety disorder F41.1 ; Sleep disturbance, unspecified G47.9 and Nutritional counseling Z71.3 [facility] [address] [place] [address] 05/20/2024 Mayela Claire Bipolar 2 disorder, major depressive episode F31.81 and Generalized anxiety disorder F41.[address] [place] [address] 08/11/2024 Mayela Cortezan Bipolar 2 disorder, major depressive episode F31.81 ; Generalized anxiety disorder F41.1 and Nicotine dependence, unspecified, uncomplicated F17.[address] [facility] [place] [address] 11/19/2024 Mayela Claire Bipolar 2 disorder, major depressive episode F31.81 ; Generalized anxiety disorder F41.1 and Nicotine dependence, unspecified, uncomplicated F17.200 Assessments Encounter Date Diagnosis (ICD Code) Assessment Notes Treatment Notes Treatment Clinical Notes Section Notes 12/24/2023 Bipolar 2 disorder, major depressive episode [...] or be administered own oral medications per [facility] protocols. Provided informed consent with understanding of side effects, adverse effects, risks and benefits as well as alternative treatments as previously discussed and with the above recommended medications & other aspects of the treatment program. Agrees to return sooner if symptoms worsen or suicidal or homicidal ideations occur. Reports sleep disturbances r/t pain. 02/21/2024 Other [place] agreement to continue current regimen. Reasons, potential [...] May also contact the 24-hour crisis hotline ([facility]), refer to the closest emergency room [...] May also contact the 24-hour crisis hotline ([facility]), refer to the closest emergency room [...] May also contact the 24-hour crisis hotline ([facility]), refer to the closest emergency room [...] Provider Name:Mayela zee, 12/24/2024 08:20:00 AM, [address] [facility] , [place], [address], Insurance Providers Payer Name Payer Address Payer Phone Subscriber Number Group Number Insured Name Patient Relationship to Insured Coverage Start Date Coverage End Date [facility] [address] [address] [place] [address] [id number] Miranda Hearn Self - patient is the insured 3 4 [employer] Medicare [address] [place] [address] [id number] Miranda Hearn Self - patient is the insured 4 MEDICAID [address] [place] [address] [id number] Miranda Hearn Self - patient is the insured 3 Medical (General) History Medical History History ICD Code Chronic pain, sciatic pain, RA, HTN, HLD Surgical History Surgery Date(Month/Year) 2 tubal TOTAL HYSTERECTOMY gallbladder appendix bilateral carpel tunnel and cubital tunn el release leg debridement brown recluse
--- OUTSIDE RECORDS SUMMARY | 2024-12-23 01:36 | XMS_ITS | Patient Health Record ---
Author Organization [facility] Address [address] [facility] [address] [address] Care Team Providers Care Manager Outpatient Name Role Phone Raffy Alvarenga MD Primary Care Provider Luna Moy Unavailable [phone] Allergies Allergen (clinical drug ingredient) Drug/Non Drug Allergy documented on EMR Reaction Allergy Type Onset Date Status Cipro Unknown Drug Allergy Active atorvastatin Atorvastatin Unknown Drug Allergy A ctive cephalexin Cephalexin Unknown Drug Allergy Activ e Penicillin Unknown Drug Allergy Active Reason For Referral Reason Prolia J08 97 DX M81.0 NO PA REQUIRED per Evita Serrato 07.17.2024@9:31am Blaisetalistair pa dept Diagnosis 1 Postmenopausal osteo porosis (M81.0) Referral Organization [facility] Referring Provider First Name Luna Referring Provider Last Name Luis Fernando Referring Provider Speciality Rheumatolo gy Referred Organization [facility] Referred Provider Luna Gould Referred Address [address] [facility] [address],[place], [place],[address], Referred Provider Specialty Rheumatology Procedure 1 THER/PROPH/DIAG INJ, SC/IM (17402) Referral Priority Routine Reason 12.03.2024 Prolia ap proved [facility] Medicare Advantage 3 visits Diagnosis 1 Postmenopausal osteo porosis (M81.0) Referral Organization [facility] Referring Provider First Name Luna Referring Provider Last Name Luis Fernando Referring Provider Speciality Rheumatolo gy Referred Organization [facility] Referred Provider Luna Gould Referred Address [address] [facility] [address],[place], [place],[address], Referred Provider Specialty Rheumatology Procedure 1 THER/PROPH/DIAG INJ, SC/IM (62195) Referral Priority Routine Medications Medication SIG (Take, [...] W/U Status Risk Notes Problem Rheumatoid arthritis (38569126) Rheumatoid arthritis without rheumatoid factor, multiple sites (M06.09) Active confirmed Problem Age-related osteoporosis (106747685) Age-related osteoporosis without current pathological fracture (M81.0) Active confirmed Problem Postmenopausal osteoporosis (011729168) Postmenopausal osteoporosis (M81.0) Active confirmed Vital Signs Heart Rate 80 /min 07/23/2024 Temperature 97.9 degrees Fahrenheit 07/23/2024 Oximetry 96 % 07/14/2024 Blood pressure diastolic 79 mm Hg 07/23/2024 Weight-kg 59.15 kg 07/23/2024 Height 61 in 07/23/2024 Blood pressure systolic 132 mm Hg 07/23/2024 Weight 130.4 lbs 07/23/2024 BMI 24.64 kg/m2 07/23/2024 Encounters Encounter Location Date Provider Diagnosis [facility] [address] [place] [address] [address] 12/31/2023 Luna Du Pain in unspecified joint M25.50 ; Rheumatoid arthritis without rheumatoid factor, multiple sites M06.09 ; Postmenopausal osteoporosis M81.0 ; High risk medication use Z79.899 ; Hepatitis C antibody test positive R76.8 and Liver enzyme elevation R74.8 [facility] [address] [place] [address] [address] 07/14/2024 Luna Du Rheumatoid arthritis without rheumatoid factor, multiple sites M06.09 ; Postmenopausal osteoporosis M81.0 ; High risk medication use Z79.899 ; Hepatitis C antibody test positive R76.8 and Liver enzyme elevation R74.8 [facility] [address] [place] [address] [address] 07/23/2024 Luna Du Age-related osteopor osis without current pathological fracture M81.0 [facility] [address] [place] [address] [address] 12/31/2023 Luna Du [facility] [address] [place] [address] [address] 01/10/2024 Luna Du [facility] [address] [place] [address] [address] 07/14/2024 Luna Du Postmenopausal osteoporosis M81.0 [facility] [address] [place] [address] [address] 07/16/2024 Luna Du [facility] [address] [place] [address] [address] 07/17/2024 Luna Du [facility] [address] [place] [address] [address] 07/17/2024 Luna Du Pain in unspecified joint M25.50 [facility] [address] [place] [address] [address] 07/23/2024 Luna Gould Postmenopausal osteoporosis M81.0 Assessments Encounter Date Diagnosis (ICD Code) Assessment Notes Treatment Notes Treatment Clinical Notes Section Notes 12/31/2023 Rheumatoid arthritis without rheumatoid factor, multiple [...] will see if her insurance covers 12/31/2023 High risk medication use (ICD-10 - [...] will see if her insurance covers 07/14/2024 Hepatitis C antibody test positive (ICD-10 [...] bilateral 2 views 024 COMPREHENSIVE METABOLIC PANEL (79222) Comprehensive metabolic panel (CMP) 06/29 G6PD Ql 12/17/2023 Next Appt Details Provider Name:Luna Luis Fernando, 01/08 09:30:00 AM, [address] [place] [address], , [address], Provider Name:Luna Luis Fernando, 01/22 10:30:00 AM, [address] [place] [address], , [address], Provider Name:Luna Luis Fernando, 01/22 11:00:00 AM, [address] [place] [address], , [address], Insurance Providers Payer Name Payer Address Payer Phone Subscriber Number Group Number Insured Name Patient Relationship to Insured Coverage Start Date Coverage End Date [employer] MED[employer]ARE ADVANTAGE - GROUP [address] [address] [place] [address] [phone] [id number] Miranda Hearn Self - patient is the insured [facility] Medicare o [address] [place] [address] [id number] Miranda Hearn Self - patient is the insured Medical (General) History Medical History History ICD Code rheumatoid arthritis, IBS, o steoporosis, esophagitis, GERD, hyperlipidemia, hypertension, hepatitis C Surgical History Surgery Date(Month/Year) cataract, carpal tunnel, hysterectomy
--- OUTSIDE RECORDS SUMMARY | 2024-12-23 01:36 | XMS_ITS | Clinical Summary ---
Author Organization [facility] [employer] [facility] Address [address] [place] [address] Care Team Providers Care Inventory Analyst Name Role Phone Unavailable Primary Care Provider [...]
--- NOTE | 2024-12-23 01:37 | ECG_ITS ---
Test Date: 2024-12-23 02:02:47 Measurements Intervals Switzer Rate: 72 P: 36 DE: 162 QRS: -16 QRSD: 85 T: 6 QT: 386 QTc: 424 Interpretive Statements SINUS RHYTHM RIGHT VENTRICULAR CONDUCTION DELAY VOLTAGE CRITERIA FOR LVH, CONSIDER NORMAL VARIANT Electronically Signed On 12-23-2024 17:22:19 CDT by Evert Gore D.O
--- OUTSIDE RECORDS SUMMARY | 2024-12-23 02:18 | XMS_ITS | Clinical Summary ---
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 MEDICAID Care Teams Staff Editor Relationship Specialty Start Date End Date Mario Alberto Larkin PA PCP - General PHYSICIAN TOUR ACTOR 07/11/18
--- OUTSIDE RECORDS SUMMARY | 2024-12-23 02:18 | XMS_ITS | Clinical Summary ---
Author Organization [facility] [employer] [facility] Address [address] [place] [address] Care Team Providers Care Weaver Hand Name Role Phone Unavailable Primary Care Provider [...]
[2024-12-23 02:23] LABS: Hematocrit 34.5 % (37.0-47.0); Hemoglobin 11.5 g/dL (12.0-15.0); Immature Granulocyte Percent A 0.3 % (0-0.5); Lymphocytes Absolute Auto 1.43 K/mm3 (0.9-3.2); Mean Corpuscular HGB Conc 33.3 g/dl (32-36); Mean Corpuscular Hemoglobin 27.6 pg (26-34); Mean Corpuscular Volume 82.7 fl (80-100); Nucleated Red Blood Cells Absolute Auto 0.000 K/mm3 (0.0-0.012); Nucleated Red Blood Cells Perc 0.0 % (0.0-0.2); Platelet Count Result 294 k/mm3 (150-375); Red Blood Count 4.17 M/mm3 (4.2-5.4); White Blood Count 6.8 K/mm3 (4.5-10.0)
[2024-12-23 02:34] LABS: INR 1.1; Partial Thromboplastin Time 30.0 Seconds (22.3-36.8); Prothrombin Time 14.3 Seconds (11.1-14.7)
[2024-12-23] MEDS: PROCHLORPERAZINE EDISYLATE 10 MG/2 ML VIAL IV PUSH (02:34)
[2024-12-23] MEDS: ASPIRIN 81 MG CHEWABLE TABLET 324 MG PO (02:34)
--- NOTE | 2024-12-23 02:34 | ED_ITS ---
HPI - Chest Pain General Chief Complaint: Chest Pain Stated Complaint: abd pain, L shoulder pain, R foot pain Time Seen by Provider: 12/23/24 01:50 History of Present Illness HPI narrative: Patient states that she has been throwing up for the past few days, now she is having pain in her chest that goes to her left shoulder, and pain in her abdomen. She also feels like she is having cramps in her right foot. States it is severe has not had symptoms like this in the past Related Data Home Medications ?Medication ?Instructions ?Recorded ?Confirmed ?Last Taken ?Type carvedilol 6.25 mg tablet 6.25 mg PO BID 11/01/22 07/25/24 07/24/24 History cholecalciferol (vitamin D3) 25 25 mcg PO DAILY 11/01/22 07/25/24 07/24/24 History mcg (1,000 unit) tablet (Vitamin D3) hydroxyzine pamoate 25 mg capsule 25 mg PO TID 11/01/22 07/25/24 07/24/24 History hydroxyzine pamoate 50 mg capsule 50 mg PO HS 11/01/22 07/25/24 07/24/24 History linaclotide 290 mcg capsule 290 mcg PO QACBREAK 11/01/22 07/25/24 07/24/24 History (Linzess) losartan 100 mg tablet 100 mg PO DAILY 11/01/22 07/25/24 07/25/24 History omeprazole 20 mg capsule,delayed 40 mg PO DAILY 11/01/22 07/25/24 07/24/24 History release rosuvastatin 20 mg tablet 20 mg PO DAILY 11/01/22 07/25/24 07/24/24 History lurasidone 60 mg tablet 60 mg PO DIRECTED 11/16/23 07/25/24 07/24/24 History albuterol sulfate 90 mcg/actuation 1 inh inhalation Q4-6H PRN 07/18/24 07/18/24 Unknown History aerosol inhaler shortness of breath or wheezing budesonide 160 mcg-glycopyr 9 2 inh inhalation BID 07/18/24 07/25/24 07/24/24 History mcg-formot 4.8 mcg/actuation HFA inhaler (Breztri Aerosphere) Allergies Allergy/AdvReac Type Severity Reaction Status Date / Time ciprofloxacin Allergy Severe Swelling Verified 12/23/24 01:34 of Lip/Tongue/Throat hydromorphone (From Dilaudid) Allergy Severe Dyspnea / Verified 12/23/24 01:34 SOB lisinopril Allergy Severe Swelling Verified 12/23/24 01:34 of Lip/Tongue/Throat Penicillins Allergy Severe Difficulty Verified 12/23/24 01:34 Breathing cephalexin (From Keflex) Allergy Intermediate Itching Verified 12/23/24 01:34 Sulfa (Sulfonamide Allergy Intermediate Itching Verified 12/23/24 01:34 Antibiotics) Review of Systems 2 Review of Systems: All systems reviewed & are unremarkable except as noted in HPI and below PMFSH Past Medical History Medical History Chronic, continuous use of opioids COPD (chronic obstructive pulmonary disease) Elevated transaminase level Fatty liver Ectopic Hepatitis C antibody test positive TB lung, latent Bilateral hand pain Colon cancer screening Dysphagia Rheumatoid arthritis with rheumatoid factor of multiple sites without organ or systems involvement Low back pain Osteoporosis Hypertension Headache GERD (gastroesophageal reflux disease) IBS (irritable bowel syndrome) Arthritis Anxiety Allergies Surgical History Surgical History Hx of appendectomy Hx of cholecystectomy History of hysterectomy No pertinent past surgical history Family History Family History Other Depression Diabetes mellitus Heart disease Hypertension Social History Social History Smoking status: Former smoker Tobacco type: cigarettes and e-cigarettes/vaping Additional smoking assessment comments: QUIT VAPING 05/2022- VAPED FOR COUPLE MONTHS Alcohol intake: current Alcohol use details: rarely, socially, 1-3 if with family Substance use: never Substance use type: marijuana Last use: 07/11/2024 Lack of Transportation: No Lack of Food: Never True Current Housing: I Have Housing Concerned About Future Housing: No Difficulty Paying Gas/Electric Bills: No Difficulty Paying for Meds: No Currently Unemployed: No Education: Decline to Answer Difficulty w/ Childcare or Family Care: No Living arrangements: with roommate(s) Spiritual care concerns: No Exam 2 Narrative: EXAMINATION OF ORGAN SYSTEMS/BODY AREAS: Constitutional: Vital signs per nursing GENERAL: Appears uncomfortable and very anxious HEAD: Normal with no signs of head trauma. EYES: EOMI, conjunctiva normal ENT: Hearing grossly intact LUNGS: Nonlabored breathing. HEART: [Regular rate and rhythm] ABD: [Soft], slightly tender to palpation diffusely over abdomen EXT: Normal range of motion SKIN: [No rashes or lesions.] NEURO: [Alert and oriented x 3. No gross focal sensory or strength deficits.] PSYCH: Anxious affect Course Vital Signs Vital signs: Vital Signs Pulse Rate 77 12/23/24 02:01 Respiratory Rate 20 12/23/24 02:01 Blood Pressure 124/84 12/23/24 02:01 Pulse Oximetry 97 12/23/24 02:01 Temperature 98.5 F 12/23/24 02:24 Pulse Rate 67 12/23/24 05:01 Respiratory Rate 19 12/23/24 05:01 Blood Pressure 123/62 12/23/24 05:01 Pulse Oximetry 99 12/23/24 05:01 Oxygen Delivery Room Air 12/23/24 02:24 MDM - Chest Pain MDM Narrative Medical decision making narrative: Patient presents here with chest pain going his shoulder, abdominal pain and nausea vomiting, as well as right foot cramp. She on exam she is extremely anxious appearing, has some tenderness diffusely over abdomen without any focal tenderness, no neurovascular deficits. Wide differential including anxiety, viral syndrome, ACS, dissection She is treated symptomatically with Protonix, Compazine and Benadryl Cardiac workup is negative with 2- troponins. EKG on my independent interpretation shows sinus rhythm rate 72, ND 162, QRS 85, QTC 424, no obvious ST elevations or depressions or signs of acute ischemia or arrhythmia. CTA of chest abdomen pelvis shows multiple rib fractures bilaterally. Otherwise unremarkable. I have discussed this with the patient, she tells me she already knows about the fractures, happened about a minute ago and agrees that this may be why she was having her symptoms. She tells me that she feels much better and wants to go home and feels comfortable with outpatient management and follow-up to her PCP. We did discuss return precautions, patient agreeable to this plan. Symptomatic management prescriptions provided Lab Data 12/23/24 02:18 12/23/24 03:29 Labs: Lab Results 07/29/25 07/29/25 07/29/25 Range/Units 02:18 03:29 05:57 WBC 6.8 (4.5-10.0) K/mm3 RBC 4.17 L (4.2-5.4) M/mm3 Hgb 11.5 L (12.0-15.0) g/dL Hct 34.5 L (37.0-47.0) % MCV 82.7 (80-100) fl MCH 27.6 (26-34) pg MCHC 33.3 (32-36) g/dl RDW 13.4 (11.5-14.5) % Plt Count 294 (150-375) k/mm3 MPV 9.5 (7.4-10.4) fl Immature Gran % (Auto) 0.3 (0-0.5) % Neut % (Auto) 70.3 (45.5-73.1) % Lymph % (Auto) 21.0 (18.3-44.2) % [place]ville % (Auto) 7.8 (2.6-8.5) % Eos % (Auto) 0.0 (0-4.4) % Baso % (Auto) 0.6 (0.2-1.2) % Lymph # (Auto) 1.43 (0.9-3.2) K/mm3 [place]ville # (Auto) 0.5 (0.1-0.6) K/mm3 Eos # (Auto) 0.0 (0-0.3) K/mm3 Baso # (Auto) 0.0 (0.0-0.1) K/mm3 Abs Immat Gran (auto) 0.02 (0.00-0.031) K/mm3 Absolute Neuts (auto) 4.8 (1.3-6.7) K/mm3 Absolute Nucleated RBC 0.000 (0.0-0.012) K/mm3 Nucleated RBC % 0.0 (0.0-0.2) % PT 14.3 (11.1-14.7) Seconds INR 1.1 APTT 30.0 (22.3-36.8) Seconds Sodium Cancelled 139 Potassium Cancelled 3.3 L Chloride Cancelled 109 H Carbon Dioxide Cancelled 20 L Anion Gap Cancelled 10 BUN Cancelled 16 Creatinine Cancelled 0.72 Estim Creat Clear Calc Cancelled 52 Estimated GFR Cancelled > 60 Glucose Cancelled 118 H Calcium Cancelled 9.9 Total Bilirubin Cancelled 0.7 AST Cancelled 34 ALT Cancelled 23 Alkaline Phosphatase Cancelled 101 Troponin I < 0.012 < 0.012 (0.000-0.034) ng/mL Total Protein Cancelled 8.3 H Albumin Cancelled 4.7 Lipase 59 (23-300) U/L Discharge Plan Discharge Clinical Impression: Fracture of rib, Chest pain, Nausea & vomiting Patient Disposition: Home Condition: Stable Instructions: Chest Pain (ED), Rib Fracture (ED), Acute Nausea and Vomiting (ED) Additional Instructions: Please follow up with your doctor; you can try the medications as prescribed. You can always return for any further issues. Patient Language: Polish Prescriptions: New acetaminophen [Tylenol Extra Strength] 500 mg tablet 1,000 mg PO Q6H PRN (Reason: pain) Qty: 50 0RF famotidine 20 mg tablet 20 mg PO DAILY Qty: 30 0RF ondansetron 4 mg tablet,disintegrating 4 mg PO Q8H PRN (Reason: nausea and vomiting) Qty: 10 0RF No Action carvedilol 6.25 mg tablet 6.25 mg PO BID hydroxyzine pamoate 50 mg capsule 50 mg PO HS omeprazole 20 mg capsule,delayed release(DR/EC) 40 mg PO DAILY losartan 100 mg tablet 100 mg PO DAILY hydroxyzine pamoate 25 mg capsule 25 mg PO TID rosuvastatin 20 mg tablet 20 mg PO DAILY cholecalciferol (vitamin D3) [Vitamin D3] 25 mcg (1,000 unit) Tablet 25 mcg PO DAILY Linzess 290 mcg capsule 290 mcg PO QACBREAK albuterol sulfate 90 mcg/actuation HFA aerosol inhaler 1 inh INHALATION Q4-6H PRN (Reason: shortness of breath or wheezing) Breztri Aerosphere 160-9-4.8 mcg/actuation HFA aerosol inhaler 2 inh inhalation BID diclofenac potassium 50 mg tablet 50 mg PO TID PRN (Reason: pain) Qty: 30 0RF lurasidone 60 mg tablet 60 mg PO DIRECTED Follow-up/Referrals: Raffy Alvarenga MD [Primary Care Provider] - 2 Days
[2024-12-23] MEDS: PANTOPRAZOLE SODIUM IV 40 MG VIAL IV PUSH (02:36)
[2024-12-23 02:56] LABS: Lipase 59 U/L (23-300)
[2024-12-23 03:02] LABS: Troponin I < 0.012 ng/mL (0.000-0.034)
[2024-12-23 04:26] LABS: Alanine Aminotransferase 23 U/L (6-35); Albumin Level 4.7 g/dL (3.5-5.1); Alkaline Phosphatase 101 U/L (38-126); Anion Gap 10 mmol/L (4-12); Aspartate Amino Transferase 34 U/L (14-36); Bilirubin,Total 0.7 mg/dL (0.2-1.3); Blood Urea Nitrogen 16 mg/dL (7-17); Calcium 9.9 mg/dL (8.4-10.2); Carbon Dioxide 20 mmol/L (22-30); Chloride 109 mmol/L (98-107); Estimated CRCL calculation 52 ml/min; Estimated Glomerular Filt Rate > 60; Glucose 118 mg/dL (65-110); Potassium 3.3 mmol/L (3.4-5.0); Sodium 139 mmol/L (137-145); Total Protein 8.3 g/dL (6.3-8.2)
[2024-12-23 06:40] LABS: Troponin I < 0.012 ng/mL (0.000-0.034)
[2024-12-23] MEDS: POTASSIUM CHLORIDE 20 MEQ PACKET (FOR LIQUID) 40 MEQ PO (06:45)
== END 2024-12-23 06:55 | disposition home or self-care (01) ==
PROVIDERS: Emergency Provider Emergency Medicine; PCP Emergency Medicine
DX: S22.43XA Multiple fractures of ribs, bilateral, initial encounter for closed fracture (principal); R07.9 Chest pain, unspecified; R11.2 Nausea with vomiting, unspecified; J44.9 Chronic obstructive pulmonary disease, unspecified; M06.9 Rheumatoid arthritis, unspecified; I10 Essential (primary) hypertension; K21.9 Gastro-esophageal reflux disease without esophagitis; F41.9 Anxiety disorder, unspecified; X58.XXXA Exposure to other specified factors, initial encounter
CPT/HCPCS: 36415; 71046; 71275; 74174; 80053; 83690; 84484; 85025; 85610; 85730; 93005; 96374; 96375; 99284; A9270; J0780; J1200; J2470; Q9967

== ENCOUNTER 2025-03-05 00:24 | Day surgery (SDC) | payer MEDICARE, MEDICAID, SELFPAY ==
[2025-02-24 14:06] VITALS: BMI 24.5
[2025-03-05 13:01] VITALS: BP 155/98; PULSE 67; RESP 18; TEMP 36.2; O2SAT 100
[2025-03-05] MEDS: LACTATED RINGERS 1,000 ML 150 ML IV CONT (13:13)
--- NOTE | 2025-03-05 13:54 | WPDANESEPPF ---
Anes - Initial Pre Proc Eval Procedure: Operation Date: 03/05/25 14:00 Proposed Procedures p Esophagogastroduodenoscopy EGD - Reggie Bauman MD Date/Time: 03/05/25 13:54 Surgeon: Reggie Bauman MD Pre Op Diagnosis: Esophageal obstruction, GERD Patient Data Age: 64 Gender: F Height: 1.55 m Weight: 60.8 kg Last Vital Signs Temp 97.2 F L 03/05/25 13:01 Pulse 67 03/05/25 13:01 Resp 18 03/05/25 13:01 BP 155/98 H 03/05/25 13:01 Pulse Ox 100 03/05/25 13:01 O2 Del Method Room Air 03/05/25 13:01 Allergies Allergy/AdvReac Type Severity Reaction Status Date / Time ciprofloxacin Allergy Severe Swelling Verified 03/05/25 12:57 of Lip/Tongue/Throat hydromorphone (From Dilaudid) Allergy Severe Dyspnea / Verified 03/05/25 12:57 SOB lisinopril Allergy Severe Swelling Verified 03/05/25 12:57 of Lip/Tongue/Throat Penicillins Allergy Severe Difficulty Verified 03/05/25 12:57 Breathing cephalexin (From Keflex) Allergy Intermediate Itching Verified 03/05/25 12:57 Sulfa (Sulfonamide Allergy Intermediate Itching Verified 03/05/25 12:57 Antibiotics) lamotrigine AdvReac Swelling Verified 03/05/25 12:57 of Lip/Tongue/Throat Home Medications ?Medication ?Instructions ?Recorded ?Confirmed ?Type carvedilol 6.25 mg tablet 6.25 mg PO BID 11/01/22 03/05/25 History cholecalciferol (vitamin D3) 25 25 mcg PO DAILY 11/01/22 03/05/25 History mcg (1,000 unit) tablet (Vitamin D3) hydroxyzine pamoate 25 mg capsule 25 mg PO TID 11/01/22 03/05/25 History hydroxyzine pamoate 50 mg capsule 50 mg PO HS 11/01/22 03/05/25 History losartan 100 mg tablet 100 mg PO DAILY 11/01/22 03/05/25 History omeprazole 20 mg capsule,delayed 40 mg PO DAILY 11/01/22 03/05/25 History release rosuvastatin 20 mg tablet 20 mg PO DAILY 11/01/22 03/05/25 History budesonide 160 mcg-glycopyr 9 2 inh inhalation BID 07/18/24 03/05/25 History mcg-formot 4.8 mcg/actuation HFA inhaler (Breztri Aerosphere) acetaminophen 500 mg tablet 1,000 mg (2 x 500 mg) PO Q6H PRN 12/23/24 02/24/25 Rx (Tylenol Extra Strength) pain #50 tabs famotidine 20 mg tablet 20 mg PO DAILY #30 tabs 12/23/24 03/05/25 Rx ondansetron 4 mg disintegrating 4 mg PO Q8H PRN nausea and 12/23/24 03/05/25 Rx tablet vomiting #10 tabs linaclotide 290 mcg capsule 290 mcg PO QACBREAK #30 caps 01/21/25 03/05/25 Rx (Linzess) sertraline 50 mg tablet (Zoloft) 50 mg PO DAILY 01/21/25 03/05/25 History Patient hx anesthesia problems: none Family hx anesthesia problems: none Results Review: All pre-operative results and documents have been reviewed as part of the pre-operative evaluation. 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, latent Bilateral hand pain Colon cancer screening Dysphagia Rheumatoid arthritis with rheumatoid factor of multiple sites without organ or systems involvement Low back pain Osteoporosis Hypertension Headache GERD (gastroesophageal reflux disease) IBS (irritable bowel syndrome) Arthritis Anxiety Allergies Surgical History Surgical History Hx of appendectomy Hx of cholecystectomy History of hysterectomy No pertinent past surgical history Family History Family History Other Depression Diabetes mellitus Heart disease Hypertension Social History Social History Smoking packs per day: 0.5 Smoking cigarettes per day: 10.0 Years smoked: 40 Smoking pack-years: 20.00 Smoking status: Former smoker Tobacco type: cigarettes Additional smoking assessment comments: QUIT VAPING 05/2022- VAPED FOR COUPLE MONTHS Alcohol intake: never Alcohol use details: rarely, socially, 1-3 if with family Substance use: never Substance use type: does not use Last use: 07/11/2024 Lack of Transportation: No Lack of Food: Never True Current Housing: I Have Housing Concerned About Future Housing: No Difficulty Paying Gas/Electric Bills: No Difficulty Paying for Meds: No Currently Unemployed: No Education: Decline to Answer Difficulty w/ Childcare or Family Care: No Living arrangements: with family Spiritual care concerns: No Anes - Eval Final PreProcedure Day of Procedure 03/05/25 13:54 Patient weight: normal Lungs: normal air movement Airway: Mallampati scale class II Neurological: alert and oriented Last oral intake: >/= 8 hours ASA classification: II Emergent: no Anesthetic plan: proceed Anesthesia type and monitoring: general GIVS and standard monitoring Results Review: All pre-operative results and documents have been reviewed as part of the pre-operative evaluation. HTN, hyperlipidemia, ex smoker, vapes. Informed Consent: The patient's anesthetic plan and its attendant risks and benefits were discussed with the patient/family/POA. Questions were solicited and answers provided to the satisfaction of the patient/family/POA.
--- NOTE | 2025-03-05 14:04 | PM.HPGS ---
History of Present Illness History of Present Illness Consent: Risks, benefits, and alternatives have been discussed and questions answered. Patient agrees to proceed with procedure. 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, latent Bilateral hand pain Colon cancer screening Dysphagia Rheumatoid arthritis with rheumatoid factor of multiple sites without organ or systems involvement Low back pain Osteoporosis Hypertension Headache GERD (gastroesophageal reflux disease) IBS (irritable bowel syndrome) Arthritis Anxiety Allergies Surgical History Surgical History Hx of appendectomy Hx of cholecystectomy History of hysterectomy No pertinent past surgical history Family History Family History Other Depression Diabetes mellitus Heart disease Hypertension Social History Social History Smoking packs per day: 0.5 Smoking cigarettes per day: 10.0 Years smoked: 40 Smoking pack-years: 20.00 Smoking status: Former smoker Tobacco type: cigarettes Additional smoking assessment comments: QUIT VAPING 05/2022- VAPED FOR COUPLE MONTHS Alcohol intake: never Alcohol use details: rarely, socially, 1-3 if with family Substance use: never Substance use type: does not use Last use: 07/11/2024 Lack of Transportation: No Lack of Food: Never True Current Housing: I Have Housing Concerned About Future Housing: No Difficulty Paying Gas/Electric Bills: No Difficulty Paying for Meds: No Currently Unemployed: No Education: Decline to Answer Difficulty w/ Childcare or Family Care: No Living arrangements: with family Spiritual care concerns: No Meds Home Medications and Allergies Home Medications ?Medication ?Instructions ?Recorded ?Confirmed ?Type carvedilol 6.25 mg tablet 6.25 mg PO BID 11/01/22 03/05/25 History cholecalciferol (vitamin D3) 25 25 mcg PO DAILY 11/01/22 03/05/25 History mcg (1,000 unit) tablet (Vitamin D3) hydroxyzine pamoate 25 mg capsule 25 mg PO TID 11/01/22 03/05/25 History hydroxyzine pamoate 50 mg capsule 50 mg PO HS 11/01/22 03/05/25 History losartan 100 mg tablet 100 mg PO DAILY 11/01/22 03/05/25 History omeprazole 20 mg capsule,delayed 40 mg PO DAILY 11/01/22 03/05/25 History release rosuvastatin 20 mg tablet 20 mg PO DAILY 11/01/22 03/05/25 History budesonide 160 mcg-glycopyr 9 2 inh inhalation BID 07/18/24 03/05/25 History mcg-formot 4.8 mcg/actuation HFA inhaler (Breztri Aerosphere) acetaminophen 500 mg tablet 1,000 mg (2 x 500 mg) PO Q6H PRN 12/23/24 02/24/25 Rx (Tylenol Extra Strength) pain #50 tabs famotidine 20 mg tablet 20 mg PO DAILY #30 tabs 12/23/24 03/05/25 Rx ondansetron 4 mg disintegrating 4 mg PO Q8H PRN nausea and 12/23/24 03/05/25 Rx tablet vomiting #10 tabs linaclotide 290 mcg capsule 290 mcg PO QACBREAK #30 caps 01/21/25 03/05/25 Rx (Linzess) sertraline 50 mg tablet (Zoloft) 50 mg PO DAILY 01/21/25 03/05/25 History Allergies Allergy/AdvReac Type Severity Reaction Status Date / Time ciprofloxacin Allergy Severe Swelling Verified 03/05/25 12:57 of Lip/Tongue/Throat hydromorphone (From Dilaudid) Allergy Severe Dyspnea / Verified 03/05/25 12:57 SOB lisinopril Allergy Severe Swelling Verified 03/05/25 12:57 of Lip/Tongue/Throat Penicillins Allergy Severe Difficulty Verified 03/05/25 12:57 Breathing cephalexin (From Keflex) Allergy Intermediate Itching Verified 03/05/25 12:57 Sulfa (Sulfonamide Allergy Intermediate Itching Verified 03/05/25 12:57 Antibiotics) lamotrigine AdvReac Swelling Verified 03/05/25 12:57 of Lip/Tongue/Throat Vital Signs Vital Signs - 24 hr 03/05/25 13:01 Temperature 97.2 F L Pulse Rate 67 Respiratory Rate 18 Blood Pressure 155/98 H Pulse Oximetry 100 Oxygen Delivery Room Air Exam Const: General: comfortable and no acute distress HENMT: Face/Nose/Sinus: Normal nares present Eyes: General: appearance normal, both eyes and all related structures Resp: Auscultation: clear to auscultation bilaterally Cardio: Rate: regular rate Rhythm: regular rhythm GI: Inspection: non-distended GI Palp: Yes Soft to palpation Skin: General skin exam: normal color Extrem: General: normal to inspection Psych: Mental Status: mental status grossly normal Assessment and Plan Assessment and plan (1) Dysphagia: Code(s): R13.10 - Dysphagia, unspecified Status: Acute Assessment and Plan: egd
[2025-03-05 14:26] VITALS: BP 135/76; PULSE 64; RESP 22; O2SAT 94
[2025-03-05 14:36] VITALS: BP 139/56; PULSE 68; RESP 19; O2SAT 96
[2025-03-05 14:46] VITALS: BP 149/88; PULSE 67; RESP 20; O2SAT 96
== END 2025-03-05 15:00 | disposition home or self-care (01) ==
PROVIDERS: PCP Emergency Medicine; Visit Provider Internal Medicine Gastroenterology
PROC: 0DJ08ZZ Inspection of Upper Intestinal Tract, Via Natural or Artificial Opening Endoscopic (ICD-10-PCS; CPT 43249; principal; 2025-03-05 14:00)
DX: K22.2 Esophageal obstruction (principal); K44.9 Diaphragmatic hernia without obstruction or gangrene; K21.9 Gastro-esophageal reflux disease without esophagitis; I10 Essential (primary) hypertension; E78.5 Hyperlipidemia, unspecified; K58.9 Irritable bowel syndrome, unspecified; F41.9 Anxiety disorder, unspecified; J44.9 Chronic obstructive pulmonary disease, unspecified; M06.89 Other specified rheumatoid arthritis, multiple sites; M81.0 Age-related osteoporosis without current pathological fracture; M19.90 Unspecified osteoarthritis, unspecified site; Z79.891 Long term (current) use of opiate analgesic; Z79.51 Long term (current) use of inhaled steroids; Z98.890 Other specified postprocedural states; Z90.49 Acquired absence of other specified parts of digestive tract; Z22.7 Latent tuberculosis; Z87.891 Personal history of nicotine dependence; Z86.0100 Personal history of colon polyps, unspecified; Z87.19 Personal history of other diseases of the digestive system; Z82.49 Family history of ischemic heart disease and other diseases of the circulatory system
CPT/HCPCS: 43249; C1726; J2003; J2704; J7120

== ENCOUNTER 2025-04-06 08:18 | Outpatient (CLI) | payer MEDICARE, MEDICAID, SELFPAY ==
--- OUTSIDE RECORDS SUMMARY | 2010-03-07 18:00 | XMS_ITS | Continuity of Care Document ---
Author Organization [facility] Address [address] [place] [address] Phone Care Team Providers Care Disaster Recovery Manager Name Role Phone Hakeem Valdez MD Unavailable Unavailable Procedures Procedure Date INITIAL HOSPITAL CARE Advance Directives Directive Yes / No Effective Date File Name No Information Encounters Encounter Description Practice Location Reason(s) For Visit Diagnoses Date Provider Providers Copied on Encounter INITIAL HOSPITAL CARE [facility], [address], [place], [id number], [place] tel:[phone] [facility] No Information José Miguel Palacio. [address], [place], [id number], [place]. tel:[phone] Family History Family Member Type Diagnosis Age At Onset No Information Payers Payer name Insurance type Covered green party ID Authoriza tion(s) [employer] Medicaid MC [id number] Social History Type Description Quantity Date Captured Comments Sex Female Smoking Status No Information Chief Complaint And Reason For Visit No Information Reason For Referral Reason For Referral No Information History Of Present Illness Encounter Date Complaint History Of Prese nt Illness No Information Functional Status Date Functional Assessmen t No Information Instructions Date Instruction Additional Infor mation No Information Assessments Type Assessment Date No Information Patient Care Teams Name Effective Dates (start - stop) Status Members No Information
--- OUTSIDE RECORDS SUMMARY | 2024-07-23 04:00 | XMS_ITS ---
Author Organization [facility] padma Address [address] [facility] [address] [place] [address] Care Team Providers Care Park Guard Name Role Phone Raffy Alvarenga MD Primary Care Provider Luna Moy [phone] REASON FOR VISIT [facility] [place] Encounters Encounter Location Date Provider Diagnosis [facility] [address] [facility] [address] [place] [address] 07/23/2024 Luna Gruber Plan Of Treatment Next Appt Details Provider Name:Luna Gruber, 04/21 08:45:00 AM, [address] [facility] [address], [place], [address], Provider Name:Luna rGuber, 07/14 08:30:00 AM, [address], [place], [address], Provider Name:Luna Gruber, 07/28 09:30:00 AM, [address], [place], [address], Progress Notes * Miranda HEARN EDOB:1960 ( 64 yo F)Acc No.[id number]:07/23/2024 Patient: Miranda UPTON Appointment Provider: Charlene GRUBER MD :1960 A ge:63 Y S ex:Female Date:07/23/2024 [address] [place] [address] Pcp:Raffy Alvarenga MD Subjective: * Chief Complaints: * 1 . [facility] [place]. * Medical History: Objective: * Vitals: Assessment: Plan: * Treatment: * Billing Information: * Visit Code: * Procedure Codes: * Electronic signature of Luna Gruber MD on 04/06/2025 at 08:26 AM [employer]ACH[employer] Sign off status: Pending * Appointment Provider: Charlene GRUBER MD Date: 0 07/23/2024 Generated for Joaquim corea/Joel/Laurensmfiordaliza on: 06/06/2024 08:26 AM [employer]ACH[employer]
--- OUTSIDE RECORDS SUMMARY | 2025-01-08 03:30 | XMS_ITS ---
Author Organization [facility] Address [address] [place] [address] Care Team Providers Care Distillation Operator Name Role Phone Raffy Alvarenga MD Primary Care Provider Luna Moy [phone] REASON FOR VISIT CMP for Prolia Encounters Encounter Location Date Provider Diagnosis [facility] [address] [place] [address] 01/08/2025 Luna Gruber Plan Of Treatment Next Appt Details Provider Name:Luna Gruber, 04/21 08:45:00 AM, [address], [place], [address], Provider Name:Luna Gruber, 07/14 08:30:00 AM, [address], [place], [address], Provider Name:Luna Gruber, 07/28 09:30:00 AM, [address], [place], [address], Progress Notes * Miranda HEARN EDOB:1960 ( 64 yo F)Acc No.[id number]:01/08/2025 Patient: Miranda UPTON Appointment Provider: Charlene GRUBER MD :1960 A ge:64 Y S ex:Female Date:01/08/2025 Address:[address] [place], [place] [id number] Pcp:Raffy Alvarenga MD Subjective: * Chief Complaints: * 1 . CMP for Prolia. * Medical History: Objective: * Vitals: Assessment: Plan: * Treatment: * Billing Information: * Visit Code: * Procedure Codes: * Electronic signature of Luna Gruber MD on 04/06/2025 at 08:26 AM PATIENT CARE TECHNICIAN Sign off status: Pending * Appointment Provider: Charlene GRUBER MD Date: 0 01/08/2025 Generated for Joaquim corea/Joel/Candiceitting on: 06/06/2024 08:26 AM PATIENT CARE TECHNICIAN
--- OUTSIDE RECORDS SUMMARY | 2025-03-09 02:20 | XMS_ITS ---
Author Organization [facility] Address [address] [place] [address] Care Team Providers Care Prescription Clerk Lenses Name Role Phone Roberto Brenner Primary Care Provider Mayela Claire Unavailable [phone] REASON FOR VISIT psych f/u Social History Sex Assigned At : Social History Observation Description Sex Assigned At Female Encounters Encounter Location Date Provider Diagnosis [address] [place] [address] 03/09/2025 Mayela Claire Plan Of Treatment No Information Progress Notes * Miranda HEARNDOB:1960 (64 yo F)Acc No.[id number]:03/09/2025 UNLOCKED PROGRESS NOTE Patient: Miranda UPTON Provider: ROBIN Connolly, BUCKLE STRINGER, GREENSKEEPER HEAD-C :1960 A ge:64 Y S ex:Female Date:03/09/2025 [facility] Pcp:Roberto Brenner Subjective: * Chief Complaints: * 1 . Psych f/u. * Medical History: Objective: * Vitals: Assessment: Plan: * Treatment: * * Electronic signature of Eliel Claire [id number] on 04/06/2025 at 08:27 AM CUTCH CLEANER Sign off status: Pending * Provider: Betty Claire MSN, BUCKLE STRINGER, GREENSKEEPER HEAD-C Date: Generated for Printi ng/Faxing/eTransmitting on: 06/06/2024 08:27 AM CUTCH CLEANER
--- OUTSIDE RECORDS SUMMARY | 2025-03-30 07:40 | XMS_ITS ---
Author Organization [facility] Address [address] [place] [address] Care Team Providers Care Candy Roller Name Role Phone Roberto Brenner Primary Care Provider [phone] Mayela Claire Unavailable [phone] REASON FOR VISIT last seen 12/24/24; 4 week F/U Social History Sex Assigned At : Social History Observation Description Sex Assigned At Female Encounters Encounter Location Date Provider Diagnosis [address] [address] 03/30/2025 Mayela Claire Plan Of Treatment No Information Progress Notes * Miranda HEARNDOB:1960 (64 yo F)Acc No.[id number]:03/30/2025 UNLOCKED PROGRESS NOTE Patient: Miranda UPTON Provider: ROBIN Connolly, CATERING ATTENDANT, MEDICAID COLLECTION SPECIALIST-C :1960 A ge:64 Y S ex:Female Date:03/30/2025 Address:[address] [place] [address] [facility] Pcp:Roberto Brenner Subjective: * Chief Complaints: * 1 . last seen 12/24/24; 4 week F/U. * Medical History: Objective: * Vitals: Assessment: Plan: * Treatment: * * Electronic signature of Eliel Claire , [id number] on 04/06/2025 at 08:26 AM SURFACE BOSS Sign off status: Pending * Provider: ROBIN Connolly, CATERING ATTENDANT, MEDICAID COLLECTION SPECIALIST-C Date: 1 05/30/2024 Generated for Joaquim corea/Joel/Candiceitting on: 06/06/2024 08:26 AM SURFACE BOSS
--- OUTSIDE RECORDS SUMMARY | 2025-04-06 08:26 | XMS_ITS | Clinical Summary ---
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[employer] Gender Identity Not on file Sexual Orientation Not on file Plan of Treatment Health Maintenance Due Date Last Done Comments Breast Cancer Screening-Mammogram 1960 Cervical Cancer Screening 1960 Colon Cancer Screening-Colonoscopy 1960 Depression Screening 1960 DTaP/Tdap/Td Vaccine (1 - Tdap) 1972 Regular Well Visit/Exam 18-64 11/10/1979 Pneumococcal vaccine <65 (1 of 2 - PCV) 1980 Covid-19 Vaccine ( - 2024-2 6 season) 2025 03/05/2023, 02/16/2022, 05/18/2021, Additional history exists Influenza Vaccine (#1) 2025 , 02/16/2022, 03/13/2021, Additional history exists Hepatitis B Screening Completed 01/15/2009, 009 Zoster Vaccine Completed 03/27/2021, 01/25/2021 Hepatitis C Screening Completed 12/17/2023 Medical Devices Implanted Type Area Film Critic Device Identifier Shelf Expiration Date Model / Serial / Lot Spinal Cord Stimulator-04/03 Implanted:04/03 by Willie Higgins MD (Quantity not on file) Spinal Cord Stimulator Thoracic -Lumbar Spine [employer] [id number] / / Description:1.5 Only Confirm Model # and full body elligibility on controller, document photo in EPIC maximum spatial field gradient of 19 T/m (1900 gauss/cm Any Receive only coil Circularly Polarized (CP) configuration. Normal Operating Mode Whole body STEPHANIE must be less 2.0 W/kg as reported by the MRI equipment a maximum gradient slew rate performance per axis of 200 T/m/s or less MRI scan durations should not exceed a total of 30 minutes of active scan time within a 90-minute window (within every 90-minute window, there should be a total of 60 minutes of nonscan time). Procedures Procedure Name Priority Date/Time Associated Diagnosis [...] MICROBIOLOGY - GENERAL ORDER KELLY Final Result [facility] [address] Department [place] [address] from Last 3 Months or Most Recently Relevant to Health Maintenance Insurance UHC MEDICARE ADVANTAGE [employer] MEDICARE GOLD Care Teams Senior Geologist Relationship Specialty Start Date End Date Raffy Alvarenga MD [facility] [place] [address] PCP - General Family Medicine 01/13/25
--- OUTSIDE RECORDS SUMMARY | 2025-04-06 08:27 | XMS_ITS | Patient Health Record ---
Author Organization [facility] Address [address] [place] [address] Care Team Providers Care Director Of Oncology Name Role Phone Raffy Alvarenga MD Primary Care Provider Isabel Luna Romero Unavailable [phone] Allergies Allergen (clinical drug ingredient) Drug/Non Drug Allergy documented on EMR Reaction Allergy Type Onset Date Status ciprofloxacin Cipro Unknown Drug Allergy Act rob atorvastatin Atorvastatin Unknown Drug Allergy A ctive cephalexin Cephalexin Unknown Drug Allergy Activ e Penicillin Unknown Drug Allergy Active Results Component Value Reference Range Notes QUANTIFERON(R)-TB GOLD PLUS, 1 TUBE (81068) Reviewed date:02/16/2025 09:01:38 AM Interpretation: Performing Lab:[place], [id number] [facility], [id number] Patsy Grijalva MD Notes/Report: QUANTIFERON(R)-TB GOLD PLUS, 1 TUBE POSITIVE NEGATIVE In healthy persons who have a low likelihood of M. tuberculosis infection, a single positive QFT result should not be taken as reliable evidence of M. tuberculosis infection. Repeat testing, with either the initial test or a different test, may be considered on a snmc-el-sbzu basis. NIL 0.02 MITOGEN-NIL >10.00 TB1-NIL 1.03 TB2-NIL 1.11 The Nil tube value reflects the background interferon gamma immune response of the patient's blood sample. This value has been subtracted from the patient's displayed TB and Mitogen results. Lower than expected results with the Mitogen tube prevent false-negative Quantiferon readings by detecting a patient with a potential immune suppressive condition and/or suboptimal pre-analytical specimen handling. The TB1 Antigen tube is coated with the M. tuberculosis-specific antigens designed to elicit responses from TB antigen primed CD4+ helper T-lymphocytes. The TB2 Antigen tube is coated with the M. tuberculosis-specific antigens designed to elicit responses from TB antigen primed CD4+ helper and CD8+ cytotoxic T-lymphocytes. For additional information, please refer to https://education.Rico.Logicbroker/faq/LAK379 (This link is being provided for informational/ educational purposes only.) SJOGREN'S ANTIBODIES (SS-A,S S-B) (7832) Reviewed date:02/10/2025 01:00:05 PM Interpretation: Performing Lab:[facility] A [facility]-[id number] Mary Quiros[address] Patsy Grijalva MD Notes/Report: SJOGREN'S ANTIBODY (SS-A) <1.0 NEG <1.0 NEG AI SJOGREN'S ANTIBODY (SS-B) <1.0 NEG <1.0 NEG AI YOVANY SCREEN, IFA, W/REFL TITE R AND PATTERN (249) Reviewed date:02/10/2025 12:59:30 PM Interpretation: Performing Lab:[facility]-[id number] Jovan QuirosaKS[address] Patsy Grijalva MD Notes/Report: YOVANY SCREEN, IFA NEGATIVE NEGATIVE YOVANY IFA is a first line screen for detecting the presence of up to approximately 150 autoantibodies in various autoimmune diseases. A negative YOVANY IFA result suggests an YOVANY-associated autoimmune disease is not present at this time, but is not definitive. If there is high clinical suspicion for Sjogren's syndrome, testing for anti-SS-A/Ro antibody should be considered. Anti-Charlene-1 antibody should be considered for clinically suspected inflammatory myopathies. AC-0: Negative International Consensus on YOVANY Patterns (https://doi.org/10.1515/cc qq-4419-0453) For additional information, please refer to http://education.Tiempy.Logicbroker/faq/PSB051 (This link is being provided for informational/ educational purposes only.) CYCLIC CITRULLINATED PEPTIDE (CCP) AB (IGG) (58531) Reviewed date:02/10/2025 01:00:14 PM Interpretation: Performing Lab:[facility]-[id number] [facility], [id number] Patsy Grijalva MD Notes/Report: CYCLIC CITRULLINATED PEPTIDE (CCP) AB (IGG) 25 Reference Range Negative: <20 Weak Positive: 20-39 Moderate Positive: 40-59 Strong Positive: >59 RHEUMATOID FACTOR (4418) Reviewed date:02/10/2025 12:59:49 PM Interpretation: Performing Lab:[facility] A [facility]-[id number] [facility], [id number] Patsy Grijalva MD Notes/Report: RHEUMATOID FACTOR 15 <14 IU/mL C-REACTIVE PROTEIN (4420) Reviewed date:02/10/2025 12:59:56 PM Interpretation: Performing Lab:Maria A MCFADDEN01Mary Cuenca[address] Patsy Grijalva MD Notes/Report: C-REACTIVE PROTEIN <3.0 <8.0 mg/L SED RATE BY MODIFIED WESTERG JESSY (809) Reviewed date:02/10/2025 12:59:11 PM Interpretation: Performing Lab:Maria A [facility]01Mary Cuenca[address] Patsy Grijalva MD Notes/Report: SED RATE BY MODIFIED WESTERGREN 9 < OR = 30 mm/h CREATINE KINASE, TOTAL (374) Reviewed date:02/10/2025 12:59:01 PM Interpretation: Performing Lab:Maria A MCFADDEN [id number] Patsy Grijalva MD Notes/Report: CREATINE KINASE, TOTAL 77 20-243 U/L COMPREHENSIVE METABOLIC PANE L (42563) Reviewed date:02/10/2025 12:58:54 PM Interpretation: Performing Lab:Maria A MCFADDEN [id number] Patsy Grijalva MD Notes/Report: GLUCOSE 95 65-99 mg/dL Fasting reference interval UREA NITROGEN (BUN) 24 7-25 mg/dL CREATININE 0.97 0.50-1.05 mg/dL EGFR 66 > OR = 60 mL/min/1.73m2 BUN/CREATININE RATIO SEE NOTE: 6-22 (calc) Not Reported: BUN and Creatinine are within reference range. SODIUM 140 135-146 mmol/L POTASSIUM 4.3 3.5-5.3 mmol/L CHLORIDE 105 98-110 mmol/L CARBON DIOXIDE 24 20-32 mmol/L CALCIUM 10.1 8.6-10.4 mg/dL PROTEIN, TOTAL 7.1 6.1-8.1 g/dL ALBUMIN 4.7 3.6-5.1 g/dL GLOBULIN 2.4 1.9-3.7 g/dL (calc) ALBUMIN/GLOBULIN RATIO 2.0 1.0-2.5 (calc) BILIRUBIN, TOTAL 0.4 0.2-1.2 mg/dL ALKALINE PHOSPHATASE 78 37-153 U/L AST 20 10-35 U/L ALT 23 6-29 U/L CBC (INCLUDES DIFF/PLT) (639 9) Reviewed date:02/10/2025 12:59:21 PM Interpretation: Performing Lab:BOGDAN [facility]-[id number] [facility], [id number] Patsy Grijalva MD Notes/Report: WHITE BLOOD CELL COUNT 6.9 3.8-10.8 Thousand/ uL RED BLOOD CELL COUNT 4.70 3.80-5.10 Million/uL HEMOGLOBIN 13.5 11.7-15.5 g/dL HEMATOCRIT 41.3 35.0-45.0 % MCV 87.9 80.0-100.0 fL MCH 28.7 27.0-33.0 pg MCHC 32.7 32.0-36.0 g/dL For adults, a slight decrease in the calculated MCHC value (in the range of 30 to 32 g/dL) is most likely not clinically significant; however, it should be interpreted with caution in correlation with other red cell parameters and the patient's clinical condition. RDW 14.0 11.0-15.0 % PLATELET COUNT 330 140-400 Thousand/uL MPV 10.2 7.5-12.5 fL ABSOLUTE NEUTROPHILS 3077 9919-2765 cells/uL ABSOLUTE LYMPHOCYTES 3022 850-3900 cells/uL ABSOLUTE MONOCYTES 504 200-950 cells/uL ABSOLUTE EOSINOPHILS 193 15-500 cells/uL ABSOLUTE BASOPHILS 104 0-200 cells/uL NEUTROPHILS 44.6 LYMPHOCYTES 43.8 MONOCYTES 7.3 EOSINOPHILS 2.8 BASOPHILS 1.5 COMPREHENSIVE METABOLIC PANE L (27126) Reviewed date:01/15/2025 04:50:01 PM Interpretation: Performing Lab:[place], [facility]-[id number] [facility] [facility], [id number] Patsy Grijalva MD Notes/Report: NON-FASTING GLUCOSE 106 65-99 mg/dL Fasting reference interval For someone without known diabetes, a glucose value between 100 and 125 mg/dL is consistent with prediabetes and should be confirmed with a follow-up test. UREA NITROGEN (BUN) 16 7-25 mg/dL CREATININE 1.00 0.50-1.05 mg/dL EGFR 63 > OR = 60 mL/min/1.73m2 BUN/CREATININE RATIO SEE NOTE: 6-22 (calc) Not Reported: BUN and Creatinine are within reference range. SODIUM 140 135-146 mmol/L POTASSIUM 4.1 3.5-5.3 mmol/L CHLORIDE 104 98-110 mmol/L CARBON DIOXIDE 29 20-32 mmol/L CALCIUM 9.8 8.6-10.4 mg/dL PROTEIN, TOTAL 7.3 6.1-8.1 g/dL ALBUMIN 4.5 3.6-5.1 g/dL GLOBULIN 2.8 1.9-3.7 g/dL (calc) ALBUMIN/GLOBULIN RATIO 1.6 1.0-2.5 (calc) BILIRUBIN, TOTAL 0.5 0.2-1.2 mg/dL ALKALINE PHOSPHATASE 96 37-153 U/L AST 29 10-35 U/L ALT 34 6-29 U/L Reason For Referral Reason Prolia J08 97 DX M81.0 NO PA REQUIRED per Evita Serrato 07.17.2024@9:31am [facility] pa dept Diagnosis 1 Postmenopausal osteo porosis (M81.0) Referral Organization [facility] Referring Provider First Name Luna Referring Provider Last Name Luis Fernando Referring Provider Speciality Rheumatolo gy Referred Organization [facility] Referred Provider Luna Gould Referred Address [address],[place], [place],[address],[place] Referred Provider Specialty Rheumatology Procedure 1 THER/PROPH/DIAG INJ, SC/IM (69810) Referral Priority Routine Reason 12.03.2024 Prolia ap proved [facility] Medicare Advantage 3 visits Diagnosis 1 Postmenopausal osteo porosis (M81.0) Referral Organization [facility] Referring Provider First Name Luna Referring Provider Last Name Luis Fernando Referring Provider Speciality Rheumatolo gy Referred Organization [facility] Referred Provider Luna Gould Referred Address [address] [address],[place], [place],[address],[place] Referred Provider Specialty Rheumatology Procedure 1 THER/PROPH/DIAG INJ, SC/IM (35558) Referral Priority Routine Medications Medication SIG (Take, Route, Frequency, Duration) Notes Start Date End Date Status hydrALAZINE HCl 50 MG 1 tablet with food Orally at bedtime; Duration: 30 day(s) Active Pregabalin 75 MG 1 capsule Orally twi ce daily Active Losartan Potassium 100 MG 1 tablet Orall y Once a day; Duration: 30 day(s) Active hydrOXYzine HCl 25 MG 1 tablet as needed Orally twice a day; Duration: 30 day(s) Active Rosuvastatin Calcium 20 MG 1 tablet Orally Once a day; Duration: 30 day(s) Active Omeprazole 40 MG 1 capsule 30 minutes before morning meal Orally Once a day; Duration: 30 day(s) Active Leflunomide 10 MG 1 tablet Orally Once a day; Duration: 30 days 02/16/2025 05/16/2025 Active Denosumab 60 MG/ML one injection Subcutaneous every 6 months; Duration: 180 days 01/01/2024 07/12/2025 Active Latuda 60 MG 1 tablet in the even ing with food Orally Once a day; Duration: 30 day(s) Active Linzess 290 MCG 1 capsule at least 3 0 minutes before the first meal of the day on an empty stomach Orally Once a day; Duration: 30 day(s) Active Vitamin D3 50 MCG (1999 UT) 1 capsule Orally once a week Active Carvedilol 6.25 MG 1 tablet with [...] W/U Status Risk Notes Problem Rheumatoid arthritis (32117353) Rheumatoid arthritis without rheumatoid factor, multiple sites (M06.09) Active confirmed Problem Postmenopausal osteoporosis (573408270) Postmenopausal osteoporosis (M81.0) Active confirmed Vital Signs Heart Rate 65 /min 01/22/2025 Temperature 98.2 degrees Fahrenheit 01/22/2025 Oximetry 96 % 07/14/2024 Blood pressure diastolic 71 mm Hg 01/22/2025 Weight-kg 58.51 kg 01/22/2025 Height 61 in 01/22/2025 Blood pressure systolic 111 mm Hg 01/22/2025 Weight 129 lbs 01/22/2025 BMI 24.37 kg/m2 01/22/2025 Encounters Encounter Location Date Provider Diagnosis [facility] [address] [id number] 07/14/2024 Luna Du Rheumatoid arthritis without rheumatoid factor, multiple sites M06.09 ; Postmenopausal osteoporosis M81.0 ; High risk medication use Z79.899 ; Hepatitis C antibody test positive R76.8 and Liver enzyme elevation R74.8 [facility] [address] [id number] 07/23/2024 Luna Du Age-related osteopor osis without current pathological fracture M81.0 [facility] [address] [id number] 01/22/2025 Luna Du Age-related osteopor osis without current pathological fracture M81.0 [facility] [address] [id number] 01/22/2025 Luna Du Rheumatoid arthritis without rheumatoid factor, multiple sites M06.09 ; Postmenopausal osteoporosis M81.0 ; High risk medication use Z79.899 ; Hepatitis C antibody test positive R76.8 and Liver enzyme elevation R74.8 [facility] [address] [address] 02/16/2025 Luna Du Rheumatoid arthritis without rheumatoid factor, multiple sites M06.09 ; Postmenopausal osteoporosis M81.0 ; High risk medication use Z79.899 ; Hepatitis C antibody test positive R76.8 ; Liver enzyme elevation R74.8 and Positive TB test R76.11 [facility] [address] [id number] 07/14/2024 Luna Du Postmenopausal osteoporosis M81.0 [facility] [address] [place] [address] 07/16/2024 Luna Du [facility] [address] [place] [address] 07/17/2024 Luna Du [facility] [address] [place] [address] 07/17/2024 Luna Du Pain in unspecified joint M25.50 [facility] [address] [place] [address] 07/23/2024 Luna Du Postmenopausal osteoporosis M81.0 [facility] [address] [place] [address] 01/07/2025 Luna Du Postmenopausal osteoporosis M81.0 [facility] [address] [place] [address] 01/22/2025 Luna Du Postmenopausal osteoporosis M81.0 [facility] [address] [place] [address] 02/16/2025 Luna Du Assessments Encounter Date Diagnosis (ICD Code) Assessment Notes Treatment Notes Treatment Clinical Notes Section Notes 07/14/2024 Postmenopausal osteoporosis (ICD-10 - M81.0) 07/17/2024 Pain in unspecified joint (ICD-10 - M25.50) 07/23/2024 Postmenopausal osteoporosis (ICD-10 - M81.0) 07/23/2024 Age-related osteoporosis without current pathological fracture (ICD-10 - M81.0) 01/07/2025 Postmenopausal osteoporosis (ICD-10 - M81.0) 01/22/2025 Postmenopausal osteoporosis (ICD-10 - M81.0) 01/22/2025 Age-related osteoporosis without current pathological fracture (ICD-10 - M81.0) 01/22/2025 Rheumatoid arthritis without rheumatoid factor, multiple sites (ICD-10 - M06.09) joint pain flaring up, repeat serologies, if TB test (-), will restart en[facility]rel ([facility] continue prolia for osteoporosis 07/14/2024 Rheumatoid arthritis without rheumatoid factor, multiple sites (ICD-10 - M06.09) labs today and schedule 2nd prolia injection, off DMARDS, no obvious synovitis, will monitor 07/14/2024 Postmenopausal osteoporosis (ICD-10 - M81.0) labs today and schedule 2nd prolia injection, off DMARDS, no obvious synovitis, will monitor 01/22/2025 Postmenopausal osteoporosis (ICD-10 - M81.0) joint pain flaring up, repeat serologies, if TB test (-), will restart enbrel (send to [facility]), continue prolia for osteoporosis 02/16/2025 Rheumatoid arthritis without rheumatoid factor, multiple sites (ICD-10 - M06.09) labs discussed , QFN-TB (+), avoid biologics, start arava 10mg/day, continue prolia for osteoporosis 02/16/2025 Postmenopausal osteoporosis (ICD-10 - M81.0) labs discussed, QFN-TB (+), avoid biologics, start arava 10mg/day, continue prolia for osteoporosis 02/16/2025 High risk medication use (ICD-10 - Z79.899) labs discusse d, QFN-TB (+), avoid biologics, start arava 10mg/day, continue prolia for osteoporosis 07/14/2024 High risk medication use (ICD-10 - Z79.899) labs today an d schedule 2nd prolia injection, off DMARDS, no obvious synovitis, will monitor 01/22/2025 High risk medication use (ICD-10 - Z79.899) joint pain flaring up, repeat serologies, if TB test (-), will restart enbrel (send to [facility]), continue prolia for osteoporosis 07/14/2024 Hepatitis C antibody test positive (ICD-10 - R76.8) labs today and schedule 2nd prolia injection, off DMARDS, no obvious synovitis, will monitor 01/22/2025 Hepatitis C antibody test positive (ICD-10 - R76.8) joint pain flaring up, repeat serologies, if TB test (-), will restart enbrel (send to [facility]), continue prolia for osteoporosis 02/16/2025 Hepatitis C antibody test positive (ICD-10 - R76.8) labs discussed, QFN-TB (+), avoid biologics, start arava 10mg/day, continue prolia for osteoporosis 02/16/2025 Liver enzyme elevation (ICD-10 - R74.8) labs discussed, QFN-TB (+), avoid biologics, start arava 10mg/day, continue prolia for osteoporosis 01/22/2025 Liver enzyme elevation (ICD-10 - R74.8) joint pain flaring up, repeat serologies, if TB test (-), will restart [facility]rel ([facility]), continue prolia for osteoporosis 07/14/2024 Liver enzyme elevation (ICD-10 - R74.8) labs today and schedule 2nd prolia injection, off DMARDS, no obvious synovitis, will monitor 02/16/2025 Positive TB test (ICD-10 - R76.11) labs discussed , QFN-TB (+), avoid biologics, start arava 10mg/day, continue prolia for osteoporosis Plan Of Treatment Pending Test Test Name Order Date X ray : Hands, bilateral 12/17/2023 X ray : Wrist, bilateral 2 views 024 COMPREHENSIVE METABOLIC PANEL (24696) CRP (C-REACTIVE PROTEIN) 01/22/2025 RHEUMATOID FACTOR (RF), QUANTITATIVE CK 01/22/2025 CBC W/DIFF 01/22/2025 SEDIMENTATION RATE, ESR 01/22/2025 CYCLIC CITRULLINATED PEPTIDE (CCP) AB, I gG/IgA 01/22/2025 SSA/SSB ANTIBODY (SJOGREN'S) 01/22/2025 QUANTIFERON - TB GOLD PLUS, 1 TUBE 01/22 YOVANY SCREEN/REFLEX TITER/PATTERN 01/23/20 Comprehensive metabolic panel (CMP) 06/29 Comprehensive metabolic panel (CMP) 12/27 G6PD Ql 12/17/2023 Next Appt Details Provider Name:Luna Luis Fernando, 04/21 08:45:00 AM, [address] [facility] [address], [place], [address], Provider Name:Luna Gould, 07/14 08:30:00 AM, [address] [facility] [address], [place], [address], Provider Name:Luna Luis Fernando, 07/28 09:30:00 AM, [address], [place], [address], Insurance Providers Payer Name Payer Address Payer Phone Subscriber Number Group Number Insured Name Patient Relationship to Insured Coverage Start Date Coverage End Date [employer] MEDICARE ADVANTAGE - GROUP [address] [address] [place] [address] [id number] Miranda Hearn Self - patient is the insured Medical (General) History Medical History History ICD Code rheumatoid arthritis, IBS, o steoporosis, esophagitis, GERD, hyperlipidemia, hypertension, hepatitis C Surgical History Surgery Date(Month/Year) cataract, carpal tunnel, hysterectomy
--- OUTSIDE RECORDS SUMMARY | 2025-04-06 08:27 | XMS_ITS | Patient Health Record ---
Author Organization Formerly [facility] Address [address] [place] [address] Care Team Providers Care Fly Setter Name Role Phone Roberto Brenner Primary Care Provider [phone] Mayela Claire Unavailable [phone] Allergies Allergen (clinical drug ingredient) Drug/Non Drug Allergy documented on EMR Reaction Allergy Type Onset Date Status Ciprofloxacin anaphylaxis Drug Allergy A ctive hydromorphone Dilaudid Unknown Drug Allergy Act rob Keflex anaphylaxis Drug Allergy Activ e fluoxetine PROzac Unknown Drug Allergy Active lamotrigine lamoTRIgine Unknown Drug Allergy Act rob Penicillin rash Drug Allergy Active Reason For Referral No Information Medications Medication SIG (Take, Route, Frequency, Duration) Notes Start Date End Date Status hydrOXYzine Pamoate 25 MG 1 capsule Orally three times a day; Duration: 30 days As needed for anxiety Active Lyrica 75 MG 1 capsule Orally Twi ce a day Active hydrOXYzine Pamoate 50 MG 1 capsule at b edtime as needed Orally Once a day; Duration: 30 days Active hydrOXYzine Pamoate 25 MG 1 capsule Oral ly three times a day; Duration: 30 days Active hydrOXYzine Pamoate 50 MG 1 capsule at b edtime as needed Orally Once a day; Duration: 30 days Active Hydroxychloroquine Sulfate Active Sertraline HCl 50 MG 1 tablet Orally Onc e a day; Duration: 22 days 12/24/2024 Active Carvedilol 6.25 MG 1 tablet with food O rally Twice a day; Duration: 30 day(s) Active Losartan Potassium 100 MG 1 tablet Orall y Once a day; Duration: 30 day(s) Active amLODIPine Besylate 10 MG 1 tablet Orall y Once a day; Duration: 30 day(s) Active Omeprazole 20 MG 1 capsule 30 minutes before morning meal Orally twice a day Active lamoTRIgine 25 MG 2 tablet Orally jayson y; Duration: 7 days Active Stool Softener 100 MG 1 [...] W/U Status Risk Notes Problem Tobacco user (842814545) Nicotine dependence, unspecified, uncomplicated (F17.200) Active confirmed Problem Generalized anxiety disorder (06124494) Generalized anxiety disorder (F41.1) Active confirmed Problem Bipolar II disorder (39839069) Bipolar 2 disorder, major depressive episode (F31.81) Active confirmed Problem Sleep disturbance (31574421) Sleep disturbance, unspecified (G47.9) Active confirmed Vital Signs Heart Rate 70 /min 08/11/2024 Temperature 98.3 degrees Fahrenheit 08/11/2024 Respiratory Rate 16 /min 08/11/2024 Blood pressure diastolic 86 mm Hg 08/11/2024 Height 61 in 08/11/2024 Blood pressure systolic 112 mm Hg 08/11/2024 Weight 129.8 lbs 08/11/2024 BMI 24.52 kg/m2 08/11/2024 Encounters Encounter Location Date Provider Diagnosis [facility] [place] [address] 05/20/2024 Mayela Claire Bipolar 2 disorder, major depressive episode F31.81 and Generalized anxiety disorder F41.[address] [facility] [place] [address] 08/11/2024 Mayela Claire Bipolar 2 disorder, major depressive episode F31.81 ; Generalized anxiety disorder F41.1 and Nicotine dependence, unspecified, uncomplicated F17.[address] [place] [address] 11/19/2024 Mayela Dakotah Bipolar 2 disorder, major depressive episode F31.81 ; Generalized anxiety disorder F41.1 and Nicotine dependence, unspecified, uncomplicated F17.[address] [place] [address] 12/24/2024 Mayela Dakotah Bipolar 2 disorder, major depressive episode F31.81 ; Generalized anxiety disorder F41.1 and Nicotine dependence, unspecified, uncomplicated F17.[address] [address] 12/26/2024 Mayela Dakotah [facility] [address] [place] [address] 12/29/[address] [address] 03/09/2025 Mayela Claire Bipolar 2 disorder, major depressive [...] has also trialed lamotrigine, depakote. Caplyta caused halluciantions . 11/19/2024 Bipolar 2 disorder, major depressive episode [...] has also trialed lamotrigine, depakote. Caplyta caused halluciantions . Stopped latuda for fear of (TD) 03/09/2025 Bipolar 2 disorder, major depressive episode (ICD-10 - F31.81) 12/24/2024 Bipolar 2 disorder, major depressive episode (ICD-10 - F31.81) Reports hx of doing well with Zoloft for years and years until it stopped working wants to try this again. Reviewed side effects which may include increased risk of suicide, anxiety, sleep disturbance, nausea, dry mouth, increased bruising, sexual dysfunction, matthias, wt gain, and serotonin syndrome. Client reports high appetite with Abilify Hx of trialing risperdal with TD as side effect, has also trialed lamotrigine, depakote. Caplyta caused halluciantions . Stopped latuda for fear of (TD) Lamotrigine with allergic reaction/rash with hives 05/20/2024 Bipolar 2 disorder, major depressive episode [...] has also trialed lamotrigine, depakote. Caplyta caused halluciantions . 12/24/2024 Generalized anxiety disorder (ICD-10 - F41.1) 05/20/2024 Generalized anxiety disorder (ICD-10 - F41.1) 08/11/2024 Generalized anxiety disorder (ICD-10 - F41.1) 11/19/2024 Generalized anxiety disorder (ICD-10 - F41.1) 08/11/2024 Nicotine dependence, unspecified, uncomplicated (ICD-10 - F17.200) 11/19/2024 Nicotine dependence, unspecified, uncomplicated (ICD-10 - F17.200) 12/24/2024 Nicotine dependence, unspecified, uncomplicated (ICD-10 - F17.200) 05/20/2024 Other Reasons, potential benefits, potential risks, [...] May also contact the 24-hour crisis hotline ([facility]), refer to the closest emergency [...] May also contact the 24-hour crisis hotline ([facility]), refer to the closest emergency [...] May also contact the 24-hour crisis hotline ([facility]), refer to the closest emergency [...] assess appearance, affect, AIMS, or vital signs. 12/24/2024 Other Reasons, potential benefits, potential risks, interactions [...] May also contact the 24-hour crisis hotline ([facility]), refer to the closest emergency [...] AIMS, or vital signs. Plan Of Treatment No Information Insurance Providers Payer Name Payer Address Payer Phone Subscriber Number Group Number Insured Name Patient Relationship to Insured Coverage Start Date Coverage End Date [facility] [address] [address] [place] [address] [id number] Miranda Hearn Self - patient is the insured 3 4 [facility] Medicare [address] [address] [place] [address] [id number] Miranda Hearn Self - patient is the insured 5 [address] [place] [address] [id number] Miranda Hearn Self - patient is the insured 3 [employer] Medicare [address] [place] [address] [id number] Miranda Hearn Self - patient is the insured 4 4 Medical (General) History Medical History History ICD Code Chronic pain, sciatic pain, RA, HTN, HLD Surgical History Surgery Date(Month/Year) 2 tubal TOTAL HYSTERECTOMY gallbladder appendix bilateral carpel tunnel and cubital tunn el release leg debridement brown recchai
--- OUTSIDE RECORDS SUMMARY | 2025-04-06 08:27 | XMS_ITS | Clinical Summary ---
Author Organization [facility] Address [address] [place] [address] Care Team Providers Care Sap Mobility Architect Name Role Phone Unavailable Primary Care Provider Unavailabl e Social History Tobacco Use Types Packs/Day Years [...] VACCINE (60+ or ) (1 - Risk 50-74 years 1-dose series) 11/10/2011 INFLUENZA VACCINE (#1) 2024 COLORECTAL SCREENING 09/17/2029 09/18/2019 Colorectal Cancer Screening 09/17/2029 [place] [id number]
--- OUTSIDE RECORDS SUMMARY | 2025-04-06 08:27 | XMS_ITS | Clinical Summary ---
Author Organization [facility] [employer] Address [address] [place] [address] Care Team Providers Care Picture Painter Name Role Phone Marco A Gray MD Unavailable [phone] Raffy Alvarenga MD Primary Care Provider [phone] Source Comments [facility],non-[facility] Affiliates and Associated Physician Practices is amultiple site organization consisting of ambulatory clinics and hospital sitesin [place], [place], [place] and [place]. This disclosure is being madepursuant to the Care Everywhere program and may not contain all information available regarding this patient. Last updated 18.[facility] [employer] Allergies Active Allergy Reactions Criticality Noted Date Comments Atorvastatin Shortness of Breath High 01/10/2024 Cephalexin Rash Medium Ciprofloxacin Anaphylaxis High 09/10/2023 Hydromorphone Anaphylaxis High 12/03/2018 States could not breathe Fluoxetine Unknown 01/10/2024 Hydroxyprogesterone Anaphylaxis High Lamotrigine Swelling 03/02/2025 Penicillins Rash Medium Medications * Be aware that medications may not be up to date on this document. Alwaysverify current medications with the patient. losartan (COZAAR) 100 MG tablet Take 1 (one) tablet by mouth once daily Active hydrOXYzine pamoate (VISTARIL) 50 MG capsule Take 1 (one) capsule by mouth every 6 hours as needed Active LINZESS 290 MCG capsule TK 1 C PO QD IN THE MORNING 03/15/2020 Active Prolia 60 MG/ML SC injection USE UNDER THE SKIN EVERY 6 MONTHS 01/02/2024 Active vitamin D, ergocalciferol, (Drisdol) 1.25 MG (76087 UT) capsule TAKE 1 CAPSULE BY MOUTH 1 TIME EVERY WEEK Active carvedilol (Coreg) 6.25 MG tablet 1 tablet with food Orally Twice a day for 30 day(s) 04/26/2023 Active albuterol HFA (Proventil; Ventolin; Proair) 108 (90 Base) MCG/ACT inhaler Inhale 1 (one) puff by mouth 07/02/2024 Active Cholecalciferol 50 MCG (2000 UT) 1 capsule Active hydrOXYzine pamoate (Vistaril) 25 MG capsule Take 1 (one) capsule by mouth once daily 10/28/2024 Active sertraline (Zoloft) 50 MG tablet Take 1 (one) tablet by mouth once daily Active metoclopramide (Reglan) 10 MG tablet Take 1 (one) tablet by mouth 3 times daily 02/23/2025 Active leflunomide (Arava) 10 MG tablet Take 1 (one) tablet by mouth once daily 02/16/2025 05/16/20 25 Active Breztri Aerosphere 160-9-4.8 MCG/ACT inhaler Inhale 2 (two) puffs by mouth once daily 08/29/2024 Active atorvastatin (Lipitor) 40 MG tablet Take 0.5 (one-half) tablet by mouth once daily Active ALPRAZolam (Xanax) 0.5 MG tablet Take 1 (one) tablet by mouth nightly as needed INSOMNIA 01/28/2025 Active omeprazole (PriLOSEC) 40 MG capsule Take 1 (one) capsule by mouth once daily 01/01/2025 Active methylPREDNISol one (Medrol Dosepak) 4 MG tablet Take by mouth as directed Take as directed by mouth per package instructions. 21 tablet 03/02/2025 Active Active Problems Problem Noted Date Diagnosed Date History of rheumatoid arthritis 09/15/2021 Overview (09/15/2021): Unable to confirm previous RA Dx although has had presence of + anti CCP antibody and ? RF positive ( latter can be seen due to HCV). Hold Enbrel. Recheck 1 mo. Disorder of shoulder 09/14/2020 Encounters Date Type Department Care Team Description 03/02/2025 8:15 AM CDT Office Visit [facility] - Neurosurgery [address] [facility] [place] [address] Willie Higgins MD Chronic midline low back pain without sciatica (Primary Dx) 03/02/2025 Travel 02/20/2025 Travel from Last 3 Months Immunizations Immunization Administration Dates Next Due INFLUENZA VACCINE 03/01/2021 Family History Medical History Relation Name Comments CAD (Coronary Artery Disease) Father CAD (Coronary Artery Disease) Mother CVA Mother Cancer - Skin, Non Melanoma Mother Relation Name Status Comments Father Mother Social History Tobacco Use Types Packs/Day Years Used Date Smoking Tobacco: Never Smokeless Tobacco: Never Tobacco Cessation:Counseling Given: No Alcohol Use Standard Drinks/Week Comments Not Currently [...] more drinks on one occasion? 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 Oxygen Saturation 97% 03/02/2025 8:15 AM CDT Inhaled Oxygen Concentration - - Weight 60.1 kg (132 lb 6.4 oz) 03/02/2025 8:15 A M CDT Height 154.9 cm (5' 1) 03/02/2025 8:15 AM CDT Body Mass Index 25.02 03/02/2025 8:15 AM CDT Plan of Treatment Health Maintenance Due Date Last Done Comments COLOGUARD (AGES 45-75) - COL ON CA SCREENING 1961 COLON MONITORING 1961 COLONOSCOPY - COLON CA SCREENING 1961 CT COLONOGRAPHY - COLON CA SCREENING 1961 Colorectal Cancer Screening 1961 FIT - COLON CA SCREENING 1961 FLEX SIG - COLON CA SCREENING 1961 MAMMOGRAM 1961 HIV SCREENING 1976 DTAP/TDAP/TD VACCINES (1 - Tdap) 1980 PNEUMOCOCCAL VACCINE 50+ (1 of 1 - PCV) 11/10/2011 ZOSTER VACCINE (1 of 2) 11/10/2011 DEPRESSION SCREENING 05/28/2024 MEDICARE AWV CALENDAR YEAR 2024 COVID-19 VACCINE (1 - 2023-2 5 season) 2025 INFLUENZA VACCINE (#1) 2025 03/01/2021 SCREENING FOR DIABETES 03/24/2027 , 07/02/2018 Respiratory Syncytial Virus (RSV) Vaccine Pt: or over 60 yrs (1 - 1-dose 75+ series) 2036 HEPATITIS C SCREENING Completed 07/02/2018 HEPATITIS B VACCINE Aged Out No [...] this topic Medical Devices Implanted Type Area Tobacco Cloth Reclaimer Device Identifier Shelf Expiration Date Model / Serial / Lot Matrix Surgiflo Hmstat Implanted:Qty: 1 on 04/03/2024 by Willie Higgins MD at [facility] N/A: Back Jonathan Leap.it [facility] Care Syste 05/27/20251990 [id number] Lead Ns 65cm Spc Surescan 3 Clmn 16 Implanted:Qty: 1 on [facility]03[facility] N[facility]A: Back [employer] Inc 08/06/2024 [id number] / / [id number] Kit Acc .133in Injex Kavita Baso4 Biwing Implanted:Qty: 1 on 04/03/2024 by Willie Higgins MD at [facility] Right: Spine Lumbar Medtronic Inc [id number] / / [id number] Slnt Dura Duraseal Pg Trilysine Amine 5 Implanted:Qty: 1 on 04/03/2024 by Willie Higgins MD at [facility] Right: Spine Lumbar Integra Shareable [employer] Allyn 12/25/2024 [id number] / / [id number] Env Absb Med 2.7x2.5in Polyarylate Implanted:Qty: 1 on 04/03/2024 by Willie Higgins MD at [facility] Right: Spine Lumbar Med[employer] Inc 12/19/2024 [id number] / / [id number] Nrstm Impl Chrnc Pain Rs2 - [id number] Implanted:Qty: 1 on 04/03/2024 by Willie Higgins MD at [facility] Right: Spine Lumbar Med[employer]onic Inc [id number] / [id number] / Procedures Procedure Name Priority Date/Time Associated Diagnosis Comments BASIC METABOLIC PANEL (CALCIUM TOTAL) Routine 03/24/2024 9:58 AM CDT Pre-op testing HEPATITIS PANEL Routine 07/02/2018 10:50 AM 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 Rheumatoid arthritis involving multiple sites, unspecified rheumatoid factor presence High risk medications (not anticoagulants) long-term use from Last 3 Months or Most Recently Relevant to Health Maintenance Results * (ABNORMAL) BASIC METABOLIC PANEL (CALCIUM TOTAL) (03/24/2024 9:58 AM CDT) Glucose 111(H) 70 - 99 mg/dL 03/24/2024 11:11 AM CDT [facility] Sodium 140 136 - 145 mmol/L 03/24/2024 11:11 AM CDT [facility] Potassium 3.9 3.5 - 5.1 mmol/L 03/24/2024 11:11 AM CDT [facility] Chloride 108(H) 98 - 107 mmol/L 03/24/2024 11:11 AM CDT [facility] CO2 23 22 - 29 mmol/L 03/24/2024 11:11 AM CDT [facility] Calcium 9.6 8.4 - 10.4 mg/dL 03/24/2024 11:11 AM CDT [facility] Anion Gap 9 6 - 16 mmol/L 03/24/2024 11:11 AM CDT [facility] BUN 11 7 - 26 mg/dL 03/24/2024 11:11 AM CDT [facility] Creatinine 0.85 0.57 - 1.11 mg/dL 03/24/2024 11:11 AM T [facility] eGFR by CKD-EPI 77(L) >=90 mL/min/1.7 3 m2 03/24/2024 11:11 AM CDT [facility] Blood BLOOD SPECIMEN / Unknown Lab Venipuncture / Unknown 03/24/2024 9:58 AM CDT 03/24/2024 10:02 AM CDT Willie Higgins MD LAB - CHEMISTRY ORDERABL ES Final Result [facility] [address] [place] [address] * (ABNORMAL) HEPATITIS PANEL (07/02/2018 10:50 AM 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) Hepatitis A Virus Antibody IgM Negative Negative [...] BLOOD SPECIMEN / Unknown 07/02/2018 10:50 AM 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 07/02/2018 Narrative Resulting Agency Comment [facility] [place] [address] [facility] [phone] us Marco A Gray MD LAB - CHEMISTRY ORDERABLES Final Result [facility] INSURANCE BILL [address] [place] [address] from Last 3 Months or Most Recently Relevant to Health Maintenance Insurance [facility] MANAGED MEDICARE ADV MEDICAID - [place] [facility] Advance Directives * Full Code (Latest Code Status on File) Date Activated Date Inactivated Comments 08/30/2020 9:00 PM 08/31/2020 12:59 PM Care Teams Picture Painter Relationship Specialty Start Date End Date Raffy Alvarenga MD [address] [place] [id number] PCP - General Family Medicine 01/10/24 Marco A Gray MD [address] [place] [id number] Rheumatology 08/18/20
--- OUTSIDE RECORDS SUMMARY | 2025-04-06 08:27 | XMS_ITS | Clinical Summary ---
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 MEDICARE MEDICAID Care Teams Respiratory Care Faculty Relationship Specialty Start Date End Date Mario Alberto Larkin PA PCP - General PHYSICIAN AVIONICS ELECTRONICS TECHNICIAN 07/11/18
--- NOTE | 2025-04-06 15:46 | WPDPFTINT ---
PFT Procedure Performed PFT Procedure Performed Spirometry with Pre/Post Bronchodilator Plethysmography (Lung Vol) Diffusing Cap (DLCO) Flow Vol Loop PFT Interpretation This is a pulmonary function test with pre and post-bronchodilator spirometry, plethysmography and diffusing capacity. The test was performed and results interpreted in accordance with the 2019 and 2005 ATS/ERS Task Force guidelines respectively using the Global Lung Function Initiative-2012 reference equations. Patient demonstrated good effort and cooperation. Reproducibility criteria were met. The quality of the pre bronchodilator spirometry maneuver was Grade A and post bronchodilator spirometry maneuver was Grade A. Findings: Spirometry: The contour the inspiratory and expiratory flow tracing are normal. The pre bronchodilator FVC is 2.66 L, 95% predicted. The pre bronchodilator FEV1 is 2.29 L, 105% predicted. The pre bronchodilator FEV1: FVC ratio is 86%. The post bronchodilator FVC is 3.03 L, representing a 14% increase. The post bronchodilator FEV1 is 2.64 L, representing a 15% increase. The post bronchodilator FEV1: FVC ratio is 87%. Plethysmography: The total lung capacity is 4.58 L, 99% predicted. The functional residual capacity is 2.33 L, 90% predicted. The residual volume is 1.83 L, 97% predicted. Diffusing capacity: The diffusing capacity unadjusted for hemoglobin and carboxyhemoglobin is 15.5, 77% predicted. The diffusing capacity adjusted for alveolar volume is 4.05, 89% predicted. Impression: The spirometry is normal without evidence of an obstructive abnormality. There is significant improvement after inhaling a single dose of albuterol. The lung volumes are normal. The diffusing capacity is normal. There are no prior studies for comparison
== END 2025-04-06 08:19 | disposition home or self-care (01) ==
PROVIDERS: PCP Emergency Medicine; Visit Provider Emergency Medicine
DX: R06.02 Shortness of breath (principal)
CPT/HCPCS: 94060; 94726; 94729